=== PATIENT | male | born 1955 | race Caucasian/White ===

== ENCOUNTER 2019-08-12 10:28 | Outpatient (CLI) | payer BC, MEDICAID, SELFPAY ==
--- NOTE | 2019-08-12 11:00 | XR_ITS ---
WS: [id number] THORACIC SPINE TECHNIQUE: AP and lateral views are performed. HISTORY: Low back pain COMPARISON: 02/28/2016 Osteopenia. Mild RIGHT convex curvature of the thoracic spine. Endplate osteophytes and disc space na rrowing throughout. Pedicles are all identified. No fractures. XR/XR thoracic spine 3V* [id number] IMPRESSION: Moderate spondylitic changes throughout the thoracic spine. No destructive bone process. Mild progression of disease since 02/28/2016.
--- NOTE | 2019-08-12 11:30 | XR_ITS ---
WS: [id number] LATERAL LUMBAR SPINE: 3 view. Lateral radiographs are performed in upright neutral, flexion and extension to the patient's toleranc e. HISTORY: Low back pain. COMPARISON: 01/24/2019 Slight increase in lumbar lordosis with severe degenerative disc disease throughout the lumbar spine. Disc space narrowing with osteophytes and osteopenia. Mild anterior wedging of L2. Similar to the pr ior study. No progression or new fracture. L5 anterolisthesis by 7.5 mm on neutral. 6 mm on flexion a nd extension. Probably not significantly changed or unstable. Advanced facet joint arthritis at L5-S1 . XR/XR lumbar spine f/e only 28110 IMPRESSION: 1. Osteopenia with advanced spondylitic changes of the lumbar spine. 2. Grade 1 anterolisthesis of L5 is similar to prior studies. Probably no inst ability.
== END 2019-08-12 10:29 | disposition home or self-care (01) ==
LOC: RADWPI 10:40
PROVIDERS: Family Provider Internal Medicine; PCP Internal Medicine; Visit Provider Licensed Practical Nurse
DX: M54.5 Low back pain (principal); M85.88 Other specified disorders of bone density and structure, other site
CPT/HCPCS: 72072; 72120

== ENCOUNTER 2019-09-08 18:36 | Observation (INO) | payer MEDICARE, MEDICAID, SELFPAY ==
[2019-09-05 16:40] VITALS: BMI 59.8
[2019-09-08] VITALS (8 sets, daily range): BP systolic 128–157; BP diastolic 73–95; PULSE 85–90; RESP 15–20; TEMP 36.2–36.8; O2SAT 85–97
--- NOTE | 2019-09-08 12:21 | ANES.PREANE2 ---
Pre-Anesthetic Assessment Pre-Anesthetic Assessment: Height/Weight: Height 1.6 m Weight 153.314 kg Temp Pulse Resp BP Pulse Ox 97.3 F L 85 18 157/95 95 09/08/19 12:11 09/08/19 12:11 09/08/19 12:11 09/08/19 12:11 09/08/19 12:11 Preop Diagnosis: Intervertebral disc disorder with myelopathy, mid cervical region Proposed Procedure: Operation Date: 09/08/19 12:25 Proposed Procedures p Anterior Cervical Discecotmy&Fusion 2Lev 21756 cervical disc disorder with myelopathy of mid-cervical region M50.020(Not Applicable) - Alfonso Jensen MD Familial anesthetic complications: None Was Beta Jose taken within 24 hours: Yes Last intake: Intake Last Liquid Date 09/07/19 Last Liquid Time 22:00 Last Solid Date 09/07/19 Last Solid Time 22:00 Social: Social History: No alcohol and No tobacco Exam: Pre-Anes Outpt Exam: alert, oriented x 3, clear to auscultation bilaterally and regular rate & rhythm Airway: Cervical ROM: WNL MP: 4 Additional comments: edentulous Pulmonary: Pulmonary: COPD and Sleep apnea (CPAP) CV/HEM: CV/HEM: CAD, CHF (2x) and HTN : : Chronic renal Insufficiency Comments: CKD 3 Hepatic: Hepatic: None reported GI: GI: None reported Metabolic: Metabolic: DM and Morbid obesity Musc/skel: Musc/skel: Lower Back Pain and None reported Neuropsych: Neuropsych: None reported Anesthetic Plan: ASA status: 3 Anesthesia: General Risk of > 500 ml blood loss (7ml/kg in children): No PFSH Anesthesia PFSH: Social History Smoking and tobacco status: never smoked Alcohol intake: current Household members: none Marital status: Single Current occupational status: disabled History of recent travel: No Data Anesthesia Cardiac Studies: No Data to Display
[2019-09-08] MEDS: pregabalin 150 mg Capsule 300 MG PO (12:24)
[2019-09-08] MEDS: sodium chloride 0.9% 1,000 ML 30 ML IV (12:40)
[2019-09-08 12:42] LABS: Glucose Point of Care 82 mg/dL (70-110)
--- NOTE | 2019-09-08 14:29 | W.PM.OPSUD ---
Surgery/Procedure H&P Update DATE OF PROCEDURE: September 08, 2019 DATE H&P PERFORMED: 09/05/19 H&P UPDATE INFORMATION: I have reviewed H&P completed within last 30 days and H&P to be scanned into chart PREOP DIAGNOSIS: Intervertebral disc disorder with myelopathy, mid cervical region PRIMARY INDICATION FOR PROCEDURE: Pain PLANNED PROCEDURE: Operation Date: 09/08/19 12:25 Proposed Procedures: Anterior Cervical Discectomy/Fusion/Fixation, C5-C6 M50.020(Not Applicable) - Alfonso Jensen MD
--- NOTE | 2019-09-08 14:53 | PM.OP2 ---
 Brief Operative Note: Date of procedure: 09/08/19 Pre-op diagnosis: Intervertebral disc disorder with myelopathy, midcervical Post-op diagnosis: same (with instability of joint) Procedure Done: C5-C6 ACDFF Surgeon: Alfonso Jensen Estimated blood loss (mL): 50 Complications: None Post-op Plan: PACU, then can Condition: stable Disposition: PACU Coding Level of Care Code Acute Airplane And Engine Inspector for Sonny Treviño
--- NOTE | 2019-09-08 15:04 | XR_ITS ---
WS: [id number] XR cervical spine 1Vport [id number] REASON FOR EXAM: SURGERY FINDINGS: A pointer is seen at the level of the C4-C5 level. Endotracheal tube is noted in good posit ion. The pointer appears to be above the level of narrowing of the disc space C5-C6. XR/XR cervical spine 1Vport 24209 IMPRESSION: Pointer markers seen at the level of the C4-C5 level
[2019-09-08] MEDS: thrombin 5,000 unit SDV 5000 UNIT XX (15:33)
--- NOTE | 2019-09-08 15:58 | XR_ITS ---
WS: [id number] XR cervical spine 1Vport 20155 REASON FOR EXAM: SURGERY FINDINGS: Interoperative localization at C5-C6 is noted the probe is seen in the anterior aspects of the disc space. The endotracheal tube is seen in good position. XR/XR cervical spine 1Vport [id number] IMPRESSION: Interoperative localization anteriorly's C5-C6.
--- NOTE | 2019-09-08 18:21 | XR_ITS ---
WS: [id number] XR cervical spine 3V* [id number] REASON FOR EXAM: AP/LAT Post op Fusion FINDINGS: Postop AP lateral of the cervical spine. Anterior fusion is seen C5-C6 with intraspinal fus ion satisfactory position. No soft tissue abnormalities are noted. XR/XR cervical spine 3V* [id number] IMPRESSION: Satisfactory fused C5-C6 anteriorly. Intraspinal fusion also noted.
--- NOTE | 2019-09-08 18:30 | PM.OP ---
Operative Report Date of procedure: September 08, 2019 Pre-op Diagnosis: Intervertebral disc disorder with myelopathy, mid cervical region Post-op diagnosis: same (With instability of joint) Procedure Done: C5-C6 anterior cervical discectomy with osteophytectomy. C5-C6 anterior plate/screw fixation. C5-C6 placement of intervertebral prosthetic device. C5-C6 anterior fusion utilizing morselized autograft obtained from the osteophytectomy portion of the procedure. Implants: Depuy Synthes Vectra plate/screw system. ACIS ProTi Spacers. Specimens removed/disposition: C5-C6 disc Pathology: Disc fragments Surgeon: Alfonso Jensen Anesthesia: General Estimated blood loss (mL): 50 IV fluids (mL): 1,200 Urine output (mL): 400 Complications: None. Condition: stable Disposition: PACU Brief History: The patient is a 63-year-old morbidly obese male with symptomatic, radiographically confirmed cervical disc/joint disease and associated neural impingement. Imaging studies demonstrated dominant abnormalities at C5-C6. Conservative treatment measures had not provided adequate lasting symptom relief. After review of the diagnostic and treatment options with the risks/potential benefits/rationale for each, the patient requested to proceed with surgical decompression/fusion/fixation at the C5-C6 level. Procedure: After routine preoperative evaluation and informed consent were obtained, the patient was taken to the Operating Room and positioned supine on the operating table. He was placed under general endotracheal anesthesia by Anesthesia personnel. He was fit in the [place] tongs for the application of in-line cervical traction. The anterolateral neck on the left was prepared with hair clippers, and a proposed transverse skin incision was marked with a sterile skin marker. Regional anatomy and intraoperative radiography were utilized for localization purposes. The area was scrubbed with Betadine and prepped with DuraPrep. Sterile towels and drapes were applied, and an [place] surgical barrier was placed. The proposed incision site was infiltrated with 1% Xylocaine with Epinephrine. A skin incision was made and carried down into the subcutaneous tissues. The platysma was identified and divided in the direction of its fibers. A plane was dissected just medial to the carotid sheath and lateral to the midline esophagus and trachea. The prevertebral soft tissues were bluntly dissected free of the anterior margin of the cervical spine. Longus coli muscles were freed from their medial attachments, and deep self-retaining retractors were placed. Intraoperative radiography verified the desired surgical level. The C5-C6 interspace was then incised with a #11 blade. Discectomy was accomplished utilizing various curettes and pituitary rongeurs. Anterior marginal osteophytes were resected with Lempert and Kerrison rongeurs. Cartilaginous endplates were stripped free with curettes. Posterior marginal osteophytes were resected with the thin-foot plate [place] rongeurs. The medial aspects of the neural foramina were enlarged in a similar manner. Posterior longitudinal ligament was divided and resected as necessary to further the decompression. The Videostir high-speed drill with marva lele was utilized to complete the osteophytectomy and endplate preparation. At the completion of the decompression, no residual central canal or neural foraminal impingement was identified upon probing with the right angle nerve hook. Decompression was felt to be adequate, and the disc space was sized. An 8 mm ACIS ProTi lordotic/medium Spacer was chosen. The Spacer was packed with morselized autograft obtained from the osteophytectomy portions of the procedure. The Spacer was placed within the C5-C6 interspace while in-line cervical traction was applied via the [place] tongs. Spacer placement was facilitated by use of the mallet and impaction tools. Once the Spacer was in good position, a Synthes Vectra plate of the desired size was chosen. The plate was secured to the C5 and C6 vertebral bodies with bilateral 4 mm x 14 mm self-drilling screws. Final screw tightening was performed, and the screws were noted to engage the locking mechanisms within the plate at each site. The construct was inspected and found to be in good position and secure. The wound was copiously irrigated with sterile saline and antibiotic irrigation. Hemostasis was ensured with the bipolar electrocautery. Wound closure was performed in multiple layers with 2-0 Vicryl Plus simple interrupted closure of the platysma and deep dermis as separate layers. Final skin closure was performed with 4-0 Vicryl Plus in a running subcuticular pattern. Steri-Strips were applied, and a sterile dressing was placed. The patient was released from the [place] tongs and fit in a [employer] collar. He was extubated without incident. He was transferred onto the Recovery Room cart in the supine position. The patient tolerated the procedure well. All sponge, needle, and instrument counts were correct at the completion of the procedure.
[2019-09-08] MEDS: lactated ringers 1,000 ML 90 ML IV (19:43)
[2019-09-08] MEDS: levofloxacin-dextrose 5 % 750 MG/150 ML PREMIX 100 MG IV (19:44)
--- NOTE | 2019-09-08 20:20 | PM.PN ---
Subjective Subjective: Interval history: Reports tingling in fingers. Some incisional pain. Vitals/I&O/Wt Last Vital Signs Temp 97.7 F 09/08/19 18:45 Pulse 88 09/08/19 18:45 Resp 18 09/08/19 18:45 BP 128/75 09/08/19 18:45 Pulse Ox 92 09/08/19 18:45 09/08/19 09/08/19 09/08/19 06:59 14:59 22:59 Intake Total 453 / 453 Output Total 450 / 450 Balance 3 / 3 Physical Exam Const: COMMON NORMALS: no acute distress GENERAL APPEARANCE: cooperative and comfortable NUTRITIONAL APPEARANCE: obese Neck/C-Spine: COMMON NORMALS: supple GENERAL: Yes trachea midline and No anterior neck swelling CERVICAL SPINE: Yes collar present Resp: COMMON NORMALS: normal respiratory effort EFFORT & INSPECTION: Yes able to speak in complete sentences, No tachypneic and No respiratory distress Extremity: COMMON NORMALS: no clubbing, cyanosis or edema Neuro: COMMON NORMALS: moves all extremities MOTOR EXAM: 5/5 motor strength present throughout (bilateral upper extremities.) Psych: COMMON NORMALS: mental status grossly normal and speech normal ATTITUDE: Yes calm and Yes engaged ACTIVITY/MOTOR BEHAVIOR: Yes appropriate eye contact SPEECH: Yes normal speech MOOD & AFFECT: Yes euthymic mood INSIGHT: Good insight present (Psych) JUDGEMENT: Good judgement present (Psych) Skin: WOUNDS: Yes surgical site (left anterolateral surgical site dressing changed at bedside.) Details: other (no erythema or active drainage) Urinary Catheter Management^: F: Cath Placed During This Visit: yes Urinary Catheter Date of Insertion: 09/08/19 Urinary Catheter Time of Insertion: 15:00 Data Other Xray: My impression: Postop changes of recent C5-C6 ACDFF. No noted complication. A&P Assessment and plan (1) Cervical disc disorder with myelopathy of mid-cervical region: Doing well after C5-C6 ACDFF performed this afternoon. He has not yet been up OOB or eaten. Plan completion of IV antibiotic dose this PM, observation overnight, and probable discharge home in AM. Discussed with patient's daughter by phone. Status: Chronic (2) Morbid obesity with BMI of 40.0-44.9, adult: Status: Chronic Attestations Medical Necessity Statement*: Appropriate for in-hospital management after cervical spine fusion surgery earlier today. Coding Level of Care Code Acute Sammying Machine Operator for [facility] Fwd Exam Detailed Diagnoses Cervical disc disorder with myelopathy of mid-cervical region M50.020 Morbid obesity with BMI of 40.0-44.9, adult E66.01; Z68.41
[2019-09-08] MEDS: carvedilol 25 mg Tablet PO (20:58)
[2019-09-08] MEDS: HYDROcodone-acetaminophen 5-325 mg Tablet PO (20:58)
[2019-09-08 22:21] LABS: Glucose Point of Care 235 mg/dL (70-110)
[2019-09-09] VITALS (8 sets, daily range): BP systolic 120–153; BP diastolic 73–99; PULSE 86–106; RESP 18–24; TEMP 36.6–37.1; O2SAT 91–95
[2019-09-09] MEDS: ketorolac 30 mg/mL INJ 15 MG IVP (01:21)
[2019-09-09 07:18] LABS: Glucose Point of Care 239 mg/dL (70-110)
[2019-09-09] MEDS: albuterol 8 gm MDI 2 PUFF INHALATION (08:13)
[2019-09-09] MEDS: carvedilol 25 mg Tablet PO (08:18)
[2019-09-09] MEDS: atorvastatin 40 mg Tablet PO (08:18)
[2019-09-09] MEDS: cetirizine 10 mg Tablet PO (08:19)
[2019-09-09] MEDS: ascorbic acid 500 mg Tablet PO (08:19)
[2019-09-09] MEDS: spironolactone 25 mg Tablet PO (08:19)
[2019-09-09] MEDS: TORSEmide 20 mg Tablet PO (08:19)
[2019-09-09] MEDS: docusate sodium 100 mg Capsule PO (08:20)
[2019-09-09] MEDS: tamsulosin 0.4 mg Capsule PO (08:20)
[2019-09-09] MEDS: gemfibrozil 600 mg Tablet PO (08:20)
[2019-09-09] MEDS: HYDROcodone-acetaminophen 5-325 mg Tablet PO (09:30)
[2019-09-09 11:20] LABS: Glucose Point of Care 326 mg/dL (70-110)
--- NOTE | 2019-09-09 11:25 | PC.CHAP ---
Pastoral Care Encounter/Spiritual Assessment Type of Contact [] Declined needle loom setter visit [] Patient/Family/Request visit [] Outpatient visit [] Follow-up visit [] Physician referral [] Code/Alert [x] Routine visit [] Staff referral [] Actively dying [] Patient sleeping [] Family support [] [] Out of room [] Palliative care [] [x] Receiving care in room [] Pre-surgical visit [] Trauma [] Long length of stay [] ICU visit [] Other: Relational/Emotional Strength [x] Patient feels connected with others/family/visitors/staff [] Distress [] Loneliness/isolation [] Abandonment Spirituality of Patient [x] Person of Abbey [] Attends Sabianism of their Abbey [x] Believes in Prayer [] Reads Bible or Church materials [] There are Spiritual issues to be addressed Tire Manager Interventions [x] Prayer [x] Active listening [x] Non-anxious presence [x] Spiritual/emotional support [] Crisis/trauma care [x] Spiritual counseling [] Bereavement support [] Provided bereavement packet [] Provided Bible/devotional materials [] Provided toy/stuffed animal, coloring book to patient or family member [] Provided Communion [] Anointing/[place] [] Salvation [x] Completed spiritual assessment [] Other: Impact on Illness or Injury [] Angry [] Fearful [] Anxious [] Often cries [] Exhaustion [x] Unable to work [] Unable to attend druze [] Unable to walk/stand [] Unable to read [x] Unable to drive [] Unable to eat/drink [] Unable to sleep [] Unable to be with family [] Patient intubated [] Other: Summary Has Cancer is dealing with swelling in leggs, is able to take of his self, has a good attitude, terminologist recovery time and care Time spent with patient 10 mins
--- NOTE | 2019-09-09 11:30 | PM.DCS ---
Discharge Providers Date of Admission: 09/08/19 18:36 Date of Discharge: September 09, 2019 Attending Provider at Admission: Alfonso Jensen MD Attending Provider at Discharge: Alfonso Jensen MD Primary Care Provider: Bren Allen Diagnoses at Discharge Discharge Diagnosis (1) Cervical disc disorder with myelopathy of mid-cervical region: Status: Chronic (2) Morbid obesity with BMI of 40.0-44.9, adult: Status: Chronic Reason for Visit Reason for Visit: Reason For Visit: cervical disc disorder with myelopathy of mid-cerv Brief History: The patient is a 63-year-old morbidly obese male with symptomatic, radiographically confirmed cervical disc/joint disease and associated neural impingement. Imaging studies demonstrated dominant abnormalities at C5-C6. Conservative treatment measures had not provided adequate lasting symptom relief. After review of the diagnostic and treatment options with the risks/potential benefits/rationale for each, the patient requested to proceed with surgical decompression/fusion/fixation at the C5-C6 level. Hospital Course Discharge Summary: The patient underwent C5-C6 ACDFF on 09/08/2019. He tolerated the procedure well. He completed perioperative IV antibiotics, and the Physical Therapy postop spine protocol. He was ambulatory, voiding and tolerating a diabetic diet prior to discharge home on POD#1. Physical Exam Narrative: EXAM NARRATIVE: COMMON NORMALS: no acute distress GENERAL APPEARANCE: cooperative and comfortable NUTRITIONAL APPEARANCE: obese Neck/C-Spine COMMON NORMALS: supple GENERAL: Yes trachea midline and No anterior neck swelling CERVICAL SPINE: Yes collar present Resp COMMON NORMALS: normal respiratory effort EFFORT & INSPECTION: Yes able to speak in complete sentences, No tachypneic and No respiratory distress Extremity COMMON NORMALS: no clubbing, cyanosis or edema Neuro COMMON NORMALS: moves all extremities MOTOR EXAM: 5/5 motor strength present throughout (bilateral upper extremities.) Psych COMMON NORMALS: mental status grossly normal and speech normal ATTITUDE: Yes calm and Yes engaged ACTIVITY/MOTOR BEHAVIOR: Yes appropriate eye contact SPEECH: Yes normal speech MOOD & AFFECT: Yes euthymic mood INSIGHT: Good insight present (Psych) JUDGEMENT: Good judgement present (Psych) Skin WOUNDS:Left anterolateral surgical site is without erythema or active drainage. Dressing is clean/dry/intact. Urinary Catheter Management^: F: Cath Placed During This Visit: yes Urinary Catheter Date of Insertion: 09/08/19 Urinary Catheter Time of Insertion: 15:00 Discharge Data Data Completed and Pending: Completed Studies During Hospitalization Category Date Time Status XR cervical spine 1 view portable [ XR cervical spine Exams 09/08/19 15:04 Completed 1Vport [id number]] Rou mel[place] XR cervical spine 1 view portable [ XR cervical spine Exams 09/08/19 15:58 Completed 1Vport [id number]] Rou mel[place] XR cervical spine 3V* [id number] Routine Exams 09/08/19 18:21 Completed Pathology: Surgic al [PTH] Routine Pth 09/09/19 10:34 Completed Imaging^: Other Xray: Radiologist's impression: Satisfactory fused C5-C6 anteriorly. Intraspinal fusion also noted. Vitals: Last Vital Signs Temp 98.6 F 09/09/19 13:02 Pulse 86 09/09/19 13:02 Resp 18 09/09/19 13:02 BP 120/73 09/09/19 13:02 Pulse Ox 93 09/09/19 13:02 Discharge Plan Discharge Patient Disposition: Home, Self-Care Condition: Stable Prescriptions: Continued loteprednol etabonate [Lotemax] 0.5 % drops,suspension 2 drop ophthalmic (eye) BID RF: 0 tramadol 50 mg tablet 100 mg PO Q4H PRN (Reason: Pain) RF: 0 hydrocodone-acetaminophen [Abrams] 5-325 mg tablet 1 tab PO TID PRN (Reason: Pain) RF: 0 acetaminophen 500 mg capsule 500 mg PO Q4H PRN (Reason: Pain) RF: 0 nitroglycerin [Nitrostat] 0.4 mg tablet, sublingual 0.4 mg SUBLINGUAL Q5M PRN (Reason: Chest Pain) RF: 0 cetirizine 10 mg capsule 10 mg PO DAILY RF: 0 gemfibrozil 600 mg tablet 600 mg PO BID RF: 0 tamsulosin [Flomax] 0.4 mg capsule 0.4 mg PO DAILY RF: 0 atorvastatin 40 mg tablet 40 mg PO DAILY RF: 0 spironolactone 25 mg tablet 25 mg PO DAILY RF: 0 Lotemax 0.5 % drops,gel 1 drop ophthalmic (eye) QID RF: 0 fluticasone furoate 100 mcg/actuation blister with device 1 inh INHALATION DAILY RF: 0 potassium chloride 20 mEq tablet extended release 20 meq PO DAILY RF: 0 albuterol sulfate 90 mcg/actuation aerosol powdr breath activated 2 inh INHALATION Q4H MDD . PRN (Reason: COPD) RF: 0 ascorbate calcium (vitamin C) 500 mg tablet 500 mg PO DAILY RF: 0 carvedilol 25 mg tablet 25 mg PO TID RF: 0 torsemide 20 mg tablet 20 mg PO BID RF: 0 insulin regular human 100 unit/mL (3 mL) Insulin Pen See Rx Instructions .ROUTE .COMPLEX RF: 0 Victoza 3-Sandeep 0.6 mg/0.1 mL (18 mg/3 mL) Pen Injector 1.8 mg SUBCUT Q24H RF: 0 (DME) insulin U-500 syringe-needle 1/2 mL 31 gauge x 15/64 Syringe MISCELLANEOUS RF: 0 Held aspirin 81 mg tablet,delayed release (DR/EC) 81 mg PO DAILY RF: 0 Hold Instructions: Resume on 09/10/19. Discharge Orders: Discharge Order (Routine); Ordered 09/09/19 Ordered By: Alfonso Jensen Referrals: Alfonso Jensen MD [Physician] - 2 weeks (Dr. Jensen's office will call you with your appointment) Discharge Diet: Advance as tolerated and Diabetic Discharge Activity: Limit activity as instructed and As per PT/OT instructions Patient Instructions: Anterior Cervical Discectomy (DC), Weight Management (DC), Obesity (DC), Degenerative Disc Disease (DC) Activity Restrictions/Additional Instructions: Activity -Cervical fusion: Wear cervical collar 24 hours a day. Change as necessary for showering, shaving, or if it becomes soiled. -No lifting or reaching overhead. - No driving until office followup visit - No lifting/pushing/pulling over 10 pounds - Avoid twisting or bending - Walking is encouraged - Home exercise per physical therapist - You may engage in sexual intercourse at any time as long as it is comfortable for you - Check with your doctor before returning to work. Notify your doctor if you develop: - temperature of 101.5 degrees F. or higher - redness or swelling of the incision - Foul drainage - increasing pain - increasing numbness or tingling in the arms or legs - New or increasing problems with vision, balance, memory, speaking, nausea or vomiting Hygiene: - Showering is okay - No tub baths or soaking Other: Remove outer bandage 3 days after surgery. If you have paper strips, leave in place until they fall off on their own. If you have stitches, keep your incision dry until the stitches are removed. Your doctor's office is available to answer any questions from 7 AM to 5:00 PM, Sunday through at [phone]. After hours, go to the emergency room at [facility] or call 911 for assistance. Discharge Date/Time: 09/09/19 13:02 Discharge Attestations Time Spent in Discharge Care*: other (postop global) Quality Metrics Clinical Quality Measures During this hospital stay, did patient experience: None Coding Level of Care Code Acute Heat Seal Operator for Chg Fwd Diagnoses Cervical disc disorder with myelopathy of mid-cervical region M50.020 Morbid obesity with BMI of 40.0-44.9, adult E66.01; Z68.41 Comment postop global
== END 2019-09-09 13:02 | disposition home or self-care (01) ==
LOC: MEDSURG 18:36
PROVIDERS: Admitting Provider Specialist; Family Provider Internal Medicine; PCP Internal Medicine; Visit Provider Specialist
PROC: 0RB30ZZ Excision of Cervical Vertebral Disc, Open Approach (ICD-10-PCS; CPT 22551; principal; 2019-09-08 12:25)
DX: M50.022 Cervical disc disorder at C5-C6 level with myelopathy (principal); E66.01 Morbid (severe) obesity due to excess calories; Z68.43 Body mass index [BMI] 50.0-59.9, adult; J44.9 Chronic obstructive pulmonary disease, unspecified; G47.30 Sleep apnea, unspecified; I25.10 Atherosclerotic heart disease of native coronary artery without angina pectoris
CPT/HCPCS: 22551; 22853; 12345; 36416; 51702; 72020; 72040; 82962; 88304; 94640; 96365; 96372; 96375; 97110; 97161; 97760; C1713; G0378; J0330; J1100; J1815; J1885; J1956; J2001; J2405; J2704; J3010; J3370; J3490; J3535; J7030; J7050; L0172; L0174

== ENCOUNTER 2019-09-22 12:56 | Outpatient (CLI) | payer MEDICARE, MEDICAID, SELFPAY ==
--- NOTE | 2019-09-22 13:03 | XR_ITS ---
WS: [id number] Cervical spine, AP and lateral, 09/22/2019 Clinical Data: s/p cervical spinal fusion Comparison: Cervical spine, 09/08/2019 Findings: The anterior cervical disc fusion at C5 and C6 remains intact. There is an artificial disc spacer at C5-C6. There is calcification in the right side of the neck which may represent minimal car otid artery calcification. XR/XR cervical spine 3V* [id number] Impression: No change in C5-C6 anterior cervical disc fusion.
== END 2019-09-22 12:57 | disposition home or self-care (01) ==
LOC: RADWPI 13:01
PROVIDERS: Family Provider Internal Medicine; PCP Internal Medicine; Visit Provider Specialist
DX: Z98.1 Arthrodesis status (principal); M43.22 Fusion of spine, cervical region
CPT/HCPCS: 72040

== ENCOUNTER 2019-10-22 09:21 | Outpatient (CLI) | payer MEDICARE, MEDICAID, SELFPAY ==
--- NOTE | 2019-10-22 09:57 | XR_ITS ---
WS: [id number] XR cervical spine 3V* [id number] REASON FOR EXAM: S/P CERVICAL SPINE FUSION FINDINGS: Anterior fusion changes are noted C5-C6 with intraspinal fusion. The cervical thoracic junc tion appears to be normal. There is degenerate changes in the joints of [place]. XR/XR cervical spine 3V* [id number] IMPRESSION: Stable anterior fusion C5-C6 with intraspinal fusion.
== END 2019-10-22 09:22 | disposition home or self-care (01) ==
LOC: RADWPI 09:25
PROVIDERS: Family Provider Internal Medicine; PCP Internal Medicine; Visit Provider Licensed Practical Nurse
DX: Z98.1 Arthrodesis status (principal); M43.22 Fusion of spine, cervical region
CPT/HCPCS: 72040

== ENCOUNTER 2019-11-04 14:20 | Outpatient (CLI) | payer MEDICARE, MEDICAID, SELFPAY ==
--- NOTE | 2019-11-04 14:33 | CT_ITS ---
WS: [id number] CT CERVICAL SPINE HISTORY: S/P SPINAL FUSION TECHNIQUE: Contiguous 2.5 mm axial imaging performed through the entire cervical spine. Sagittal and coronal reformats also performed. All CT scans at [facility] use at least one of these do se optimization techniques: automated exposure control; mA and/or kV adjustment per patient size (inc ludes targeted exams where dose is matched to clinical indication); or iterative reconstruction. DLP: 2567.77 mGycm COMPARISON: MRI 06/19/2019. Prior radiographs 10/22/2019 Since the prior MRI examination anterior cervical fusion at C5-6 has been placed with interbody space r. Straightening of the normal cervical lordosis. There is mild disc space narrowing at C4-5 and C6-7 . No fractures. Craniocervical junction is normal. C2-C3: Diffuse osteophytic ridging with mild LEFT foraminal narrowing. C3-C4: Diffuse asymmetric osteophytic ridging greatest to the LEFT. Mild LEFT foraminal stenosis. C4-C5: Mild osteophytic ridging without significant stenosis. C5-C6: Diffuse osteophytic ridging with moderate to severe bilateral foraminal stenosis, RIGHT greate r than LEFT. C6-C7: Asymmetric osteophytic ridging, greatest to the LEFT with moderate to severe LEFT foraminal st enosis. C7-T1: Mild RIGHT foraminal stenosis. Scattered calcifications in the carotid artery. CT/CT cervical spin wo con* [id number] IMPRESSION: 1. Status post anterior cervical fusion with interbody spacer at C5-6. No comp lications. 2. Multilevel foraminal stenosis as above. Most significant at C5-6 and C6-7.
== END 2019-11-04 14:21 | disposition home or self-care (01) ==
LOC: RADWPI 14:24
PROVIDERS: Family Provider Internal Medicine; PCP Internal Medicine; Visit Provider Licensed Practical Nurse
DX: Z98.0 Intestinal bypass and anastomosis status (principal); M48.02 Spinal stenosis, cervical region
CPT/HCPCS: 72125

== ENCOUNTER → 2022-03-01 09:24 | Outpatient (BNVA) | payer MEDICARE, MEDICAID, SELFPAY | PROVIDERS: Family Provider Internal Medicine; PCP Internal Medicine; Visit Provider Thoracic Surgery (Cardiothoracic Vascular Surgery) | DX: I96 Gangrene, not elsewhere classified (principal); E11.621 Type 2 diabetes mellitus with foot ulcer; L97.512 Non-pressure chronic ulcer of other part of right foot with fat layer exposed | CPT/HCPCS: 97597; 99213 ==

== ENCOUNTER → 2022-03-08 09:19 | Outpatient (BNVA) | payer MEDICARE, MEDICAID, SELFPAY | PROVIDERS: Family Provider Internal Medicine; PCP Internal Medicine; Visit Provider Thoracic Surgery (Cardiothoracic Vascular Surgery) | DX: I96 Gangrene, not elsewhere classified (principal); E11.621 Type 2 diabetes mellitus with foot ulcer; L97.512 Non-pressure chronic ulcer of other part of right foot with fat layer exposed | CPT/HCPCS: 97597 ==

== ENCOUNTER → 2022-03-16 13:16 | Outpatient (BNVA) | payer MEDICARE, MEDICAID, SELFPAY | PROVIDERS: Family Provider Internal Medicine; PCP Internal Medicine; Visit Provider Nurse Practitioner Family | DX: I96 Gangrene, not elsewhere classified (principal); E11.621 Type 2 diabetes mellitus with foot ulcer; L97.512 Non-pressure chronic ulcer of other part of right foot with fat layer exposed | CPT/HCPCS: 11042 ==

== ENCOUNTER → 2022-03-22 13:24 | Outpatient (BNVA) | payer MEDICARE, MEDICAID, SELFPAY | PROVIDERS: Family Provider Internal Medicine; PCP Internal Medicine; Visit Provider Nurse Practitioner Family | DX: I96 Gangrene, not elsewhere classified (principal); E11.621 Type 2 diabetes mellitus with foot ulcer; L97.512 Non-pressure chronic ulcer of other part of right foot with fat layer exposed | CPT/HCPCS: 99213 ==

== ENCOUNTER → 2023-08-22 13:11 | Outpatient (BNVA) | payer MEDICARE, MEDICAID, SELFPAY | PROVIDERS: Family Provider Internal Medicine; PCP Internal Medicine; Visit Provider Thoracic Surgery (Cardiothoracic Vascular Surgery) | DX: S81.811A Laceration without foreign body, right lower leg, initial encounter (principal); S91.111A Laceration without foreign body of right great toe without damage to nail, initial encounter; S91.114A Laceration without foreign body of right lesser toe(s) without damage to nail, initial encounter; S81.812A Laceration without foreign body, left lower leg, initial encounter; L08.9 Local infection of the skin and subcutaneous tissue, unspecified; S91.312A Laceration without foreign body, left foot, initial encounter; V49.9XXA Car occupant (driver) (passenger) injured in unspecified traffic accident, initial encounter | CPT/HCPCS: 11042; 11045; 97597; 97598; 99213 ==

== ENCOUNTER → 2023-08-29 15:04 | Outpatient (BNVA) | payer MEDICARE, MEDICAID, SELFPAY | PROVIDERS: Family Provider Internal Medicine; PCP Internal Medicine; Visit Provider Thoracic Surgery (Cardiothoracic Vascular Surgery) | DX: L97.822 Non-pressure chronic ulcer of other part of left lower leg with fat layer exposed (principal); L97.422 Non-pressure chronic ulcer of left heel and midfoot with fat layer exposed; L97.811 Non-pressure chronic ulcer of other part of right lower leg limited to breakdown of skin; E11.52 Type 2 diabetes mellitus with diabetic peripheral angiopathy with gangrene; E11.622 Type 2 diabetes mellitus with other skin ulcer; L97.511 Non-pressure chronic ulcer of other part of right foot limited to breakdown of skin | CPT/HCPCS: 11042; 97597; 97598 ==

== ENCOUNTER → 2023-09-05 14:26 | Outpatient (BNVA) | payer MEDICARE, SELFPAY | PROVIDERS: Family Provider Internal Medicine; PCP Internal Medicine; Visit Provider Thoracic Surgery (Cardiothoracic Vascular Surgery) | DX: I96 Gangrene, not elsewhere classified (principal); L97.821 Non-pressure chronic ulcer of other part of left lower leg limited to breakdown of skin; L97.421 Non-pressure chronic ulcer of left heel and midfoot limited to breakdown of skin; L97.811 Non-pressure chronic ulcer of other part of right lower leg limited to breakdown of skin; E11.52 Type 2 diabetes mellitus with diabetic peripheral angiopathy with gangrene; E11.621 Type 2 diabetes mellitus with foot ulcer; L97.511 Non-pressure chronic ulcer of other part of right foot limited to breakdown of skin | CPT/HCPCS: 97597; 97598; A6197; A6253 ==

== ENCOUNTER → 2023-09-12 14:48 | Outpatient (BNVA) | payer MEDICARE, MEDICAID, SELFPAY | PROVIDERS: Family Provider Internal Medicine; PCP Internal Medicine; Visit Provider Thoracic Surgery (Cardiothoracic Vascular Surgery) | DX: I96 Gangrene, not elsewhere classified (principal); L97.812 Non-pressure chronic ulcer of other part of right lower leg with fat layer exposed; L97.821 Non-pressure chronic ulcer of other part of left lower leg limited to breakdown of skin; E11.52 Type 2 diabetes mellitus with diabetic peripheral angiopathy with gangrene; E11.621 Type 2 diabetes mellitus with foot ulcer; L97.511 Non-pressure chronic ulcer of other part of right foot limited to breakdown of skin | CPT/HCPCS: 11042; 11045; 97597; 97598; A6197; A6253 ==

== ENCOUNTER → 2023-09-19 14:23 | Outpatient (BNVA) | payer MEDICARE, MEDICAID, SELFPAY | PROVIDERS: Family Provider Internal Medicine; PCP Internal Medicine; Visit Provider Thoracic Surgery (Cardiothoracic Vascular Surgery) | DX: I96 Gangrene, not elsewhere classified (principal); L97.821 Non-pressure chronic ulcer of other part of left lower leg limited to breakdown of skin; L97.811 Non-pressure chronic ulcer of other part of right lower leg limited to breakdown of skin; L97.511 Non-pressure chronic ulcer of other part of right foot limited to breakdown of skin | CPT/HCPCS: 97597; 97598; A6197; A6252 ==

== ENCOUNTER → 2023-09-26 14:52 | Outpatient (BNVA) | payer MEDICARE, MEDICAID, SELFPAY | PROVIDERS: Family Provider Internal Medicine; PCP Internal Medicine; Visit Provider Thoracic Surgery (Cardiothoracic Vascular Surgery) | DX: I96 Gangrene, not elsewhere classified (principal); L97.821 Non-pressure chronic ulcer of other part of left lower leg limited to breakdown of skin; L97.811 Non-pressure chronic ulcer of other part of right lower leg limited to breakdown of skin; E11.52 Type 2 diabetes mellitus with diabetic peripheral angiopathy with gangrene; E11.621 Type 2 diabetes mellitus with foot ulcer; L97.511 Non-pressure chronic ulcer of other part of right foot limited to breakdown of skin | CPT/HCPCS: 97597; 97598 ==

== ENCOUNTER → 2023-10-09 15:17 | Outpatient (BNVA) | payer MEDICARE, MEDICAID, SELFPAY | PROVIDERS: Family Provider Internal Medicine; PCP Internal Medicine; Visit Provider Thoracic Surgery (Cardiothoracic Vascular Surgery) | DX: L97.811 Non-pressure chronic ulcer of other part of right lower leg limited to breakdown of skin (principal); L97.821 Non-pressure chronic ulcer of other part of left lower leg limited to breakdown of skin; E11.52 Type 2 diabetes mellitus with diabetic peripheral angiopathy with gangrene; E11.621 Type 2 diabetes mellitus with foot ulcer; L97.511 Non-pressure chronic ulcer of other part of right foot limited to breakdown of skin | CPT/HCPCS: 97597; 97598; A6253 ==

== ENCOUNTER → 2023-10-16 14:15 | Outpatient (BNVA) | payer MEDICARE, MEDICAID, SELFPAY | PROVIDERS: Family Provider Internal Medicine; PCP Internal Medicine; Visit Provider Thoracic Surgery (Cardiothoracic Vascular Surgery) | DX: L97.812 Non-pressure chronic ulcer of other part of right lower leg with fat layer exposed (principal); L97.821 Non-pressure chronic ulcer of other part of left lower leg limited to breakdown of skin; E11.52 Type 2 diabetes mellitus with diabetic peripheral angiopathy with gangrene; E11.621 Type 2 diabetes mellitus with foot ulcer; L97.521 Non-pressure chronic ulcer of other part of left foot limited to breakdown of skin | CPT/HCPCS: 11042; 97597; 97598; A6253 ==

== ENCOUNTER → 2023-10-23 14:55 | Outpatient (BNVA) | payer MEDICARE, MEDICAID, SELFPAY | PROVIDERS: Family Provider Internal Medicine; PCP Internal Medicine; Visit Provider Thoracic Surgery (Cardiothoracic Vascular Surgery) | DX: L97.821 Non-pressure chronic ulcer of other part of left lower leg limited to breakdown of skin (principal); L97.911 Non-pressure chronic ulcer of unspecified part of right lower leg limited to breakdown of skin; E11.52 Type 2 diabetes mellitus with diabetic peripheral angiopathy with gangrene; E11.621 Type 2 diabetes mellitus with foot ulcer; L97.511 Non-pressure chronic ulcer of other part of right foot limited to breakdown of skin | CPT/HCPCS: 97597; 97598 ==

== ENCOUNTER → 2023-11-01 13:43 | Outpatient (BNVA) | payer MEDICARE, MEDICAID, SELFPAY | PROVIDERS: Family Provider Internal Medicine; PCP Internal Medicine; Visit Provider Thoracic Surgery (Cardiothoracic Vascular Surgery) | DX: I96 Gangrene, not elsewhere classified (principal); L97.821 Non-pressure chronic ulcer of other part of left lower leg limited to breakdown of skin; L97.811 Non-pressure chronic ulcer of other part of right lower leg limited to breakdown of skin; L97.511 Non-pressure chronic ulcer of other part of right foot limited to breakdown of skin; Z09 Encounter for follow-up examination after completed treatment for conditions other than malignant neoplasm | CPT/HCPCS: 97597; 97598; A6253 ==

== ENCOUNTER → 2023-11-15 13:16 | Outpatient (BNVA) | payer MEDICARE, MEDICAID, SELFPAY | PROVIDERS: Family Provider Internal Medicine; PCP Internal Medicine; Visit Provider Thoracic Surgery (Cardiothoracic Vascular Surgery) | DX: L97.821 Non-pressure chronic ulcer of other part of left lower leg limited to breakdown of skin (principal); L97.811 Non-pressure chronic ulcer of other part of right lower leg limited to breakdown of skin; E11.52 Type 2 diabetes mellitus with diabetic peripheral angiopathy with gangrene; E11.621 Type 2 diabetes mellitus with foot ulcer; L97.521 Non-pressure chronic ulcer of other part of left foot limited to breakdown of skin | CPT/HCPCS: 97597; 97598; A6197; A6253 ==

== ENCOUNTER → 2023-11-22 13:25 | Outpatient (BNVA) | payer MEDICARE, MEDICAID, SELFPAY | PROVIDERS: Family Provider Internal Medicine; PCP Internal Medicine; Visit Provider Thoracic Surgery (Cardiothoracic Vascular Surgery) | DX: I96 Gangrene, not elsewhere classified (principal); L97.821 Non-pressure chronic ulcer of other part of left lower leg limited to breakdown of skin; L97.811 Non-pressure chronic ulcer of other part of right lower leg limited to breakdown of skin | CPT/HCPCS: 97597; 97598; A6197; A6252; A6253 ==

== ENCOUNTER → 2023-11-29 14:50 | Outpatient (BNVA) | payer MEDICARE, MEDICAID, SELFPAY | PROVIDERS: Family Provider Internal Medicine; PCP Internal Medicine; Visit Provider Thoracic Surgery (Cardiothoracic Vascular Surgery) | DX: I96 Gangrene, not elsewhere classified (principal); L97.821 Non-pressure chronic ulcer of other part of left lower leg limited to breakdown of skin; L97.811 Non-pressure chronic ulcer of other part of right lower leg limited to breakdown of skin; E11.52 Type 2 diabetes mellitus with diabetic peripheral angiopathy with gangrene; E11.621 Type 2 diabetes mellitus with foot ulcer; L97.521 Non-pressure chronic ulcer of other part of left foot limited to breakdown of skin | CPT/HCPCS: 97597; 97598; A6197; A6252 ==

== ENCOUNTER → 2023-12-06 13:55 | Outpatient (BNVA) | payer MEDICARE, MEDICAID, SELFPAY | PROVIDERS: Family Provider Internal Medicine; PCP Internal Medicine; Visit Provider Thoracic Surgery (Cardiothoracic Vascular Surgery) | DX: I96 Gangrene, not elsewhere classified (principal); S81.812D Laceration without foreign body, left lower leg, subsequent encounter; S81.811D Laceration without foreign body, right lower leg, subsequent encounter; V49.50XD Passenger injured in collision with unspecified motor vehicles in traffic accident, subsequent encounter; E11.621 Type 2 diabetes mellitus with foot ulcer; L97.511 Non-pressure chronic ulcer of other part of right foot limited to breakdown of skin | CPT/HCPCS: 97597; 97598; A6197; A6251; A6253 ==

== ENCOUNTER → 2023-12-13 13:56 | Outpatient (BNVA) | payer MEDICARE, MEDICAID, SELFPAY | PROVIDERS: Family Provider Internal Medicine; PCP Internal Medicine; Visit Provider Thoracic Surgery (Cardiothoracic Vascular Surgery) | DX: E11.52 Type 2 diabetes mellitus with diabetic peripheral angiopathy with gangrene (principal); E11.622 Type 2 diabetes mellitus with other skin ulcer; L97.821 Non-pressure chronic ulcer of other part of left lower leg limited to breakdown of skin; L97.811 Non-pressure chronic ulcer of other part of right lower leg limited to breakdown of skin; E11.621 Type 2 diabetes mellitus with foot ulcer; L97.511 Non-pressure chronic ulcer of other part of right foot limited to breakdown of skin | CPT/HCPCS: 97597; 97598; A6197; A6252; A6253 ==

== ENCOUNTER → 2023-12-17 15:42 | Outpatient (BNVA) | payer MEDICARE, MEDICAID, SELFPAY | PROVIDERS: Family Provider Internal Medicine; PCP Internal Medicine; Visit Provider Thoracic Surgery (Cardiothoracic Vascular Surgery) | DX: I96 Gangrene, not elsewhere classified (principal); S81.812D Laceration without foreign body, left lower leg, subsequent encounter; S81.811D Laceration without foreign body, right lower leg, subsequent encounter; V59.5 Passenger in pick-up truck or van injured in collision with other and unspecified motor vehicles in traffic accident; E11.52 Type 2 diabetes mellitus with diabetic peripheral angiopathy with gangrene; E11.621 Type 2 diabetes mellitus with foot ulcer; L97.521 Non-pressure chronic ulcer of other part of left foot limited to breakdown of skin | CPT/HCPCS: 97597; 97598; A6197; A6252; A6253 ==

== ENCOUNTER → 2023-12-31 14:34 | Outpatient (BNVA) | payer MEDICARE, MEDICAID, SELFPAY | PROVIDERS: Family Provider Internal Medicine; PCP Internal Medicine; Visit Provider Thoracic Surgery (Cardiothoracic Vascular Surgery) | DX: E11.52 Type 2 diabetes mellitus with diabetic peripheral angiopathy with gangrene (principal); E11.621 Type 2 diabetes mellitus with foot ulcer; L97.521 Non-pressure chronic ulcer of other part of left foot limited to breakdown of skin; S81.811D Laceration without foreign body, right lower leg, subsequent encounter; S81.812D Laceration without foreign body, left lower leg, subsequent encounter; V59.5 Passenger in pick-up truck or van injured in collision with other and unspecified motor vehicles in traffic accident; S90.821D Blister (nonthermal), right foot, subsequent encounter; X58.XXXD Exposure to other specified factors, subsequent encounter | CPT/HCPCS: 97597; 97598; A6197; A6251; A6252; A6253 ==

== ENCOUNTER → 2024-01-15 13:00 | Outpatient (BNVA) | payer MEDICARE, MEDICAID, SELFPAY | PROVIDERS: Family Provider Internal Medicine; PCP Internal Medicine; Visit Provider Thoracic Surgery (Cardiothoracic Vascular Surgery) | DX: E11.52 Type 2 diabetes mellitus with diabetic peripheral angiopathy with gangrene (principal); E11.621 Type 2 diabetes mellitus with foot ulcer; L89.612 Pressure ulcer of right heel, stage 2; L97.511 Non-pressure chronic ulcer of other part of right foot limited to breakdown of skin; I87.2 Venous insufficiency (chronic) (peripheral); L97.821 Non-pressure chronic ulcer of other part of left lower leg limited to breakdown of skin; L97.811 Non-pressure chronic ulcer of other part of right lower leg limited to breakdown of skin | CPT/HCPCS: 97597; 97598; A6197; A6252 ==

== ENCOUNTER → 2024-01-22 10:58 | Outpatient (BNVA) | payer MEDICARE, MEDICAID, SELFPAY | PROVIDERS: Family Provider Internal Medicine; PCP Internal Medicine; Visit Provider Thoracic Surgery (Cardiothoracic Vascular Surgery) | DX: E11.52 Type 2 diabetes mellitus with diabetic peripheral angiopathy with gangrene (principal); E11.621 Type 2 diabetes mellitus with foot ulcer; L89.612 Pressure ulcer of right heel, stage 2; L97.511 Non-pressure chronic ulcer of other part of right foot limited to breakdown of skin; I87.2 Venous insufficiency (chronic) (peripheral); L97.821 Non-pressure chronic ulcer of other part of left lower leg limited to breakdown of skin; L97.811 Non-pressure chronic ulcer of other part of right lower leg limited to breakdown of skin | CPT/HCPCS: 97597; 97598 ==

== ENCOUNTER → 2024-01-29 10:33 | Outpatient (BNVA) | payer MEDICARE, MEDICAID, SELFPAY | PROVIDERS: Family Provider Internal Medicine; PCP Internal Medicine; Visit Provider Thoracic Surgery (Cardiothoracic Vascular Surgery) | DX: E11.52 Type 2 diabetes mellitus with diabetic peripheral angiopathy with gangrene (principal); E11.621 Type 2 diabetes mellitus with foot ulcer; L97.412 Non-pressure chronic ulcer of right heel and midfoot with fat layer exposed; L97.511 Non-pressure chronic ulcer of other part of right foot limited to breakdown of skin; I87.2 Venous insufficiency (chronic) (peripheral); E11.622 Type 2 diabetes mellitus with other skin ulcer; L97.822 Non-pressure chronic ulcer of other part of left lower leg with fat layer exposed; L97.811 Non-pressure chronic ulcer of other part of right lower leg limited to breakdown of skin | CPT/HCPCS: 97597; 97598; A6252 ==

== ENCOUNTER 2024-02-05 06:00 | Outpatient (RCR) | payer MEDICARE, MEDICAID, SELFPAY | END 2024-03-06 23:59 | disposition home or self-care (01) | LOC: SPT 06:00 | PROVIDERS: Visit Provider Thoracic Surgery (Cardiothoracic Vascular Surgery) | DX: I89.0 Lymphedema, not elsewhere classified (principal) | CPT/HCPCS: 29581; 97162 ==

== ENCOUNTER → 2024-02-05 13:03 | Outpatient (BNVA) | payer MEDICARE, MEDICAID, SELFPAY | PROVIDERS: Family Provider Internal Medicine; PCP Internal Medicine; Visit Provider Thoracic Surgery (Cardiothoracic Vascular Surgery) | DX: E11.52 Type 2 diabetes mellitus with diabetic peripheral angiopathy with gangrene (principal); E11.621 Type 2 diabetes mellitus with foot ulcer; L89.612 Pressure ulcer of right heel, stage 2; L97.511 Non-pressure chronic ulcer of other part of right foot limited to breakdown of skin; I87.2 Venous insufficiency (chronic) (peripheral); E11.622 Type 2 diabetes mellitus with other skin ulcer; L97.821 Non-pressure chronic ulcer of other part of left lower leg limited to breakdown of skin; L97.811 Non-pressure chronic ulcer of other part of right lower leg limited to breakdown of skin | CPT/HCPCS: 11042; 11045; 87070; 87176; 87205; 97597; 97598; A6197 ==

== ENCOUNTER → 2024-02-12 13:23 | Outpatient (BNVA) | payer MEDICARE, MEDICAID, SELFPAY | PROVIDERS: Family Provider Internal Medicine; PCP Internal Medicine; Visit Provider Thoracic Surgery (Cardiothoracic Vascular Surgery) | DX: E11.52 Type 2 diabetes mellitus with diabetic peripheral angiopathy with gangrene (principal); E11.621 Type 2 diabetes mellitus with foot ulcer; L89.612 Pressure ulcer of right heel, stage 2; L97.511 Non-pressure chronic ulcer of other part of right foot limited to breakdown of skin; I87.2 Venous insufficiency (chronic) (peripheral); E11.622 Type 2 diabetes mellitus with other skin ulcer; L97.821 Non-pressure chronic ulcer of other part of left lower leg limited to breakdown of skin; L97.811 Non-pressure chronic ulcer of other part of right lower leg limited to breakdown of skin | CPT/HCPCS: 97597; 97598; A6197 ==

== ENCOUNTER → 2024-02-19 10:46 | Outpatient (BNVA) | payer MEDICARE, MEDICAID, SELFPAY | PROVIDERS: Family Provider Internal Medicine; PCP Internal Medicine; Visit Provider Thoracic Surgery (Cardiothoracic Vascular Surgery) | DX: E11.52 Type 2 diabetes mellitus with diabetic peripheral angiopathy with gangrene (principal); E11.621 Type 2 diabetes mellitus with foot ulcer; L89.612 Pressure ulcer of right heel, stage 2; L97.511 Non-pressure chronic ulcer of other part of right foot limited to breakdown of skin; I87.2 Venous insufficiency (chronic) (peripheral); E11.622 Type 2 diabetes mellitus with other skin ulcer; L97.821 Non-pressure chronic ulcer of other part of left lower leg limited to breakdown of skin; L97.811 Non-pressure chronic ulcer of other part of right lower leg limited to breakdown of skin | CPT/HCPCS: 97597; 97598; A6197; A6252 ==

== ENCOUNTER → 2024-02-26 10:18 | Outpatient (BNVA) | payer MEDICARE, MEDICAID, SELFPAY | PROVIDERS: Family Provider Internal Medicine; PCP Internal Medicine; Visit Provider Thoracic Surgery (Cardiothoracic Vascular Surgery) | DX: E11.52 Type 2 diabetes mellitus with diabetic peripheral angiopathy with gangrene (principal); E11.621 Type 2 diabetes mellitus with foot ulcer; L97.411 Non-pressure chronic ulcer of right heel and midfoot limited to breakdown of skin; L97.511 Non-pressure chronic ulcer of other part of right foot limited to breakdown of skin; E11.622 Type 2 diabetes mellitus with other skin ulcer; L97.812 Non-pressure chronic ulcer of other part of right lower leg with fat layer exposed; L97.821 Non-pressure chronic ulcer of other part of left lower leg limited to breakdown of skin | CPT/HCPCS: 97597; 97598; A6197; A6252 ==

== ENCOUNTER → 2024-03-04 10:28 | Outpatient (BNVA) | payer MEDICARE, MEDICAID, SELFPAY | PROVIDERS: Visit Provider Thoracic Surgery (Cardiothoracic Vascular Surgery) | DX: E11.52 Type 2 diabetes mellitus with diabetic peripheral angiopathy with gangrene (principal); E11.621 Type 2 diabetes mellitus with foot ulcer; L89.612 Pressure ulcer of right heel, stage 2; L97.511 Non-pressure chronic ulcer of other part of right foot limited to breakdown of skin; E11.622 Type 2 diabetes mellitus with other skin ulcer; L97.821 Non-pressure chronic ulcer of other part of left lower leg limited to breakdown of skin; L97.811 Non-pressure chronic ulcer of other part of right lower leg limited to breakdown of skin | CPT/HCPCS: 97597; 97598; A6197 ==

== ENCOUNTER → 2024-03-11 10:41 | Outpatient (BNVA) | payer MEDICARE, MEDICAID, SELFPAY | PROVIDERS: Visit Provider Thoracic Surgery (Cardiothoracic Vascular Surgery) | DX: E11.52 Type 2 diabetes mellitus with diabetic peripheral angiopathy with gangrene (principal); E11.621 Type 2 diabetes mellitus with foot ulcer; L89.612 Pressure ulcer of right heel, stage 2; L97.511 Non-pressure chronic ulcer of other part of right foot limited to breakdown of skin; E11.622 Type 2 diabetes mellitus with other skin ulcer; L97.821 Non-pressure chronic ulcer of other part of left lower leg limited to breakdown of skin; L97.822 Non-pressure chronic ulcer of other part of left lower leg with fat layer exposed | CPT/HCPCS: 11042; 97597; 97598; A6197; A6251 ==

== ENCOUNTER → 2024-03-18 10:58 | Outpatient (BNVA) | payer MEDICARE, MEDICAID, SELFPAY | PROVIDERS: Visit Provider Thoracic Surgery (Cardiothoracic Vascular Surgery) | DX: E11.52 Type 2 diabetes mellitus with diabetic peripheral angiopathy with gangrene (principal); E11.621 Type 2 diabetes mellitus with foot ulcer; L89.612 Pressure ulcer of right heel, stage 2; L97.511 Non-pressure chronic ulcer of other part of right foot limited to breakdown of skin; E11.622 Type 2 diabetes mellitus with other skin ulcer; L97.821 Non-pressure chronic ulcer of other part of left lower leg limited to breakdown of skin | CPT/HCPCS: 97597; 97598; A6252; A6253 ==

== ENCOUNTER → 2024-03-25 10:38 | Outpatient (BNVA) | payer MEDICARE, MEDICAID, SELFPAY | PROVIDERS: Visit Provider Thoracic Surgery (Cardiothoracic Vascular Surgery) | DX: E11.52 Type 2 diabetes mellitus with diabetic peripheral angiopathy with gangrene (principal); E11.621 Type 2 diabetes mellitus with foot ulcer; L89.612 Pressure ulcer of right heel, stage 2; L97.511 Non-pressure chronic ulcer of other part of right foot limited to breakdown of skin; E11.622 Type 2 diabetes mellitus with other skin ulcer; L97.821 Non-pressure chronic ulcer of other part of left lower leg limited to breakdown of skin; L97.811 Non-pressure chronic ulcer of other part of right lower leg limited to breakdown of skin | CPT/HCPCS: 97597; 97598; A6197; A6252 ==

== ENCOUNTER → 2024-04-08 10:07 | Outpatient (BNVA) | payer MEDICARE, MEDICAID, SELFPAY | PROVIDERS: Visit Provider Thoracic Surgery (Cardiothoracic Vascular Surgery) | DX: E11.621 Type 2 diabetes mellitus with foot ulcer (principal); L89.613 Pressure ulcer of right heel, stage 3; E11.622 Type 2 diabetes mellitus with other skin ulcer; L97.812 Non-pressure chronic ulcer of other part of right lower leg with fat layer exposed; L97.822 Non-pressure chronic ulcer of other part of left lower leg with fat layer exposed | CPT/HCPCS: 11042; 11045; 97597; A6197; A6251; A6252 ==

== ENCOUNTER → 2024-04-10 14:19 | Outpatient (BNVA) | payer MEDICARE, MEDICAID, SELFPAY | PROVIDERS: Visit Provider Thoracic Surgery (Cardiothoracic Vascular Surgery) | DX: E11.621 Type 2 diabetes mellitus with foot ulcer (principal); L89.613 Pressure ulcer of right heel, stage 3; E11.622 Type 2 diabetes mellitus with other skin ulcer; L97.812 Non-pressure chronic ulcer of other part of right lower leg with fat layer exposed; L97.822 Non-pressure chronic ulcer of other part of left lower leg with fat layer exposed | CPT/HCPCS: 29581; A6197; A6253 ==

== ENCOUNTER → 2024-04-15 10:01 | Outpatient (BNVA) | payer MEDICARE, MEDICAID, SELFPAY | PROVIDERS: Visit Provider Thoracic Surgery (Cardiothoracic Vascular Surgery) | DX: E11.52 Type 2 diabetes mellitus with diabetic peripheral angiopathy with gangrene (principal); E11.622 Type 2 diabetes mellitus with other skin ulcer; L97.811 Non-pressure chronic ulcer of other part of right lower leg limited to breakdown of skin; E11.621 Type 2 diabetes mellitus with foot ulcer; L89.612 Pressure ulcer of right heel, stage 2; L97.512 Non-pressure chronic ulcer of other part of right foot with fat layer exposed | CPT/HCPCS: 11042; 11045; 97597; A6197; A6251 ==

== ENCOUNTER → 2024-04-18 10:45 | Outpatient (BNVA) | payer MEDICARE, MEDICAID, SELFPAY | PROVIDERS: Visit Provider Thoracic Surgery (Cardiothoracic Vascular Surgery) | DX: E11.52 Type 2 diabetes mellitus with diabetic peripheral angiopathy with gangrene (principal); E11.621 Type 2 diabetes mellitus with foot ulcer; L89.612 Pressure ulcer of right heel, stage 2; L97.511 Non-pressure chronic ulcer of other part of right foot limited to breakdown of skin; E11.622 Type 2 diabetes mellitus with other skin ulcer; L97.811 Non-pressure chronic ulcer of other part of right lower leg limited to breakdown of skin | CPT/HCPCS: 99213; A6197; A6252 ==

== ENCOUNTER → 2024-04-22 09:57 | Outpatient (BNVA) | payer MEDICARE, MEDICAID, SELFPAY | PROVIDERS: Visit Provider Thoracic Surgery (Cardiothoracic Vascular Surgery) | DX: E11.52 Type 2 diabetes mellitus with diabetic peripheral angiopathy with gangrene (principal); E11.621 Type 2 diabetes mellitus with foot ulcer; L97.411 Non-pressure chronic ulcer of right heel and midfoot limited to breakdown of skin; L97.511 Non-pressure chronic ulcer of other part of right foot limited to breakdown of skin; E11.622 Type 2 diabetes mellitus with other skin ulcer; L97.812 Non-pressure chronic ulcer of other part of right lower leg with fat layer exposed | CPT/HCPCS: 11042; 97597; 97598; A6197 ==

== ENCOUNTER → 2024-04-25 10:35 | Outpatient (BNVA) | payer MEDICARE, MEDICAID, SELFPAY | PROVIDERS: Visit Provider Thoracic Surgery (Cardiothoracic Vascular Surgery) | DX: E11.621 Type 2 diabetes mellitus with foot ulcer (principal); L89.613 Pressure ulcer of right heel, stage 3; E11.622 Type 2 diabetes mellitus with other skin ulcer; L97.812 Non-pressure chronic ulcer of other part of right lower leg with fat layer exposed; R60.9 Edema, unspecified; L03.115 Cellulitis of right lower limb | CPT/HCPCS: 99213; A6197; A6252 ==

== ENCOUNTER → 2024-04-28 13:33 | Outpatient (BNVA) | payer MEDICARE, MEDICAID, SELFPAY | PROVIDERS: Visit Provider Thoracic Surgery (Cardiothoracic Vascular Surgery) | DX: E11.52 Type 2 diabetes mellitus with diabetic peripheral angiopathy with gangrene (principal); E11.621 Type 2 diabetes mellitus with foot ulcer; L89.612 Pressure ulcer of right heel, stage 2; L97.511 Non-pressure chronic ulcer of other part of right foot limited to breakdown of skin; E11.622 Type 2 diabetes mellitus with other skin ulcer; L97.811 Non-pressure chronic ulcer of other part of right lower leg limited to breakdown of skin | CPT/HCPCS: 11042; 11045; 97597 ==

== ENCOUNTER → 2024-05-02 08:39 | Outpatient (BNVA) | payer MEDICARE, MEDICAID, SELFPAY | PROVIDERS: Visit Provider Thoracic Surgery (Cardiothoracic Vascular Surgery) | DX: E11.621 Type 2 diabetes mellitus with foot ulcer (principal); L89.613 Pressure ulcer of right heel, stage 3; E11.622 Type 2 diabetes mellitus with other skin ulcer; L97.812 Non-pressure chronic ulcer of other part of right lower leg with fat layer exposed; R60.9 Edema, unspecified; L03.115 Cellulitis of right lower limb | CPT/HCPCS: 29581; A6197; A6252 ==

== ENCOUNTER → 2024-05-06 14:20 | Outpatient (BNVA) | payer MEDICARE, MEDICAID, SELFPAY | PROVIDERS: Visit Provider Thoracic Surgery (Cardiothoracic Vascular Surgery) | DX: E11.52 Type 2 diabetes mellitus with diabetic peripheral angiopathy with gangrene (principal); E11.621 Type 2 diabetes mellitus with foot ulcer; L97.412 Non-pressure chronic ulcer of right heel and midfoot with fat layer exposed; L97.511 Non-pressure chronic ulcer of other part of right foot limited to breakdown of skin; E11.622 Type 2 diabetes mellitus with other skin ulcer; L97.811 Non-pressure chronic ulcer of other part of right lower leg limited to breakdown of skin | CPT/HCPCS: 11042; 97597; 97598; A6197; A6252; A6253 ==

== ENCOUNTER → 2024-05-09 09:27 | Outpatient (BNVA) | payer MEDICARE, MEDICAID, SELFPAY | PROVIDERS: Visit Provider Thoracic Surgery (Cardiothoracic Vascular Surgery) | DX: E11.621 Type 2 diabetes mellitus with foot ulcer (principal); L89.613 Pressure ulcer of right heel, stage 3; E11.622 Type 2 diabetes mellitus with other skin ulcer; L97.812 Non-pressure chronic ulcer of other part of right lower leg with fat layer exposed; R60.9 Edema, unspecified; L03.115 Cellulitis of right lower limb | CPT/HCPCS: 99213; A6251; A6253 ==

== ENCOUNTER → 2024-05-14 13:24 | Outpatient (BNVA) | payer MEDICARE, MEDICAID, SELFPAY | PROVIDERS: Visit Provider Thoracic Surgery (Cardiothoracic Vascular Surgery) | DX: E11.52 Type 2 diabetes mellitus with diabetic peripheral angiopathy with gangrene (principal); E11.621 Type 2 diabetes mellitus with foot ulcer; L89.612 Pressure ulcer of right heel, stage 2; L97.511 Non-pressure chronic ulcer of other part of right foot limited to breakdown of skin; E11.622 Type 2 diabetes mellitus with other skin ulcer; L97.811 Non-pressure chronic ulcer of other part of right lower leg limited to breakdown of skin | CPT/HCPCS: 97597; 97598; A6197; A6251; A6252; A6253 ==

== ENCOUNTER → 2024-05-21 10:21 | Outpatient (BNVA) | payer MEDICARE, MEDICAID, SELFPAY | PROVIDERS: Visit Provider Thoracic Surgery (Cardiothoracic Vascular Surgery) | DX: E11.52 Type 2 diabetes mellitus with diabetic peripheral angiopathy with gangrene (principal); E11.621 Type 2 diabetes mellitus with foot ulcer; L89.612 Pressure ulcer of right heel, stage 2; L97.511 Non-pressure chronic ulcer of other part of right foot limited to breakdown of skin; E11.622 Type 2 diabetes mellitus with other skin ulcer; L97.811 Non-pressure chronic ulcer of other part of right lower leg limited to breakdown of skin | CPT/HCPCS: 29581; 97597; 97598; A6197; A6251; A6252; A6253 ==

== ENCOUNTER → 2024-05-23 09:05 | Outpatient (BNVA) | payer MEDICARE, MEDICAID, SELFPAY | PROVIDERS: Visit Provider Thoracic Surgery (Cardiothoracic Vascular Surgery) | DX: E11.52 Type 2 diabetes mellitus with diabetic peripheral angiopathy with gangrene (principal); E11.621 Type 2 diabetes mellitus with foot ulcer; L89.622 Pressure ulcer of left heel, stage 2; L97.511 Non-pressure chronic ulcer of other part of right foot limited to breakdown of skin; E11.622 Type 2 diabetes mellitus with other skin ulcer; L97.811 Non-pressure chronic ulcer of other part of right lower leg limited to breakdown of skin | CPT/HCPCS: 29581; A6197; A6251 ==

== ENCOUNTER → 2024-05-26 11:22 | Outpatient (BNVA) | payer MEDICARE, MEDICAID, SELFPAY | PROVIDERS: Visit Provider Thoracic Surgery (Cardiothoracic Vascular Surgery) | DX: E11.621 Type 2 diabetes mellitus with foot ulcer (principal); L89.613 Pressure ulcer of right heel, stage 3; E11.622 Type 2 diabetes mellitus with other skin ulcer; L97.812 Non-pressure chronic ulcer of other part of right lower leg with fat layer exposed; R60.9 Edema, unspecified; L03.115 Cellulitis of right lower limb | CPT/HCPCS: A6197; A6251 ==

== ENCOUNTER → 2024-05-28 10:02 | Outpatient (BNVA) | payer MEDICARE, MEDICAID, SELFPAY | PROVIDERS: Visit Provider Thoracic Surgery (Cardiothoracic Vascular Surgery) | DX: E11.52 Type 2 diabetes mellitus with diabetic peripheral angiopathy with gangrene (principal); E11.621 Type 2 diabetes mellitus with foot ulcer; L89.612 Pressure ulcer of right heel, stage 2; L97.511 Non-pressure chronic ulcer of other part of right foot limited to breakdown of skin; E11.622 Type 2 diabetes mellitus with other skin ulcer; L97.811 Non-pressure chronic ulcer of other part of right lower leg limited to breakdown of skin | CPT/HCPCS: 29581; 97597; 97598; A6197; A6251; A6253 ==

== ENCOUNTER → 2024-05-30 10:00 | Outpatient (BNVA) | payer MEDICARE, MEDICAID, SELFPAY | PROVIDERS: Visit Provider Thoracic Surgery (Cardiothoracic Vascular Surgery) | DX: E11.621 Type 2 diabetes mellitus with foot ulcer (principal); L89.613 Pressure ulcer of right heel, stage 3; E11.622 Type 2 diabetes mellitus with other skin ulcer; L97.812 Non-pressure chronic ulcer of other part of right lower leg with fat layer exposed; R60.9 Edema, unspecified; L03.115 Cellulitis of right lower limb | CPT/HCPCS: A6197; A6253 ==

== ENCOUNTER → 2024-06-02 13:06 | Outpatient (BNVA) | payer MEDICARE, MEDICAID, SELFPAY | PROVIDERS: Visit Provider Thoracic Surgery (Cardiothoracic Vascular Surgery) | DX: E11.621 Type 2 diabetes mellitus with foot ulcer (principal); L89.613 Pressure ulcer of right heel, stage 3; E11.622 Type 2 diabetes mellitus with other skin ulcer; L97.812 Non-pressure chronic ulcer of other part of right lower leg with fat layer exposed; R60.9 Edema, unspecified; L03.115 Cellulitis of right lower limb | CPT/HCPCS: 29581; A6197; A6251 ==

== ENCOUNTER → 2024-06-04 10:15 | Outpatient (BNVA) | payer MEDICARE, MEDICAID, SELFPAY | PROVIDERS: Visit Provider Thoracic Surgery (Cardiothoracic Vascular Surgery) | DX: E11.52 Type 2 diabetes mellitus with diabetic peripheral angiopathy with gangrene (principal); E11.621 Type 2 diabetes mellitus with foot ulcer; L97.411 Non-pressure chronic ulcer of right heel and midfoot limited to breakdown of skin; L97.511 Non-pressure chronic ulcer of other part of right foot limited to breakdown of skin; E11.622 Type 2 diabetes mellitus with other skin ulcer; L97.811 Non-pressure chronic ulcer of other part of right lower leg limited to breakdown of skin | CPT/HCPCS: 29581; 97597; 97598; A6197; A6251; A6253 ==

== ENCOUNTER → 2024-06-06 10:04 | Outpatient (BNVA) | payer MEDICARE, MEDICAID, SELFPAY | PROVIDERS: Visit Provider Thoracic Surgery (Cardiothoracic Vascular Surgery) | DX: E11.621 Type 2 diabetes mellitus with foot ulcer (principal); L89.613 Pressure ulcer of right heel, stage 3; E11.622 Type 2 diabetes mellitus with other skin ulcer; L97.812 Non-pressure chronic ulcer of other part of right lower leg with fat layer exposed; L03.115 Cellulitis of right lower limb | CPT/HCPCS: A6197; A6251; A6253 ==

== ENCOUNTER → 2024-06-09 14:59 | Outpatient (BNVA) | payer MEDICARE, MEDICAID, SELFPAY | PROVIDERS: Visit Provider Thoracic Surgery (Cardiothoracic Vascular Surgery) | DX: E11.621 Type 2 diabetes mellitus with foot ulcer (principal); L89.613 Pressure ulcer of right heel, stage 3; E11.622 Type 2 diabetes mellitus with other skin ulcer; L97.812 Non-pressure chronic ulcer of other part of right lower leg with fat layer exposed; L03.115 Cellulitis of right lower limb | CPT/HCPCS: 29581; A6197; A6251; A6252 ==

== ENCOUNTER → 2024-06-11 10:00 | Outpatient (BNVA) | payer MEDICARE, MEDICAID, SELFPAY | PROVIDERS: Visit Provider Thoracic Surgery (Cardiothoracic Vascular Surgery) | DX: E11.52 Type 2 diabetes mellitus with diabetic peripheral angiopathy with gangrene (principal); E11.621 Type 2 diabetes mellitus with foot ulcer; L97.512 Non-pressure chronic ulcer of other part of right foot with fat layer exposed; L97.411 Non-pressure chronic ulcer of right heel and midfoot limited to breakdown of skin; E11.622 Type 2 diabetes mellitus with other skin ulcer; L97.811 Non-pressure chronic ulcer of other part of right lower leg limited to breakdown of skin | CPT/HCPCS: 11042; 11045; 97597; A6251; A6253; A6260 ==

== ENCOUNTER → 2024-06-13 10:21 | Outpatient (BNVA) | payer MEDICARE, MEDICAID, SELFPAY | PROVIDERS: Visit Provider Thoracic Surgery (Cardiothoracic Vascular Surgery) | DX: E11.621 Type 2 diabetes mellitus with foot ulcer (principal); L89.613 Pressure ulcer of right heel, stage 3; E11.622 Type 2 diabetes mellitus with other skin ulcer; L97.812 Non-pressure chronic ulcer of other part of right lower leg with fat layer exposed; L03.115 Cellulitis of right lower limb | CPT/HCPCS: 29581; A6197; A6251; A6253 ==

== ENCOUNTER → 2024-06-16 15:15 | Outpatient (BNVA) | payer MEDICARE, MEDICAID, SELFPAY | PROVIDERS: Visit Provider Thoracic Surgery (Cardiothoracic Vascular Surgery) | DX: E11.621 Type 2 diabetes mellitus with foot ulcer (principal); L89.613 Pressure ulcer of right heel, stage 3; E11.622 Type 2 diabetes mellitus with other skin ulcer; L97.812 Non-pressure chronic ulcer of other part of right lower leg with fat layer exposed; R60.9 Edema, unspecified; L03.115 Cellulitis of right lower limb | CPT/HCPCS: 29581; A6197; A6251; A6253 ==

== ENCOUNTER → 2024-06-20 10:12 | Outpatient (BNVA) | payer MEDICARE, MEDICAID, SELFPAY | PROVIDERS: Visit Provider Thoracic Surgery (Cardiothoracic Vascular Surgery) | DX: E11.52 Type 2 diabetes mellitus with diabetic peripheral angiopathy with gangrene (principal); E11.621 Type 2 diabetes mellitus with foot ulcer; L89.212 Pressure ulcer of right hip, stage 2; L97.512 Non-pressure chronic ulcer of other part of right foot with fat layer exposed; E11.622 Type 2 diabetes mellitus with other skin ulcer; L97.811 Non-pressure chronic ulcer of other part of right lower leg limited to breakdown of skin | CPT/HCPCS: 11042; 11045; 97597; A6251; A6252 ==

== ENCOUNTER → 2024-06-27 10:33 | Outpatient (BNVA) | payer MEDICARE, MEDICAID, SELFPAY | PROVIDERS: Visit Provider Thoracic Surgery (Cardiothoracic Vascular Surgery) | DX: E11.52 Type 2 diabetes mellitus with diabetic peripheral angiopathy with gangrene (principal); E11.621 Type 2 diabetes mellitus with foot ulcer; L89.612 Pressure ulcer of right heel, stage 2; L97.521 Non-pressure chronic ulcer of other part of left foot limited to breakdown of skin; E11.622 Type 2 diabetes mellitus with other skin ulcer; L97.812 Non-pressure chronic ulcer of other part of right lower leg with fat layer exposed | CPT/HCPCS: 11042; 11045; 97597; A6197; A6251; A6252 ==

== ENCOUNTER → 2024-06-30 10:23 | Outpatient (BNVA) | payer MEDICARE, MEDICAID, SELFPAY | PROVIDERS: Visit Provider Thoracic Surgery (Cardiothoracic Vascular Surgery) | DX: E11.621 Type 2 diabetes mellitus with foot ulcer (principal); L89.613 Pressure ulcer of right heel, stage 3; E11.622 Type 2 diabetes mellitus with other skin ulcer; L97.812 Non-pressure chronic ulcer of other part of right lower leg with fat layer exposed; R60.9 Edema, unspecified; L03.115 Cellulitis of right lower limb | CPT/HCPCS: 29581; A6197; A6251; A6252 ==

== ENCOUNTER → 2024-07-02 10:26 | Outpatient (BNVA) | payer MEDICARE, MEDICAID, SELFPAY | PROVIDERS: Visit Provider Thoracic Surgery (Cardiothoracic Vascular Surgery) | DX: E11.52 Type 2 diabetes mellitus with diabetic peripheral angiopathy with gangrene (principal); E11.621 Type 2 diabetes mellitus with foot ulcer; L97.511 Non-pressure chronic ulcer of other part of right foot limited to breakdown of skin; E11.622 Type 2 diabetes mellitus with other skin ulcer; L89.512 Pressure ulcer of right ankle, stage 2; L97.811 Non-pressure chronic ulcer of other part of right lower leg limited to breakdown of skin; I89.0 Lymphedema, not elsewhere classified; L97.821 Non-pressure chronic ulcer of other part of left lower leg limited to breakdown of skin | CPT/HCPCS: 97597; 97598; A6197; A6212; A6251; A6252 ==

== ENCOUNTER → 2024-07-04 09:54 | Outpatient (BNVA) | payer MEDICARE, MEDICAID, SELFPAY | PROVIDERS: Visit Provider Thoracic Surgery (Cardiothoracic Vascular Surgery) | DX: E11.621 Type 2 diabetes mellitus with foot ulcer (principal); L89.613 Pressure ulcer of right heel, stage 3; E11.622 Type 2 diabetes mellitus with other skin ulcer; L97.812 Non-pressure chronic ulcer of other part of right lower leg with fat layer exposed; R60.9 Edema, unspecified; L03.115 Cellulitis of right lower limb | CPT/HCPCS: 29581; A6197; A6251; A6252 ==

== ENCOUNTER → 2024-07-07 10:44 | Outpatient (BNVA) | payer MEDICARE, MEDICAID, SELFPAY | PROVIDERS: Visit Provider Thoracic Surgery (Cardiothoracic Vascular Surgery) | DX: E11.621 Type 2 diabetes mellitus with foot ulcer (principal); L89.613 Pressure ulcer of right heel, stage 3; E11.622 Type 2 diabetes mellitus with other skin ulcer; L97.812 Non-pressure chronic ulcer of other part of right lower leg with fat layer exposed; R60.9 Edema, unspecified; L03.115 Cellulitis of right lower limb | CPT/HCPCS: 29581; A6197; A6251; A6253 ==

== ENCOUNTER → 2024-07-09 09:52 | Outpatient (BNVA) | payer MEDICARE, MEDICAID, SELFPAY | PROVIDERS: Visit Provider Thoracic Surgery (Cardiothoracic Vascular Surgery) | DX: E11.52 Type 2 diabetes mellitus with diabetic peripheral angiopathy with gangrene (principal); E11.621 Type 2 diabetes mellitus with foot ulcer; L89.612 Pressure ulcer of right heel, stage 2; L97.511 Non-pressure chronic ulcer of other part of right foot limited to breakdown of skin; I89.0 Lymphedema, not elsewhere classified; L97.821 Non-pressure chronic ulcer of other part of left lower leg limited to breakdown of skin; L97.811 Non-pressure chronic ulcer of other part of right lower leg limited to breakdown of skin | CPT/HCPCS: 97597; 97598; A6197; A6212; A6251; A6253 ==

== ENCOUNTER → 2024-07-11 10:02 | Outpatient (BNVA) | payer MEDICARE, MEDICAID, SELFPAY | PROVIDERS: Visit Provider Thoracic Surgery (Cardiothoracic Vascular Surgery) | DX: E11.621 Type 2 diabetes mellitus with foot ulcer (principal); L89.613 Pressure ulcer of right heel, stage 3; E11.622 Type 2 diabetes mellitus with other skin ulcer; L97.812 Non-pressure chronic ulcer of other part of right lower leg with fat layer exposed; R60.9 Edema, unspecified; L03.115 Cellulitis of right lower limb | CPT/HCPCS: 29581; A6021; A6251; A6252 ==

== ENCOUNTER → 2024-07-14 10:54 | Outpatient (BNVA) | payer MEDICARE, MEDICAID, SELFPAY | PROVIDERS: Visit Provider Thoracic Surgery (Cardiothoracic Vascular Surgery) | DX: E11.52 Type 2 diabetes mellitus with diabetic peripheral angiopathy with gangrene (principal); E11.621 Type 2 diabetes mellitus with foot ulcer; L89.612 Pressure ulcer of right heel, stage 2; L97.512 Non-pressure chronic ulcer of other part of right foot with fat layer exposed; I89.0 Lymphedema, not elsewhere classified; E11.622 Type 2 diabetes mellitus with other skin ulcer; L97.821 Non-pressure chronic ulcer of other part of left lower leg limited to breakdown of skin; L97.811 Non-pressure chronic ulcer of other part of right lower leg limited to breakdown of skin | CPT/HCPCS: 29581; A6197; A6251; A6253 ==

== ENCOUNTER → 2024-07-16 11:23 | Outpatient (BNVA) | payer MEDICARE, MEDICAID, SELFPAY | PROVIDERS: Visit Provider Thoracic Surgery (Cardiothoracic Vascular Surgery) | DX: E11.52 Type 2 diabetes mellitus with diabetic peripheral angiopathy with gangrene (principal); E11.621 Type 2 diabetes mellitus with foot ulcer; L89.612 Pressure ulcer of right heel, stage 2; E11.622 Type 2 diabetes mellitus with other skin ulcer; L97.821 Non-pressure chronic ulcer of other part of left lower leg limited to breakdown of skin; L97.811 Non-pressure chronic ulcer of other part of right lower leg limited to breakdown of skin | CPT/HCPCS: 11042; 11045; 97597; A6197; A6212; A6251 ==

== ENCOUNTER → 2024-07-23 10:38 | Outpatient (BNVA) | payer MEDICARE, MEDICAID, SELFPAY | PROVIDERS: Visit Provider Thoracic Surgery (Cardiothoracic Vascular Surgery) | DX: E11.52 Type 2 diabetes mellitus with diabetic peripheral angiopathy with gangrene (principal); E11.621 Type 2 diabetes mellitus with foot ulcer; L89.612 Pressure ulcer of right heel, stage 2; L97.511 Non-pressure chronic ulcer of other part of right foot limited to breakdown of skin; E11.622 Type 2 diabetes mellitus with other skin ulcer; L97.811 Non-pressure chronic ulcer of other part of right lower leg limited to breakdown of skin; I89.0 Lymphedema, not elsewhere classified | CPT/HCPCS: 97597; 97598; A6197; A6251; A6252; A6253 ==

== ENCOUNTER → 2024-07-25 10:26 | Outpatient (BNVA) | payer MEDICARE, MEDICAID, SELFPAY | PROVIDERS: Visit Provider Thoracic Surgery (Cardiothoracic Vascular Surgery) | DX: E11.621 Type 2 diabetes mellitus with foot ulcer (principal); L89.613 Pressure ulcer of right heel, stage 3; E11.622 Type 2 diabetes mellitus with other skin ulcer; L97.812 Non-pressure chronic ulcer of other part of right lower leg with fat layer exposed; R60.9 Edema, unspecified; L03.115 Cellulitis of right lower limb | CPT/HCPCS: 29581; A6197; A6251; A6252; A6253 ==

== ENCOUNTER → 2024-07-28 14:42 | Outpatient (BNVA) | payer MEDICARE, MEDICAID, SELFPAY | PROVIDERS: Visit Provider Thoracic Surgery (Cardiothoracic Vascular Surgery) | DX: E11.621 Type 2 diabetes mellitus with foot ulcer (principal); L89.613 Pressure ulcer of right heel, stage 3; E11.622 Type 2 diabetes mellitus with other skin ulcer; L97.812 Non-pressure chronic ulcer of other part of right lower leg with fat layer exposed; R60.9 Edema, unspecified; L03.115 Cellulitis of right lower limb | CPT/HCPCS: 29581; A6197; A6212; A6251; A6252; A6253 ==

== ENCOUNTER → 2024-07-30 10:46 | Outpatient (BNVA) | payer MEDICARE, MEDICAID, SELFPAY | PROVIDERS: Visit Provider Thoracic Surgery (Cardiothoracic Vascular Surgery) | DX: E11.52 Type 2 diabetes mellitus with diabetic peripheral angiopathy with gangrene (principal); E11.621 Type 2 diabetes mellitus with foot ulcer; L89.612 Pressure ulcer of right heel, stage 2; L97.511 Non-pressure chronic ulcer of other part of right foot limited to breakdown of skin; E11.622 Type 2 diabetes mellitus with other skin ulcer; L97.811 Non-pressure chronic ulcer of other part of right lower leg limited to breakdown of skin | CPT/HCPCS: 97597; 97598; A6197; A6251; A6252 ==

== ENCOUNTER → 2024-08-01 09:48 | Outpatient (BNVA) | payer MEDICARE, MEDICAID, SELFPAY | PROVIDERS: Visit Provider Thoracic Surgery (Cardiothoracic Vascular Surgery) | DX: E11.621 Type 2 diabetes mellitus with foot ulcer (principal); L89.613 Pressure ulcer of right heel, stage 3; E11.622 Type 2 diabetes mellitus with other skin ulcer; L97.812 Non-pressure chronic ulcer of other part of right lower leg with fat layer exposed; R60.9 Edema, unspecified; L03.115 Cellulitis of right lower limb | CPT/HCPCS: 29581; A6197; A6252 ==

== ENCOUNTER → 2024-08-06 10:56 | Outpatient (BNVA) | payer MEDICARE, MEDICAID, SELFPAY | PROVIDERS: Visit Provider Thoracic Surgery (Cardiothoracic Vascular Surgery) | DX: E11.52 Type 2 diabetes mellitus with diabetic peripheral angiopathy with gangrene (principal); E11.621 Type 2 diabetes mellitus with foot ulcer; L89.612 Pressure ulcer of right heel, stage 2; L97.512 Non-pressure chronic ulcer of other part of right foot with fat layer exposed; E11.622 Type 2 diabetes mellitus with other skin ulcer; L97.811 Non-pressure chronic ulcer of other part of right lower leg limited to breakdown of skin | CPT/HCPCS: 11042; 97597; A6251; A6252; A6253 ==

== ENCOUNTER → 2024-08-11 09:46 | Outpatient (BNVA) | payer MEDICARE, MEDICAID, SELFPAY | PROVIDERS: Visit Provider Thoracic Surgery (Cardiothoracic Vascular Surgery) | DX: E11.621 Type 2 diabetes mellitus with foot ulcer (principal); L89.613 Pressure ulcer of right heel, stage 3; E11.622 Type 2 diabetes mellitus with other skin ulcer; L97.812 Non-pressure chronic ulcer of other part of right lower leg with fat layer exposed; R60.9 Edema, unspecified; L03.115 Cellulitis of right lower limb | CPT/HCPCS: 29581; A6251; A6252; A6253 ==

== ENCOUNTER → 2024-08-13 09:22 | Outpatient (BNVA) | payer MEDICARE, MEDICAID, SELFPAY | PROVIDERS: Visit Provider Thoracic Surgery (Cardiothoracic Vascular Surgery) | DX: E11.621 Type 2 diabetes mellitus with foot ulcer (principal); L89.613 Pressure ulcer of right heel, stage 3; E11.622 Type 2 diabetes mellitus with other skin ulcer; L97.812 Non-pressure chronic ulcer of other part of right lower leg with fat layer exposed; R60.9 Edema, unspecified; L03.115 Cellulitis of right lower limb | CPT/HCPCS: 97597; 97598; A6251; A6252; A6253 ==

== ENCOUNTER → 2024-08-15 09:47 | Outpatient (BNVA) | payer MEDICARE, MEDICAID, SELFPAY | PROVIDERS: Visit Provider Thoracic Surgery (Cardiothoracic Vascular Surgery) | DX: E11.621 Type 2 diabetes mellitus with foot ulcer (principal); L89.613 Pressure ulcer of right heel, stage 3; E11.622 Type 2 diabetes mellitus with other skin ulcer; L89.622 Pressure ulcer of left heel, stage 2; R60.9 Edema, unspecified; L03.115 Cellulitis of right lower limb | CPT/HCPCS: 29581; A6251; A6253 ==

== ENCOUNTER → 2024-08-18 10:56 | Outpatient (BNVA) | payer MEDICARE, MEDICAID, SELFPAY | DX: E11.621 Type 2 diabetes mellitus with foot ulcer (principal); L89.613 Pressure ulcer of right heel, stage 3; E11.622 Type 2 diabetes mellitus with other skin ulcer; L97.812 Non-pressure chronic ulcer of other part of right lower leg with fat layer exposed; R60.9 Edema, unspecified; L03.115 Cellulitis of right lower limb | CPT/HCPCS: 29581; A6252; A6253 ==

== ENCOUNTER → 2024-08-20 11:03 | Outpatient (BNVA) | payer MEDICARE, MEDICAID, SELFPAY | DX: E11.52 Type 2 diabetes mellitus with diabetic peripheral angiopathy with gangrene (principal); E11.621 Type 2 diabetes mellitus with foot ulcer; L89.612 Pressure ulcer of right heel, stage 2; L97.512 Non-pressure chronic ulcer of other part of right foot with fat layer exposed; E11.622 Type 2 diabetes mellitus with other skin ulcer; L97.811 Non-pressure chronic ulcer of other part of right lower leg limited to breakdown of skin; L97.821 Non-pressure chronic ulcer of other part of left lower leg limited to breakdown of skin | CPT/HCPCS: 11042; 11045; 87070; 87176; 87205; 97597; A6197; A6251; A6253 ==

== ENCOUNTER → 2024-08-22 10:14 | Outpatient (BNVA) | payer MEDICARE, MEDICAID, SELFPAY | DX: E11.621 Type 2 diabetes mellitus with foot ulcer (principal); L89.613 Pressure ulcer of right heel, stage 3; E11.622 Type 2 diabetes mellitus with other skin ulcer; L97.812 Non-pressure chronic ulcer of other part of right lower leg with fat layer exposed; R60.9 Edema, unspecified; L03.115 Cellulitis of right lower limb | CPT/HCPCS: 29581; A6197; A6251; A6253 ==

== ENCOUNTER → 2024-08-25 13:34 | Outpatient (BNVA) | payer MEDICARE, MEDICAID, SELFPAY | PROVIDERS: Visit Provider Thoracic Surgery (Cardiothoracic Vascular Surgery) | DX: E11.621 Type 2 diabetes mellitus with foot ulcer (principal); L89.613 Pressure ulcer of right heel, stage 3; E11.622 Type 2 diabetes mellitus with other skin ulcer; L97.812 Non-pressure chronic ulcer of other part of right lower leg with fat layer exposed; R60.9 Edema, unspecified; L03.115 Cellulitis of right lower limb | CPT/HCPCS: A6197; A6252; A6253 ==

== ENCOUNTER → 2024-08-27 10:30 | Outpatient (BNVA) | payer MEDICARE, MEDICAID, SELFPAY | PROVIDERS: Visit Provider Thoracic Surgery (Cardiothoracic Vascular Surgery) | DX: E11.52 Type 2 diabetes mellitus with diabetic peripheral angiopathy with gangrene (principal); E11.621 Type 2 diabetes mellitus with foot ulcer; L89.612 Pressure ulcer of right heel, stage 2; L97.511 Non-pressure chronic ulcer of other part of right foot limited to breakdown of skin; I89.0 Lymphedema, not elsewhere classified; L97.821 Non-pressure chronic ulcer of other part of left lower leg limited to breakdown of skin | CPT/HCPCS: 97597; 97598; A6197; A6253 ==

== ENCOUNTER → 2024-08-29 10:03 | Outpatient (BNVA) | payer MEDICARE, MEDICAID, SELFPAY | PROVIDERS: Visit Provider Thoracic Surgery (Cardiothoracic Vascular Surgery) | DX: E11.52 Type 2 diabetes mellitus with diabetic peripheral angiopathy with gangrene (principal); E11.621 Type 2 diabetes mellitus with foot ulcer; L89.612 Pressure ulcer of right heel, stage 2; L97.511 Non-pressure chronic ulcer of other part of right foot limited to breakdown of skin; I89.0 Lymphedema, not elsewhere classified; E11.622 Type 2 diabetes mellitus with other skin ulcer; L97.811 Non-pressure chronic ulcer of other part of right lower leg limited to breakdown of skin; Z09 Encounter for follow-up examination after completed treatment for conditions other than malignant neoplasm | CPT/HCPCS: 29581; A6197; A6251 ==

== ENCOUNTER → 2024-09-03 13:18 | Outpatient (BNVA) | payer MEDICARE, MEDICAID, SELFPAY | PROVIDERS: Visit Provider Thoracic Surgery (Cardiothoracic Vascular Surgery) | DX: E11.52 Type 2 diabetes mellitus with diabetic peripheral angiopathy with gangrene (principal); E11.621 Type 2 diabetes mellitus with foot ulcer; L89.612 Pressure ulcer of right heel, stage 2; L97.512 Non-pressure chronic ulcer of other part of right foot with fat layer exposed; E11.622 Type 2 diabetes mellitus with other skin ulcer; L97.811 Non-pressure chronic ulcer of other part of right lower leg limited to breakdown of skin | CPT/HCPCS: 97597; 97598 ==

== ENCOUNTER → 2024-09-05 11:16 | Outpatient (BNVA) | payer MEDICARE, MEDICAID, SELFPAY | PROVIDERS: Visit Provider Thoracic Surgery (Cardiothoracic Vascular Surgery) | DX: E11.621 Type 2 diabetes mellitus with foot ulcer (principal); L89.613 Pressure ulcer of right heel, stage 3; E11.622 Type 2 diabetes mellitus with other skin ulcer; L97.812 Non-pressure chronic ulcer of other part of right lower leg with fat layer exposed; R60.9 Edema, unspecified; L03.115 Cellulitis of right lower limb | CPT/HCPCS: 29581; A6253 ==

== ENCOUNTER → 2024-09-08 10:07 | Outpatient (BNVA) | payer MEDICARE, MEDICAID, SELFPAY | PROVIDERS: Visit Provider Thoracic Surgery (Cardiothoracic Vascular Surgery) | DX: E11.622 Type 2 diabetes mellitus with other skin ulcer (principal); L97.812 Non-pressure chronic ulcer of other part of right lower leg with fat layer exposed; E11.621 Type 2 diabetes mellitus with foot ulcer; L89.613 Pressure ulcer of right heel, stage 3; R60.9 Edema, unspecified; L03.115 Cellulitis of right lower limb | CPT/HCPCS: 29581; A6212; A6252 ==

== ENCOUNTER → 2024-09-10 15:16 | Outpatient (BNVA) | payer MEDICARE, MEDICAID, SELFPAY | PROVIDERS: Visit Provider Thoracic Surgery (Cardiothoracic Vascular Surgery) | DX: E11.52 Type 2 diabetes mellitus with diabetic peripheral angiopathy with gangrene (principal); E11.621 Type 2 diabetes mellitus with foot ulcer; L89.612 Pressure ulcer of right heel, stage 2; L97.511 Non-pressure chronic ulcer of other part of right foot limited to breakdown of skin; E11.622 Type 2 diabetes mellitus with other skin ulcer; L97.811 Non-pressure chronic ulcer of other part of right lower leg limited to breakdown of skin | CPT/HCPCS: 97597; 97598; A6212; A6252; A6253 ==

== ENCOUNTER → 2024-09-12 10:04 | Outpatient (BNVA) | payer MEDICARE, MEDICAID, SELFPAY | PROVIDERS: Visit Provider Thoracic Surgery (Cardiothoracic Vascular Surgery) | DX: E11.621 Type 2 diabetes mellitus with foot ulcer (principal); L89.613 Pressure ulcer of right heel, stage 3; E11.622 Type 2 diabetes mellitus with other skin ulcer; L97.812 Non-pressure chronic ulcer of other part of right lower leg with fat layer exposed; R60.9 Edema, unspecified; L03.115 Cellulitis of right lower limb | CPT/HCPCS: 29581; A6252; A6253 ==

== ENCOUNTER → 2024-09-15 15:13 | Outpatient (BNVA) | payer MEDICARE, MEDICAID, SELFPAY | PROVIDERS: Visit Provider Thoracic Surgery (Cardiothoracic Vascular Surgery) | DX: E11.621 Type 2 diabetes mellitus with foot ulcer (principal); L89.613 Pressure ulcer of right heel, stage 3; E11.622 Type 2 diabetes mellitus with other skin ulcer; L97.812 Non-pressure chronic ulcer of other part of right lower leg with fat layer exposed; R60.9 Edema, unspecified; L03.115 Cellulitis of right lower limb | CPT/HCPCS: 29581; A6252 ==

== ENCOUNTER → 2024-09-17 14:34 | Outpatient (BNVA) | payer MEDICARE, MEDICAID, SELFPAY | PROVIDERS: Visit Provider Thoracic Surgery (Cardiothoracic Vascular Surgery) | DX: E11.52 Type 2 diabetes mellitus with diabetic peripheral angiopathy with gangrene (principal); E11.621 Type 2 diabetes mellitus with foot ulcer; L89.612 Pressure ulcer of right heel, stage 2; L97.511 Non-pressure chronic ulcer of other part of right foot limited to breakdown of skin; I89.0 Lymphedema, not elsewhere classified; E11.622 Type 2 diabetes mellitus with other skin ulcer; L97.811 Non-pressure chronic ulcer of other part of right lower leg limited to breakdown of skin | CPT/HCPCS: 97597; 97598; A6252; J9999 ==

== ENCOUNTER → 2024-09-19 09:31 | Outpatient (BNVA) | payer MEDICARE, MEDICAID, SELFPAY | PROVIDERS: Visit Provider Thoracic Surgery (Cardiothoracic Vascular Surgery) | DX: E11.621 Type 2 diabetes mellitus with foot ulcer (principal); L89.613 Pressure ulcer of right heel, stage 3; E11.622 Type 2 diabetes mellitus with other skin ulcer; L97.812 Non-pressure chronic ulcer of other part of right lower leg with fat layer exposed; R60.9 Edema, unspecified; L03.115 Cellulitis of right lower limb | CPT/HCPCS: 29581; A6253 ==

== ENCOUNTER → 2024-09-22 14:50 | Outpatient (BNVA) | payer MEDICARE, MEDICAID, SELFPAY | PROVIDERS: Visit Provider Thoracic Surgery (Cardiothoracic Vascular Surgery) | DX: E11.52 Type 2 diabetes mellitus with diabetic peripheral angiopathy with gangrene (principal); E11.621 Type 2 diabetes mellitus with foot ulcer; L89.612 Pressure ulcer of right heel, stage 2; L97.511 Non-pressure chronic ulcer of other part of right foot limited to breakdown of skin; E11.622 Type 2 diabetes mellitus with other skin ulcer; L97.811 Non-pressure chronic ulcer of other part of right lower leg limited to breakdown of skin; I89.0 Lymphedema, not elsewhere classified | CPT/HCPCS: 29581 ==

== ENCOUNTER → 2024-09-24 14:44 | Outpatient (BNVA) | payer MEDICARE, MEDICAID, SELFPAY | PROVIDERS: Visit Provider Thoracic Surgery (Cardiothoracic Vascular Surgery) | DX: E11.52 Type 2 diabetes mellitus with diabetic peripheral angiopathy with gangrene (principal); E11.621 Type 2 diabetes mellitus with foot ulcer; L89.612 Pressure ulcer of right heel, stage 2; L97.511 Non-pressure chronic ulcer of other part of right foot limited to breakdown of skin; E11.622 Type 2 diabetes mellitus with other skin ulcer; L97.811 Non-pressure chronic ulcer of other part of right lower leg limited to breakdown of skin; I89.0 Lymphedema, not elsewhere classified | CPT/HCPCS: 97597; 97598 ==

== ENCOUNTER → 2024-09-26 09:51 | Outpatient (BNVA) | payer MEDICARE, MEDICAID, SELFPAY | PROVIDERS: Visit Provider Thoracic Surgery (Cardiothoracic Vascular Surgery) | DX: E11.621 Type 2 diabetes mellitus with foot ulcer (principal); L89.613 Pressure ulcer of right heel, stage 3; E11.622 Type 2 diabetes mellitus with other skin ulcer; L97.812 Non-pressure chronic ulcer of other part of right lower leg with fat layer exposed; R60.9 Edema, unspecified; L03.115 Cellulitis of right lower limb | CPT/HCPCS: 29581; A6253 ==

== ENCOUNTER → 2024-10-02 13:41 | Outpatient (BNVA) | payer MEDICARE, MEDICAID, SELFPAY | PROVIDERS: Visit Provider Thoracic Surgery (Cardiothoracic Vascular Surgery) | DX: E11.52 Type 2 diabetes mellitus with diabetic peripheral angiopathy with gangrene (principal); E11.621 Type 2 diabetes mellitus with foot ulcer; L97.511 Non-pressure chronic ulcer of other part of right foot limited to breakdown of skin; E11.622 Type 2 diabetes mellitus with other skin ulcer; L97.411 Non-pressure chronic ulcer of right heel and midfoot limited to breakdown of skin | CPT/HCPCS: 97597; 97598; A6253 ==

== ENCOUNTER → 2024-10-06 14:06 | Outpatient (BNVA) | payer MEDICARE, MEDICAID, SELFPAY | PROVIDERS: Visit Provider Thoracic Surgery (Cardiothoracic Vascular Surgery) | DX: E11.52 Type 2 diabetes mellitus with diabetic peripheral angiopathy with gangrene (principal); E11.621 Type 2 diabetes mellitus with foot ulcer; L89.612 Pressure ulcer of right heel, stage 2; L97.511 Non-pressure chronic ulcer of other part of right foot limited to breakdown of skin; E11.622 Type 2 diabetes mellitus with other skin ulcer; L97.811 Non-pressure chronic ulcer of other part of right lower leg limited to breakdown of skin | CPT/HCPCS: 29581 ==

== ENCOUNTER → 2024-10-08 13:40 | Outpatient (BNVA) | payer MEDICARE, MEDICAID, SELFPAY | PROVIDERS: Visit Provider Thoracic Surgery (Cardiothoracic Vascular Surgery) | DX: E11.52 Type 2 diabetes mellitus with diabetic peripheral angiopathy with gangrene (principal); E11.621 Type 2 diabetes mellitus with foot ulcer; L89.612 Pressure ulcer of right heel, stage 2; L97.511 Non-pressure chronic ulcer of other part of right foot limited to breakdown of skin; E11.622 Type 2 diabetes mellitus with other skin ulcer; L97.811 Non-pressure chronic ulcer of other part of right lower leg limited to breakdown of skin | CPT/HCPCS: 97597; 97598; A6197; A6252; A6253 ==

== ENCOUNTER → 2024-10-10 10:40 | Outpatient (BNVA) | payer MEDICARE, MEDICAID, SELFPAY | PROVIDERS: Visit Provider Thoracic Surgery (Cardiothoracic Vascular Surgery) | DX: E11.52 Type 2 diabetes mellitus with diabetic peripheral angiopathy with gangrene (principal); E11.621 Type 2 diabetes mellitus with foot ulcer; L89.612 Pressure ulcer of right heel, stage 2; L97.511 Non-pressure chronic ulcer of other part of right foot limited to breakdown of skin; E11.622 Type 2 diabetes mellitus with other skin ulcer; L97.811 Non-pressure chronic ulcer of other part of right lower leg limited to breakdown of skin | CPT/HCPCS: 29581 ==

== ENCOUNTER → 2024-10-13 09:58 | Outpatient (BNVA) | payer MEDICARE, MEDICAID, SELFPAY | PROVIDERS: Visit Provider Thoracic Surgery (Cardiothoracic Vascular Surgery) | DX: E11.621 Type 2 diabetes mellitus with foot ulcer (principal); L89.613 Pressure ulcer of right heel, stage 3; E11.622 Type 2 diabetes mellitus with other skin ulcer; L97.812 Non-pressure chronic ulcer of other part of right lower leg with fat layer exposed; R60.9 Edema, unspecified; L03.115 Cellulitis of right lower limb | CPT/HCPCS: 29581 ==

== ENCOUNTER → 2024-10-15 09:30 | Outpatient (BNVA) | payer MEDICARE, MEDICAID, SELFPAY | PROVIDERS: Visit Provider Thoracic Surgery (Cardiothoracic Vascular Surgery) | DX: E11.52 Type 2 diabetes mellitus with diabetic peripheral angiopathy with gangrene (principal); E11.621 Type 2 diabetes mellitus with foot ulcer; L89.612 Pressure ulcer of right heel, stage 2; L97.511 Non-pressure chronic ulcer of other part of right foot limited to breakdown of skin; E11.622 Type 2 diabetes mellitus with other skin ulcer; L97.811 Non-pressure chronic ulcer of other part of right lower leg limited to breakdown of skin | CPT/HCPCS: 97597; 97598; A6197; A6252 ==

== ENCOUNTER → 2024-10-17 08:51 | Outpatient (BNVA) | payer MEDICARE, MEDICAID, SELFPAY | PROVIDERS: Visit Provider Thoracic Surgery (Cardiothoracic Vascular Surgery) | DX: E11.621 Type 2 diabetes mellitus with foot ulcer (principal); L89.613 Pressure ulcer of right heel, stage 3; E11.622 Type 2 diabetes mellitus with other skin ulcer; L97.812 Non-pressure chronic ulcer of other part of right lower leg with fat layer exposed; R60.9 Edema, unspecified; L03.115 Cellulitis of right lower limb | CPT/HCPCS: 29581; A6197; A6252 ==

== ENCOUNTER → 2024-10-20 09:22 | Outpatient (BNVA) | payer MEDICARE, MEDICAID, SELFPAY | PROVIDERS: Visit Provider Thoracic Surgery (Cardiothoracic Vascular Surgery) | DX: E11.621 Type 2 diabetes mellitus with foot ulcer (principal); L89.613 Pressure ulcer of right heel, stage 3; E11.622 Type 2 diabetes mellitus with other skin ulcer; L97.812 Non-pressure chronic ulcer of other part of right lower leg with fat layer exposed; R60.9 Edema, unspecified; L03.115 Cellulitis of right lower limb | CPT/HCPCS: 29581; A6197; A6253 ==

== ENCOUNTER → 2024-10-22 09:54 | Outpatient (BNVA) | payer MEDICARE, MEDICAID, SELFPAY | PROVIDERS: Visit Provider Thoracic Surgery (Cardiothoracic Vascular Surgery) | DX: E11.52 Type 2 diabetes mellitus with diabetic peripheral angiopathy with gangrene (principal); E11.621 Type 2 diabetes mellitus with foot ulcer; L89.612 Pressure ulcer of right heel, stage 2; L97.511 Non-pressure chronic ulcer of other part of right foot limited to breakdown of skin; E11.622 Type 2 diabetes mellitus with other skin ulcer; L97.811 Non-pressure chronic ulcer of other part of right lower leg limited to breakdown of skin | CPT/HCPCS: 97597; 97598; A6197; A6251; A6252 ==

== ENCOUNTER → 2024-10-24 09:41 | Outpatient (BNVA) | payer MEDICARE, MEDICAID, SELFPAY | PROVIDERS: Visit Provider Thoracic Surgery (Cardiothoracic Vascular Surgery) | DX: E11.621 Type 2 diabetes mellitus with foot ulcer (principal); L89.613 Pressure ulcer of right heel, stage 3; E11.622 Type 2 diabetes mellitus with other skin ulcer; L97.812 Non-pressure chronic ulcer of other part of right lower leg with fat layer exposed; R60.9 Edema, unspecified; L03.115 Cellulitis of right lower limb | CPT/HCPCS: 29581; A6197; A6252; A6253 ==

== ENCOUNTER → 2024-10-27 14:06 | Outpatient (BNVA) | payer MEDICARE, MEDICAID, SELFPAY | PROVIDERS: Visit Provider Thoracic Surgery (Cardiothoracic Vascular Surgery) | DX: E11.621 Type 2 diabetes mellitus with foot ulcer (principal); L89.613 Pressure ulcer of right heel, stage 3; E11.622 Type 2 diabetes mellitus with other skin ulcer; L97.812 Non-pressure chronic ulcer of other part of right lower leg with fat layer exposed; R60.9 Edema, unspecified; L03.115 Cellulitis of right lower limb | CPT/HCPCS: 29581; A6197; A6253 ==

== ENCOUNTER → 2024-10-29 14:02 | Outpatient (BNVA) | payer MEDICARE, MEDICAID, SELFPAY | PROVIDERS: Visit Provider Thoracic Surgery (Cardiothoracic Vascular Surgery) | DX: E11.52 Type 2 diabetes mellitus with diabetic peripheral angiopathy with gangrene (principal); E11.621 Type 2 diabetes mellitus with foot ulcer; L89.612 Pressure ulcer of right heel, stage 2; L97.511 Non-pressure chronic ulcer of other part of right foot limited to breakdown of skin; E11.622 Type 2 diabetes mellitus with other skin ulcer; L97.811 Non-pressure chronic ulcer of other part of right lower leg limited to breakdown of skin | CPT/HCPCS: 97597; 97598; A6197; A6253 ==

== ENCOUNTER → 2024-10-31 09:30 | Outpatient (BNVA) | payer MEDICARE, MEDICAID, SELFPAY | PROVIDERS: Visit Provider Thoracic Surgery (Cardiothoracic Vascular Surgery) | DX: E11.621 Type 2 diabetes mellitus with foot ulcer (principal); L89.613 Pressure ulcer of right heel, stage 3; E11.622 Type 2 diabetes mellitus with other skin ulcer; L97.812 Non-pressure chronic ulcer of other part of right lower leg with fat layer exposed; R60.9 Edema, unspecified; L03.115 Cellulitis of right lower limb | CPT/HCPCS: 29581; A6197; A6253 ==

== ENCOUNTER → 2024-11-06 09:28 | Outpatient (BNVA) | payer MEDICARE, MEDICAID, SELFPAY | PROVIDERS: Visit Provider Thoracic Surgery (Cardiothoracic Vascular Surgery) | DX: E11.52 Type 2 diabetes mellitus with diabetic peripheral angiopathy with gangrene (principal); E11.621 Type 2 diabetes mellitus with foot ulcer; L89.612 Pressure ulcer of right heel, stage 2; L97.511 Non-pressure chronic ulcer of other part of right foot limited to breakdown of skin; E11.622 Type 2 diabetes mellitus with other skin ulcer; L97.811 Non-pressure chronic ulcer of other part of right lower leg limited to breakdown of skin | CPT/HCPCS: 97597; 97598 ==

== ENCOUNTER → 2024-11-10 14:28 | Outpatient (BNVA) | payer MEDICARE, MEDICAID, SELFPAY | PROVIDERS: Visit Provider Thoracic Surgery (Cardiothoracic Vascular Surgery) | DX: E11.52 Type 2 diabetes mellitus with diabetic peripheral angiopathy with gangrene (principal); E11.621 Type 2 diabetes mellitus with foot ulcer; L89.612 Pressure ulcer of right heel, stage 2; L97.511 Non-pressure chronic ulcer of other part of right foot limited to breakdown of skin; E11.622 Type 2 diabetes mellitus with other skin ulcer; L97.811 Non-pressure chronic ulcer of other part of right lower leg limited to breakdown of skin | CPT/HCPCS: 29581 ==

== ENCOUNTER → 2024-11-12 09:30 | Outpatient (BNVA) | payer MEDICARE, MEDICAID, SELFPAY | PROVIDERS: Visit Provider Thoracic Surgery (Cardiothoracic Vascular Surgery) | DX: E11.52 Type 2 diabetes mellitus with diabetic peripheral angiopathy with gangrene (principal); E11.621 Type 2 diabetes mellitus with foot ulcer; L97.511 Non-pressure chronic ulcer of other part of right foot limited to breakdown of skin; L89.612 Pressure ulcer of right heel, stage 2; E11.622 Type 2 diabetes mellitus with other skin ulcer; L97.811 Non-pressure chronic ulcer of other part of right lower leg limited to breakdown of skin | CPT/HCPCS: 97597; 97598; A6197; A6252; A6253 ==

== ENCOUNTER → 2024-11-14 08:54 | Outpatient (BNVA) | payer MEDICARE, MEDICAID, SELFPAY | PROVIDERS: Visit Provider Thoracic Surgery (Cardiothoracic Vascular Surgery) | DX: E11.52 Type 2 diabetes mellitus with diabetic peripheral angiopathy with gangrene (principal); E11.621 Type 2 diabetes mellitus with foot ulcer; L89.612 Pressure ulcer of right heel, stage 2; L97.511 Non-pressure chronic ulcer of other part of right foot limited to breakdown of skin; E11.622 Type 2 diabetes mellitus with other skin ulcer; L97.811 Non-pressure chronic ulcer of other part of right lower leg limited to breakdown of skin | CPT/HCPCS: 29581; A6197; A6252; A6253 ==

== ENCOUNTER → 2024-11-19 10:12 | Outpatient (BNVA) | payer MEDICARE, MEDICAID, SELFPAY | PROVIDERS: Visit Provider Thoracic Surgery (Cardiothoracic Vascular Surgery) | DX: E11.52 Type 2 diabetes mellitus with diabetic peripheral angiopathy with gangrene (principal); E11.621 Type 2 diabetes mellitus with foot ulcer; L89.612 Pressure ulcer of right heel, stage 2; L97.511 Non-pressure chronic ulcer of other part of right foot limited to breakdown of skin; E11.622 Type 2 diabetes mellitus with other skin ulcer; L97.811 Non-pressure chronic ulcer of other part of right lower leg limited to breakdown of skin | CPT/HCPCS: 97597; 97598; A6197; A6253 ==

== ENCOUNTER → 2024-11-21 10:22 | Outpatient (BNVA) | payer MEDICARE, MEDICAID, SELFPAY | PROVIDERS: Visit Provider Thoracic Surgery (Cardiothoracic Vascular Surgery) | DX: E11.52 Type 2 diabetes mellitus with diabetic peripheral angiopathy with gangrene (principal); E11.621 Type 2 diabetes mellitus with foot ulcer; L89.612 Pressure ulcer of right heel, stage 2; L97.511 Non-pressure chronic ulcer of other part of right foot limited to breakdown of skin; E11.622 Type 2 diabetes mellitus with other skin ulcer; L97.811 Non-pressure chronic ulcer of other part of right lower leg limited to breakdown of skin | CPT/HCPCS: 29581 ==

== ENCOUNTER → 2024-11-24 09:56 | Outpatient (BNVA) | payer MEDICARE, MEDICAID, SELFPAY | PROVIDERS: Visit Provider Thoracic Surgery (Cardiothoracic Vascular Surgery) | DX: E11.621 Type 2 diabetes mellitus with foot ulcer (principal); L89.613 Pressure ulcer of right heel, stage 3; E11.622 Type 2 diabetes mellitus with other skin ulcer; L97.812 Non-pressure chronic ulcer of other part of right lower leg with fat layer exposed; R60.9 Edema, unspecified; L03.115 Cellulitis of right lower limb | CPT/HCPCS: 29581; A6197; A6252 ==

== ENCOUNTER → 2024-11-26 09:25 | Outpatient (BNVA) | payer MEDICARE, MEDICAID, SELFPAY | PROVIDERS: Visit Provider Thoracic Surgery (Cardiothoracic Vascular Surgery) | DX: E11.52 Type 2 diabetes mellitus with diabetic peripheral angiopathy with gangrene (principal); E11.622 Type 2 diabetes mellitus with other skin ulcer; L97.821 Non-pressure chronic ulcer of other part of left lower leg limited to breakdown of skin; L97.811 Non-pressure chronic ulcer of other part of right lower leg limited to breakdown of skin; E11.621 Type 2 diabetes mellitus with foot ulcer; L89.612 Pressure ulcer of right heel, stage 2; L97.511 Non-pressure chronic ulcer of other part of right foot limited to breakdown of skin | CPT/HCPCS: 97597; 97598; A6197; A6252; A6253 ==

== ENCOUNTER → 2024-12-01 09:46 | Outpatient (BNVA) | payer MEDICARE, MEDICAID, SELFPAY | PROVIDERS: Visit Provider Thoracic Surgery (Cardiothoracic Vascular Surgery) | DX: E11.621 Type 2 diabetes mellitus with foot ulcer (principal); L89.212 Pressure ulcer of right hip, stage 2; L97.511 Non-pressure chronic ulcer of other part of right foot limited to breakdown of skin; E11.622 Type 2 diabetes mellitus with other skin ulcer; L97.821 Non-pressure chronic ulcer of other part of left lower leg limited to breakdown of skin; L97.811 Non-pressure chronic ulcer of other part of right lower leg limited to breakdown of skin | CPT/HCPCS: 87070; 87176; 87205; 97597; 97598; A6197; A6210; A6253 ==

== ENCOUNTER → 2024-12-03 10:29 | Outpatient (BNVA) | payer MEDICARE, MEDICAID, SELFPAY | PROVIDERS: Visit Provider Thoracic Surgery (Cardiothoracic Vascular Surgery) | DX: E11.621 Type 2 diabetes mellitus with foot ulcer (principal); L89.613 Pressure ulcer of right heel, stage 3; E11.622 Type 2 diabetes mellitus with other skin ulcer; L97.812 Non-pressure chronic ulcer of other part of right lower leg with fat layer exposed; R60.9 Edema, unspecified; L03.115 Cellulitis of right lower limb | CPT/HCPCS: 29581; A6197; A6252; A6253 ==

== ENCOUNTER 2024-12-05 06:00 | Outpatient (CLI) | payer MEDICARE, MEDICAID, SELFPAY | END 2024-12-05 06:01 | disposition home or self-care (01) | LOC: RAD 12-31 09:04 | PROVIDERS: PCP Internal Medicine; Visit Provider Thoracic Surgery (Cardiothoracic Vascular Surgery) | DX: E11.52 Type 2 diabetes mellitus with diabetic peripheral angiopathy with gangrene (principal); E11.621 Type 2 diabetes mellitus with foot ulcer; L89.613 Pressure ulcer of right heel, stage 3; E11.622 Type 2 diabetes mellitus with other skin ulcer; L97.812 Non-pressure chronic ulcer of other part of right lower leg with fat layer exposed; R60.9 Edema, unspecified; L03.115 Cellulitis of right lower limb | CPT/HCPCS: 29581; A6197; A6252 ==

== ENCOUNTER → 2024-12-08 09:51 | Outpatient (BNVA) | payer MEDICARE, MEDICAID, SELFPAY | PROVIDERS: Visit Provider Thoracic Surgery (Cardiothoracic Vascular Surgery) | DX: E11.621 Type 2 diabetes mellitus with foot ulcer (principal); L89.613 Pressure ulcer of right heel, stage 3; E11.622 Type 2 diabetes mellitus with other skin ulcer; L97.812 Non-pressure chronic ulcer of other part of right lower leg with fat layer exposed; R60.9 Edema, unspecified | CPT/HCPCS: 29581 ==

== ENCOUNTER → 2024-12-10 09:52 | Outpatient (BNVA) | payer MEDICARE, MEDICAID, SELFPAY | PROVIDERS: Visit Provider Thoracic Surgery (Cardiothoracic Vascular Surgery) | DX: E11.52 Type 2 diabetes mellitus with diabetic peripheral angiopathy with gangrene (principal); E11.621 Type 2 diabetes mellitus with foot ulcer; L89.612 Pressure ulcer of right heel, stage 2; L97.511 Non-pressure chronic ulcer of other part of right foot limited to breakdown of skin; E11.622 Type 2 diabetes mellitus with other skin ulcer; L97.811 Non-pressure chronic ulcer of other part of right lower leg limited to breakdown of skin | CPT/HCPCS: 97597; 97598 ==

== ENCOUNTER → 2024-12-12 09:53 | Outpatient (BNVA) | payer MEDICARE, MEDICAID, SELFPAY | PROVIDERS: Visit Provider Thoracic Surgery (Cardiothoracic Vascular Surgery) | DX: E11.52 Type 2 diabetes mellitus with diabetic peripheral angiopathy with gangrene (principal); E11.621 Type 2 diabetes mellitus with foot ulcer; L89.613 Pressure ulcer of right heel, stage 3; E11.622 Type 2 diabetes mellitus with other skin ulcer; L97.812 Non-pressure chronic ulcer of other part of right lower leg with fat layer exposed | CPT/HCPCS: 29581; A6197; A6253 ==

== ENCOUNTER → 2024-12-15 09:26 | Outpatient (BNVA) | payer MEDICARE, MEDICAID, SELFPAY | PROVIDERS: Visit Provider Thoracic Surgery (Cardiothoracic Vascular Surgery) | DX: E11.621 Type 2 diabetes mellitus with foot ulcer (principal); L89.613 Pressure ulcer of right heel, stage 3; E11.622 Type 2 diabetes mellitus with other skin ulcer; L97.812 Non-pressure chronic ulcer of other part of right lower leg with fat layer exposed; L03.115 Cellulitis of right lower limb | CPT/HCPCS: 29581; A6197; A6252; A6253 ==

== ENCOUNTER 2024-12-17 02:25 | Inpatient (IN) | payer MEDICARE, MEDICAID, SELFPAY ==
--- OUTSIDE RECORDS SUMMARY | 2003-05-06 19:00 | XMS_ITS | Continuity of Care Document ---
Author Name [facility] Address [address] [place] [address] Organization [facility] Care Team Providers Care Industrial Chemistry Teacher Name Role Phone [facility] Unavailable Unavailable Problems Problem Status Onset Date Problem Type Date of Resolution Comments Source Aphakia (disorder) Active Condition History of - cornea recipient (context-dependent category) Active Condition Hypertensive disorder, systemic arterial (disorder) Active Condition Mood disorder (disorder) Active Condition Rupture of globe (disorder) Active Condition Diabetes mellitus type 2 (disorder) Active Condition Vitreous hemorrhage (disorder) Active Condition Ocular laceration and rupture with prolapse or loss of intraocular tissue, right eye, initial encoun Active Diagnosis Ocular laceration with intraocular prolapse (disorder) Diagnosis 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 Diagnosis Vaccination given (situation) Diagnosis 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) Diagnosis Serious reportable event associated with product or device (event) Diagnosis Place of occurrence of accident or poisoning (environment) Diagnosis Fall on same level from tripping (finding) Diagnosis Active movement, function (observable entity) Diagnosis Place of occurrence of accident or poisoning, noninstitutional place of residence (environment) Diagnosis Injury due to exposure to external cause (disorder) Diagnosis Atherosclerosis of coronary artery (disorder) Diagnosis Heart failure (disorder) Diagnosis Chronic obstructive lung disease (disorder) Diagnosis History of fall (situation) Diagnosis Aortocoronary bypass graft present Diagnosis Hypo-osmolality and or hyponatremia (disorder) Diagnosis Hypertensive heart failure (disorder) Diagnosis Long-term current use of drug therapy (situation) Diagnosis Long-term current use of insulin (situation) Diagnosis Allergy to penicillin (disorder) Diagnosis Contrast media allergy (disorder) Diagnosis Obstructive sleep apnea syndrome (disorder) Diagnosis Hyperlipidemia (disorder) Diagnosis 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 aluminum sulfate topical Assertion Rash Drug allergy Active [facility] Contrast Dye Assertion Drug allergy [facility]
[2024-12-17] VITALS (13 sets, daily range): BP systolic 98–146; BP diastolic 49–74; PULSE 84–99; RESP 16–24; TEMP 36.7–37.6; O2SAT 90–95; BMI 31.8; BMI 46.0
--- NOTE | 2024-12-17 02:29 | CTR_ITS ---
PROCEDURE INFORMATION: Exam: CT Thoracic Spine Without Contrast Exam date and time: 12/17/2024 3:29 AM Age: 69 years old Clinical indication: Pain in thoracic spine; Additional info: Fall, pain TECHNIQUE: Imaging protocol: Computed tomography of the thoracic spine without contrast. Radiation optimization: All CT scans at this facility use at least one of these dose optimization techniques: automated exposure control; mA and/or kV adjustment per patient size (includes targeted exams where dose is matched to clinical indication); or iterative reconstruction. COMPARISON: MR thoracic spin wo con* [id number] 05/01/2019 1:10 PM RADIATION DOSE METRICS: Total DLP (mGy-cm): 1973.1 FINDINGS: Bones/joints: No acute fracture. Normal alignment. Degenerative spondylosis is present. There is minimal chronic ventral wedging of the T12 vertebral body which is also noted on an MRI examination from 05/01/2019. There is hardware representing anterior cervical interbody fusion with an intervening disc spacer at C6-C7 Soft tissues: Moderately extensive coronary arterial calcification is present. CT/CT thoracic spin wo con* [id number] IMPRESSION: 1. There is no evidence of acute fracture or traumatic misalignment. 2. Moderately extensive coronary arterial calcification is noted.
--- NOTE | 2024-12-17 02:29 | CTR_ITS ---
PROCEDURE INFORMATION: Exam: CT Cervical Spine Without Contrast Exam date and time: 12/17/2024 3:29 AM Age: 69 years old Clinical indication: Injury or trauma; Fall; Crushing; Prior surgery; Surgery date: 6+ months; Surgery type: Fusion; Additional info: Fall, neck pain TECHNIQUE: Imaging protocol: Computed tomography of the cervical spine without contrast. Radiation optimization: All CT scans at this facility use at least one of these dose optimization techniques: automated exposure control; mA and/or kV adjustment per patient size (includes targeted exams where dose is matched to clinical indication); or iterative reconstruction. COMPARISON: CT cervical spin wo con* [id number] 11/04/2019 2:44 PM RADIATION DOSE METRICS: Total DLP (mGy-cm): 509.5 FINDINGS: Bones/joints: No acute fracture. Normal alignment. There is straightening of cervical lordosis. The patient is status post anterior fusion at C5-C6. There is moderate to advanced multilevel degenerative disc disease. There is multilevel spinal canal stenosis with severe stenosis at C5-C6 secondary to disc osteophyte bulging. Lungs: Lung apices are normal. Soft tissues: Unremarkable. CT/CT cervical spin wo con* [id number] IMPRESSION: 1. No evidence of acute fracture. 2. Severe spinal canal stenosis at C5-C6.
--- NOTE | 2024-12-17 02:29 | XRR_ITS ---
PROCEDURE INFORMATION: Exam: XR Chest Exam date and time: 12/17/2024 3:44 AM Age: 69 years old Clinical indication: Dyspnea; Additional info: Weakness TECHNIQUE: Imaging protocol: Radiologic exam of the chest. Views: 1 view. COMPARISON: CT cervical spin wo con* [id number] 12/17/2024 3:29 AM FINDINGS: Lungs: The right side of the diaphragm is elevated. No consolidation. Pleural spaces: Unremarkable. No pleural effusion. No pneumothorax. Heart/Mediastinum: Unremarkable. Borderline cardiomegaly. Bones/joints: Hardware overlying the lower cervical spine representing anterior interbody fusion extending between C6 and C7 is noted. XR/XR chest 1V portable [id number] IMPRESSION: The right side of the diaphragm is elevated. No consolidation.
--- NOTE | 2024-12-17 02:29 | CTR_ITS ---
PROCEDURE INFORMATION: Exam: CT Head Without Contrast Exam date and time: 12/17/2024 3:29 AM Age: 69 years old Clinical indication: Injury or trauma; Fall; Concussion/head injury; Additional info: Fall, head injury TECHNIQUE: Imaging protocol: Computed tomography of the head without contrast. Radiation optimization: All CT scans at this facility use at least one of these dose optimization techniques: automated exposure control; mA and/or kV adjustment per patient size (includes targeted exams where dose is matched to clinical indication); or iterative reconstruction. COMPARISON: CT cervical spin wo con* [id number] 11/04/2019 2:44 PM RADIATION DOSE METRICS: Total DLP (mGy-cm): 1229.2 FINDINGS: Brain: There is mild small vessel disease. There is no evidence of acute parenchymal hemorrhage, extra-axial collection, or acute infarction. There is no mass effect, midline shift, or downward herniation. Cerebral ventricles: No ventriculomegaly. Paranasal sinuses: Visualized sinuses are unremarkable. No fluid levels. Mastoid air cells: Visualized mastoid air cells are well aerated. Bones: Unremarkable. No acute fracture. Soft tissues: Unremarkable. CT/CT head wo con* [id number] IMPRESSION: Mild small vessel disease. No evidence of acute intracranial process.
--- NOTE | 2024-12-17 02:30 | W.ED.WEAKNES ---
Documented by User: Morelia Mcnulty MD 12/17/24 02:47 HPI - Weakness General: Chief complaint: Weakness Stated complaint: weakness/ fall Time Seen by Provider: 12/17/24 02:26 History of Present Illness: 69-year-old man with a history of morbid obesity, diabetes, chronic right foot wounds, chronic pain syndrome on tramadol and hydrocodone and chronic hypoxemic respiratory failure on 3 L nasal cannula at all times who presents to the emergency room by ambulance with worsening weakness and a fall from his wheelchair. He is complaining of some upper mid back pain. He did not hit his head. Related Data Home Medications ?Medication ?Instructions ?Recorded ?Confirmed acetaminophen 500 mg capsule 500 mg PO Q4H PRN Pain 07/29/19 11/04/19 albuterol sulfate 90 mcg/actuation 2 inh inhalation Q4H PRN COPD 07/29/19 02/03/22 breath activated powder inhaler aspirin 81 mg tablet,delayed 81 mg PO DAILY 07/29/19 02/03/22 release Held on 09/09/19. Instructions: Resume on 09/10/19. atorvastatin 40 mg tablet 40 mg PO DAILY 07/29/19 02/03/22 cetirizine 10 mg capsule 10 mg PO DAILY 07/29/19 02/03/22 fluticasone furoate 100 1 inh inhalation DAILY COPD 07/29/19 02/03/22 mcg/actuation blister powder for inhalation gemfibrozil 600 mg tablet 600 mg PO BID 07/29/19 02/03/22 hydrocodone 5 mg-acetaminophen 325 1 tab PO TID PRN Pain 07/29/19 02/03/22 mg tablet ([place]) nitroglycerin 0.4 mg sublingual 0.4 mg sublingual Q5M PRN Chest 07/29/19 02/03/22 tablet (Nitrostat) Pain potassium chloride 20 mEq 20 meq PO DAILY 07/29/19 02/03/22 tablet,extended release spironolactone 25 mg tablet 25 mg PO DAILY 07/29/19 02/03/22 tamsulosin 0.4 mg capsule (Flomax) 0.4 mg PO DAILY 07/29/19 02/03/22 tramadol 50 mg tablet 100 mg PO Q4H PRN Pain 07/29/19 02/03/22 carvedilol 25 mg tablet 25 mg PO TID 07/30/19 02/03/22 torsemide 20 mg tablet 20 mg PO BID 07/30/19 02/03/22 insulin U-500 syringe-needle /09/08/19 02/03/22 mL 31 gauge x 15/64 insulin regular human 100 unit/mL See Rx Instructions .Route .COMPLEX 09/08/19 11/04/19 (3 mL) subcutaneous pen oxybutynin chloride 10 mg 30 mg PO DAILY 02/03/22 02/03/22 tablet,extended release 24 hr semaglutide 0.25 mg or 0.5 mg (2 mg SUBCUT .Week 02/03/22 02/03/22 mg/1.5 mL) subcutaneous pen injector (Ozempic) Previous Rx's ?Medication ?Instructions ?Recorded fluconazole 100 mg tablet 100 mg PO DAILY #5 tabs 12/06/23 (Diflucan) clindamycin HCl 300 mg capsule 300 mg PO TID #30 caps 02/05/24 sodium hypochlorite 0.125 % 1 applic topical DAILY #473 mL 02/05/24 solution (Dakin's Solution) fluconazole 150 mg tablet 150 mg PO Q3D 3 doses #3 tabs 03/25/24 levofloxacin 750 mg tablet 750 mg PO DAILY #10 tabs 04/28/24 sulfamethoxazole 800 1 tab PO BID #20 tabs 09/12/24 mg-trimethoprim 160 mg tablet (Bactrim DS) clindamycin HCl 300 mg capsule 300 mg PO TID #21 caps 10/08/24 (Cleocin HCl) levofloxacin 500 mg tablet 500 mg PO DAILY #14 tabs 11/24/24 Allergies Allergy/AdvReac Type Severity Reaction Status Date / Time penicillin G Allergy Severe anaphylactic Verified 02/03/22 14:27 shock iodine Allergy Mild itching Verified 02/03/22 14:27 Sulfa (Sulfonamide Allergy ALGY-Rash Verified 12/17/24 02:31 Antibiotics) Review of Systems Narrative: Constitutional symptoms: Negative except as documented in HPI. Skin symptoms: Negative except as documented in HPI. Eye symptoms: Negative except as documented in HPI. ENMT symptoms: Negative except as documented in HPI. Respiratory symptoms: Negative except as documented in HPI. Cardiovascular symptoms: Negative except as documented in HPI. Gastrointestinal symptoms: Negative except as documented in HPI. Genitourinary symptoms: Negative except as documented in HPI. Musculoskeletal symptoms: Negative except as documented in HPI. Neurologic symptoms: Negative except as documented in HPI. Psychiatric symptoms: Negative except as documented in HPI. Endocrine symptoms: Negative except as documented in HPI. PFSH ED PFSH: Medical History (Updated 12/17/24 @ 06:09 by Lizzy Colorado MD) Post-operative state Cervical disc disorder with myelopathy of mid-cervical region Morbid obesity with BMI of 40.0-44.9, adult Polyneuropathy, peripheral sensorimotor axonal Spondylolisthesis, lumbar region Spinal stenosis of lumbar region with radiculopathy Surgical History History of cervical spinal surgery 09/08/2019 Dr. Billie Jensen C5-C6 ACDFF History of tonsillectomy and adenoidectomy History of vasectomy History of cornea transplant History of coronary artery stent placement History of amputation of toe Family History Father Cancer Mother Heart disease Social History Smoking and tobacco/nicotine status: never used tobacco/nicotine Alcohol intake: current Substance/Drug Use: never Household members: none Marital status: Single Current occupational status: disabled Physical Exam Narrative: EXAM NARRATIVE: General: Alert, no acute distress. Skin: Warm, dry. Head: Normocephalic, atraumatic. Neck: Supple, trachea midline. Eye: Extraocular movements are intact. Ears, nose, mouth and throat: mucosa moist. Cardiovascular: Regular, Normal peripheral perfusion. Respiratory: Lungs are clear to auscultation, respirations are non-labored, breath sounds are equal, Symmetrical chest wall expansion. Gastrointestinal: Soft, Nontender, Non distended Musculoskeletal: Normal ROM, no deformity. Neurological: Alert and oriented, No focal neurological deficit observed. Psychiatric: Cooperative, appropriate mood & affect. Course Vital Signs: Vital signs: Vital Signs Temperature 98.9 F 12/17/24 02:26 Pulse Rate 97 12/17/24 05:08 Respiratory Rate 24 H 12/17/24 02:26 Blood Pressure 129/63 12/17/24 05:08 Pulse Oximetry 95 12/17/24 05:08 Oxygen Delivery Me thod Nasal Cannula 12/17/24 03:03 Oxygen Flow Rate 3 12/17/24 05:08 MDM - Weakness Medical Decision Making Medical decision making: Differential diagnosis for patient presenting with generalized weakness including but not limited to and based on the above HPI, review of systems and physical exam: Sepsis. Dehydration. Renal failure. Electrolyte abnormalities. Anemia. Congestive heart failure. Hypotension. Coronary syndrome. Hepatitis. Cirrhosis. Infections such as pneumonia, urinary tract infection, Tick bourne illness, Cellulitis, Viral infections including influenza and Covid-19. Workup: labwork and lab/exam driven imaging ordered to evaluate, rule in and rule out above pathologies. Lab Review: Laboratory results were reviewed and interpreted by myself the emergency room physician. I reviewed the patient's medical record. Reexamination: Lab Data 12/17/24 02:48 12/17/24 02:48 Radiology Impressions Cervical Spine CT 12/17/24 02:29 IMPRESSION: 1. No evidence of acute fracture. 2. Severe spinal canal stenosis at C5-C6. Chest X-Ray 12/17/24 02:29 IMPRESSION: The right side of the diaphragm is elevated. No consolidation. Head CT 12/17/24 02:29 IMPRESSION: Mild small vessel disease. No evidence of acute intracranial process. Thoracic Spine CT 12/17/24 02:29 IMPRESSION: 1. There is no evidence of acute fracture or traumatic misalignment. 2. Moderately extensive coronary arterial calcification is noted. Laboratory Results WBC 25.42 10^3/uL (3.29-11.43) H 12/17/24 02:48 RBC 4.54 10^6/uL (3.85-5.65) 12/17/24 02:48 Hgb 12.30 g/dL (11.27-16.99) 12/17/24 02:48 Hct 39.3 % (37-53) 12/17/24 02:48 MCV 86.6 fl (82-101) 12/17/24 02:48 MCH 27.1 pg (27-33) 12/17/24 02:48 MCHC 31.3 g/dL (30-55) 12/17/24 02:48 RDW 15.9 % (12.1-15.1) H 12/17/24 02:48 Plt Count 287 10^3/cmm (157-399) 12/17/24 02:48 MPV 9.3 fL (7.4-10.4) 12/17/24 02:48 Neut % (Auto) 91.2 % 12/17/24 02:48 Lymph % (Auto) 2.1 % 12/17/24 02:48 [place] % (Auto) 5.0 % 12/17/24 02:48 Eos % (Auto) 0.0 % 12/17/24 02:48 Baso % (Auto) 0.2 % 12/17/24 02:48 Neut # (Auto) 23.18 10^3/uL (1.8-7.7) H 12/17/24 02:48 Lymph # (Auto) 0.5 10^3/uL (0.8-4.8) L 12/17/24 02:48 [place] # (Auto) 1.3 10^3/uL (0.2-0.9) H 12/17/24 02:48 Eos # (Auto) 0.0 10^3/uL (0.0-0.8) 12/17/24 02:48 Baso # (Auto) 0.1 10^3/uL (0.0-0.1) 12/17/24 02:48 Nucleated RBC % (auto) 0 % 12/17/24 02:48 Nucleated RBCs # 0.0 /100WBC 12/17/24 02:48 Sodium 135 mmol/L (136-145) L 12/17/24 02:48 Potassium 4.7 mmol/L (3.5-5.1) 12/17/24 02:48 Chloride 97 mmol/L (98-107) L 12/17/24 02:48 Carbon Dioxide 23 mmol/L (22-29) 12/17/24 02:48 Anion Gap 19.7 (5-19) H 12/17/24 02:48 BUN 27 mg/dL (8-23) H 12/17/24 02:48 Creatinine 1.8 mg/dL (0.7-1.2) H 12/17/24 02:48 GFR Calculation 37.7 mL/min (90-130) L 12/17/24 02:48 Glucose 470 mg/dL (65-115) H 12/17/24 02:48 POC Glucose 395 mg/dL (70-110) H 12/17/24 05:49 Calculated Osmolality 306 mOsm/kg (285-295) H 12/17/24 02:48 Lactic Acid 3.3 mmol/L (0.5-2.2) H 12/17/24 02:48 Calcium 9.1 mg/dL (8.5-10.5) 12/17/24 02:48 Total Bilirubin 0.4 mg/dL (0.15-1.2) 12/17/24 02:48 AST 89 U/L (0-40) H 12/17/24 02:48 ALT 21 U/L (0-41) 12/17/24 02:48 Alkaline Phosphatase 97 U/L (40-130) 12/17/24 02:48 Total Protein 7.1 g/dL (6.6-8.7) 12/17/24 02:48 Albumin 3.7 g/dL (3.5-5.2) 12/17/24 02:48 Globulin 3.4 g/dL (1.3-4.6) 12/17/24 02:48 Urine Color Yellow (Yellow) 12/17/24 05:00 Urine Appearance Clear (CLEAR) 12/17/24 05:00 Urine pH 5.0 (5-7) 12/17/24 05:00 Ur Specific [place] 1.028 (1.005-1.030) 12/17/24 05:00 Urine Protein Trace (Negative) A 12/17/24 05:00 Urine Glucose (UA) 3+ (Normal) H 12/17/24 05:00 Urine Ketones Negative (Negative) 12/17/24 05:00 Urine Blood 3+ (Negative) A 12/17/24 05:00 Urine Nitrate Negative (Negative) 12/17/24 05:00 Urine Bilirubin Negative (Negative) 12/17/24 05:00 Urine Urobilinogen 0.2 mg/dL (Negative) 12/17/24 05:00 Ur Leukocyte Esterase Negative (Negative) 12/17/24 05:00 Urine RBC 0-2 /hpf (0-2) 12/17/24 05:00 Urine WBC 6-10 /hpf (0-5) 12/17/24 05:00 Ur Squamous Epith Cells 0-5 /hpf (0-5) 12/17/24 05:00 Amorphous Sediment Not Reportable 12/17/24 05:00 Urine Bacteria None seen /hpf (NONE) 12/17/24 05:00 Hyaline Casts 0.81 /lpf 12/17/24 05:00 Urine Yeast 3+ /hpf H 12/17/24 05:00 Serum Ketones Negative (Negative) 12/17/24 02:48 Influenza A (PCR) Negative (Negative) 12/17/24 03:11 Influenza Type B (PCR) Negative (Negative) 12/17/24 03:11 RSV (PCR) Negative (Negative) 12/17/24 03:11 SARS-CoV-2 (PCR) Negative (Negative) 12/17/24 03:11 Discharge Plan Discharge Patient Disposition: Admitted As Inpatient Clinical Impression: Cellulitis of foot, right Condition: Stable Coding Level of Care Code ED Label Printing Machinist for Chg Fwd Documented by User: Lizzy Colorado MD 12/17/24 06:11 HPI - Weakness General: Chief complaint: Weakness Stated complaint: weakness/ fall Time Seen by Provider: 12/17/24 02:26 Related Data Home Medications ?Medication ?Instructions ?Recorded ?Confirmed acetaminophen 500 mg capsule 500 mg PO Q4H PRN Pain 07/29/19 11/04/19 albuterol sulfate 90 mcg/actuation 2 inh inhalation Q4H PRN COPD 07/29/19 02/03/22 breath activated powder inhaler aspirin 81 mg tablet,delayed 81 mg PO DAILY 07/29/19 02/03/22 release Held on 09/09/19. Instructions: Resume on 09/10/19. atorvastatin 40 mg tablet 40 mg PO DAILY 07/29/19 02/03/22 cetirizine 10 mg capsule 10 mg PO DAILY 07/29/19 02/03/22 fluticasone furoate 100 1 inh inhalation DAILY COPD 07/29/19 02/03/22 mcg/actuation blister powder for inhalation gemfibrozil 600 mg tablet 600 mg PO BID 07/29/19 02/03/22 hydrocodone 5 mg-acetaminophen 325 1 tab PO TID PRN Pain 07/29/19 02/03/22 mg tablet ([place]) nitroglycerin 0.4 mg sublingual 0.4 mg sublingual Q5M PRN Chest 07/29/19 02/03/22 tablet (Nitrostat) Pain potassium chloride 20 mEq 20 meq PO DAILY 07/29/19 02/03/22 tablet,extended release spironolactone 25 mg tablet 25 mg PO DAILY 07/29/19 02/03/22 tamsulosin 0.4 mg capsule (Flomax) 0.4 mg PO DAILY 07/29/19 02/03/22 tramadol 50 mg tablet 100 mg PO Q4H PRN Pain 07/29/19 02/03/22 carvedilol 25 mg tablet 25 mg PO TID 07/30/19 02/03/22 torsemide 20 mg tablet 20 mg PO BID 07/30/19 02/03/22 insulin U-500 syringe-needle /09/08/19 02/03/22 mL 31 gauge x 15/64 insulin regular human 100 unit/mL See Rx Instructions .Route .COMPLEX 09/08/19 11/04/19 (3 mL) subcutaneous pen oxybutynin chloride 10 mg 30 mg PO DAILY 02/03/22 02/03/22 tablet,extended release 24 hr semaglutide 0.25 mg or 0.5 mg (2 mg SUBCUT .Week 02/03/22 02/03/22 mg/1.5 mL) subcutaneous pen injector (Ozempic) Previous Rx's ?Medication ?Instructions ?Recorded fluconazole 100 mg tablet 100 mg PO DAILY #5 tabs 12/06/23 (Diflucan) clindamycin HCl 300 mg capsule 300 mg PO TID #30 caps 02/05/24 sodium hypochlorite 0.125 % 1 applic topical DAILY #473 mL 02/05/24 solution (Dakin's Solution) fluconazole 150 mg tablet 150 mg PO Q3D 3 doses #3 tabs 03/25/24 levofloxacin 750 mg tablet 750 mg PO DAILY #10 tabs 04/28/24 sulfamethoxazole 800 1 tab PO BID #20 tabs 09/12/24 mg-trimethoprim 160 mg tablet (Bactrim DS) clindamycin HCl 300 mg capsule 300 mg PO TID #21 caps 10/08/24 (Cleocin HCl) levofloxacin 500 mg tablet 500 mg PO DAILY #14 tabs 11/24/24 Allergies Allergy/AdvReac Type Severity Reaction Status Date / Time penicillin G Allergy Severe anaphylactic Verified 02/03/22 14:27 shock iodine Allergy Mild itching Verified 02/03/22 14:27 Sulfa (Sulfonamide Allergy ALGY-Rash Verified 12/17/24 02:31 Antibiotics) [facility] / [facility] ED PFS: Medical History (Updated 12/17/24 @ 06:09 by Lizzy Colorado MD) Post-operative state Cervical disc disorder with myelopathy of mid-cervical region Morbid obesity with BMI of 40.0-44.9, adult Polyneuropathy, peripheral sensorimotor axonal Spondylolisthesis, lumbar region Spinal stenosis of lumbar region with radiculopathy Surgical History History of cervical spinal surgery 09/08/2019 Dr. Billie Jensen C5-C6 ACDFF History of tonsillectomy and adenoidectomy History of vasectomy History of cornea transplant History of coronary artery stent placement History of amputation of toe Family History Father Cancer Mother Heart disease Social History Smoking and tobacco/nicotine status: never used tobacco/nicotine Alcohol intake: current Substance/Drug Use: never Household members: none Marital status: Single Current occupational status: disabled Course Vital Signs: Vital signs: Vital Signs Temperature 98.9 F 12/17/24 02:26 Pulse Rate 97 12/17/24 05:08 Respiratory Rate 24 H 12/17/24 02:26 Blood Pressure 129/63 12/17/24 05:08 Pulse Oximetry 95 12/17/24 05:08 Oxygen Delivery Me thod Nasal Cannula 12/17/24 03:03 Oxygen Flow Rate 3 12/17/24 05:08 MDM - Weakness Medical Decision Making Medical decision making: Differential diagnosis for patient presenting with generalized weakness including but not limited to and based on the above HPI, review of systems and physical exam: Sepsis. Dehydration. Renal failure. Electrolyte abnormalities. Anemia. Congestive heart failure. Hypotension. Coronary syndrome. Hepatitis. Cirrhosis. Infections such as pneumonia, urinary tract infection, Tick bourne illness, Cellulitis, Viral infections including influenza and Covid-19. Workup: labwork and lab/exam driven imaging ordered to evaluate, rule in and rule out above pathologies. Lab Review: Laboratory results were reviewed and interpreted by myself the emergency room physician. I reviewed the patient's medical record. Reexamination: Patient presents here with cellulitis to his right foot does have an elevated white count did give antibiotics to care over from Dr. Mcnulty will admit did consult podiatry as well Lab Data 12/17/24 02:48 12/17/24 02:48 Radiology Impressions Cervical Spine CT 12/17/24 02:29 IMPRESSION: 1. No evidence of acute fracture. 2. Severe spinal canal stenosis at C5-C6. Chest X-Ray 12/17/24 02:29 IMPRESSION: The right side of the diaphragm is elevated. No consolidation. Head CT 12/17/24 02:29 IMPRESSION: Mild small vessel disease. No evidence of acute intracranial process. Thoracic Spine CT 12/17/24 02:29 IMPRESSION: 1. There is no evidence of acute fracture or traumatic misalignment. 2. Moderately extensive coronary arterial calcification is noted. Laboratory Results WBC 25.42 10^3/uL (3.29-11.43) H 12/17/24 02:48 RBC 4.54 10^6/uL (3.85-5.65) 12/17/24 02:48 Hgb 12.30 g/dL (11.27-16.99) 12/17/24 02:48 Hct 39.3 % (37-53) 12/17/24 02:48 MCV 86.6 fl (82-101) 12/17/24 02:48 MCH 27.1 pg (27-33) 12/17/24 02:48 MCHC 31.3 g/dL (30-55) 12/17/24 02:48 RDW 15.9 % (12.1-15.1) H 12/17/24 02:48 Plt Count 287 10^3/cmm (157-399) 12/17/24 02:48 MPV 9.3 fL (7.4-10.4) 12/17/24 02:48 Neut % (Auto) 91.2 % 12/17/24 02:48 Lymph % (Auto) 2.1 % 12/17/24 02:48 [place] % (Auto) 5.0 % 12/17/24 02:48 Eos % (Auto) 0.0 % 12/17/24 02:48 Baso % (Auto) 0.2 % 12/17/24 02:48 Neut # (Auto) 23.18 10^3/uL (1.8-7.7) H 12/17/24 02:48 Lymph # (Auto) 0.5 10^3/uL (0.8-4.8) L 12/17/24 02:48 [place] # (Auto) 1.3 10^3/uL (0.2-0.9) H 12/17/24 02:48 Eos # (Auto) 0.0 10^3/uL (0.0-0.8) 12/17/24 02:48 Baso # (Auto) 0.1 10^3/uL (0.0-0.1) 12/17/24 02:48 Nucleated RBC % (auto) 0 % 12/17/24 02:48 Nucleated RBCs # 0.0 /100WBC 12/17/24 02:48 Sodium 135 mmol/L (136-145) L 12/17/24 02:48 Potassium 4.7 mmol/L (3.5-5.1) 12/17/24 02:48 Chloride 97 mmol/L (98-107) L 12/17/24 02:48 Carbon Dioxide 23 mmol/L (22-29) 12/17/24 02:48 Anion Gap 19.7 (5-19) H 12/17/24 02:48 BUN 27 mg/dL (8-23) H 12/17/24 02:48 Creatinine 1.8 mg/dL (0.7-1.2) H 12/17/24 02:48 GFR Calculation 37.7 mL/min (90-130) L 12/17/24 02:48 Glucose 470 mg/dL (65-115) H 12/17/24 02:48 POC Glucose 395 mg/dL (70-110) H 12/17/24 05:49 Calculated Osmolality 306 mOsm/kg (285-295) H 12/17/24 02:48 Lactic Acid 3.3 mmol/L (0.5-2.2) H 12/17/24 02:48 Calcium 9.1 mg/dL (8.5-10.5) 12/17/24 02:48 Total Bilirubin 0.4 mg/dL (0.15-1.2) 12/17/24 02:48 AST 89 U/L (0-40) H 12/17/24 02:48 ALT 21 U/L (0-41) 12/17/24 02:48 Alkaline Phosphatase 97 U/L (40-130) 12/17/24 02:48 Total Protein 7.1 g/dL (6.6-8.7) 12/17/24 02:48 Albumin 3.7 g/dL (3.5-5.2) 12/17/24 02:48 Globulin 3.4 g/dL (1.3-4.6) 12/17/24 02:48 Urine Color Yellow (Yellow) 12/17/24 05:00 Urine Appearance Clear (CLEAR) 12/17/24 05:00 Urine pH 5.0 (5-7) 12/17/24 05:00 Ur Specific [place] 1.028 (1.005-1.030) 12/17/24 05:00 Urine Protein Trace (Negative) A 12/17/24 05:00 Urine Glucose (UA) 3+ (Normal) H 12/17/24 05:00 Urine Ketones Negative (Negative) 12/17/24 05:00 Urine Blood 3+ (Negative) A 12/17/24 05:00 Urine Nitrate Negative (Negative) 12/17/24 05:00 Urine Bilirubin Negative (Negative) 12/17/24 05:00 Urine Urobilinogen 0.2 mg/dL (Negative) 12/17/24 05:00 Ur Leukocyte Esterase Negative (Negative) 12/17/24 05:00 Urine RBC 0-2 /hpf (0-2) 12/17/24 05:00 Urine WBC 6-10 /hpf (0-5) 12/17/24 05:00 Ur Squamous Epith Cells 0-5 /hpf (0-5) 12/17/24 05:00 Amorphous Sediment Not Reportable 12/17/24 05:00 Urine Bacteria None seen /hpf (NONE) 12/17/24 05:00 Hyaline Casts 0.81 /lpf 12/17/24 05:00 Urine Yeast 3+ /hpf H 12/17/24 05:00 Serum Ketones Negative (Negative) 12/17/24 02:48 Influenza A (PCR) Negative (Negative) 12/17/24 03:11 Influenza Type B (PCR) Negative (Negative) 12/17/24 03:11 RSV (PCR) Negative (Negative) 12/17/24 03:11 SARS-CoV-2 (PCR) Negative (Negative) 12/17/24 03:11 All radiology interpretation(s) finalized by discharge Discharge Plan Discharge Patient Disposition: Admitted As Inpatient Clinical Impression: Cellulitis of foot, right Condition: Stable Coding Level of Care Code ED Label Printing Machinist for Sonny Treviño
[2024-12-17 03:03] LABS: Hematocrit 39.3 % (37-53); Hemoglobin 12.30 g/dL (11.27-16.99); Mean Corpuscular HGB Conc 31.3 g/dL (30-55); Mean Corpuscular Hemoglobin 27.1 pg (27-33); Mean Corpuscular Volume 86.6 fl (82-101); Nucleated Red Blood Cells % 0 %; Platelet Count 287 10^3/cmm (157-399); Red Blood Count 4.54 10^6/uL (3.85-5.65); White Blood Count 25.42 10^3/uL (3.29-11.43)
[2024-12-17 03:13] LABS: Ketone (Acetest) Serum Negative (Negative)
[2024-12-17 03:25] LABS: Alanine Aminotransferase 21 U/L (0-41); Albumin Level 3.7 g/dL (3.5-5.2); Alkaline Phosphatase 97 U/L (40-130); Anion Gap 19.7 (5-19); Aspartate Amino Transferase 89 U/L (0-40); Blood Urea Nitrogen 27 mg/dL (8-23); Calcium 9.1 mg/dL (8.5-10.5); Carbon Dioxide 23 mmol/L (22-29); Chloride 97 mmol/L (98-107); Creatinine Clr Calc Pharmacy 53.8702; Globulin 3.4 g/dL (1.3-4.6); Glucose 470 mg/dL (65-115); Osmolality Calculated 306 mOsm/kg (285-295); Potassium 4.7 mmol/L (3.5-5.1); Sodium 135 mmol/L (136-145); Total Protein 7.1 g/dL (6.6-8.7)
[2024-12-17 03:26] LABS: Lactic Sepsis W/Reflex 3.3 mmol/L (0.5-2.2)
[2024-12-17 03:52] LABS: Respiratory Syncytial Virus Ce NEGATIVE (Negative); SARS-CoV-2 PCR NEGATIVE (Negative)
[2024-12-17 04:47] LABS: Reflex Lactate Order REFLEX LACTIC ORDERD
[2024-12-17] MEDS: linezolid premix 600 MG/300 ML PREMIX 300 MG IV ×2 (04:52→16:00)
[2024-12-17 05:34] LABS: Glucose Urine UA 3+ (Normal); Nitrate Urine Negative (Negative); Specific Gravity, Urine 1.028 (1.005-1.030)
[2024-12-17 05:52] LABS: UA Slide Review UA Slide Review Perf
--- NOTE | 2024-12-17 05:57 | XRR_ITS ---
PROCEDURE INFORMATION: Exam: XR Right Foot Exam date and time: 12/17/2024 6:45 AM Age: 69 years old Clinical indication: Swelling, leg or foot; Additional info: Cellulitis TECHNIQUE: Imaging protocol: Radiologic exam of the right foot. Views: 3 or more views. COMPARISON: No relevant prior studies available. FINDINGS: Bones/joints: There is no evidence of fracture. No osseous erosions are identified. There is osteopenia present. There is mild osteoarthritis affecting multiple joints. Soft tissues: There is extensive subcutaneous edema. XR/XR foot RT min 3V* [id number] IMPRESSION: Extensive subcutaneous edema. No evidence of acute bony pathology.
[2024-12-17 06:07] LABS: Lactic Acid level (Lactate) 2.7 mmol/L (0.5-2.2)
[2024-12-17] MEDS: insulin regular-human 100 units/1 mL 10 UNIT IVP (06:14)
--- NOTE | 2024-12-17 07:27 | PM.CONSULT ---
Providers/Reason For Consult Consulting Physician/Specialty*: Leigh Hooker.P.M./podiatry Reason for Consult*: Right foot wounds, cellulitis Attending Physician: Nacho Rodirguez MD Primary Care Provider: Bren Allen History of Present Illness History of Present Illness Blaze Abdul is a 69 year old male with history of diabetes, morbid obesity, chronic wounds being managed by wound care. Patient sustained a fall from weakness out of his wheelchair. He was brought to the emergency department via EMS. Condition of right foot wounds were noted. Patient had leukocytosis. Concern was from right foot. Podiatry was consulted to evaluate and treat Review of Systems General: Reports: 10 or more systems reviewed and unremarkable except in HPI and below Const: Denies: fever(s), chills, body aches or change in appetite Eyes: Denies: change in vision or blurry vision Card: Denies: chest pain, palpitations or irregular heart rhythm Resp: Denies: dyspnea GI: Denies: abdominal pain, nausea, vomiting or diarrhea Musc: Reports: joint stiffness Skin/Breast: Reports: non-healing lesions and lesions Neuro: Reports: numbness in extremities Medications/Allergies Home Medications ?Medication ?Instructions ?Recorded ?Confirmed ?Last Taken ?Type acetaminophen 500 mg capsule 500 mg PO Q4H PRN Pain 07/29/19 12/17/24 09/08/19 History albuterol sulfate 90 mcg/actuation 2 inh inhalation Q4H PRN COPD 07/29/19 12/17/24 12/16/24 History breath activated powder inhaler aspirin 81 mg tablet,delayed 81 mg PO DAILY 07/29/19 12/17/24 12/16/24 History release Held on 09/09/19. Instructions: Resume on 09/10/19. atorvastatin 40 mg tablet 40 mg PO QPM 07/29/19 12/17/24 12/15/24 History cetirizine 10 mg capsule 10 mg PO DAILY 07/29/19 12/17/24 12/16/24 History gemfibrozil 600 mg tablet 600 mg PO BID 07/29/19 12/17/24 12/16/24 History nitroglycerin 0.4 mg sublingual 0.4 mg sublingual Q5M PRN Chest 07/29/19 12/17/24 Unknown History tablet (Nitrostat) Pain potassium chloride 20 mEq 20 meq PO DAILY 07/29/19 12/17/24 12/16/24 History tablet,extended release spironolactone 25 mg tablet 25 mg PO DAILY 07/29/19 12/17/24 12/16/24 History tramadol 50 mg tablet 100 mg PO Q4H PRN Pain 07/29/19 12/17/24 09/08/19 History carvedilol 25 mg tablet 25 mg PO TID 07/30/19 12/17/24 12/16/24 History insulin U-500 syringe-needle /2 09/08/19 12/17/24 Unknown History mL 31 gauge x aripiprazole 5 mg tablet 5 mg PO DAILY 12/17/24 12/17/24 12/16/24 History clotrimazole 10 mg deon 10 mg PO .5XDAILY 12/17/24 12/17/24 12/16/24 History dapagliflozin propanediol 10 mg 10 mg PO QAM 12/17/24 12/17/24 12/16/24 History tablet (Farxiga) famotidine 40 mg tablet 40 mg PO BID 12/17/24 12/17/24 12/16/24 History gabapentin 300 mg capsule 300 mg PO TID 12/17/24 12/17/24 12/16/24 History hydrocodone 7.5 mg-acetaminophen 1 tab PO .Q4-6H PRN Severe Pain 12/17/24 12/17/24 12/16/24 History 325 mg tablet (Scale Score 7-10) insulin regular hum U-500 conc 500 See Rx Instructions .Route .COMPLEX 12/17/24 12/17/24 12/16/24 History unit/mL(3 mL) subcut pen (Humulin R U-500 (Conc) Insulin Kwikpen) lisinopril 10 mg tablet 10 mg PO DAILY 12/17/24 12/17/24 12/16/24 History mometasone 100 mcg/actuation HFA 2 puff inhalation BID 12/17/24 12/17/24 12/16/24 History aerosol inhaler (Asmanex HFA) nystatin-triamcinolone 100,000 1 applic topical BID 12/17/24 12/17/24 12/16/24 History unit/gram-0.1 % topical ointment sertraline 100 mg tablet 100 mg PO DAILY 12/17/24 12/17/24 12/16/24 History sildenafil 50 mg tablet 50 mg PO DAILY PRN Erectile 12/17/24 12/17/24 Unknown History Dysfunction solifenacin 10 mg tablet 10 mg PO DAILY 12/17/24 12/17/24 12/16/24 History tirzepatide 10 mg/0.5 mL 10 mg SUBCUT Q7D 12/17/24 12/17/24 12/12/24 History subcutaneous pen injector (Mounjaro) torsemide 100 mg tablet 100 mg PO DAILY 12/17/24 12/17/24 Unknown History Allergies Allergy/AdvReac Type Severity Reaction Status Date / Time penicillin G Allergy Severe anaphylactic Verified 02/03/22 14:27 shock iodine Allergy Mild itching Verified 02/03/22 14:27 Sulfa (Sulfonamide Allergy ALGY-Rash Verified 12/17/24 02:31 Antibiotics) PFSH Acute PFSH: Medical History (Updated 12/17/24 @ 07:59 by Nacho Rodriguez MD) Type 2 diabetes mellitus with foot ulcer Type 2 diabetes mellitus with other skin ulcer Post-operative state Cervical disc disorder with myelopathy of mid-cervical region Morbid obesity with BMI of 40.0-44.9, adult Polyneuropathy, peripheral sensorimotor axonal Spondylolisthesis, lumbar region Spinal stenosis of lumbar region with radiculopathy Surgical History History of cervical spinal surgery 09/08/2019 Dr. Billie Jensen C5-C6 ACDFF History of tonsillectomy and adenoidectomy History of vasectomy History of cornea transplant History of coronary artery stent placement History of amputation of toe Family History Father Cancer Mother Heart disease Social History (Updated 12/17/24 @ 07:56 by Nacho Rodriguez MD) Smoking and tobacco/nicotine status: never used tobacco/nicotine Alcohol intake: current Substance/Drug Use: never Additional social history: Patient wants full CODE STATUS if there is a chance of survival but not CPR if it is futile as discussed on 12/17/2024 with Nacho Rodriguez MD. 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 He states he is twice and both ex-wives are . He is estranged from his sons but his next of kin is one of his daughters Daiana Abdul in [place] Household members: none Marital status: Single Current occupational status: disabled Vitals/I&O/Wt Last Vital Signs Temp 98.9 F 12/17/24 02:26 Pulse 94 12/17/24 07:04 Resp 24 H 12/17/24 02:26 BP 129/63 12/17/24 07:04 Pulse Ox 92 12/17/24 07:04 O2 Del Method Nasal Cannula 12/17/24 03:03 O2 Flow Rate 3 12/17/24 05:08 12/16/24 12/17/24 12/17/24 22:59 06:59 14:59 Intake Total 1300 / 1300 Balance 1300 / 1300 Weight last 48 hrs Weight 255 lb Physical Exam Narrative: BELOW IS A FOCUSED LOWER EXTREMITY EXAM GENERAL: A&O x 3 VASCULAR: DP/PT pulses palpable 2/4 with CFT intact, <3seconds to distal digits. +2 edema bilateral lower extremities DERMATOLOGICAL: Large full-thickness ulceration to dorsal aspect of right foot with fat layer exposed extending onto the 1st through 3rd toes dorsally measures 8.1 x 7.2 x 0.1 cm. Does not extend below the level of subcu. No bone exposed negative probe to bone. Mild active serous drainage. Surrounding erythema extending up to the level of the knee. Venous stasis changes to right leg. Posterior right heel decubitus measuring 4.0 x 4.5 x 0.1 cm MUSCULOSKELETAL: No pain with palpation of right lower extremity NEUROLOGICAL: Neurological sensation to the affected foot and ankle is diminished through L4-S1 dermatomes via 10g SWMF, diminished sensation extends proximally to the level of the knee IMAGING: Three-view x-rays of right foot taken in the emergency department were independently interpreted by me. These show no fracture or dislocation. No cortical erosions or signs of osteomyelitis. No subcutaneous emphysema. MRI of right foot reviewed by me which shows no evidence of osteomyelitis or drainable abscess Data 12/18/24 04:42 12/18/24 04:42 Micro: Microbiology 12/17/24 02:53 Blood Culture - Preliminary Blood SPECIMEN COLLECTED 12/17/24 02:48 Blood Culture - Preliminary Blood SPECIMEN COLLECTED A&P Assessment and plan 1. Cellulitis of foot, right: Plan: Right foot wounds No acute surgical intervention MRI right foot to assess for underlying osteomyelitis--reviewed by me. No signs of osteomyelitis Right foot wounds underwent excisional debridement at bedside dental level of subcutaneous tissue with dermal curette. Postdebridement measurements 8.2 x 7.2 x 0.2 cm Right foot wounds dressed with Maxorb AG with Hydrofera Blue to posterior heel. 4 x 4 gauze, Osbaldo wrap and Osbaldo compression dressing applied to right lower extremity Right heel decubitus Float right heel while at rest Dressed with Hydrofera Blue Cellulitis Continue IV antibiotics Monitor Lower extremity compression wrap will help with lower extremity edema and cellulitis Lower extremity edema Compression wrap applied to right lower extremity Leukocytosis Trend labs Discharge plan No plan for surgical intervention from podiatry standpoint Once medically stable patient will be okay to discharge from podiatry standpoint Follow-up with wound care within 1 week of discharge PDMP PDMP Reviewed: Not Reviewed Coding Level of Care Code Acute Code for g Fwd Diagnoses Cellulitis of foot, right L03.115
--- NOTE | 2024-12-17 07:41 | MR_ITS ---
WS: [id number] MRI RIGHT FOOT WITHOUT CONTRAST. COMPARISON: Radiograph 12/17/2024 Multiplanar, multisequence imaging is performed without contrast. Extensive soft tissue edema surrounding the foot. Greater edema towards the toes. Bones appear osteopenic. Decreased signal along the plantar surface of the foot at the level of the toes. There is increased soft tissue between the first and second phalanges. No definite ulceration is identified. No obvious marrow edema is identified taking into consideration the limitations of the exam. No focal fluid collection or abscess. MR/MR foot RT wo con* [id number] IMPRESSION: 1. Extensive subcutaneous edema surrounding the midfoot and toes. There is no focal collection or mass identified. 2. No marrow edema identified taking to consideration the limitations of the s tudy. 3. Subcutaneous soft tissue thickening is most significant between the first a nd second metatarsals. No ulcerations extending to the bone.
--- NOTE | 2024-12-17 07:49 | PM.HP ---
Providers/Chief Complaint Admitting Physician: Nacho Rodriguez MD Primary Care Provider: Bren Allen Chief Complaint: weakness/ fall History of Present Illness Blaze Abdul is a 69 year old male fell at home between the toilet and the trash can. He lives alone and uses call box to contact emergency services. He was brought into the emergency department where x-rays were done showing no injury in the thoracic spine or head. C-spine also negative. Chest x-ray cardiomegaly and poor inspiratory volume with elevated right hemidiaphragm. Foot x-ray no definite osteomyelitis but he does have significant soft tissue edema. Patient sees Dr. Clay in wound care chronically over the course of couple years with with history of left big toe amputation and current ongoing right foot wound care. He has gained 80 pounds in last 1 year and attributes it to overeating. He reports a desire to lose weight but is not counting calories or purchasing healthy foods. The patient was noted to have white count of 24,000 and referred for admission after meropenem and linezolid given the ER Patient admits to loss of feeling below mid landaverde. Review of Systems Narrative: General Positive for weight gain 80 pounds from 300 to 380 pounds in the last year denies fevers or chills Cardiovascular positive for congestive heart failure exacerbation in the past she is also has a cardiac stent denies palpitations but does have chronic leg swelling for which she takes diuretics Respiratory positive for coughing GI positive for occasional diarrhea but no constipation nausea or vomiting positive for dribbling as well as nocturia 4 times a night Neuro no seizures or strokes Malignancy history negative except for prostate cancer treated with radiation due to being a poor surgical candidate Hematologic negative for blood clots in the legs or lungs Skin he has had recurring yeast infections. He also has discoloration in the lower abdomen with skin thickening states he does not know what this is Medications/Allergies Home Medications ?Medication ?Instructions ?Recorded ?Confirmed ?Last Taken ?Type acetaminophen 500 mg capsule 500 mg PO Q4H PRN Pain 07/29/19 11/04/19 09/08/19 History albuterol sulfate 90 mcg/actuation 2 inh inhalation Q4H PRN COPD 07/29/19 02/03/22 09/08/19 History breath activated powder inhaler aspirin 81 mg tablet,delayed 81 mg PO DAILY 07/29/19 02/03/2220 History release Held on 09/09/19. Instructions: Resume on 09/10/19. atorvastatin 40 mg tablet 40 mg PO DAILY 07/29/19 02/03/22 Unknown History cetirizine 10 mg capsule 10 mg PO DAILY 07/29/19 02/03/22 09/08/19 History fluticasone furoate 100 1 inh inhalation DAILY COPD 07/29/19 02/03/22 09/08/19 History mcg/actuation blister powder for inhalation gemfibrozil 600 mg tablet 600 mg PO BID 07/29/19 02/03/22 09/08/19 History hydrocodone 5 mg-acetaminophen 325 1 tab PO TID PRN Pain 07/29/19 02/03/22 09/08/19 History mg tablet ([place]) nitroglycerin 0.4 mg sublingual 0.4 mg sublingual Q5M PRN Chest 07/29/19 02/03/22 Unknown History tablet (Nitrostat) Pain potassium chloride 20 mEq 20 meq PO DAILY 07/29/19 02/03/22 09/08/19 History tablet,extended release spironolactone 25 mg tablet 25 mg PO DAILY 07/29/19 02/03/22 09/08/19 History tamsulosin 0.4 mg capsule (Flomax) 0.4 mg PO DAILY 07/29/19 02/03/22 09/08/19 History tramadol 50 mg tablet 100 mg PO Q4H PRN Pain 07/29/19 02/03/22 09/08/19 History carvedilol 25 mg tablet 25 mg PO TID 07/30/19 02/03/22 09/08/19 06:00 History torsemide 20 mg tablet 20 mg PO BID 07/30/19 02/03/22 09/08/19 History insulin U-500 syringe-needle /2 09/08/19 02/03/22 Unknown History mL 31 gauge x 15/64 insulin regular human 100 unit/mL See Rx Instructions .Route .COMPLEX 09/08/19 11/04/19 09/07/19 History (3 mL) subcutaneous pen oxybutynin chloride 10 mg 30 mg PO DAILY 02/03/22 02/03/22 Unknown History tablet,extended release 24 hr semaglutide 0.25 mg or 0.5 mg (2 mg SUBCUT .Week 02/03/22 02/03/22 Unknown History mg/1.5 mL) subcutaneous pen injector (Ozempic) fluconazole 100 mg tablet 100 mg PO DAILY #5 tabs 12/06/23 12/06/23 Unknown Rx (Diflucan) clindamycin HCl 300 mg capsule 300 mg PO TID #30 caps 02/05/24 02/05/24 Unknown Rx sodium hypochlorite 0.125 % 1 applic topical DAILY #473 mL 02/05/24 02/05/24 Unknown Rx solution (Dakin's Solution) fluconazole 150 mg tablet 150 mg PO Q3D 3 doses #3 tabs 03/25/24 03/25/24 Unknown Rx levofloxacin 750 mg tablet 750 mg PO DAILY #10 tabs 04/28/24 04/28/24 Unknown Rx sulfamethoxazole 800 1 tab PO BID #20 tabs 09/12/24 Unknown Rx mg-trimethoprim 160 mg tablet (Bactrim DS) clindamycin HCl 300 mg capsule 300 mg PO TID #21 caps 10/08/24 10/08/24 Unknown Rx (Cleocin HCl) levofloxacin 500 mg tablet 500 mg PO DAILY #14 tabs 11/24/24 11/24/24 Unknown Rx Allergies Allergy/AdvReac Type Severity Reaction Status Date / Time penicillin G Allergy Severe anaphylactic Verified 02/03/22 14:27 shock iodine Allergy Mild itching Verified 02/03/22 14:27 Sulfa (Sulfonamide Allergy ALGY-Rash Verified 12/17/24 02:31 Antibiotics) PFSH Acute PFSH: Medical History (Updated 12/17/24 @ 07:59 by Nacho Rodriguez MD) Type 2 diabetes mellitus with foot ulcer Type 2 diabetes mellitus with other skin ulcer Post-operative state Cervical disc disorder with myelopathy of mid-cervical region Morbid obesity with BMI of 40.0-44.9, adult Polyneuropathy, peripheral sensorimotor axonal Spondylolisthesis, lumbar region Spinal stenosis of lumbar region with radiculopathy Surgical History History of cervical spinal surgery 09/08/2019 Dr. Billie Jensen C5-C6 ACDFF History of tonsillectomy and adenoidectomy History of vasectomy History of cornea transplant History of coronary artery stent placement History of amputation of toe Family History Father Cancer Mother Heart disease Social History (Updated 12/17/24 @ 07:56 by Nacho Rodriguez MD) Smoking and tobacco/nicotine status: never used tobacco/nicotine Alcohol intake: current Substance/Drug Use: never Additional social history: Patient wants full CODE STATUS if there is a chance of survival but not CPR if it is futile as discussed on 12/17/2024 with Nacho Rodriguez MD. 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 He states he is twice and both ex-wives are . He is estranged from his sons but his next of kin is one of his daughters Daiana Abdul in [place] Household members: none Marital status: Single Current occupational status: disabled Vitals/I&O/Wt Last Vital Signs Temp 98.9 F 12/17/24 02:26 Pulse 94 12/17/24 07:04 Resp 24 H 12/17/24 02:26 BP 129/63 12/17/24 07:04 Pulse Ox 92 12/17/24 07:04 O2 Del Method Nasal Cannula 12/17/24 03:03 O2 Flow Rate 3 12/17/24 05:08 12/16/24 12/17/24 12/17/24 22:59 06:59 14:59 Intake Total 1300 / 1300 Balance 1300 / 1300 Weight last 48 hrs Weight 115.666 kg Weight 167.149 kg Weight 115.666 kg Physical Exam Narrative: General Well-developed well-nourished morbidly obese male in no acute cardiopulmonary distress CV regular rate and rhythm Lungs clear to auscultation bilaterally Abdomen positive bowel tones soft obese nontender there is thickening and brown discoloration of the skin in the lower abdomen as the pannus abuts the pubis Calves 1+ left radial edema 2+ right pretibial edema right foot 2+ to 3 edema with purple discoloration from gentian gallo and with an adherent dressing old and soiled Data 12/17/24 02:48 12/17/24 02:48 Micro: Microbiology 12/17/24 02:53 Blood Culture - Preliminary Blood SPECIMEN COLLECTED 12/17/24 02:48 Blood Culture - Preliminary Blood SPECIMEN COLLECTED A&P Assessment and plan 1. Type 2 diabetes mellitus with foot ulcer: Patient is admitted to hospital with elevated white count attributable to chronic right foot infection there are not obvious open wounds but this is under a wound care administered adherent dressing. Dr. Crenshaw has seen the patient and plans to debride this at bedside. I have also ordered an MRI to evaluate for possible osteomyelitis. Patient will have C-reactive protein and sed rate done as well. Have counseled patient regarding progression to limb loss with his poor hygiene and continued weight gain. He states he cannot reach his feet. Patient is not on insulin but his blood sugar at time of exam was 399 based on his Dexcom and he states his blood sugars run about 400 high all the time. He states he does not eat a healthy diet but eats what he can afford. Will start Lantus 20 units a.m. first dose now and a sliding scale insulin low scale. 2. Morbid obesity with BMI of 40.0-44.9, adult: Will start 2000-calorie ADA weight loss diet as discussed with the patient. PDMP PDMP Reviewed: Not Reviewed Attestations Medical Necessity Statement*: Patient admitted to hospital with cellulitis of the foot elevated white count and probable osteomyelitis. Will require greater than 2 midnights in hospital Coding Level of Care Code 19263 Diagnoses Type 2 diabetes mellitus with foot ulcer E11.621; L97.509 Morbid obesity with BMI of 40.0-44.9, adult E66.01; Z68.41 Time Spent (min) 70
--- NOTE | 2024-12-17 08:39 | PC.NURSE ---
Pt reports that he thinks he has a camo tawanda pack with his wallet in it. NO such camo bag brought up from ER. ER called by this nurse. They state there is no camo tawanda pack in the ER. Pt states that he might have left it in the ambulance. Ambulance bay called and they state there is no camo bag in the ambulance. Pt states that he might've left it in his house. States he fell in the [place], and thinks no one grabbed the bag when he left
[2024-12-17] MEDS: insulin glargine 100 units/1 mL 20 UNIT SUBCUT (09:01)
[2024-12-17] MEDS: oxybutynin chloride XL 5 MG TABLET 30 MG PO (09:02)
[2024-12-17] MEDS: heparin 5,000 unit/mL INJ 1 mL 5000 UNIT SUBCUT ×2 (09:02→16:00)
[2024-12-17] MEDS: MEROPENEM 2,000 MG in sodium chloride 0.9% (plus) 50 ML 100 MG IV ×2 (12:52→21:27)
--- OUTSIDE RECORDS SUMMARY | 2024-12-17 18:32 | XMS_ITS | Encounter Summary ---
Author Organization [facility] Address [address] 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
--- OUTSIDE RECORDS SUMMARY | 2024-12-17 18:32 | XMS_ITS | Encounter Summary ---
Author Organization [facility] Address [address] [place] [address] Care Team Providers Care Lock And Dam Equipment Repairer Name Role Phone Bren Allen MD Primary Care Provider [phone] Encounter Details Date Type Department Care Team (Latest Contact Info) Description 10/10/1999 Outpatient Historical [facility] Willy Warren, OD [address] [place] [address] Keratoconus, unspecified (Primary Dx) Social History Tobacco Use Types Packs/Day Years Used Date Smoking Tobacco: Never Assessed Sex and Gender Information Value Date Recorded Sex Assigned at Not on file 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
--- OUTSIDE RECORDS SUMMARY | 2024-12-17 18:32 | XMS_ITS | Encounter Summary ---
Author Organization [facility] Address [address] 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
--- OUTSIDE RECORDS SUMMARY | 2024-12-17 18:32 | XMS_ITS | Encounter Summary ---
Author Organization [facility] Address [address] [place] [address] Care Team Providers Care Survey Engineer Name Role Phone Bren Allen MD Primary Care Provider [phone] Encounter Details Date Type Department Care Team (Latest Contact Info) Description 08/21/2001 Outpatient [facility] Oral [facility] Maxillo Surgery[address] [place] [address] Rafael Sanders, DDS NO ADDRESS ON FILE UNSPEC DENTAL CARIES (Primary Dx) Social History Tobacco Use Types Packs/Day Years Used Date Smoking Tobacco: Never Assessed Sex and Gender Information Value Date Recorded Sex Assigned at Not on file 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
--- OUTSIDE RECORDS SUMMARY | 2024-12-17 18:32 | XMS_ITS | Encounter Summary ---
Author Organization [facility] Address [address] [place] [place] [address] Care Team Providers Care Receiving Checker Name Role Phone Bren Allen MD Primary Care Provider [phone] [phone] Reason for Referral * MRI (Routine) - Closed Specialty Diagnoses / Procedures Referred By Mirella mcdonough Referred To Contact Radiology Diagnoses Pain in right elbow Procedures MRI ELBOW WO CONTRAST RIGHT MRI ELBOW W WO CONTRAST RIGHT Bren Allen MD [address] [place] [address] Phone: tel: fax: [facility] [address] [facility] [address] [place] [address] Phone: tel: fax: Referral ID Status Reason Start Date Expiration Date V isits Requested Visits Authorized [id number] Closed [facility] TO SCHEDULE (SGF) 03/21/2019 04/20/2019 1 1 Encounter Details Date Type Department Care Team (Latest Contact Info) Description 03/06/2019 Ancillary Orders [facility] Pre-Registration [facility] CALL TO MAKE APPOINTMENT ONLY [address] [place] [address] Bren Allen MD [address] [place] [address] Pain in right elbow Social History Tobacco Use Types Packs/Day Years Used Date Smoking Tobacco: Never Smokeless Tobacco: Never Alcohol Use Standard Drinks/Week Comments Yes 1 (1 standard drink = 0.6 oz pur e alcohol) daily Sex and Gender Information Value Date Recorded Sex Assigned at Not on file 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 Exam: MRI ELBOW WO CONTRAST RIGHT Date/Time of Exam: 03/21/2019 12:30 PM Reason For Exam: See Diagnosis. Diagnosis: Pain in right elbow. Technique: T1 axial and coronal, T2 fat sat axial and coronal, STIR sagittal, gradient echo volume coronal. Comparison: None Findings: Moderate fatty replacement/volume loss of the biceps brachii musculotendinous junction is present. The biceps brachii, brachialis, and triceps tendons are intact. The lateral ulnar collateral ligament is intact. There is abnormal thickening and partial-thickness tearing with increase in signal on fluid sensitive sequences of the radial collateral ligament noted. The annular ligaments appears grossly intact. The anterior and posterior bundles of the ulnar collateral ligaments are intact. There is asymmetric joint space loss with marginal osteophyte formation of the ulnohumeral and radiocapitellar joints noted. There is subchondral cystic change with reactive marrow edema of the articular surface of the capitellum with significant thinning of the overlying articular cartilage present. The common flexor tendon insertion on the medial epicondyle is unremarkable. There is severe abnormal thickening with high-grade partial-thickness tearing of the common extensor tendon insertion on the lateral epicondyle noted. There is subcortical and subchondral marrow edema on fluid sensitive sequences involving the medial aspect of the radial head and involving the coronoid process noted. No definite MRI evidence of a discrete fracture line is identified. Severe fatty replacement/volume loss of the flexor carpi ulnaris, flexor digitorum superficialis, and flexor carpi radialis muscles noted. The musculature of the right elbow is otherwise grossly normal in size and signal. Small amount of fluid within the bicipital radial bursa is incidentally noted. IMPRESSION: 1. 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 2. Marrow edema on fluid sensitive sequences involving the medial aspect of the radial head, capitellum, and of the coronoid process. Findings may be related to underlying degenerative change. Resolving contusion/microtrabecular fractures not excluded. No MRI evidence of a discrete fracture line is present. 3. Incidental note of severe fatty replacement/volume loss of the flexor carpi ulnaris, flexor digitorum superficialis, and of the flexor carpi radialis muscles. 4. Moderate fatty replacement/volume loss of the biceps brachii musculotendinous junction with the biceps brachii tendon insertion on the radial tuberosity intact. [id number] Narrative Procedure Note Jackson eMredith MD - 03/22/2019 IMPRESSION: Please see below. Exam: MRI ELBOW WO CONTRAST RIGHT Date/Time of Exam: 03/21/2019 12:30 PM Reason For Exam: See Diagnosis. Diagnosis: Pain in right elbow. Technique: T1 axial and coronal, T2 fat sat axial and coronal, STIR sagittal, gradient echo volume coronal. Comparison: None Findings: Moderate fatty replacement/volume loss of the biceps brachii musculotendinous junction is present. The biceps brachii, brachialis, and triceps tendons are intact. The lateral ulnar collateral ligament is intact. There is abnormal thickening and partial-thickness tearing with increase in signal on fluid sensitive sequences of the radial collateral ligament noted. The annular ligaments appears grossly intact. The anterior and posterior bundles of the ulnar collateral ligaments are intact. There is asymmetric joint space loss with marginal osteophyte formation of the ulnohumeral and radiocapitellar joints noted. There is subchondral cystic change with reactive marrow edema of the articular surface of the capitellum with significant thinning of the overlying articular cartilage present. The common flexor tendon insertion on the medial epicondyle is unremarkable. There is severe abnormal thickening with high-grade partial-thickness tearing of the common extensor tendon insertion on the lateral epicondyle noted. There is subcortical and subchondral marrow edema on fluid sensitive sequences involving the medial aspect of the radial head and involving the coronoid process noted. No definite MRI evidence of a discrete fracture line is identified. Severe fatty replacement/volume loss of the flexor carpi ulnaris, flexor digitorum superficialis, and flexor carpi radialis muscles noted. The musculature of the right elbow is otherwise grossly normal in size and signal. Small amount of fluid within the bicipital radial bursa is incidentally noted. IMPRESSION: 1. 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 2. Marrow edema on fluid sensitive sequences involving the medial aspect of the radial head, capitellum, and of the coronoid process. Findings may be related to underlying degenerative change. Resolving contusion/microtrabecular fractures not excluded. No MRI evidence of a discrete fracture line is present. 3. Incidental note of severe fatty replacement/volume loss of the flexor carpi ulnaris, flexor digitorum superficialis, and of the flexor carpi radialis muscles. 4. Moderate fatty replacement/volume loss of the biceps brachii musculotendinous junction with the biceps brachii tendon insertion on the radial tuberosity intact. [id number] us Bren Allen MD MR ORDERABLES Final Res ult documented in this encounter Visit Diagnoses Diagnosis Pain in right elbow Pain in joint, upper arm Pain in right elbow Pain in joint, upper arm documented in this encounter Additional Health Concerns Assessment Noted Time PHQ-9 Depression Total Score: 6 10/08/19 19 1:51 PM CDT documented as of this encounter Care Teams Receiving Checker Relationship Specialty Start Date End Date Bren Allen MD [address] [place] [address] PCP - General Internal Medicine 10/03/17 documented as of this encounter
--- OUTSIDE RECORDS SUMMARY | 2024-12-17 18:32 | XMS_ITS | Encounter Summary ---
Author Organization [facility] Address [address] [place] [address] Care Team Providers Care Analytical Tech Name Role Phone Bren Allen MD Primary Care Provider [phone] Encounter Details Date Type Department Care Team (Latest Contact Info) Description 10/05/1999 Outpatient Historical [address] [id number] Tanner Francis MD [address] [place] [address] Cellulitis and abscess of toe, unspecified (Primary Dx); Unspecified essential hypertension; Congestive heart failure, unspecified (CMS/HCC); Allergy, unspecified not elsewhere classified Social History Tobacco Use Types Packs/Day Years Used Date Smoking Tobacco: Never Assessed Sex and Gender Information Value Date Recorded Sex Assigned at Not on file 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 Gender Identity Not on file Sexual Orientation Not on file documented as of this encounter Plan of Treatment Not on file documented as of this encounter Visit Diagnoses Diagnosis Cellulitis and abscess of toe, unspecified- Primary Unspecified essential hypertension Congestive heart failure, unspecified (CMS/HCC) Congestive heart failure, unspecified Allergy, unspecified not elsewhere classified documented in this encounter Care Teams Analytical Tech Relationship Specialty Start Date End Date Bren Allen MD [address] [place] [id number] PCP - General Internal Medicine 10/03/17 documented as of this encounter
--- OUTSIDE RECORDS SUMMARY | 2024-12-17 18:32 | XMS_ITS | Encounter Summary ---
Author Organization [facility] Address [address] [place] [address] Care Team Providers Care Global Marketing Coordinator Name Role Phone Bren Allen MD Primary Care Provider [phone] [phone] Encounter Details Date Type Department Care Team (Latest Contact Info) Description 08/14/2001 Outpatient Historical [address] [address] Tanner Francis MD [address] [place] [address] UNSPEC DENTAL CARIES (Primary Dx); CHRONIC AIRWAY OBSTRUCTION NEC (CMS/HCC); HYPOGLYCEMIA NOS; HYPERTENSION NOS Social History Tobacco Use Types Packs/Day Years Used Date Smoking Tobacco: Never Assessed Sex and Gender Information Value Date Recorded Sex Assigned at Not on file 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 Gender Identity Not on file Sexual Orientation Not on file documented as of this encounter Plan of Treatment Not on file documented as of this encounter Visit Diagnoses Diagnosis Unspecified dental caries- Primary Chronic airway obstruction, not elsewhere classified (CMS/HCC) Chronic airway obstruction, not elsewhere classified Hypoglycemia, unspecified Unspecified essential hypertension documented in this encounter Care Teams Global Marketing Coordinator Relationship Specialty Start Date End Date Bren Allen MD [address] [place] [address] PCP - General Internal Medicine 10/03/17 documented as of this encounter
--- OUTSIDE RECORDS SUMMARY | 2024-12-17 18:32 | XMS_ITS | Encounter Summary ---
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
--- OUTSIDE RECORDS SUMMARY | 2024-12-17 18:32 | XMS_ITS | Encounter Summary ---
Author Organization [facility] Address [address] [place] [address] Care Team Providers Care Manager Of Program Name Role Phone Bren Allen MD Primary Care Provider [phone] [phone] Encounter Details Date Type Department Care Team (Late st Contact Info) Description 03/06/2019 Ancillary Orders [facility] Pre-Registration [place] CALL TO MAKE APPOINTMENT ONLY [address] [place] [address] Bren Allen MD [address] [place] [address] Social History Tobacco Use Types Packs/Day Years Used Date Smoking Tobacco: Never Smokeless Tobacco: Never Alcohol Use Standard Drinks/Week Comments Yes 1 (1 standard drink = 0.6 oz pur e alcohol) daily Sex and Gender Information Value Date Recorded Sex Assigned at Not on file 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 Gender Identity Not on file Sexual Orientation Not on file Occupation Industry Job Start Date Job End Date Not on file Not on file Not on file Not on file documented as of this encounter Plan of Treatment Not on file documented as of this encounter Visit Diagnoses Not on filedocumented in this encounter Additional Health Concerns Assessment Noted Time PHQ-9 Depression Total Score: 6 10/08/19 19 1:51 PM CDT documented as of this encounter Care Teams Manager Of Program Relationship Specialty Start Date End Date Bren Allen MD [address] [place] [address] PCP - General Internal Medicine 10/03/17 documented as of this encounter
--- OUTSIDE RECORDS SUMMARY | 2024-12-17 18:32 | XMS_ITS | Encounter Summary ---
Author Organization [facility] Address [address] 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
--- OUTSIDE RECORDS SUMMARY | 2024-12-17 18:32 | XMS_ITS | Encounter Summary ---
Author Organization [facility] Address [address] [place] [address] Care Team Providers Care Compounder Flavorings Name Role Phone Bren Allen MD Primary Care Provider +1 [phone] Reason for Referral * Outpatient Services (Routine) - Closed Specialty Diagnoses / Procedures Referred By Contac t Referred To Contact Radiology Diagnoses Dilated cardiomyopathy (CMS/HCC) Essential hypertension Procedures ECHOCARDIOGRAM W/ CONTRAST AGENT ECHO COMPLETE Ronnie Triplett DO Phone: tel: fax: [facility] [place] [address] [facility] [place] [address] [place] [address] Phone: tel: fax: Referral ID Status Reason Start Date Expiration Date Visits Requested Visits Authorized [id number] Closed Interventional Scheduling (SGF) 05/29/2018 06/29/2019 1 1 B/PRE VOCATIONAL COUNSELOR Encounter Details Date Type Department Care Team (Latest Contact Info) Description 06/03/2018 Ancillary Orders [facility]- [place] [address] [place] [address] Ronnie Triplett DO [address] [facility] [address] [place] [phone] Dilated cardiomyopathy (CMS/HCC); Essential hypertension Social History Tobacco Use Types Packs/Day Years Used Date Smoking Tobacco: Never Smokeless Tobacco: Never Alcohol Use Standard Drinks/Week Comments Yes 3 (1 standard drink = 0.6 oz pur e alcohol) Sex and Gender Information Value Date Recorded Sex Assigned at Not on file Legal Sex Male 4:49 AM REHAB/PRE VOCATIONAL COUNSELOR Gender Identity Not on file Sexual Orientation Not on file Occupation Industry Job Start Date Job End Date Not on file Not on file Not on file Not on file documented as of this encounter Plan of Treatment Not on file documented as of this encounter Results * ECHOCARDIOGRAM W/ CONTRAST AGENT (06/03/2018 1:41 PM REHAB/PRE VOCATIONAL COUNSELOR) EJECTION FRACTION 52 INTERFACE SYSTEM 06/03/2018 12:4 2 PM REHAB/PRE VOCATIONAL COUNSELOR Narrative INTERFACE SYSTEM - 06/07/2018 3:[address] [facility] Echocardiography-[address] [address] Transthoracic Echocardiography Patient: Blaze Abdul Study ECHO COMPLETE J ID: Gender: Oly : 1955 Age: 62 Room: Study 06/03/2018 Pt Outpatient Date: Status: Study 12:42:01 PM CSN #: [id number] Time: Ordering:Ronnie Triplett Interpreting:Lashanda Gruber Administrative Resources Associate: Estefania Quiroz [facility] Indications and History: Pre Cancer Treatment. Hypertension. Cardiomyopathy, unspecified. Summary and Conclusion: - Left ventricle: The cavity size was normal. Wall thickness was increased in a pattern of moderate LVH. Systolic function was mildly reduced. The left ventricular ejection fraction was 52%, by biplane method of disks. The visually estimated ejection fraction was = 50%. Diffuse hypokinesis. Diastolic function is indeterminate. - Right ventricle: The cavity size was normal. Systolic function was normal. Systolic pressure was within the normal range. - Aortic valve: Mild regurgitation. - Mitral valve: Mild regurgitation. - Aorta: Dilated aortic root measuring 4.2cm at level of ascending aorta and 3.7cm mid aortic arch. Comparison: Compared to the previous study, .LVEF now improved. Otherwise, no significant interval change is noted. Procedure information: Comparison was made to the study of 05/06/2010. Study status: Routine. Procedure: Transthoracic echocardiography. Image quality was adequate. Scanning was performed from the parasternal, apical, subcostal, and suprasternal notch acoustic windows. Intravenous contrast (Definity) was administered. There were no complications. There were no contrast reactions. Study components: M-mode, 2D, complete spectral Doppler, and color Doppler. Height: 185.4cm. Height: 73in. Weight: 152.4kg. Weight: 335.3lb. BMI: 44.3kg/m\S\2. BSA: 2.87m\S\2. Blood pressure: 140/60 Study date: 06/03/2018. Study time: 12:42 PM. Location: Echo laboratory. Cardiac Anatomy: LEFT VENTRICLE: The cavity size was normal. Wall thickness was increased in a pattern of moderate LVH. Systolic function was mildly reduced. The left ventricular ejection fraction was 52%, by biplane method of disks. The visually estimated ejection fraction was = 50%. Diffuse hypokinesis. Diastolic function is indeterminate. RIGHT VENTRICLE: The cavity size was normal. Systolic function was normal. Systolic pressure was within the normal range. LEFT ATRIUM: The atrium was normal in size. RIGHT ATRIUM: The atrium was normal in size. ATRIAL SEPTUM: Not well visualized. AORTIC VALVE: Trileaflet. Mobility was not restricted. Doppler: There was no stenosis. Mild regurgitation. Peak velocity ratio of LVOT to aortic valve: 0.51. Peak gradient (S): 8mm Hg. MITRAL VALVE: Mobility was not restricted. Doppler: There was no evidence for stenosis. Mild regurgitation. Valve area by pressure half-time: 3.27cm\S\2. Indexed valve area by pressure half-time: 1.14cm\S\2/m\S\2. Mean gradient (D): 2mm Hg. Peak gradient (D): 5mm Hg. TRICUSPID VALVE: The valve appears to be grossly normal. Doppler: Trivial regurgitation. Peak gradient (D): 22mm Hg. PULMONIC VALVE: Not well visualized. PERICARDIUM: There was no pericardial effusion. AORTA: Dilated aortic root measuring 4.2cm at level of ascending aorta and 3.7cm mid aortic arch. SYSTEMIC VEINS: Inferior vena cava: Not well visualized. 2D measurements Doppler measurements Left ventricle LVOT LVID ED, PLAX 5.7 cm Peak barby, S 72.02 cm/sec LVID ES, PLAX 4.1 cm Peak gradient, S 2 mm Hg FS, endocardial, 29 % Aortic valve PLAX Peak barby, S 140.24 cm/sec Major axis ES, A4C 7.9 cm Peak gradient, S 8 mm Hg Minor axis ED, A4C 7.9 cm Peak barby ratio, 0.51 Major axis ED, A2C 9.2 cm LVOT/AV Major axis ES, A2C 7.6 cm Regurg peak barby 3.97 m/sec LVID, ES 4.1 cm Regurg PHT 545 ms LVPW, ED 1.4 cm Regurg peak 63 mm Hg IVS/LVPW ratio, ED 1 gradient Vol, ED, 1-p A2C 159 ml Mitral valve Vol, ES, 1-p A2C 85 ml Peak E barby 79.29 cm/sec EF, 1-p A2C 54 % Peak A barby 97.81 cm/sec Vol ED, 1-p A4C 188 ml Mean barby, D 68.03 cm/sec Vol ES, 1-p A4C 91 ml VTI leaflet 30.8 cm EF, 1-p A4C 52 % coapt SV, 1-p A4C 98 ml Deceleration 232 ms EDV/bsa, 1-p A4C 66 ml/m\S\2 time ESV/bsa, 1-p A4C 32 ml/m\S\2 Pressure 67 ms SV/bsa, 1-p A4C 34 ml/m\S\2 half-time Vol ED, 2-p 172 ml Mean gradient, D 2 mm Hg Vol ES, 2-p 83 ml Peak gradient, D 5 mm Hg EF, 2-p 52 % Peak E/A ratio 0.81 SV, 2-p 74 ml Area (PHT) 3.27 cm\S\2 Vol/bsa, ED, 2-p 60 ml/m\S\2 Area/bsa (PHT) 1.14 cm\S\2/m\S\2 Vol/bsa, ES, 2-p 29 ml/m\S\2 Regurg vena 4.1 cm SV/bsa, 2-p 25.7 ml/m\S\2 contracta Ventricular septum Tricuspid valve IVS, ED 1.4 cm Peak gradient, D 22 mm Hg Aorta Regurg peak barby 237.04 cm/sec Root diam 4.2 cm Peak RV-RA 22 mm Hg Left atrium gradient, S AP dim 4.3 cm AP dim index 1.5 cm/m\S\2 Other echo measurements SI dim, A4C 5.3 cm Other Area ES, A4C 15 cm\S\2 Vol, S 43 ml Vol/bsa, S 15 ml/m\S\2 Vol, ES, 1-p A4C 33 ml Vol/bsa, ES, 1-p A4C 12 ml/m\S\2 Vol, ES, 1-p A2C 50 ml Vol/bsa, ES, 1-p A2C 17 ml/m\S\2 Vol, ES, A/L 35 ml Vol/bsa, ES, A/L 12 ml/m\S\2 Right atrium Area, ES 15 cm\S\2 Area, ES, A4C 15 cm\S\2 Right ventricle RVID ED, PLAX 4.1 cm RVID ED 4.1 cm [facility] are accredited with the [facility] Accreditation Commission - Echocardiography. Prepared and Electronically Authenticated Lashanda Gruber Confirmed 06/07/2018 15:52 Procedure Note Lashanda Gruber MD - 06/07/2018 [facility] Echocardiography-[address] [place] [address] Transthoracic Echocardiography Patient: Blaze Abdul Study ECHO COMPLETE J ID: Gender: Oly : 1955 Age: 62 Room: Study 06/03/2018 Pt Outpatient Date: Status: Study 12:42:01 PM CSN #: [id number] Time: Ordering:Ronnie Triplett Interpreting:Lasahnda Gruber Administrative Resources Associate: Estefania Quiroz [facility] Indications and History: Pre Cancer Treatment. Hypertension. Cardiomyopathy, unspecified. Summary and Conclusion: - Left ventricle: The cavity size was normal. Wall thickness was increased in a pattern of moderate LVH. Systolic function was mildly reduced. The left ventricular ejection fraction was 52%, by biplane method of disks. The visually estimated ejection fraction was = 50%. Diffuse hypokinesis. Diastolic function is indeterminate. - Right ventricle: The cavity size was normal. Systolic function was normal. Systolic pressure was within the normal range. - Aortic valve: Mild regurgitation. - Mitral valve: Mild regurgitation. - Aorta: Dilated aortic root measuring 4.2cm at level of ascending aorta and 3.7cm mid aortic arch. Comparison: Compared to the previous study, .LVEF now improved. Otherwise, no significant interval change is noted. Procedure information: Comparison was made to the study of 05/06/2010. Study status: Routine. Procedure: Transthoracic echocardiography. Image quality was adequate. Scanning was performed from the parasternal, apical, subcostal, and suprasternal notch acoustic windows. Intravenous contrast (Definity) was administered. There were no complications. There were no contrast reactions. Study components: M-mode, 2D, complete spectral Doppler, and color Doppler. Height: 185.4cm. Height: 73in. Weight: 152.4kg. Weight: 335.3lb. BMI: 44.3kg/m\S\2. BSA: 2.87m\S\2. Blood pressure: 140/60 Study date: 06/03/2018. Study time: 12:42 PM. Location: Echo laboratory. Cardiac Anatomy: LEFT VENTRICLE: The cavity size was normal. Wall thickness was increased in a pattern of moderate LVH. Systolic function was mildly reduced. The left ventricular ejection fraction was 52%, by biplane method of disks. The visually estimated ejection fraction was = 50%. Diffuse hypokinesis. Diastolic function is indeterminate. RIGHT VENTRICLE: The cavity size was normal. Systolic function was normal. Systolic pressure was within the normal range. LEFT ATRIUM: The atrium was normal in size. RIGHT ATRIUM: The atrium was normal in size. ATRIAL SEPTUM: Not well visualized. AORTIC VALVE: Trileaflet. Mobility was not restricted. Doppler: There was no stenosis. Mild regurgitation. Peak velocity ratio of LVOT to aortic valve: 0.51. Peak gradient (S): 8mm Hg. MITRAL VALVE: Mobility was not restricted. Doppler: There was no evidence for stenosis. Mild regurgitation. Valve area by pressure half-time: 3.27cm\S\2. Indexed valve area by pressure half-time: 1.14cm\S\2/m\S\2. Mean gradient (D): 2mm Hg. Peak gradient (D): 5mm Hg. TRICUSPID VALVE: The valve appears to be grossly normal. Doppler: Trivial regurgitation. Peak gradient (D): 22mm Hg. PULMONIC VALVE: Not well visualized. PERICARDIUM: There was no pericardial effusion. AORTA: Dilated aortic root measuring 4.2cm at level of ascending aorta and 3.7cm mid aortic arch. SYSTEMIC VEINS: Inferior vena cava: Not well visualized. 2D measurements Doppler measurements Left ventricle LVOT LVID ED, PLAX 5.7 cm Peak barby, S 72.02 cm/sec LVID ES, PLAX 4.1 cm Peak gradient, S 2 mm Hg FS, endocardial, 29 % Aortic valve PLAX Peak barby, S 140.24 cm/sec Major axis ES, A4C 7.9 cm Peak gradient, S 8 mm Hg Minor axis ED, A4C 7.9 cm Peak barby ratio, 0.51 Major axis ED, A2C 9.2 cm LVOT/AV Major axis ES, A2C 7.6 cm Regurg peak barby 3.97 m/sec LVID, ES 4.1 cm Regurg PHT 545 ms LVPW, ED 1.4 cm Regurg peak 63 mm Hg IVS/LVPW ratio, ED 1 gradient Vol, ED, 1-p A2C 159 ml Mitral valve Vol, ES, 1-p A2C 85 ml Peak E barby 79.29 cm/sec EF, 1-p A2C 54 % Peak A barby 97.81 cm/sec Vol ED, 1-p A4C 188 ml Mean barby, D 68.03 cm/sec Vol ES, 1-p A4C 91 ml VTI leaflet 30.8 cm EF, 1-p A4C 52 % coapt SV, 1-p A4C 98 ml Deceleration 232 ms EDV/bsa, 1-p A4C 66 ml/m\S\2 time ESV/bsa, 1-p A4C 32 ml/m\S\2 Pressure 67 ms SV/bsa, 1-p A4C 34 ml/m\S\2 half-time Vol ED, 2-p 172 ml Mean gradient, D 2 mm Hg Vol ES, 2-p 83 ml Peak gradient, D 5 mm Hg EF, 2-p 52 % Peak E/A ratio 0.81 SV, 2-p 74 ml Area (PHT) 3.27 cm\S\2 Vol/bsa, ED, 2-p 60 ml/m\S\2 Area/bsa (PHT) 1.14 cm\S\2/m\S\2 Vol/bsa, ES, 2-p 29 ml/m\S\2 Regurg vena 4.1 cm SV/bsa, 2-p 25.7 ml/m\S\2 contracta Ventricular septum Tricuspid valve IVS, ED 1.4 cm Peak gradient, D 22 mm Hg Aorta Regurg peak barby 237.04 cm/sec Root diam 4.2 cm Peak RV-RA 22 mm Hg Left atrium gradient, S AP dim 4.3 cm AP dim index 1.5 cm/m\S\2 Other echo measurements SI dim, A4C 5.3 cm Other Area ES, A4C 15 cm\S\2 Vol, S 43 ml Vol/bsa, S 15 ml/m\S\2 Vol, ES, 1-p A4C 33 ml Vol/bsa, ES, 1-p A4C 12 ml/m\S\2 Vol, ES, 1-p A2C 50 ml Vol/bsa, ES, 1-p A2C 17 ml/m\S\2 Vol, ES, A/L 35 ml Vol/bsa, ES, A/L 12 ml/m\S\2 Right atrium Area, ES 15 cm\S\2 Area, ES, A4C 15 cm\S\2 Right ventricle RVID ED, PLAX 4.1 cm RVID ED 4.1 cm [facility] are accredited with the [employer] - Echocardiography. Prepared and Electronically Authenticated Lashanda Gruber Confirmed 06/07/2018 15:52 us Ronnie Triplett DO US ORDERABLES Final Resu lt INTERFACE SYSTEM Refer to clinic/hospital department documented in this encounter Visit Diagnoses Diagnosis Dilated cardiomyopathy (CMS/HCC) Other primary cardiomyopathies Essential hypertension Unspecified essential hypertension Dilated cardiomyopathy (CMS/HCC) Other primary cardiomyopathies Essential hypertension Unspecified essential hypertension documented in this encounter Additional Health Concerns Assessment Noted Time PHQ-9 Depression Total Score: 5 04/19/20 18 3:18 PM REHAB/PRE VOCATIONAL COUNSELOR documented as of this encounter Care Teams Compounder Flavorings Relationship Specialty Start Date End Date Bren Allen MD [address] [place] [address] PCP - General Internal Medicine 10/03/17 documented as of this encounter
--- OUTSIDE RECORDS SUMMARY | 2024-12-17 18:32 | XMS_ITS | Encounter Summary ---
Author Organization [facility] Address [address] [place] [address] Care Team Providers Care Duplicator Punch Set Up Operator Name Role Phone Bren Allen MD Primary Care Provider [phone] [phone] Encounter Details Date Type Department Care Team (Latest Contact Info) Description 09/20/[address] 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 Gender Identity Not on file Sexual Orientation Not on file documented as of this encounter Plan of Treatment Not on file documented as of this encounter Visit Diagnoses Diagnosis Chest pain, unspecified- Primary Congestive heart failure, unspecified (CMS/HCC) Congestive heart failure, unspecified Type II or unspecified type diabetes mellitus without mention of complication, not stated as uncontrolled Other dyspnea and respiratory abnormality documented in this encounter Care Teams Duplicator Punch Set Up Operator Relationship Specialty Start Date End Date Bren Allen MD [address] [place] [phone] PCP - General Internal Medicine 10/03/17 documented as of this encounter
--- OUTSIDE RECORDS SUMMARY | 2024-12-17 18:32 | XMS_ITS | Encounter Summary ---
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
--- OUTSIDE RECORDS SUMMARY | 2024-12-17 18:32 | XMS_ITS | Encounter Summary ---
Author Organization [facility] Address [address] [place] [address] Care Team Providers Care Soap Worker Name Role Phone Bren Allen MD Primary Care Provider +1 -[phone] Encounter Details Date Type Department Care Team (Latest Contact Info) Description 05/13/2001 Outpatient Historical [address] [phone] Tanner Francis MD [address] [place] [address] DIABETES UNCOMPL ADULT-TYPE II (CMS/HCC) (Primary Dx); HYPERTENSION NOS; CONGESTIVE HEART FAILURE (CMS/HCC); ALLERGIC RHINITIS NOS Social History Tobacco Use Types Packs/Day Years Used Date Smoking Tobacco: Never Assessed Sex and Gender Information Value Date Recorded Sex Assigned at Not on file 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 Gender Identity Not on file Sexual Orientation Not on file documented as of this encounter Plan of Treatment Not on file documented as of this encounter Visit Diagnoses Diagnosis Type II or unspecified type diabetes mellitus without mention of complication, not stated as uncontrolled- Primary Unspecified essential hypertension Congestive heart failure, unspecified (CMS/HCC) Congestive heart failure, unspecified Allergic rhinitis, cause unspecified documented in this encounter Care Teams Soap Worker Relationship Specialty Start Date End Date Bren Allen MD [address] [place] [phone] PCP - General Internal Medicine 10/03/17 documented as of this encounter
--- OUTSIDE RECORDS SUMMARY | 2024-12-17 18:32 | XMS_ITS | Encounter Summary ---
Author Organization [facility] Address [address] [place] [address] Care Team Providers Care Car Groomer Name Role Phone Bren Allen MD Primary Care Provider [phone] [phone] Encounter Details Date Type Department Care Team (Latest Contact Info) Description 12/12/1999 Outpatient Historical [address] [phone] Tanner Francis MD [address] [place] [phone] Unspecified essential hypertension (Primary Dx); Type II or unspecified type diabetes mellitus without mention of complication, not stated as uncontrolled Social History Tobacco Use Types Packs/Day Years Used Date Smoking Tobacco: Never Assessed Sex and Gender Information Value Date Recorded Sex Assigned at Not on file Legal Sex Male 4:49 AM 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
--- OUTSIDE RECORDS SUMMARY | 2024-12-17 18:32 | XMS_ITS | Encounter Summary ---
Author Organization [facility] Address [address] [place] [address] Care Team Providers Care Jewelry Sales Associate Name Role Phone Bren Allen MD Primary Care Provider [phone] [phone] Encounter Details Date Type Department Care Team (Latest Contact Info) Description 09/27/1999 Outpatient Historical [address] [phone] Tanner Francis MD [address] [place] [address] Congestive heart failure, unspecified (CMS/HCC) (Primary Dx); Unspecified essential hypertension Social History Tobacco Use Types Packs/Day Years Used Date Smoking Tobacco: Never Assessed Sex and Gender Information Value Date Recorded Sex Assigned at Not on file 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
--- OUTSIDE RECORDS SUMMARY | 2024-12-17 18:32 | XMS_ITS | Encounter Summary ---
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
--- OUTSIDE RECORDS SUMMARY | 2024-12-17 18:32 | XMS_ITS | Encounter Summary ---
Author Organization [facility] Address [address] 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
--- OUTSIDE RECORDS SUMMARY | 2024-12-17 18:32 | XMS_ITS | Encounter Summary ---
Author Organization [facility] Address [address] 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
--- OUTSIDE RECORDS SUMMARY | 2024-12-17 18:32 | XMS_ITS | Encounter Summary ---
Author Organization [facility] Address [address] [place] [address] Care Team Providers Care Cooler Room Worker Name Role Phone Bren Allen MD Primary Care Provider +1 -[phone] Encounter Details Date Type Department Care Team (Latest Contact Info) Description 10/31/2001 Outpatient Historical [facility] [address] [place] [address] Pili Ayala, RN LACTATION [address] [place] [address] HYPERSOMNI W SLEEP APNEA (Primary Dx) Social History Tobacco Use Types Packs/Day Years Used Date Smoking Tobacco: Never Assessed Sex and Gender Information Value Date Recorded Sex Assigned at Not on file Legal Sex Male 4:49 AM VP BIOLOGY Gender Identity Not on file Sexual Orientation Not on file documented as of this encounter Plan of Treatment Not on file documented as of this encounter Visit Diagnoses Diagnosis Hypersomnia with sleep apnea, unspecified- Primary documented in this encounter Care Teams Cooler Room Worker Relationship Specialty Start Date End Date Bren Allen MD [address] [place] [address] PCP - General Internal Medicine 10/03/17 documented as of this encounter
--- OUTSIDE RECORDS SUMMARY | 2024-12-17 18:32 | XMS_ITS | Encounter Summary ---
Author Organization [facility] Address [address] [place] [address] Care Team Providers Care Readers' Advisory Service Librarian Name Role Phone Bren Allen MD Primary Care Provider +1 -[phone] Encounter Details Date Type Department Care Team (Late st Contact Info) Description 03/03/2019 Ancillary Orders [facility] Pre-Registration [place] CALL TO MAKE APPOINTMENT ONLY [address] [place] [address] Bren Allen MD [address] [place] [address] Social History Tobacco Use Types Packs/Day Years Used Date Smoking Tobacco: Never Smokeless Tobacco: Never Alcohol Use Standard Drinks/Week Comments Yes 1 (1 standard drink = 0.6 oz pur e alcohol) daily Sex and Gender Information Value Date Recorded Sex Assigned at Not on file Legal Sex Male 4:49 AM CLOTH COLORER Gender Identity Not on file Sexual Orientation [...] documented as of this encounter Care Teams Readers' Advisory Service Librarian Relationship Specialty Start Date End Date Bren Allen MD [address] [place] [address] PCP - General Internal Medicine 10/03/17 documented as of this encounter
--- OUTSIDE RECORDS SUMMARY | 2024-12-17 18:32 | XMS_ITS | Encounter Summary ---
Author Organization [facility] Address [address] [place] [address] Care Team Providers Care Music Rehabilitation Therapist Name Role Phone Bren Allen MD Primary Care Provider +1 -[phone] Encounter Details Date Type Department Care Team (Late st Contact Info) Description 11/27/2017 Ancillary Orders [facility] Orth[facility]ics - Orthopedic [facility] [address] [place] [address] [facility], External Provider [address] [place], [place] [address] Pain Social History Tobacco Use Types Packs/Day Years Used Date Smoking Tobacco: Never Smokeless Tobacco: Never Alcohol Use Standard Drinks/Week Comments No 0 (1 standard drink = 0.6 oz pur e alcohol) Sex and Gender Information Value Date Recorded Sex Assigned at Not on file Legal Sex Male 4:49 AM BANQUET HOUSEPERSON Gender Identity Not on file Sexual Orientation Not on file Occupation Industry Job Start Date Job End Date Not on file Not on file Not on file Not on file documented as of this encounter Plan of Treatment Not on file documented as of this encounter Results * MRI PRIOR STUDY (09/24/2017 9:10 AM CDT) Narrative 11/27/2017 2:04 PM CDT This exam was auto finalized to allow images to be scanned to PACS. External Provider [facility] MR ORDERABLES Final Resu lt documented in this encounter Visit Diagnoses Diagnosis Pain Generalized pain Pain Generalized pain documented in this encounter Care Teams Music Rehabilitation Therapist Relationship Specialty Start Date End Date Bren Allen MD [address] [place] [address] PCP - General Internal Medicine 10/03/17 documented as of this encounter
--- OUTSIDE RECORDS SUMMARY | 2024-12-17 18:33 | XMS_ITS | Encounter Summary ---
Author Organization [facility] Address [address] [place] [address] Care Team Providers Care Primary Operator Name Role Phone Bren Allen MD Primary Care Provider +1 [phone] Encounter Details Date Type Department Care Team (Late st Contact Info) Description 11/09/2004 Emergency [facility] Emergency Department [address] [place] [address] Evette Leon FNP NO ADDRESS ON FILE SPRAIN ROTATOR CUFF (Primary Dx) Social History Tobacco Use Types Packs/Day Years Used Date Smoking Tobacco: Never Assessed Sex and Gender Information Value Date Recorded Sex Assigned at Not on file Legal Sex Male 4:49 AM MARBLE FINISHER Gender Identity Not on file Sexual Orientation Not on file documented as of this encounter Plan of Treatment Not on file documented as of this encounter Visit Diagnoses Diagnosis Rotator cuff (capsule) sprain- Primary documented in this encounter Care Teams Primary Operator Relationship Specialty Start Date End Date Bren Allen MD [address] [place] [phone] PCP - General Internal Medicine 10/03/17 documented as of this encounter
--- OUTSIDE RECORDS SUMMARY | 2024-12-17 18:33 | XMS_ITS | Encounter Summary ---
Author Organization [facility] Address [address] [place] [address] Care Team Providers Care Boiler Technician Name Role Phone Bren Allen MD Primary Care Provider +1 [phone] Encounter Details Date Type Department Care Team (Latest Contact Info) Description 01/01/2004 Outpatient Historical [address] [address] Tanner Francis MD [address] [place] [address] IRON DEFIC ANEMIA NOS (Primary Dx); STOMACH FUNCTION DIS NEC; DIABETES MELLITUS TYPE II-UNCOMPL (CMS/HCC); MIXED HYPERLIPIDEMIA Social History Tobacco Use Types Packs/Day Years Used Date Smoking Tobacco: Never Assessed Sex and Gender Information Value Date Recorded Sex Assigned at Not on file Legal Sex Male 4:49 AM DOCUMENT MANAGEMENT SPECIALIST Gender Identity Not on file Sexual Orientation Not on file documented as of this encounter Plan of Treatment Not on file documented as of this encounter Visit Diagnoses Diagnosis Iron deficiency anemia, unspecified- Primary Dyspepsia and other specified disorders of function of stomach Type II or unspecified type diabetes mellitus without mention of complication, not stated as uncontrolled Mixed hyperlipidemia documented in this encounter Care Teams Boiler Technician Relationship Specialty Start Date End Date Bren Allen MD [address] [place] [address] PCP - General Internal Medicine 10/03/17 documented as of this encounter
--- OUTSIDE RECORDS SUMMARY | 2024-12-17 18:33 | XMS_ITS | Encounter Summary ---
Author Organization [facility] Address [address] [place] [address] Care Team Providers Care M1 Armor Crewman Name Role Phone Bren Allen MD Primary Care Provider +1 [phone] Encounter Details Date Type Department Care Team (Latest Contact Info) Description 06/28/1999 Outpatient Historical [facility]- [place] [address] [place] [address] Oc Pool MD [address] [place] [address] [address] [place] [address] Congestive heart failure, unspecified (CMS/HCC) (Primary Dx); Other primary cardiomyopathies (CMS/HCC) Social History Tobacco Use Types Packs/Day Years Used Date Smoking Tobacco: Never Assessed Sex and Gender Information Value Date Recorded Sex Assigned at Not on file Legal Sex Male 4:49 AM CLAY PUDDLER Gender Identity Not on file Sexual Orientation Not on file documented as of this encounter Plan of Treatment Not on file documented as of this encounter Visit Diagnoses Diagnosis Congestive heart failure, unspecified (CMS/HCC)- Primary Congestive heart failure, unspecified Other primary cardiomyopathies (CMS/HCC) Other primary cardiomyopathies documented in this encounter Care Teams M1 Armor Crewman Relationship Specialty Start Date End Date Bren Allen MD [address] [place] [address] PCP - General Internal Medicine 10/03/17 documented as of this encounter
--- OUTSIDE RECORDS SUMMARY | 2024-12-17 18:33 | XMS_ITS | Encounter Summary ---
Author Organization [facility] Address [address] [place] [address] Care Team Providers Care Agriculture Engineer Name Role Phone Bren Allen MD Primary Care Provider +1 [phone] Encounter Details Date Type Department Care Team (Latest Contact Info) Description 04/13/2003 Outpatient Historical [facility] [place] [address] [place] [address] Chad Ceron, DO [address] [place] [address] FX PHALANX, HAND NOS-CLOSE (Primary Dx); CELLULITIS, FINGER NOS Social History Tobacco Use Types Packs/Day Years Used Date Smoking Tobacco: Never Assessed Sex and Gender Information Value Date Recorded Sex Assigned at Not on file Legal Sex Male 4:49 AM HEADER OPERATOR Gender Identity Not on file Sexual Orientation Not on file documented as of this encounter Plan of Treatment Not on file documented as of this encounter Visit Diagnoses Diagnosis Closed fracture of unspecified phalanx or phalanges of hand- Primary Cellulitis and abscess of finger, unspecified documented in this encounter Care Teams Agriculture Engineer Relationship Specialty Start Date End Date Bren Allen MD [address] [place] [phone] PCP - General Internal Medicine 10/03/17 documented as of this encounter
--- OUTSIDE RECORDS SUMMARY | 2024-12-17 18:33 | XMS_ITS | Encounter Summary ---
Author Organization [facility] Address [address] [place] [address] Care Team Providers Care Switchboard Wire Worker Helper Name Role Phone Bren Allen MD Primary Care Provider +1 -[phone] Encounter Details Date Type Department Care Team (Latest Contact Info) Description 08/25/2003 Outpatient Historical [address] [phone] Mark Hernandez, HELICOPTER CREW CHIEF [address] [place] [address] DIARRHEA NOS (Primary Dx) Social History Tobacco Use Types Packs/Day Years Used Date Smoking Tobacco: Never Assessed Sex and Gender Information Value Date Recorded Sex Assigned at Not on file Legal Sex Male 4:49 AM PRODUCT CONTROLLER Gender Identity Not on file Sexual Orientation Not on file documented as of this encounter Plan of Treatment Not on file documented as of this encounter Visit Diagnoses Diagnosis Diarrhea- Primary documented in this encounter Care Teams Switchboard Wire Worker Helper Relationship Specialty Start Date End Date Bren Allen MD [address] [place] [phone] PCP - General Internal Medicine 10/03/17 documented as of this encounter
--- OUTSIDE RECORDS SUMMARY | 2024-12-17 18:33 | XMS_ITS | Encounter Summary ---
Author Organization [facility] Address [address] [facility] [place] [address] Care Team Providers Care Human Insights Lead Ads Marketing Name Role Phone Bren Allen MD Primary Care Provider +1 [phone] Encounter Details Date Type Department Care Team (Late st Contact Info) Description 09/21/2003 Outpatient Historical [facility] Imaging Services [place] [id number] [place] [address] Tanner Francis MD [address] [place] [facility] [place] [address] Social History Tobacco Use Types Packs/Day Years Used Date Smoking Tobacco: Never Assessed Sex and Gender Information Value Date Recorded Sex Assigned at Not on file Legal Sex Male 4:49 AM LAUNDRY OPERATOR Gender Identity Not on file Sexual Orientation Not on file documented as of this encounter Plan of Treatment Not on file documented as of this encounter Visit Diagnoses Not on filedocumented in this encounter Care Teams Human Insights Lead Ads Marketing Relationship Specialty Start Date End Date Bren Allen MD [address] [place] [address] PCP - General Internal Medicine 10/03/17 documented as of this encounter
--- OUTSIDE RECORDS SUMMARY | 2024-12-17 18:33 | XMS_ITS | Encounter Summary ---
Author Organization [facility] Address [address] [place] [address] Care Team Providers Care Railroad Supervisor Of Engines Name Role Phone Bren Allen MD Primary Care Provider +1 [phone] Encounter Details Date Type Department Care Team (Latest Contact Info) Description 09/12/2003 Inpatient Historical [facility] Emergency Department [address] [place] [address] Oc Pool MD [address] [place] [address] [address] [facility] [address] [place] [address] ESOPHAGEAL REFLUX (Primary Dx) Social History Tobacco Use Types Packs/Day Years Used Date Smoking Tobacco: Never Assessed Sex and Gender Information Value Date Recorded Sex Assigned at Not on file Legal Sex Male 4:49 AM VENTILATION MECHANIC Gender Identity Not on file Sexual Orientation Not on file documented as of this encounter Plan of Treatment Not on file documented as of this encounter Visit Diagnoses Diagnosis Esophageal reflux- Primary documented in this encounter Care Teams Railroad Supervisor Of Engines Relationship Specialty Start Date End Date Bren Allen MD [address] [place] [address] PCP - General Internal Medicine 10/03/17 documented as of this encounter
--- OUTSIDE RECORDS SUMMARY | 2024-12-17 18:33 | XMS_ITS | Encounter Summary ---
Author Organization [facility] Address [address] [place] [address] Care Team Providers Care Account Liaison Name Role Phone Bren Allen MD Primary Care Provider +1 -[phone] Encounter Details Date Type Department Care Team (Latest Contact Info) Description 10/07/2004 Outpatient Historical [facility] Services [place] [id number] [place] [address] Tanner Francis MD [address] [place] [place] [address] LUMB/LUMBOSAC DISC DEGEN (Primary Dx) Social History Tobacco Use Types Packs/Day Years Used Date Smoking Tobacco: Never Assessed Sex and Gender Information Value Date Recorded Sex Assigned at Not on file Legal Sex Male 4:49 AM RN MENTAL HEALTH Gender Identity Not on file Sexual Orientation Not on file documented as of this encounter Plan of Treatment Not on file documented as of this encounter Visit Diagnoses Diagnosis Degeneration of lumbar or lumbosacral intervertebral disc- Primary documented in this encounter Care Teams Account Liaison Relationship Specialty Start Date End Date Bren Allen MD [address] [place] [address] PCP - General Internal Medicine 10/03/17 documented as of this encounter
--- OUTSIDE RECORDS SUMMARY | 2024-12-17 18:33 | XMS_ITS | Encounter Summary ---
Author Organization [facility] Address [address] [place]: Epic Prelude [place] [address] Care Team Providers Care Java Development Manager Name Role Phone Bren Allen MD Primary Care Provider +1 -[phone] Encounter Details Date Type Department Care Team (Late st Contact Info) Description 06/06/1999 Inpatient Historical Oc Pool MD [address] [place] [address] Social History Tobacco Use Types Packs/Day Years Used Date Smoking Tobacco: Never Assessed Sex and Gender Information Value Date Recorded Sex Assigned at Not on file Legal Sex Male 4:49 AM CLARITY DEVELOPER Gender Identity Not on file Sexual Orientation Not on file documented as of this encounter Plan of Treatment Not on file documented as of this encounter Visit Diagnoses Not on filedocumented in this encounter Care Teams Java Development Manager Relationship Specialty Start Date End Date Bren Allen MD [address] [place] [phone] PCP - General Internal Medicine 10/03/17 documented as of this encounter
--- OUTSIDE RECORDS SUMMARY | 2024-12-17 18:33 | XMS_ITS | Encounter Summary ---
Author Organization [facility] Address [address] [place] [address] Care Team Providers Care Food Safety Coordinator Name Role Phone Bren Allen MD Primary Care Provider +1 -[phone] Encounter Details Date Type Department Care Team (Latest Contact Info) Description 11/11/1999 Outpatient Historical [address] [phone] Tanner Francis MD [address] [place] [address] Type II or unspecified type diabetes mellitus without mention of complication, not stated as uncontrolled (Primary Dx); Cardiomyopathy in other diseases classified elsewhere (CMS/HCC) Social History Tobacco Use Types Packs/Day Years Used Date Smoking Tobacco: Never Assessed Sex and Gender Information Value Date Recorded Sex Assigned at Not on file Legal Sex Male 4:49 AM CARPET CLEANER Gender Identity Not on file Sexual Orientation Not on file documented as of this encounter Plan of Treatment Not on file documented as of this encounter Visit Diagnoses Diagnosis Type II or unspecified type diabetes mellitus without mention of complication, not stated as uncontrolled- Primary Cardiomyopathy in other diseases classified elsewhere (CMS/HCC) Cardiomyopathy in other diseases classified elsewhere documented in this encounter Care Teams Food Safety Coordinator Relationship Specialty Start Date End Date Bren Allen MD [address] [place] [phone] PCP - General Internal Medicine 10/03/17 documented as of this encounter
--- OUTSIDE RECORDS SUMMARY | 2024-12-17 18:33 | XMS_ITS | Encounter Summary ---
Author Organization [facility] Address [address] [place] [place] [address] Care Team Providers Care Pheresis Specialist Name Role Phone Bren Allen MD Primary Care Provider +1 [phone] Encounter Details Date Type Department Care Team (Late st Contact Info) Description 10/07/2004 Outpatient Historical [facility] [place] [address] Social History Tobacco Use Types Packs/Day Years Used Date Smoking Tobacco: Never Assessed Sex and Gender Information Value Date Recorded Sex Assigned at Not on file Legal Sex Male 4:49 AM X RAY EQUIPMENT TESTER Gender Identity Not on file Sexual Orientation Not on file documented as of this encounter Plan of Treatment Not on file documented as of this encounter Visit Diagnoses Not on filedocumented in this encounter Care Teams Pheresis Specialist Relationship Specialty Start Date End Date Bren Allen MD [address] [place] [address] PCP - General Internal Medicine 10/03/17 documented as of this encounter
--- OUTSIDE RECORDS SUMMARY | 2024-12-17 18:33 | XMS_ITS | Encounter Summary ---
Author Organization [facility] Address [address] [place] [address] Care Team Providers Care Associate Partner Name Role Phone Bren Allen MD Primary Care Provider +1 -[phone] Encounter Details Date Type Department Care Team (Latest Contact Info) Description 09/20/2003 Outpatient Historical [facility] Imaging Services [address] [place] [address] Tanner Francis MD [address] [place] [address] SCREENING FOR OTHER SPEC CONDN (Primary Dx) Social History Tobacco Use Types Packs/Day Years Used Date Smoking Tobacco: Never Assessed Sex and Gender Information Value Date Recorded Sex Assigned at Not on file Legal Sex Male 4:49 AM AXLE TURNER Gender Identity Not on file Sexual Orientation Not on file documented as of this encounter Plan of Treatment Not on file documented as of this encounter Visit Diagnoses Diagnosis Special screening for other specified conditions(V82.89)- Primary Special screening for other specified conditions documented in this encounter Care Teams Associate Partner Relationship Specialty Start Date End Date Bren Allen MD [address] [place] [address] PCP - General Internal Medicine 10/03/17 documented as of this encounter
--- OUTSIDE RECORDS SUMMARY | 2024-12-17 18:33 | XMS_ITS | Encounter Summary ---
Author Organization [facility] Address [address] [place] [address] Care Team Providers Care Operator Helper Name Role Phone Bren Allen MD Primary Care Provider +1 -[phone] Encounter Details Date Type Department Care Team (Latest Contact Info) Description 12/30/2002 Outpatient Historical [address] [address] Tanner Francis MD [address] [place] [address] HYPERLIPIDEMIA NEC/NOS (Primary Dx) Social History Tobacco Use Types Packs/Day Years Used Date Smoking Tobacco: Never Assessed Sex and Gender Information Value Date Recorded Sex Assigned at Not on file Legal Sex Male 4:49 AM DOUGH PANNER Gender Identity Not on file Sexual Orientation Not on file documented as of this encounter Plan of Treatment Not on file documented as of this encounter Visit Diagnoses Diagnosis Other and unspecified hyperlipidemia- Primary documented in this encounter Care Teams Operator Helper Relationship Specialty Start Date End Date Bren Allen MD [address] [place] [address] PCP - General Internal Medicine 10/03/17 documented as of this encounter
--- OUTSIDE RECORDS SUMMARY | 2024-12-17 18:33 | XMS_ITS | Encounter Summary ---
Author Organization [facility] Address [address] [place] [address] Care Team Providers Care Bank Representative Name Role Phone Bren Allen MD Primary Care Provider +1 -[phone] Encounter Details Date Type Department Care Team (Latest Contact Info) Description 08/13/2002 Outpatient Historical [facility] [address] [place] [address] Pili Ayala, VOCAL MUSIC INSTRUCTOR [address] [place] [address] HYPERSOMNI W SLEEP APNEA (Primary Dx) Social History Tobacco Use Types Packs/Day Years Used Date Smoking Tobacco: Never Assessed Sex and Gender Information Value Date Recorded Sex Assigned at Not on file Legal Sex Male 4:49 AM BOTTOM SPRAYER Gender Identity Not on file Sexual Orientation Not on file documented as of this encounter Plan of Treatment Not on file documented as of this encounter Visit Diagnoses Diagnosis Hypersomnia with sleep apnea, unspecified- Primary documented in this encounter Care Teams Bank Representative Relationship Specialty Start Date End Date Bren Allen MD [address] [place] [address] PCP - General Internal Medicine 10/03/17 documented as of this encounter
--- OUTSIDE RECORDS SUMMARY | 2024-12-17 18:33 | XMS_ITS | Encounter Summary ---
Author Organization [facility] Address [address] [place] [address] Care Team Providers Care Advertising Designer Name Role Phone Bren Allen MD Primary Care Provider +1 -[phone] Encounter Details Date Type Department Care Team (Latest Contact Info) Description 08/24/2003 Outpatient Historical [address] [phone] Qiana Pope MD [address] [place] [address], [id number] GASTRITIS/DUODEN NOS W/O HEMORRH (Primary Dx); HYPOVOLEMIA Social History Tobacco Use Types Packs/Day Years Used Date Smoking Tobacco: Never Assessed Sex and Gender Information Value Date Recorded Sex Assigned at Not on file Legal Sex Male 4:49 AM BODY HANGER Gender Identity Not on file Sexual Orientation Not on file documented as of this encounter Plan of Treatment Not on file documented as of this encounter Visit Diagnoses Diagnosis Unspecified gastritis and gastroduodenitis without mention of hemorrhage- Primary Volume depletion documented in this encounter Care Teams Advertising Designer Relationship Specialty Start Date End Date Bren Allen MD [address] [place] [address] PCP - General Internal Medicine 10/03/17 documented as of this encounter
--- OUTSIDE RECORDS SUMMARY | 2024-12-17 18:33 | XMS_ITS ---
Author Organization [facility] Address [address] [place] [address] Care Team Providers Care Project Leader Name Role Phone Bren Allen MD Primary Care Provider +1 [phone] Active Problems Problem Noted Date Diagnosed Date Pseudophakia of left eye 05/13/2024 Aphakia of right eye 09/07/2023 Venous stasis ulcer 08/09/2023 Lymphedema 04/24/2023 Chronic venous insufficiency 04/24/2023 Rupture of globe of eye foll owing blunt trauma, right, subsequent encounter 04/04/2023 Hospice care patient 02/15/2023 Diabetic ulcer of toe of rig ht foot associated with type 2 diabetes mellitus, with fat layer exposed 12/05/2021 PAD (peripheral artery disease) 08/10/2021 Pneumonia due to COVID-19 virus 04/21/2021 Acute hypoxemic respiratory failure due to COVID -19 04/21/2021 Diabetes mellitus with hyperglycemia 04/20/2021 Sleep apnea 04/20/2021 Chronic kidney disease, stage 3 (moderate) 05/20 Other specified disorders of arteries and arteri oles 05/20/2019 History of prostate cancer 01/20/2019 Hyperprolactinemia 11/21/2018 ASHD (arteriosclerotic heart disease) 11/21/2018 Dental caries 08/15/2018 Prostate cancer 06/03/2018 Cancer Staging:Clinical stage from 06/28/2018:Stage IIB(cT2a, cN0, cM0, PSA: 10.8, Grade Group: 2) - Signed by Ivan Sofia MD on 06/28/2018 Prostate nodule 04/23/2018 Hesitancy of micturition 04/23/2018 Lower urinary tract symptoms (LUTS) 04/23/2018 Nocturia 04/23/2018 JOSE on CPAP 01/24/2018 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 12/24/2017 Polyneuropathy due to type 2 diabetes mellitus 0 12/24/2017 Complete tear of right rotator cuff 11/01/2017 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 11/01/2017 Mixed hyperlipidemia 03/25/2015 Keratoconus of both eyes 01/12/2015 Urgency of urination 10/12/2014 Hematuria 10/12/2014 Vitreous hemorrhage of right eye 04/27/2014 Dislocation, lens, posterior 04/20/2014 Chronic diastolic CHF (congestive heart failure) 02/14/2013 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 Past Treatment and Therapy Plans No past plan information found. Lifetime Dose Tracking * Chemical Lifetime Dose Automatic Entry Manual Entr y Effective Dose 13.2 mSv 0 mSv 13.2 mSv Total DLP 1,877 DLP 0 DLP 1,877 DLP CTDIvol Max 53.2 mGy 0 mGy 53.2 mGy CTDIvol Min 53.2 mGy 0 mGy 53.2 mGy Resolved Problems Problem Noted Date Diagnosed Date Resolved Date BPH with obstruction/lower u rinary tract symptoms 10/12/2014 06/03/2018 Elevated PSA 01/26/2014 10/21/2019 Elevated troponin 02/14/2013 12/24/2017 Cellulitis 02/14/2013 12/24/2017 Overview (09/01/2020): Of the right inner thigh Hypokalemia 02/14/2013 12/24/2017 Asthma with acute exacerbation 02/14/2013 12/24/2017 Cellulitis and abscess of Ri ght leg, except foot 02/10/2012 12/24/2017 Iron deficiency anemia 09/05/201012/24 Hypertensive encephalopathy 05/04/2010 12/24/2017 Non-insulin dependent type 2 diabetes mellitus 06/02/2008 12/24/2017 Hyperlipidemia 06/02/2008 03/25/2015
--- OUTSIDE RECORDS SUMMARY | 2024-12-17 18:33 | XMS_ITS | Encounter Summary ---
Author Organization [facility] Address [address] [place] [address] Care Team Providers Care Giant Tire Repairer Name Role Phone Bren Allen MD Primary Care Provider +1 [phone] Encounter Details Date Type Department Care Team (Latest Contact Info) Description 09/06/1999 Outpatient Historical [address] [phone] Tanner Francis MD [address] [place] [address] Cardiomyopathy in other diseases classified elsewhere (CMS/HCC) (Primary Dx); Congestive heart failure, unspecified (CMS/HCC); Allergy, unspecified not elsewhere classified; Unspecified essential hypertension Social History Tobacco Use Types Packs/Day Years Used Date Smoking Tobacco: Never Assessed Sex and Gender Information Value Date Recorded Sex Assigned at Not on file Legal Sex Male 4:49 AM PRINCIPAL JAVA DEVELOPER Gender Identity Not on file Sexual Orientation Not on file documented as of this encounter Plan of Treatment Not on file documented as of this encounter Visit Diagnoses Diagnosis Cardiomyopathy in other diseases classified elsewhere (CMS/HCC)- Primary Cardiomyopathy in other diseases classified elsewhere Congestive heart failure, unspecified (CMS/HCC) Congestive heart failure, unspecified Allergy, unspecified not elsewhere classified Unspecified essential hypertension documented in this encounter Care Teams Giant Tire Repairer Relationship Specialty Start Date End Date Bren Allen MD [address] [place] [address] PCP - General Internal Medicine 10/03/17 documented as of this encounter
--- OUTSIDE RECORDS SUMMARY | 2024-12-17 18:33 | XMS_ITS | Encounter Summary ---
Author Organization [facility] Address [address] 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
--- OUTSIDE RECORDS SUMMARY | 2024-12-17 18:33 | XMS_ITS | Encounter Summary ---
Author Organization [facility] Address [address] [place] [address] Care Team Providers Care Acute Care Assistant Name Role Phone Bren Allen MD Primary Care Provider +1 -[phone] Encounter Details Date Type Department Care Team (Latest Contact Info) Description 12/30/2002 Outpatient Historical [address] [phone] Tanner Francis MD [address] [place] [address] HYPERLIPIDEMIA NEC/NOS (Primary Dx); DIABETES UNCOMPL ADULT-TYPE II (CMS/HCC); HYPERTENSION NOS Social History Tobacco Use Types Packs/Day Years Used Date Smoking Tobacco: Never Assessed Sex and Gender Information Value Date Recorded Sex Assigned at Not on file Legal Sex Male 4:49 AM 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
--- OUTSIDE RECORDS SUMMARY | 2024-12-17 18:33 | XMS_ITS | Encounter Summary ---
Author Organization [facility] Address [address] [place] [address] Care Team Providers Care Hand Sewer Shoes Name Role Phone Bren Allen MD Primary Care Provider +1 -[phone] Encounter Details Date Type Department Care Team (Latest Contact Info) Description 06/22/1999 Outpatient Historical [address] [phone] Tanner Francis MD [address] [place] [address] Congestive heart failure, unspecified (CMS/HCC) (Primary Dx) Social History Tobacco Use Types Packs/Day Years Used Date Smoking Tobacco: Never Assessed Sex and Gender Information Value Date Recorded Sex Assigned at Not on file Legal Sex Male 4:49 AM CAUSTIC PLANT WORKER Gender Identity Not on file Sexual Orientation Not on file documented as of this encounter Plan of Treatment Not on file documented as of this encounter Visit Diagnoses Diagnosis Congestive heart failure, unspecified (CMS/HCC)- Primary Congestive heart failure, unspecified documented in this encounter Care Teams Hand Sewer Shoes Relationship Specialty Start Date End Date Bren Allen MD [address] [place] [address] PCP - General Internal Medicine 10/03/17 documented as of this encounter
--- OUTSIDE RECORDS SUMMARY | 2024-12-17 18:33 | XMS_ITS | Encounter Summary ---
Author Organization [facility] Address [address] Whitt: Epic Prelude ADT [place] [address] Care Team Providers Care Lead Burner Name Role Phone Bren Allen MD Primary Care Provider +1 [phone] Encounter Details Date Type Department Care Team (Latest Contact Info) Description 04/09/2001 Emergency Kevin Fortune MD NO ADDRESS ON FILE Social History Tobacco Use Types Packs/Day Years Used Date Smoking Tobacco: Never Assessed Sex and Gender Information Value Date Recorded Sex Assigned at Not on file Legal Sex Male 4:49 AM RECRUIT INSTRUCTOR Gender Identity Not on file Sexual Orientation Not on file documented as of this encounter Plan of Treatment Not on file documented as of this encounter Visit Diagnoses Not on filedocumented in this encounter Care Teams Lead Burner Relationship Specialty Start Date End Date Bren Allen MD [address] [place] [phone] PCP - General Internal Medicine 10/03/17 documented as of this encounter
--- OUTSIDE RECORDS SUMMARY | 2024-12-17 18:33 | XMS_ITS | Encounter Summary ---
Author Organization [facility] Address [address] [place] [address] Care Team Providers Care Medical Billing Clerk Name Role Phone Bren Allen MD Primary Care Provider +1 -[phone] Encounter Details Date Type Department Care Team (Late st Contact Info) Description 12/20/2003 Inpatient Historical [facility] Theo Montejo Jr., MD [address] [place] [address] CELLULITIS OF LEG (Primary Dx) Social History Tobacco Use Types Packs/Day Years Used Date Smoking Tobacco: Never Assessed Sex and Gender Information Value Date Recorded Sex Assigned at Not on file Legal Sex Male 4:49 AM MOBILE PET GROOMER Gender Identity Not on file Sexual Orientation Not on file documented as of this encounter Plan of Treatment Not on file documented as of this encounter Visit Diagnoses Diagnosis Cellulitis and abscess of leg, except foot- Primary documented in this encounter Care Teams Medical Billing Clerk Relationship Specialty Start Date End Date Bren Allen MD [address] [place] [phone] PCP - General Internal Medicine 10/03/17 documented as of this encounter
--- OUTSIDE RECORDS SUMMARY | 2024-12-17 18:33 | XMS_ITS | Encounter Summary ---
Author Organization [facility] Address [address] [place] [address] Care Team Providers Care Wash House Supervisor Name Role Phone Bren Allen MD Primary Care Provider +1 -[phone] Encounter Details Date Type Department Care Team (Latest Contact Info) Description 09/01/1999 Outpatient Historical [facility] Cardiology- [place] [address] [place] [address] Oc Pool MD [address] [place] [address] [address] [place] [address] Congestive heart failure, unspecified (CMS/HCC) (Primary Dx); Other primary cardiomyopathies (CMS/HCC); Urticaria, unspecified Social History Tobacco Use Types Packs/Day Years Used Date Smoking Tobacco: Never Assessed Sex and Gender Information Value Date Recorded Sex Assigned at Not on file Legal Sex Male 4:49 AM STONE GRADER Gender Identity Not on file Sexual Orientation Not on file documented as of this encounter Plan of Treatment Not on file documented as of this encounter Visit Diagnoses Diagnosis Congestive heart failure, unspecified (CMS/HCC)- Primary Congestive heart failure, unspecified Other primary cardiomyopathies (CMS/HCC) Other primary cardiomyopathies Urticaria, unspecified documented in this encounter Care Teams Wash House Supervisor Relationship Specialty Start Date End Date Bren Allen MD [address] [place] [phone] PCP - General Internal Medicine 10/03/17 documented as of this encounter
--- OUTSIDE RECORDS SUMMARY | 2024-12-17 18:33 | XMS_ITS | Encounter Summary ---
Author Organization [facility] Address [address] [place] [address] Care Team Providers Care Forging Press Setter Up Name Role Phone Bren Allen MD Primary Care Provider +1 -[phone] Encounter Details Date Type Department Care Team (Latest Contact Info) Description 09/11/2003 Outpatient Historical [facility] [address] [place] [address] AMBULANCE, [facility] CHEST PAIN NEC (Primary Dx) Social History Tobacco Use Types Packs/Day Years Used Date Smoking Tobacco: Never Assessed Sex and Gender Information Value Date Recorded Sex Assigned at Not on file Legal Sex Male 4:49 AM CASH OFFICE WORKER Gender Identity Not on file Sexual Orientation Not on file documented as of this encounter Plan of Treatment Not on file documented as of this encounter Visit Diagnoses Diagnosis Other chest pain- Primary documented in this encounter Care Teams Forging Press Setter Up Relationship Specialty Start Date End Date Bren Allen MD [address] [place] [phone] PCP - General Internal Medicine 10/03/17 documented as of this encounter
--- OUTSIDE RECORDS SUMMARY | 2024-12-17 18:33 | XMS_ITS | Encounter Summary ---
Author Organization [facility] Address [address] [place] [address] Care Team Providers Care Pharmacist In Charge Owner Name Role Phone Bren Allen MD Primary Care Provider +1 -[phone] Encounter Details Date Type Department Care Team (Latest Contact Info) Description 06/18/2002 Outpatient Historical [facility] Medicine [address] [phone] Sumi Vieyra MD [address] [place] [address] ACUTE BRONCHITIS (Primary Dx); PNEUMONIA, ORGANISM NOS Social History Tobacco Use Types Packs/Day Years Used Date Smoking Tobacco: Never Assessed Sex and Gender Information Value Date Recorded Sex Assigned at Not on file Legal Sex Male 4: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
--- OUTSIDE RECORDS SUMMARY | 2024-12-17 18:33 | XMS_ITS | Encounter Summary ---
Author Organization [facility] Address [address] [place] [address] Care Team Providers Care Uke Operator Name Role Phone Bren Allen MD Primary Care Provider +1 -[phone] Encounter Details Date Type Department Care Team (Latest Contact Info) Description 04/13/2003 Outpatient Historical [facility] Imaging Services-[place] [address] [place] [address] Chad Ceron, DO [address] [place] [address] FX MID/PRX PHAL, HAND-CLOSE (Primary Dx); HAND INJURY NOS Social History Tobacco Use Types Packs/Day Years Used Date Smoking Tobacco: Never Assessed Sex and Gender Information Value Date Recorded Sex Assigned at Not on file Legal Sex Male 4:49 AM NUT PACKER Gender Identity Not on file Sexual Orientation Not on file documented as of this encounter Plan of Treatment Not on file documented as of this encounter Visit Diagnoses Diagnosis Closed fracture of middle or proximal phalanx or phalanges of hand- Primary Injury, other and unspecified, hand, except finger documented in this encounter Care Teams Uke Operator Relationship Specialty Start Date End Date Bren Allen MD [address] [place] [phone] PCP - General Internal Medicine 10/03/17 documented as of this encounter
--- OUTSIDE RECORDS SUMMARY | 2024-12-17 18:33 | XMS_ITS | Encounter Summary ---
Author Organization [facility] Address [address] Whitt: Epic Prelude ADT [place] [address] Care Team Providers Care Religious Activities Director Name Role Phone Bren Allen MD Primary Care Provider +1 -[phone] Encounter Details Date Type Department Care Team (Late st Contact Info) Description 09/27/1999 Outpatient Historical Tanner rFancis MD [address] [place] [phone] Social History Tobacco Use Types Packs/Day Years Used Date Smoking Tobacco: Never Assessed Sex and Gender Information Value Date Recorded Sex Assigned at Not on file Legal Sex Male 4:49 AM KICK BOXER Gender Identity Not on file Sexual Orientation Not on file documented as of this encounter Plan of Treatment Not on file documented as of this encounter Visit Diagnoses Not on filedocumented in this encounter Care Teams Religious Activities Director Relationship Specialty Start Date End Date Bren Allen MD [address] [place] [phone] PCP - General Internal Medicine 10/03/17 documented as of this encounter
--- OUTSIDE RECORDS SUMMARY | 2024-12-17 18:33 | XMS_ITS | Encounter Summary ---
Author Organization [facility] Address [address] [place] [address] Care Team Providers Care Residential Mortgage Manager Name Role Phone Bren Allen MD Primary Care Provider +1 -[phone] Reason for Referral * CT Scan (Routine) - Closed Specialty Diagnoses / Procedures Referred By Mirella t Referred To Contact Radiology Diagnoses Chronic sinusitis Procedures CT SINUSES LIMITED Monserrat Ervin FNP Phone: tel: fax: [facility] [address] [facility] [address] [place] [address] Phone: tel: fax: Referral ID Status Reason Start Date Expiration Date V isits Requested Visits Authorized [id number] Closed [facility] TO SCHEDULE (SGF) 06/03/2019 08/01/2019 1 1 HESPIN DRIER OPERATOR Encounter Details Date Type Department Care Team (Late st Contact Info) Description 06/04/2019 Ancillary Orders [facility] Pre-Registration [place] CALL TO MAKE APPOINTMENT ONLY [address] [place] [address] Monserrat Ervin FNP [address] [place] [address] Chronic sinusitis Social History Tobacco Use Types Packs/Day Years Used Date Smoking Tobacco: Never Smokeless Tobacco: Never Alcohol Use Standard Drinks/Week Comments Yes 7 (1 standard drink = 0.6 oz pure alcohol) I have 1 can of beer a day. Never more than one Sex and Gender Information Value Date Recorded Sex Assigned at Not on file Legal Sex Male 4:49 AM CLOTHESPIN DRIER OPERATOR Gender Identity Not on file Sexual Orientation Not on file Occupation Industry Job Start Date Job End Date Not on file Not on file Not on file Not on file documented as of this encounter Plan of Treatment Not on file documented as of this encounter Results * CT SINUSES LIMITED (06/19/2019 10:25 AM CLOTHESPIN DRIER OPERATOR) Anatomical Region Laterality Modality Head Computed Tomogra phy 06/19/2019 10:2 5 AM CLOTHESPIN DRIER OPERATOR Impressions 06/19/2019 4:01 PM CLOTHESPIN DRIER OPERATOR IMPRESSION: Please see below. Exam: CT SINUSES LIMITED Date/Time of Exam: 06/19/2019 10:25 AM Reason For Exam: See Diagnosis. Diagnosis: Chronic sinusitis. Technique: A limited screening CT of the paranasal sinuses was performed. Comparison: None Findings: The frontal, ethmoid and sphenoid air cells are clear. Small bilateral maxillary sinus mucous retention cysts. The septum deviates significantly to the left. Borderline hypertrophy of the inferior nasal turbinates.. No fluid in the middle ear cavities or mastoid air cells. IMPRESSION: 1. Small maxillary sinus mucous retention cysts. 2. Septal deviation to the left. [id number] Narrative Procedure Note Lacho Richey MD - 06/19/2019 IMPRESSION: Please see below. Exam: CT SINUSES LIMITED Date/Time of Exam: 06/19/2019 10:25 AM Reason For Exam: See Diagnosis. Diagnosis: Chronic sinusitis. Technique: A limited screening CT of the paranasal sinuses was performed. Comparison: None Findings: The frontal, ethmoid and sphenoid air cells are clear. Small bilateral maxillary sinus mucous retention cysts. The septum deviates significantly to the left. Borderline hypertrophy of the inferior nasal turbinates.. No fluid in the middle ear cavities or mastoid air cells. IMPRESSION: 1. Small maxillary sinus mucous retention cysts. 2. Septal deviation to the left. [id number] Monserrat Ervin [address] ORDERABLES Final Result documented in this encounter Visit Diagnoses Diagnosis Chronic sinusitis Unspecified sinusitis (chronic) Chronic sinusitis Unspecified sinusitis (chronic) documented in this encounter Additional Health Concerns Assessment Noted Time PHQ-9 Depression Total Score: 6 10/08/19 19 1:51 PM CDT documented as of this encounter Care Teams Residential Mortgage Manager Relationship Specialty Start Date End Date Bren Allen MD [address] [place] [phone] PCP - General Internal Medicine 10/03/17 documented as of this encounter
--- OUTSIDE RECORDS SUMMARY | 2024-12-17 18:33 | XMS_ITS | Encounter Summary ---
Author Organization [facility] Address [address] Whitt: Epic Prelude ADT [place] [address] Care Team Providers Care Electronic Train Control Technician Name Role Phone Bren Allen MD Primary Care Provider +1 -[phone] Encounter Details Date Type Department Care Team (Late st Contact Info) Description 11/03/1999 Outpatient Historical Tanner Francis MD [address] [facility] [place] [phone] Social History Tobacco Use Types Packs/Day Years Used Date Smoking Tobacco: Never Assessed Sex and Gender Information Value Date Recorded Sex Assigned at Not on file Legal Sex Male 4:49 AM TOBACCO CUTTER Gender Identity Not on file Sexual Orientation Not on file documented as of this encounter Plan of Treatment Not on file documented as of this encounter Visit Diagnoses Not on filedocumented in this encounter Care Teams Electronic Train Control Technician Relationship Specialty Start Date End Date Bren Allen MD [address] [place] [phone] PCP - General Internal Medicine 10/03/17 documented as of this encounter
--- OUTSIDE RECORDS SUMMARY | 2024-12-17 18:33 | XMS_ITS | Encounter Summary ---
Author Organization [facility] Address [address] [place] [address] Care Team Providers Care Chlorine Cells Operator Name Role Phone Bren Allen MD Primary Care Provider +1 -[phone] Encounter Details Date Type Department Care Team (Latest Contact Info) Description 09/26/2004 Outpatient Historical [address] [phone] Tanner Francis MD [address] [place] [phone] LUMBAGO (Primary Dx); DIABETES MELLITUS TYPE II-UNCOMPL (CMS/HCC); MIXED HYPERLIPIDEMIA; HYPERTENSION NOS Social History Tobacco Use Types Packs/Day Years Used Date Smoking Tobacco: Never Assessed Sex and Gender Information Value Date Recorded Sex Assigned at Not on file Legal Sex Male 4:49 AM BRINE WELL OPERATOR Gender Identity Not on file Sexual Orientation Not on file documented as of this encounter Plan of Treatment Not on file documented as of this encounter Visit Diagnoses Diagnosis Lumbago- Primary Type II or unspecified type diabetes mellitus without mention of complication, not stated as uncontrolled Mixed hyperlipidemia Unspecified essential hypertension documented in this encounter Care Teams Chlorine Cells Operator Relationship Specialty Start Date End Date Bren Allen MD [address] [place] [phone] PCP - General Internal Medicine 10/03/17 documented as of this encounter
--- OUTSIDE RECORDS SUMMARY | 2024-12-17 18:33 | XMS_ITS | Encounter Summary ---
Author Organization [facility] Address [address] [place] [address] Care Team Providers Care Tab Builder Name Role Phone Bren Allen MD Primary Care Provider [phone] [phone] Reason for Referral * MRI (Routine) - Closed Specialty Diagnoses / Procedures Referred By Contac t Referred To Contact Radiology Diagnoses Spinal stenosis of lumbar region with radiculopathy Procedures MRI LUMBAR WO CONTRAST Liza Caal FNP [address] [place] [address] Phone: tel: fax: [facility] MRI [address] [address] Phone: tel: fax: Referral ID Status Reason Start Date Expiration Date V isits Requested Visits Authorized [id number] Closed [facility] TO SCHEDULE ([facility]) 05/01/2019 05/31/2019 1 1 R BUFFING WHEEL * MRI (Routine) - Closed Specialty Diagnoses / Procedures Referred By Contac t Referred To Contact Radiology Diagnoses Spinal stenosis of lumbar region with radiculopathy Procedures MRI THORACIC WO CONTRAST Liza Caal FNP [address] [place] [address] Phone: tel: fax: [email or web address] MRI [address] [address] Phone: tel: fax: Referral ID Status Reason Start Date Expiration Date V isits Requested Visits Authorized [id number] [place] [facility] [place] [place]/01/2019 05/31/2019 1 1 R BUFFING WHEEL Encounter Details Date Type Department Care Team (Late st Contact Info) Description 04/21/2019 Ancillary Orders [facility] Pre-Registration [place] CALL TO MAKE APPOINTMENT ONLY [address] [place] [address] Liza Caal FNP [address] [place], [place] [id number] Spinal stenosis of lumbar region with radiculopathy Social History Tobacco Use Types Packs/Day Years Used Date Smoking Tobacco: Never Smokeless Tobacco: Never Alcohol Use Standard Drinks/Week Comments Yes 1 (1 standard drink = 0.6 oz pur e alcohol) daily Sex and Gender Information Value Date Recorded Sex Assigned at Not on file Legal 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 Severe right and moderate left neural foraminal stenosis at L4-5. Moderate left L2-3 and L3-4 neural foraminal stenosis. Additional degenerative findings detailed above. Narrative 05/01/2019 3:07 PM RAKER BUFFING WHEEL Exam: MRI LUMBAR WO CONTRAST Date/Time of Exam: 05/01/2019 2:22 PM Reason For Exam: See Diagnosis. Diagnosis: Spinal stenosis of lumbar region with radiculopathy; Spinal stenosis of lumbar region with radiculopathy. Technique: MRI of the lumbar spine was performed without the administration of intravenous contrast. Findings: Normal lumbar lordosis. No acute fracture or aggressive osseous lesion. There is mixed active and chronic degenerative endplate change seen at L4-5. Hemangioma seen within the L1 vertebral body. Conus medullaris terminates at L1. Mild atrophy of the paraspinal musculature. The retroperitoneal structures demonstrate no acute abnormality. L1-2: Symmetric disc bulge with bilateral degenerative facet disease with patent spinal canal and neural foramen. L2-3: Desiccated disc with symmetric disc bulge and bilateral degenerative facet disease and ligament of flavum infolding with mild narrowing the spinal canal and moderate narrowing of the left lateral recess. Moderate left and mild right neural foraminal stenosis. L3-4: Symmetric disc bulge and bilateral degenerative facet disease with ligamentum flavum infolding with mild narrowing the spinal canal and moderate left neural foraminal stenosis. Mild right neural foraminal stenosis. L4-5: Symmetric disc bulge with bilateral degenerative facet disease and ligamentum flavum infolding with severe right and moderate left neural foraminal stenosis. Moderate narrowing of the spinal canal. L5-S1: Symmetric disc bulge with bilateral degenerative facet disease with resultant moderate bilateral neural foraminal stenosis. Procedure Note Mendoza Rojas, DO - 05/01/2019 Exam: MRI LUMBAR WO CONTRAST Date/Time of Exam: 05/01/2019 2:22 PM Reason For Exam: See Diagnosis. Diagnosis: Spinal stenosis of lumbar region with radiculopathy; Spinal stenosis of lumbar region with radiculopathy. Technique: MRI of the lumbar spine was performed without the administration of intravenous contrast. Findings: Normal lumbar lordosis. No acute fracture or aggressive osseous lesion. There is mixed active and chronic degenerative endplate change seen at L4-5. Hemangioma seen within the L1 vertebral body. Conus medullaris terminates at L1. Mild atrophy of the paraspinal musculature. The retroperitoneal structures demonstrate no acute abnormality. L1-2: Symmetric disc bulge with bilateral degenerative facet disease with patent spinal canal and neural foramen. L2-3: Desiccated disc with symmetric disc bulge and bilateral degenerative facet disease and ligament of flavum infolding with mild narrowing the spinal canal and moderate narrowing of the left lateral recess. Moderate left and mild right neural foraminal stenosis. L3-4: Symmetric disc bulge and bilateral degenerative facet disease with ligamentum flavum infolding with mild narrowing the spinal canal and moderate left neural foraminal stenosis. Mild right neural foraminal stenosis. L4-5: Symmetric disc bulge with bilateral degenerative facet disease and ligamentum flavum infolding with severe right and moderate left neural foraminal stenosis. Moderate narrowing of the spinal canal. L5-S1: Symmetric disc bulge with bilateral degenerative facet disease with resultant moderate bilateral neural foraminal stenosis. IMPRESSION: Multilevel degenerative change of the lumbar spine with moderate narrowing the spinal canal at L4-5. Severe right and moderate left neural foraminal stenosis at L4-5. Moderate left L2-3 and L3-4 neural foraminal stenosis. Additional degenerative findings detailed above. Liza Kaia Caal [facility] MR ORDERABLES Final Result * MRI THORACIC WO CONTRAST (05/01/2019 2:22 PM RAKER BUFFING WHEEL) Anatomical Region Laterality Modality Spine Magnetic Resonan ce 05/01/2019 2:22 PM RAKER BUFFING WHEEL Impressions 05/01/2019 3:04 PM RAKER BUFFING WHEEL IMPRESSION: Please see below. Exam: MRI THORACIC WO CONTRAST Date/Time of Exam: 05/01/2019 2:22 PM Reason For Exam: See Diagnosis. Diagnosis: Spinal stenosis of lumbar region with radiculopathy; Spinal stenosis of lumbar region with radiculopathy. Technique: MRI of the thoracic spine was performed without the administration of intravenous contrast. Findings: Normal thoracic kyphosis. No acute fracture or aggressive osseous lesion. There is chronic degenerative endplate change seen at T12. Intraosseous hemangioma seen within the L1. Small disc protrusion seen at T7-8, T8-9, T9-10, T10-11 and T11-12. Lower thoracic degenerative facet disease and mild narrowing of the spinal canal at T9-10, T10-11 and T11-12. There is also mild neuroforaminal stenosis from T9 to T12. No abnormal signal within the thoracic cord. There is multilevel anterior osteophyte formation. Visualized chest and retroperitoneal structures demonstrate no acute abnormality. Incidental note of disc osteophyte complex at C5-6 with resultant moderate narrowing the spinal canal, cord compression and possible cord signal abnormality. IMPRESSION: Multilevel degenerative change of the thoracic spine, worse from T9 to T12 where there is mild narrowing the spinal canal and neural foramen. No abnormal signal within the cord. No acute abnormality. Incidental note of disc osteophyte complex at C5-6 with resultant moderate narrowing the spinal canal, cord compression and possible cord signal abnormality. Recommend dedicated cervical spine MRI for further evaluation. Narrative Procedure Note Mendoza Rojas, DO - 05/01/2019 IMPRESSION: Please see below. Exam: MRI THORACIC WO CONTRAST Date/Time of Exam: 05/01/2019 2:22 PM Reason For Exam: See Diagnosis. Diagnosis: Spinal stenosis of lumbar region with radiculopathy; Spinal stenosis of lumbar region with radiculopathy. Technique: MRI of the thoracic spine was performed without the administration of intravenous contrast. Findings: Normal thoracic kyphosis. No acute fracture or aggressive osseous lesion. There is chronic degenerative endplate change seen at T12. Intraosseous hemangioma seen within the L1. Small disc protrusion seen at T7-8, T8-9, T9-10, T10-11 and T11-12. Lower thoracic degenerative facet disease and mild narrowing of the spinal canal at T9-10, T10-11 and T11-12. There is also mild neuroforaminal stenosis from T9 to T12. No abnormal signal within the thoracic cord. There is multilevel anterior osteophyte formation. Visualized chest and retroperitoneal structures demonstrate no acute abnormality. Incidental note of disc osteophyte complex at C5-6 with resultant moderate narrowing the spinal canal, cord compression and possible cord signal abnormality. IMPRESSION: Multilevel degenerative change of the thoracic spine, worse from T9 to T12 where there is mild narrowing the spinal canal and neural foramen. No abnormal signal within the cord. No acute abnormality. Incidental note of disc osteophyte complex at C5-6 with resultant moderate narrowing the spinal canal, cord compression and possible cord signal abnormality. Recommend dedicated cervical spine MRI for further evaluation. Liza Caal [facility] MR ORDERABLES Final Result documented in this encounter Visit Diagnoses Diagnosis Spinal stenosis of lumbar region with radiculopathy Spinal stenosis, lumbar region, without neurogenic claudication Spinal stenosis of lumbar region with radiculopathy Spinal stenosis, lumbar region, without neurogenic claudication Spinal stenosis of lumbar region with radiculopathy Spinal stenosis, lumbar region, without neurogenic claudication documented in this encounter Additional Health Concerns Assessment Noted Time PHQ-9 Depression Total Score: 6 06/03/20 19 1:51 PM CDT documented as of this encounter Care Teams Tab Builder Relationship Specialty Start Date End Date Bren Allen MD [address] [place] [address] PCP - General Internal Medicine 10/03/17 documented as of this encounter
--- OUTSIDE RECORDS SUMMARY | 2024-12-17 18:33 | XMS_ITS | Encounter Summary ---
Author Organization [facility] Address [address] [place] [address] Care Team Providers Care Callisthenics Instructor Name Role Phone Bren Allen MD Primary Care Provider [phone] Encounter Details Date Type Department Care Team (Latest Contact Info) Description 11/03/1999 Outpatient Historical [address] [phone] Tanner Francis MD [address] [place] [phone] Family history of diabetes mellitus (Primary Dx); Other abnormal blood chemistry Social History Tobacco Use Types Packs/Day Years Used Date Smoking Tobacco: Never Assessed Sex and Gender Information Value Date Recorded Sex Assigned at Not on file 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
--- OUTSIDE RECORDS SUMMARY | 2024-12-17 18:33 | XMS_ITS | Encounter Summary ---
Author Organization [facility] Address [address] 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
--- OUTSIDE RECORDS SUMMARY | 2024-12-17 18:33 | XMS_ITS | Encounter Summary ---
Author Organization [facility] Address [address] [place] [address] Care Team Providers Care Prototype Carpenter Name Role Phone Bren Allen MD Primary Care Provider [phone] Reason for Referral * MRI (Routine) - Closed Specialty Diagnoses / Procedures Referred By Mirella t Referred To Contact Radiology Diagnoses Cervical disc disorder with myelopathy Procedures MRI CERVICAL WO CONTRAST Liza Caal FNP [address] [place] [address] Phone: tel: fax: [facility] [address] [address] Phone: tel: fax: Referral ID Status Reason Start Date Expiration Date V isits Requested Visits Authorized [id number] Closed F [facility] TO SCHEDULE ([facility]) 05/19/2019 07/17/2019 1 1 PROFESSIONAL Encounter Details Date Type Department Care Team (Late st Contact Info) Description 06/10/2019 Ancillary Orders [facility] Pre-Registration [place] CALL TO MAKE APPOINTMENT ONLY [address] [place] [address] Liza Caal FNP [address] [place] [address] Cervical disc disorder with myelopathy Social History Tobacco Use Types Packs/Day Years Used Date Smoking Tobacco: Never Smokeless Tobacco: Never Alcohol Use Standard Drinks/Week Comments Yes 7 (1 standard drink = 0.6 oz pure alcohol) I have 1 can of beer a day. 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 Exam: MRI CERVICAL WO CONTRAST Date/Time of Exam: 06/19/2019 10:09 AM Reason For Exam: See Diagnosis. Diagnosis: Cervical disc disorder with myelopathy. Technique: Multiplanar imaging of the cervical spine was performed without IV gadolinium. Comparison: None Findings: Straightening of the cervical lordosis. Moderate C5-6 disc space height loss, anterior marginal osteophyte formation and a moderate disc bulge which minimally compresses the cord. The vague increased cord T2 signal may indicate chronic myelomalacia. Moderate to severe bilateral foraminal narrowing. C2-3: Mild bony encroachment on the left foramen. C3-4: Mild to moderate bony encroachment on the left and minimal right foraminal narrowing. C4-5: Mild disc bulge and facet degenerative changes and very mild right foraminal narrowing. C6-7: Mild disc bulge and moderate left foraminal narrowing. C7-T1: Mild disc bulge. Moderate to severe bilateral foraminal narrowing. Mild T1-T2 and T2-3 disc bulges. IMPRESSION: 1. Multilevel degenerative changes, greatest at C5-6. Probable minimal increased cord T2 signal at C5-6 consistent with chronic myelomalacia. Acute edema cannot be excluded. [id number] Narrative Procedure Note Lacho Richey MD - 06/19/2019 IMPRESSION: Please see below. Exam: MRI CERVICAL WO CONTRAST Date/Time of Exam: 06/19/2019 10:09 AM Reason For Exam: See Diagnosis. Diagnosis: Cervical disc disorder with myelopathy. Technique: Multiplanar imaging of the cervical spine was performed without IV gadolinium. Comparison: None Findings: Straightening of the cervical lordosis. Moderate C5-6 disc space height loss, anterior marginal osteophyte formation and a moderate disc bulge which minimally compresses the cord. The vague increased cord T2 signal may indicate chronic myelomalacia. Moderate to severe bilateral foraminal narrowing. C2-3: Mild bony encroachment on the left foramen. C3-4: Mild to moderate bony encroachment on the left and minimal right foraminal narrowing. C4-5: Mild disc bulge and facet degenerative changes and very mild right foraminal narrowing. C6-7: Mild disc bulge and moderate left foraminal narrowing. C7-T1: Mild disc bulge. Moderate to severe bilateral foraminal narrowing. Mild T1-T2 and T2-3 disc bulges. IMPRESSION: 1. Multilevel degenerative changes, greatest at C5-6. Probable minimal increased cord T2 signal at C5-6 consistent with chronic myelomalacia. Acute edema cannot be excluded. [id number] Liza Caal [facility] MR ORDERABLES Final Result documented in this encounter Visit Diagnoses Diagnosis Cervical disc disorder with myelopathy Intervertebral cervical disc disorder with myelopathy, cervical region Cervical disc disorder with myelopathy Intervertebral cervical disc disorder with myelopathy, cervical region documented in this encounter Additional Health Concerns Assessment Noted Time PHQ-9 Depression Total Score: 6 10/08/19 19 1:51 PM CDT documented as of this encounter Care Teams Prototype Carpenter Relationship Specialty Start Date End Date Bren Allen MD [address] [place] [phone] PCP - General Internal Medicine 10/03/17 documented as of this encounter
--- OUTSIDE RECORDS SUMMARY | 2024-12-17 18:34 | XMS_ITS | Clinical Summary ---
Author Organization [facility] Address [address] [place] [address] Care Team Providers Care Social Director Name Role Phone Bren Allen MD Primary Care Provider [phone] Allergies Active Allergy Reactions Criticality Noted Date Comments Cantaloupe Diarrhea Low 01/09/2019 Gadolinium-Containing Contrast Media Hives,Itching High 05/01/2019 Iodinated Contrast Media Itching Medium 06/19/2019 Other reaction(s): UNKNOWN, Unknown, Unknown; Itching Iodine Itching Low 02/06/2019 Other [place]-3s Diarrhea Low 06/28/2018 Penicillin G Anaphylaxis,Swelling High 04/16/2009 Unclassified Drug Itching Low 04/15/2018 Medications fluticasone (FLOVENT HFA) 110 mcg/Actuation Inhalation Aero Take 2 Puffs by inhalation 2 times daily. 12 Gram 5 04/06/20 11 Active Blood-Glucose Meter [facility] KitIndications:Non -insulin dependent type 2 diabetes mellitus (CMS/HCC) 1 Kit 0 03/27/20 12 Active Lancing Device (BD LANCET DEVICE) Misc MiscIndications:No n-insulin dependent type 2 diabetes mellitus (CMS/HCC) 1 Device by [facility].(Non-Drug; Combo Route) route daily. 1 Device 0 03/27/20 12 Active blood sugar diagnostic [facility] StrpIndications:No n-insulin dependent type 2 diabetes mellitus (CMS/HCC) 1 Strip by See Admin Instructions route daily. 100 Strip 3 01/18/20 13 Active albuterol 90 mcg/Actuation Inhalation HFAA HFA inhaler Take 2 Puffs by inhalation 4 times daily as needed. 06/08/19 12 Active cetirizine (ZYRTEC) 10 mg tablet Take 1 Tab by mouth daily. 30 Tab 5 05/22/19 14 Active HYDROcodone-acetam inophen 7.5-300 mg TabletIndications: Complete tear of right rotator cuff,Localized primary osteoarthritis of right shoulder region Take by mouth. Activ e gemfibrozil (LOPID) 600 mg tablet 05/07/19 18 Active nitroglycerin (NITROSTAT) 0.4 mg Tablet, Sublingual Place 0.4 mg under tongue every 5 minutes as needed for Chest Pain. Active aspirin (KAVITHA CHEWABLE) 81 mg Tablet, Chewable Take 81 mg by mouth daily. Active calcium as carbonate (TUMS) 500 mg (200 mg elemental) Tablet, Chewable Take by mouth. Activ e potassium CHLORIDE (KLOR-CON) 20 mEq Packet Take 20 mEq by mouth 2 times daily. Active spironolactone (ALDACTONE) 25 mg tablet Take 25 mg by mouth daily. Active torsemide (DEMADEX) 20 mg tablet Take 20 mg by mouth daily. Active ferrous sulfate 134 mg (27 mg iron) Tablet Take 134 mg by mouth 3 times daily with meals. Active cyclobenzaprine (FLEXERIL) 10 mg tablet Take 10 mg by mouth 3 times daily as needed for Spasm. Active acetaminophen (TYLENOL) 500 mg tablet Take 500 mg by mouth every 6 hours as needed. Active insulin regular human U-500 concentrated (HumuLIN R U-500, Conc, Kwikpen) 500 unit/mL (3 mL) penIndications:use s for Sliding Scale Inject 100 3 times daily plus sliding scale. 24 mL 6 12/28/19 19 Active Additional Information Patient taking differently: 120 Units subCUT, Inject 100 3 times daily plus sliding scale, Indications: uses for Sliding Scale, Reported on 09/06/2020 liraglutide (VICTOZA 2-JUAN) 0.6 mg/0.1 mL (18 mg/3 mL) Inject 1.8 mg by subcutaneous injection daily. 3 mL 6 12/28/19 19 Active traMADol (ULTRAM) 50 mg tabletIndications: Complete tear of right rotator cuff,Localized primary osteoarthritis of right shoulder region Take 1-2 Tablets (50-100 mg) by mouth 2 times daily as needed for Pain. May take an extra strength tylenol with your tramadol for maximum effects. Do not excede 3000 mg daily. 60 Tablet 3 01/08/20 19 Active sertraline (ZOLOFT) 50 mg tablet Take 100 mg by mouth daily. Active OTHER Prednisolone 1%/ Gatifloxacin 0.5%. 3 times/day in operative eye. Begin 3 days prior to surgery. Continue post op 3 wks. 3.5 mL 1 01/29/20 19 Active carvediloL (COREG) 25 mg tablet Take 50 mg in a.m and 25 mg p.m 270 Tablet 3 11/06/19 20 Active ARIPiprazole (ABILIFY) 5 mg tablet 05/13/19 21 Active ALPRAZolam (XANAX) 1 mg tablet Take 1 mg by mouth nightly as needed for Anxiety. Active oxybutynin chloride (DITROPAN XL) 10 mg Extended Release 24 hour tabletIndications: Urge incontinence Take 2 Tablets (20 mg) by mouth daily. 180 Tablet 3 06/30/19 21 Active prednisoLONE acetate (PRED FORTE) 1 % suspension INSTILL 1 DROP INTO THE OPERATIVE EYE FOUR TIMES A DAY DIRECTED 10 mL 6 07/10/19 21 Active cpap medical deviceIndications: JOSE on CPAP CPAP @ 13 cwp with heated humidifier. Cpap/Bipap supplies: nasal mask with headgear A7034,A7035 1/6mo, mask only A7034 1/3mo, cushion A7032 2/mo, non heated tubing A7037 1/3mo, water chamber A7046 1/6mo, filter disposable A7038 2/mo, Filter reusable A7039 1/6mo, chin strap A7036 1/6 mo. Length of need: 99 months DX G47.33 obstructive sleep apnea Yearly update for PAP supplies 1 Each 08/05/19 21 Active flash glucose sensor (FreeStyle Taisha 14 Day Sensor) Kit Use as directed to test blood sugar daily. Change the sensor every 14 days 2 Kit 3 08/18/19 21 Active metaxalone (SKELAXIN) 800 mg tablet Take 800 mg by mouth 3 times daily as needed for Spasm. Active naloxone (NARCAN) 4 mg/spray [place], Non-Aerosol EMERGENCY USE ONLY: Administer 1 spray (4 mg) in one nostril one time. May repeat in alternating nostrils every 2-3 min until responsive or EMS arrives. 2 Each 3 05/08/202 1 2:52 PM CDT 09/12/19 Active flash glucose scanning reader ([employer] Taisha 14 Day [place]) [facility] USE as directed TO test blood sugar EVERY DAY 1 Each 09/24/19 Active Blood-Glucose Meter,Continuous (Dexcom G6 [employer] Worker) Use to check BG. 1 Each 11/03/19 Active Blood-Glucose Sensor (Dexcom G6 Sensor) Device Replace every 10 days. 9 Each 11/03/19 Active Blood-Glucose Transmitter (Dexcom G6 Transmitter) Device Replace every 90 days. 1 Each 11/03/19 Active Active Problems Problem Noted Date Diagnosed Date Other specified disorders of arteries and arteri oles 05/20/2019 Stage 3 chronic kidney disease 05/20/2019 History of prostate cancer 01/20/2019 Hyperprolactinemia 11/21/2018 Atherosclerosis of [place] co ronary artery of [place] heart with stable angina pectoris 11/21/2018 Dental caries 08/15/2018 Prostate cancer 06/03/2018 Cancer Staging:Clinical stage from 06/28/2018:Stage IIB(cT2a, cN0, cM0, PSA: 10.8, Grade Group: 2) - Signed by Ivan Sofia MD on 06/28/2018 Prostate nodule 04/23/2018 Lower urinary tract symptoms (LUTS) 04/23/2018 Hesitancy of micturition 04/23/2018 Nocturia 04/23/2018 JOSE on CPAP 01/24/2018 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 12/24/2017 Polyneuropathy due to type 2 diabetes mellitus 0 12/24/2017 Complete tear of right rotator cuff 11/01/2017 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 11/01/2017 Mixed hyperlipidemia 03/25/2015 Keratoconus of both eyes 01/12/2015 Urgency of urination 10/12/2014 Hematuria 10/12/2014 Dislocation, lens, posterior 04/20/2014 Chronic diastolic CHF (congestive heart failure) 02/14/2013 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 02/2013 Borderline glaucoma with ocular hypertension 02/2013 Senile nuclear sclerosis 01/14/2013 Cornea replaced by transplant 08/16/2012 Erectile dysfunction associa andres with type 2 diabetes mellitus 03/27/2012 Cellulitis and abscess of Right leg, except foot 02/10/2012 CHF (congestive heart failure) 07/04/2010 Morbid obesity with body mass index of 40.0-49.9 07/08/2009 Essential hypertension 06/02/2008 Resolved Problems Problem Noted Date Diagnosed Date Resolved Date BPH with obstruction/lower u rinary tract symptoms 10/12/2014 06/03/2018 Vitreous hemorrhage 04/27/2014 02/26/20 19 Elevated PSA 01/26/2014 10/21/2019 Cellulitis 02/14/2013 12/24/2017 Overview (02/14/2013): Of the right inner thigh Elevated troponin 02/14/2013 12/24/2017 Asthma with acute exacerbation 02/14/2013 12/24/2017 Hypokalemia 02/14/2013 12/24/2017 Cellulitis of right thigh 12/07/2012 Iron deficiency anemia 09/05/201012/24 Hypertensive encephalopathy 05/04/2010 12/24/2017 Non-insulin dependent type 2 diabetes mellitus 06/02/2008 12/24/2017 Hyperlipidemia 06/02/2008 03/25/2015 Immunizations Immunization Administration Dates Next Due (PNEUMOVAX 23)(50 YRS UP) PN EUMOCOCCAL POLYSACCHARIDE (PPV23) 0.5 ML, IM 02/16/2013 Influenza Seasonal Unspecifi ed Formulation IM 06/18/2018,02/26/2014,12/27/2012,04/10,03/06/2002 Influenza Vaccine Split 3+ Yrs PF IM 02/13/2012, 05/06/2010 Family History Medical History Relation Name Comments Arthritis-osteo Brother One brother Oliver Gonzales You ng Rheumatoid arthritis due to exposure to agent [place] Hypertension Brother One brother Oliver Gonzales Young Other Brother One brother Oliver Gonzales Young Bleeding Problem Father Able Young That was ju st seconds short of being hemophiliac Cancer Father Able Young Lungs ,spleen, spine, liver.WW[employer] [place] Hemophilia Father Able Young Was never class ified as a bleeder but was very very slow to clot Cancer Mother Erika Abdul Emphysema Diabetes Mother Erika Abdul Heart Disease Mother Erika Abdul Treated in [facility] Hypertension Mother Erika Abdul Respiratory Disease Mother Bonna J Albert Young EM PHYSEMA Cancer Sister 1 Michelle Irby Br east cancer Hypertension Sister 1 Michelle Irby Cancer Sister 2 MahoganyBryanna Allen Heartsarah Ovarian and cervical cancer Hypertension Sister 2 Mahogany Claudio Allen Heartz Hypertension Sister 3 Marian Dumont Colon Cancer Neg Hx Relation Name Status Comments Brother One brother Oliver Abdul Father Able Young Mother Erika Abdul Sister 1 Michelle Irby Sister 2 Mahogany Allen Heartz Sister 3 Marian Dumont Social History Tobacco Use Types Packs/Day Years Used Date Smoking Tobacco: Never Smokeless Tobacco: Never Tobacco Cessation:Counseling Given: No Comments:Only child of 5 that has never smoked Alcohol Use Standard Drinks/Week Comments Not Currently 0 (1 standard drink = 0.6 oz pure alcohol) I have 1 can of beer a day. 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 Gender Identity Not on file Sexual Orientation Not on file Occupation Industry Job Start Date Job End Date Not on file Not on file Not on file Not on file Last Filed Vital Signs Vital Sign Reading Time Taken Comments Blood Pressure 127/66 09/14/2020 10:34 AM CDT Pulse 73 09/14/2020 10:34 AM CDT Temperature 36.4 C (97.6 F) 09/11/2020 9:30 AM CDT Respiratory Rate 18 09/11/2020 9:30 AM CDT Oxygen Saturation 94% 09/11/2020 9:30 AM CDT Inhaled Oxygen Concentration - - Weight 157.4 kg (347 lb) 09/14/2020 10:34 AM CDT Height 190.5 cm (6' 3 ) 09/14/2020 10:34 AM CDT Body Mass Index 43.37 09/14/2020 10:34 AM CDT Plan of Treatment Health Maintenance Due Date Last Done Comments DIABETES ANNUAL FOOT EXAM 1974 DTAP/TDAP/TD VACCINES (1 - Tdap) 12/03/1975 FIT-DNA Q 3 years 2001 FIT/FOBT Q 1 year 2001 Flex Sig/CT Colonography Q 5 years 2001 ZOSTER VACCINE (1 of 2) 2006 DIABETES MICROALBUMIN ANNUAL SCREEN 03/14/2013 03/14/2012, 07/05/2010 PNEUMOCOCCAL VACCINE 50+ YEA RS (2 of 2 - PCV) 02/16/2014 02/16/2013 RSV VACCINE (60+ or ) (1 - Risk 60-74 years 1-dose series) 2016 DIABETES ANNUAL RETINAL EXAM 04/08/202007/2018, 04/08/2019, 04/08/2019, Additional history exists LDL CHOLESTEROL ANNUAL 01/13/2021 0, 12/16/2018, 10/30/2016, Additional history exists DIABETES HBA1C Q 6 MONTHS 04/12/20212020, 07/05/2020, 04/07/2020, Additional history exists COLORECTAL SCREENING 02/19/2023 02/19/2018, 02/20/20 18 Colorectal Cancer Screening 02/19/2023 INFLUENZA VACCINE (#1) 2024 9, 02/26/2014, 12/27/2012, Additional history exists Medical Devices Implanted Type Area Last Scourer Device Identifier Shelf Expiration Date Model / Serial / Lot Lens Io [id number] 23.0 - [id number] Implanted:Qty: 1 on 04/20/2014 by Alyson Barrios MD at [facility] Left: Eye [employer] 12/19/2018 [id number] / [id number] / Lens Io Tecnis 1pc 16.5 [id number] - [id number] Implanted:Qty: 1 on 07/24/2018 by Alyson Barrios MD at [facility] Eye Right: Eye [employer] 08/29/2021 [id number] / [id number] / Allograft Cornea [facility] Cornea-Precut - [id number] Implanted:Qty: 1 on 02/03/2019 by Alyson Barrios MD at 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 Keratoconus Senile nuclear sclerosis MICROALBUMIN/CREATIN INE RATIO, RANDOM UR Routine 03/14/2012 12:31 PM 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 Non-insulin dependent type 2 diabetes mellitus (CMS/HCC) Hyperlipidemia from Last 3 Months or Most Recently Relevant to Health Maintenance Results * LIPID PANEL (01/14/2020) ABSTRACTED CHOLESTEROL 197 ABSTRACTED TRIGLYCERIDE 337 ABSTRACTED HDL 27 ABSTRACTED LDL CALCULATED 103 CHOLESTEROL TRIGLYCERIDE HDL LDL CALCULATED Blood 01/14/2020 us Abstract Spg Provider CHEMISTRY ORDERABLES Final Result * COLONOSCOPY REPORT (02/19/2018 10:02 AM CDT) Narrative Procedure Note Isra Andrade MD - 02/19/2018 10:01 AM CDT [facility] GI Patient Name: Sydnie Abdul Procedure Date: 02/19/2018 Date of : 1955 Admit Type: Outpatient Age: 62 Attending MD: Isra Andrade , Procedure: Colonoscopy Indications: Screening for colorectal malignant neoplasm (last colonoscopy was more than 10 years ago) Providers: Isra Andrade Referring MD: Bren Allen Medicines: Monitored Anesthesia Care Complications: No immediate complications. Procedure: Pre-Anesthesia Assessment: - [place] Protocol: - Pre-procedure Verification: Prior to the procedure, the patient's identity was verified by full name and date of . The patient's identity was verified on all pertinent medical records, including History and Physical and pre-anesthesia assessment. Also prior to the procedure, a History and Physical was performed, and patient medications, allergies and sensitivities were reviewed. The patient's tolerance of previous anesthesia was reviewed. The risks and benefits of the procedure and the sedation options and risks were discussed with the patient. All questions were answered and informed consent was obtained. - Marking: The endoscopic procedure was visually marked on a patient wrist band delineating the patient name, proposed procedure and endoscopist's initials. - Time-Out: Prior to the start of the procedure, the patient's identification, proposed procedure, accurate signed consent, correctly labeled images and records, and need for prophylactic antibiotics were verified by the physician and the nurse in the endoscopy suite. After I obtained informed consent, the scope was passed under direct vision. Throughout the procedure, the patient's blood pressure, pulse, and oxygen saturations were monitored continuously. The Colonoscope was introduced through the anus and advanced to the cecum, identified by appendiceal orifice and ileocecal valve. The colonoscopy was performed without difficulty. The patient tolerated the procedure well. The quality of the bowel preparation was adequate. Estimated Blood Loss: Estimated blood loss was minimal. Findings: The digital rectal exam was normal. Pertinent negatives include normal sphincter tone. Non-bleeding internal hemorrhoids were found during retroflexion. The hemorrhoids were small. A few small-mouthed diverticula were found in the sigmoid colon and in the descending colon. Two sessile polyps were found in the transverse colon. The polyps were 4 to 5 mm in size. These polyps were removed with a cold snare. Resection and retrieval were complete. Recommendation: - Await pathology results. - Patient has a contact number available for emergencies. The signs and symptoms of potential delayed complications were discussed with the patient. Return to normal activities tomorrow. Written discharge instructions were provided to the patient. - Resume previous diet. - Continue present medications. - No aspirin, ibuprofen, naproxen, or other non-steroidal anti-inflammatory drugs for 2 weeks. - The findings and recommendations were discussed with the patient's family. - Return to primary care physician as previously scheduled. - Repeat colonoscopy in 5 years for surveillance. Isra Andrade, 02/19/2018 10:01:28 AM Number of Addenda: 0 Note Initiated On: 02/19/2018 9:30 AM Scope Withdrawal Time 0 hours 12 minutes 17 seconds Scope In: 9:40:46 AM Scope Out: 9:59:49 AM [address] [place], [place] us Isra Andrade MD GI PROCEDURE ORDERABLES Final Re sult * HEMOGLOBIN A1C (07/11/2017) ABSTRACTED HGB A1C 11.9 EXTERNAL LAB HEMOGLOBIN A1C 4.7 - 6.4 % EXTERNAL LAB HEMOGLOBIN A1C EXTERNAL LAB GLUCOSE, MEAN BLOOD EXTERNAL LAB Blood us Abstract Spg Provider CHEMISTRY ORDERABLES Edite d Result - Final EXTERNAL LAB * NM CPTRIZED OPH DX IMG PST SEGMENT UNI/BI RETINA (06/11/2013 1:29 PM 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 Procedure Note Makayla Castillo, OD - 06/11/2013 1:28 PM CST NO CHARGE, NORMAL. us Makayla [place] OD OPHTH OTHER Final Result [facility] * MICROALBUMIN/CREATININE RATIO, RANDOM UR (03/14/2012 12:31 PM 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) MICROALBUMIN URINE 1.9 MG/DL [facility] - [place]A AVILA Creatinine, Urine 116 MG/DL [facility] - [place]LEJ[place]DRA AVILA MICROALBUMIN/CREA T RATIO, UR 16.4 MCG/MG CREAT. [facility] [place]IL[facility] Comment: NORMAL: <30 MCG/MG CREAT MICROALBUMINURIA: 30-300 MCG/MG CREAT CLINICAL ALBUMINURIA: >300 MCG/MG CREAT Urine specimen (specimen) 03/14/2012 12:31 PM 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 03/14/2012 12:36 PM 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 Tanner Francis MD URINE ORDERABLES Final Result [facility] - ALEJANDRA INFANTE# [id number] [address] [place] [address] from Last 3 Months or Most Recently Relevant to Health Maintenance Insurance MEDICAID [place] Member Subscriber Plan / Payer (Ef fective 2017-Present) Name:Sydnie Abdul Relation to Subscriber:Self Name:Sydnie Abdul Payer ID:[id number] Group ID:Not on file Type:Medicaid Address: [address] [employer] [facility] Medicare Part D Advance Directives For more information, please contact: [phone] Documents on File Type Date Recorded Patient Social Worker Psychiatric Expl anation Advance Directive POA 01/08/2018 10:57 AM Advance Directive Living Will 08/14/2012 10:57 AM * Full Code (Latest Code Status on File) Date Activated Date Inactivated Comments 09/07/2020 12:49 AM 09/11/2020 6:35 PM * Full Code Date Activated Date Inactivated Comments 02/03/2019 12:54 PM 02/03/2019 5:05 PM * Full Code Date Activated Date Inactivated Comments 02/03/2019 10:17 AM 02/03/2019 12:54 PM * Full Code Date Activated Date Inactivated Comments 07/24/2018 9:14 AM 07/24/2018 1:45 PM * Full Code Date Activated Date Inactivated Comments 02/19/2018 8:00 AM 02/19/2018 12:32 PM Care Teams Social Director Relationship Specialty Start Date End Date Bren Allen MD [address] [place] [address] PCP - General Internal Medicine 10/03/17
--- OUTSIDE RECORDS SUMMARY | 2024-12-17 18:34 | XMS_ITS | Encounter Summary ---
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
--- OUTSIDE RECORDS SUMMARY | 2024-12-17 18:34 | XMS_ITS | Clinical Summary ---
Author Organization [facility] tone Address [address] [place] [address] Care Team Providers Care Hand Tier Name Role Phone Bren Allen MD Primary Care Provider [phone] Allergies Active Allergy Reactions Criticality Noted Date Comments Aluminum Sulfate Hives High 02/09/2021 Cantaloupe Diarrhea Low 01/09/2019 Gadolinium-Containin g Contrast Media Hives,Itching High 05/01/2019 Iodinated Contrast Media Itching Medium 06/19/2019 Other reaction(s): UNKNOWN, Unknown, Unknown; Itching Other Beaufort-3s Diarrhea Low 06/28/2018 cantelope Chronic pain syndrome Chronic pain syndrome [id number] Active 2020-07-16 00:00:00 Overview: Added automatically from request for surgery [id number] Penicillin G Anaphylaxis,Swellin g High 04/16/2009 Medications acetaminophen (TYLENOL) 500 mg tablet Take 500 mg by mouth every 6 hours as needed. 10/08/19 19 Active ARIPiprazole (ABILIFY) 5 mg tablet 5 mg daily at bedtime. 05/13/19 21 Active sertraline (ZOLOFT) 100 mg tablet Take 100 mg by mouth daily. 01/22/20 19 Active gemfibroziL (LOPID) 600 mg tablet Take 600 mg by mouth 2 times daily. 05/07/19 18 Active carvediloL (COREG) 25 mg tablet Take 50 mg in a.m and 25 mg p.m 270 Tablet 3 11/06/19 20 Active aspirin (KAVITHA CHEWABLE) 81 mg Tablet, Chewable Take 81 mg by mouth daily. 02/14/20 18 Active calcium as carbonate (TUMS) 500 mg (200 mg elemental) Tablet, Chewable Take by mouth. 02/14/20 Active Blood-Glucose Meter,Continuous (Dexcom G6 Ship Erector) Use to check BG. 1 Each 0 11/03/19 Active Blood-Glucose Sensor (Dexcom G6 Sensor) Device Replace every 10 days. 9 Each 3 11/03/19 Active cetirizine (ZyrTEC) 10 mg tablet Take 10 mg by mouth. 07/17/19 Active fluticasone propionate (Flovent HFA) 110 mcg/actuation HFA Aerosol Inhaler Take 2 Puffs by inhalation every 12 hours. 11/23/19 21 Active nystatin (NYSTOP) 100,000 unit/gram powder Apply to affected area. Groin area 09/28/19 21 Active sodium chloride (OCEAN) 0.65 % Aerosol, Gary Administer in each nostril 2 times daily as needed. 08/17/19 Active oxygen home delivery Home Oxygen Concentrator yes at 2 L/M Rest, 2 L/M Activity, 2 L/M Sleep, Delivery Device: Nasal Cannula Portability: yes, 2 L/M Rest, 2 L/M Activity, May provide device best for patient needs(E system,home fill, conserving device) Length of Need: 99 months 1 Each 05/01/20 Active atorvastatin (LIPITOR) 40 mg tablet Take 1 Tablet by mouth daily. 05/02/20 Active diphenhydrAMINE (BENADRYL) 25 mg capsule Active albuterol (PROVENTIL,VENTOLI N) 2.5 mg /3 mL (0.083 %) Solution for Nebulization Take 3 mL (2.5 mg) by inhalation every 6 hours as needed for Shortness of Breath. 360 mL 01/01/20 Active Blood-Glucose Meter,Continuous (Dexcom G6 Ship Erector) Use to monitor blood glucose continuously throughout the day. 1 Each 05/29/19 23 Active Blood-Glucose Transmitter (Dexcom G6 Transmitter) Device Fasten on top of the sensor to wirelessly send data to the grounds restoration specialist. Must be changed every 3 months. 1 Each 3 05/29/19 23 Active Blood-Glucose Sensor (Dexcom G6 Sensor) Device Discreetly worn under clothing to measure glucose levels just underneath the skin. Must change sensor every 10 days. 1 Each 05/29/19 23 Active Farxiga 10 mg Tablet take one tablet by mouth every day IN THE MORNING 08/19/19 23 Active mupirocin (BACTROBAN) 2 % Ointment Apply to affected area daily. 30 Gram 1 01/26/20 23 Active naloxone (NARCAN) 4 mg/spray Gary, Non-Aerosol EMERGENCY USE ONLY: Administer 1 spray (4 mg) in one nostril one time. May repeat in alternating nostrils every 2-3 min until responsive or EMS arrives. 2 Each 3 02/16/20 23 Active gabapentin (NEURONTIN) 300 mg capsule take 1 capsule by mouth three times a day 90 Capsule 6 05/18/19 24 Active cpap medical deviceIndications: Obstructive sleep apnea CPAP (E0601) at 15 cm/H2O with 3L bled in and heated humidifier (E0562), nasal and headgear A7034,A7035 1/6mo, mask only A7034 1/3mo, cushion A7032 2/mo. Also supply heated tubing A4604 1/3mo,water chamber A7046 1/6mo,filter disp A7038 2/mo,Reusable filter A7039 1/6mo, Chin strap A7036 a/6mo SHOBHA 99mo DX: JOSE (G47.33) 1 Each 06/29/19 24 Active traMADoL (ULTRAM) 50 mg tabletIndications: Hospice care Take 1 Tablet (50 mg) by mouth every 4 hours as needed for Pain. 60 Tablet 07/30/19 24 Active HYDROcodone-acetam inophen (NORCO) 7.5-325 mg TabletIndications: Hospice care Take 1 Tablet by mouth every 4 hours as needed for Pain, Moderate. Max Daily Amount: 6 Tablets 60 Tablet 07/30/19 24 Active Vortex Holding Chamber Spacer USE DIRECTED WITH INHALER 07/30/19 24 Active Asmanex HFA 100 mcg/actuation HFA Aerosol Inhaler 08/23/19 24 Active nystatin-triamcino lone (MYCOLOG) 100,000-0.1 unit/gram-% Ointment 1 Application, Topical, bid 03/10/20 23 Active Tosin Pen Needle 32 gauge x 5/32 Needle USE DIRECTED FOUR TIMES A DAY WITH INSULIN INJECTIONS 08/23/19 24 Active spironolactone (ALDACTONE) 25 mg tablet Take 25 mg by mouth daily. Active torsemide (DEMADEX) 100 mg tablet Take 100 mg by mouth daily. Active moxifloxacin (VIGAMOX) 0.5 % solution Administer ONE drop IN THE RIGHT EYE FOUR TIMES DAILY 3 mL 1 11/30/19 24 Active tirzepatide (Mounjaro) 10 mg/0.5 mL Pen Injector Inject 10 mg by subcutaneous injection every 7 days. 6 mL 3 12/20/19 24 Active prednisoLONE acetate (PRED FORTE) 1 % suspension instill one drop into both eyes on mondays, wednesdays, and fridays 5 mL 02/13/20 24 Active sildenafiL (VIAGRA) 50 mg tablet Take 1 Tablet (50 mg) by mouth 1 time daily as needed for Erectile Dysfunction. Take one hour prior to sexual activity. May titrate up to 4 tables or 100 mg if needed. DO NOT TAKE NITROGLYCERIN WITHIN 24 HOUR OF TAKING VIAGRA. 60 Tablet 1 03/19/20 24 Active FreeStyle Precision Leandro Strips Strip USE TO test blood sugar THREE TIMES DAILY 02/28/20 24 Active loteprednol (Lotemax) 0.5 % suspension in each affected eye as directed Active albuterol sulfate HFA 90 mcg/actuation aerosol inhaler Take 2 Puffs by inhalation every 6 hours as needed for Shortness of Breath. Active calc-D3-mag cit,ox-K2-herb 353 (Alive Calcium-Vitamin D3-K2) 300 mg-25 mcg- 66 mg-37.5 mcg Tablet Take by mouth. Acti ve nitroglycerin (NITROSTAT) 0.4 mg Tablet, Sublingual Place 1 Tablet (0.4 mg) under tongue every 5 minutes as needed for Chest Pain. 25 Tablet 6 06/05/19 25 Active potassium CHLORIDE (K-DUR,KLOR-CON M20) 20 mEq Extended Release tabletIndications: Dilated cardiomyopathy (CMS/HCC),Chronic combined systolic and diastolic heart failure (CMS/HCC) Take 1 Tablet (20 mEq) by mouth daily. 90 Tablet 3 07/17/19 25 Active HumuLIN-R U-500, Conc, Kwikpen 500 unit/mL (3 mL) penIndications:Typ e 2 diabetes mellitus with diabetic polyneuropathy, with long-term current use of insulin (CMS/HCC) inject 170 units EVERY DAY with breakfast, 170 units with lunch, 190 units with dinner, and 30 units with each snack *max of 700 units per day* 42 mL 3 07/31/19 25 Active famotidine (PEPCID) 40 mg tablet TAKE 1 TABLET BY MOUTH TWICE A DAY 60 Tablet 5 08/27/19 25 Active solifenacin (VESICARE) 10 mg Tablet take one tablet by mouth every day 30 Tablet 6 10/23/19 25 Active Active Problems Problem Noted Date Diagnosed [...] 07/08/2009 Essential hypertension 06/02/2008 COVID-19 virus detected Resolved Problems Problem Noted Date Diagnosed Date [...] diabetes mellitus 06/02/2008 12/24/2017 Hyperlipidemia 06/02/2008 03/25/2015 Encounters Date Type Department Care Team Description 11/19/2024 External Device Data STL ABSTRACTION Provider, Abstract 11/18/2024 External Device Data STL ABSTRACTION Provider, Abstract 10/22/2024 [facility] [place] [address] [facility] [address] Entrance [address], [address] [place] [id number] Tanner Leon, RAVI 09/30/2024 [facility] [place] [address] Entrance B, [address] [place] [address] Tanner Leon, RAVI 09/18/2024 10:15 AM CDT Office Visit [facility] Ophthalmology 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); Keratoconus of both eyes; Keratoconjunctiviti s sicca of both eyes not specified as Sjogren's; Pseudophakia of both eyes from Last 3 Months Immunizations Immunization Administration Dates Next Due (ADACEL/BOOSTRIX)(10 YR UP) TDAP VACCINE, 0.5ML, IM 11/30/2021 (PNEUMOVAX 23)(50 YRS UP) PN EUMOCOCCAL POLYSACCHARIDE (PPV23) 0.5 ML, IM 02/16/2013 Influenza Seasonal Unspecifi ed Formulation IM 06/18/2018,02/26/2014,12/27/2012,04/10,03/06/2002 Influenza Vaccine Split 3+ Yrs PF IM 02/13/2012, 05/06/2010 Family History Medical History Relation Name Comments Arthritis-osteo Brother One brother Oliver Gonzales You ng Rheumatoid arthritis due to exposure to agent [place] Heart Disease Brother One brother Oliver Linder. Young Cause of ruptured aortic artery Hypertension Brother One brother Oliver Linder. Young Other Brother One brother Oliver Linder. Young Sleep Apnea Brother One brother Oliver Linder. Young Thyroid Disease Brother One brother Oliver Gonzales You ng Asthma Daughter Laquita Abdul e ldest daughter Placed on theadur sprinkles at 13 months Arthritis-rheumatoid Father Able Young Bleeding Problem Father Able Young That was ju st seconds short of being hemophiliac Cancer Father Able Young Lungs ,spleen, spine, liver.WW[place] [place]. Hemophilia Father Able Young Was never class ified as a bleeder but was very very slow to clot Liver Disease Father Able Young Lung Cancer Father Able Young Cause of . Mesofeloma Anemia Mother Erika Abdul Asthma Mother Erika Abdul Cancer Mother Erika Abdul Emphysema Diabetes Mother Erika Abdul Heart Disease Mother Erika Abdul Treated in [facility] Hypertension Mother Erika Abdul Respiratory Disease Mother Erika Abdul EM PHYSEMA Asthma Sister 1 Marian Bharat Dumont Hypertension Sister 1 Marian Dumont Thyroid Disease Sister 1 Marian Dumont Cancer Sister 2 Mahoganyshruti Allen Heartdaniela Ovarian and cervical cancer Hypertension Sister 2 Mahogany Claudio David Allen Heartz Asthma Sister 3 Michelle Irby Breast Cancer Sister 3 Michelle Irby Cancer Sister 3 Michelle Irby Br east cancer Hypertension Sister 3 Michelle Irby Respiratory Disease Sister 3 Michelle Aldridge oore COPD ... Emphysema Colon Cancer Neg Hx Relation Name Status Comments Brother One brother Oliver Abdul Daughter Laquita [place] daughter Alive Father Able Young Mother Erika Abdul Sister 1 Marian Dumont Sister 2 Mahogany Abdul Allen Heartz Sister 3 Michelle Irby Social History Tobacco Use Types Packs/Day Years Used Date Smoking Tobacco: Never Passive Smoke Exposure: Never Smokeless Tobacco: Never Tobacco Cessation:Counseling Given: No Alcohol Use Standard Drinks/Week Comments Not Currently 0 (1 standard drink = 0.6 oz pur e alcohol) Sex and Gender Information Value Date Recorded Sex Assigned at Not on file Legal Sex 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 Gender Identity Not on file Sexual Orientation Not on file Last Filed Vital Signs Vital Sign Reading Time Taken Comments Blood Pressure 120/76 06/05/2024 9:11 AM ESOL TEACHER Pulse 72 06/05/2024 9:11 AM ESOL TEACHER Temperature 36.6 C (97.8 F) 05/21/2024 9:38 PM ESOL TEACHER Respiratory Rate 18 05/22/2024 2:45 AM ESOL TEACHER Oxygen Saturation 96% 05/22/2024 2:45 AM ESOL TEACHER Inhaled Oxygen Concentration - - Weight 162.4 kg (358 lb) 06/05/2024 9:11 AM ESOL TEACHER Height 190.5 cm (6' 3 ) 06/05/2024 9:11 AM ESOL TEACHER Body Mass Index 44.75 06/05/2024 9:11 AM ESOL TEACHER Plan of Treatment Upcoming Encounters Date Type Department Care Team (Late st Contact Info) Description 12/23/2024 10:00 AM CDT Office Visit [facility] Ophthalmology [address] [address] Alyson Barrios MD [address] [place] [address] 01/08/2025 8:00 AM CDT Office Visit [facility] [place] [address] [place] [address] Tanner Leon, [address] [place] [address] 06/18/2025 9:15 AM ESOL TEACHER Office Visit [facility] [address] [facility] [address] [place] [address] Tanner Hodge MD [address] [facility] [address] [place] [address] 08/11/2025 10:30 AM CDT Office Visit [facility] Ophthalmology [address] [place] [address] Caleb Lowry MD [address] [place] [address] Health Maintenance Due Date Last Done Comments FIT-DNA Q 3 years 2001 FIT/FOBT Q 1 year 2001 Flex Sig/CT Colonography Q 5 years 2001 ZOSTER VACCINE (1 of 2) 2006 PNEUMOCOCCAL VACCINE 50+ YEA RS (2 of 2 - PCV) 02/16/2014 02/16/2013 RSV VACCINE (60+ or ) (1 - Risk 60-74 years 1-dose series) 2016 LDL CHOLESTEROL ANNUAL 01/13/2021 , 12/16/2018, 10/30/2016 DIABETES ANNUAL FOOT EXAM 08/13/2022 08/13/2021 DIABETES HBA1C Q 6 MONTHS 02/08/20242023, 08/09/2023, 09/06/2022, Additional history exists INFLUENZA VACCINE (#1) 2024 , 06/18/2018, 02/26/2014, Additional history exists DIABETES MICROALBUMIN ANNUAL SCREEN 12/19/2024 12/20/2023, 09/07/2022 DIABETES ANNUAL RETINAL EXAM 09/18/2025, 09/18/2024, 09/18/2024, Additional history exists COLORECTAL SCREENING 02/16/2028 02/15/2023, 02/15/2023, 02/15/2023, Additional history exists Colorectal Cancer Screening 02/16/2028 DTAP/TDAP/TD VACCINES (2 - T d or Tdap) 12/01/2031 11/30/2021 Medical Devices Implanted Type Area [employer] Director Device Identifier Shelf Expiration Date Model / Serial / Lot Dev Closure Angioseal 6fr Vip [id number] - [id number] Implanted:Qty: 1 on 12/27/2021 by Abdoul Lorenz MD at [facility] Closure Device Right: Groin [facility] [employer] 08/04/2022 [id number] / / [id number] Lens Io [id number] - [id number] Implanted:Qty: 1 on 04/20/2014 by Alyson Barrios MD Eye Left: Eye [employer] 12/19/2018 [id number] / [id number] / Lens Io Tecnis 1pc 16.5 [id number] - [id number] Implanted:Qty: 1 on 07/24/2018 by Alyson Barrios MD Eye Right: Eye [employer] 08/29/2021 [id number] / [id number] / Allograft Cornea ng Sg Cornea-Precut - [id number] Implanted:Qty: 1 on 02/03/2019 by Alyson Barrios MD Eye Right: Eye [employer] 02/11/2019 CORNEA-DE ECUT / [id number] / [id number] Graft Dawn Cornea - [id number] Implanted:Qty: 1 on 08/14/2012 Graft Left: Eye [employer] 08/21/2012 CORNEA / [id number] / NA Lens Iol Sensar 18.5 Optiedge [id number] - [id number] Implanted:Qty: 1 on 05/15/2024 by Caleb Lowry MD at [facility] Right: Eye [employer]NA [employer] 10/22/2027 [id number] / [id number] / Procedures Procedure Name Priority Date/Time Associated Diagnosis Comments ENDOTHELIAL PHOTO AND CELL COUNT - OU - BOTH EYES Routine 09/18/2024 12:05 PM CDT CORNEAL TOPOGRAPHY - OU - BOTH EYES Routine 09/18/2024 12:04 PM CDT MICROALBUMIN/CREATIN INE RATIO, RANDOM UR Routine 12/20/2023 9:34 AM CDT Type 2 diabetes mellitus with diabetic polyneuropathy, with long-term current use of insulin ([facility]) HEMOGLOBIN A1C Stat 08/09/2023 3:32 AM CDT COLONOSCOPY REPORT 02/15/2023 11 :09 AM CDT LIPID PANEL Routine 01/14/2020 OPHTHALMIC DIAGNOSTIC IMAGE RETINA MERCEDES Routine 06/11/2013 1:29 PM ESOL TEACHER from Last 3 Months or Most Recently Relevant to Health Maintenance Results * ENDOTHELIAL PHOTO AND CELL COUNT - OU - BOTH EYES (09/18/2024 12:05 PM CDT) Cells Counted (OD) 940 cells/mm2 [facility]Y ORDERS Narrative [facility] ORDERS - 09/18/2024 12:05 PM CDT Right Eye Hexagonality was 42 %. Cell count was 940 cells/mm2. Pachymetry was 623 microns. us Alyson Barrios MD OPHTH PHOTOGRAPHY Final Result [facility] * CORNEAL TOPOGRAPHY - OU - BOTH EYES (09/18/2024 12:04 PM CDT) Narrative [facility] ORDERS - 09/18/2024 12:04 PM CDT Right Eye Progression has no prior data. Left Eye Progression has no prior data. Notes Unable to obtain topography in both eyes. Alyson Barrios MD OPHTH MAPPING Edited Result - Final Performing Organization Address City/[facility]/ZIP Co de Phone Number [facility] * MICROALBUMIN/CREATININE RATIO, RANDOM UR (12/20/2023 9:34 AM CDT) Creatinine, Urine 44 20 - 320 mg/dL [facility] MICROALBUMIN, URINE <0.2 See Note: mg/dL [facility] Comment: Reference Range: Reference Range Not established MICROALBUMIN/CREAT RATIO, UR NOTE <30 mg/g creat [facility] Comment: NOTE: The urine albumin value is less than 0.2 mg/dL therefore we are unable to calculate excretion and/or creatinine ratio. The ADA defines abnormalities in albumin excretion as follows: Albuminuria Category Result (mg/g creatinine) Normal to Mildly increased <30 Moderately increased 30-299 Severely increased > OR = 300 The ADA recommends that at least two of three specimens collected within a 3-6 month period be abnormal before considering a patient to be within a diagnostic category. Test Performed at: [id number] [place] [address] Janett Moser MD Urine URINE SPECIMEN OBTAINED BY CLEAN CATCH PROCEDURE / Unknown 12/20/2023 9:34 AM CDT 12/20/2023 9:35 AM CDT Peggy Nobles MANAGER OF SUPPLY CHAIN URINE ORDERABLES Final Resu lt [facility] [phone] [address] [address] [facility] [place] [address] * (ABNORMAL) HEMOGLOBIN A1C (08/09/2023 3:32 AM CDT) HEMOGLOBIN A1C 8.2(H) <=5.6 % 08/10/2023 11:47 AM CDT [facility] EST. AVG GLUCOSE, A1C 189 mg/dL 08/10/2023 11:47 AM CDT [facility] Blood Venipuncture / Unknown 08/09/2023 3:32 AM CDT 08/09/2023 3:45 AM CDT Narrative [facility] - 08/10/2023 11:47 AM CDT HGB A1C INTERPRETATION NORMAL: <5.7% PRE-DIABETES: 5.7 - 6.4% DIABETES: 6.5% OR GREATER us Williams Medina DO CHEMISTRY ORDERABLES Final R esult [facility] CLIA # [id number] [address] [place] [id number] * COLONOSCOPY REPORT (02/15/2023 11:09 AM CDT) Narrative Procedure Note Chad Leyva MD - 02/15/2023 11:[address] [facility] Patient Name: Sydnie Abdul Procedure Date: 02/15/2023 Date of : 1955 Admit Type: Outpatient Age: 67 Attending MD: Chda Leyva MD, Procedure: Colonoscopy Indications: Surveillance: Personal history of adenomatous polyps on last colonoscopy > 3 years ago Providers: Chad Leyva MD Referring MD: Bren Allen Medicines: Monitored Anesthesia Care Complications: No immediate complications. Procedure: Pre-Anesthesia Assessment: - Prior to the procedure, a History and Physical was performed, and patient medications, allergies and sensitivities were reviewed. The patient's tolerance of previous anesthesia was reviewed. - The risks and benefits of the procedure and the sedation options and risks were discussed with the patient. All questions were answered and informed consent was obtained. After I obtained informed consent, the scope was passed under direct vision. Throughout the procedure, the patient's blood pressure, pulse, and oxygen saturations were monitored continuously. The Colonoscope was introduced through the anus and advanced to the cecum, identified by appendiceal orifice and ileocecal valve. The entire colon was examined. Estimated Blood Loss: Estimated blood loss was minimal. Findings: Scattered large-mouthed and small-mouthed diverticula were found in the sigmoid colon and descending colon. There was no evidence of diverticular bleeding. Non-bleeding internal hemorrhoids were found. The hemorrhoids were Grade I (internal hemorrhoids that do not prolapse). Impression: - Diverticulosis in the sigmoid colon and in the descending colon. There was no evidence of diverticular bleeding. - Non-bleeding internal hemorrhoids. - No specimens collected. Recommendation: - Repeat colonoscopy in 5 years for surveillance. Chad Leyva MD 02/15/2023 11:09:27 AM Number of Addenda: 0 Note Initiated On: 02/15/2023 10:50 AM Scope Withdrawal Time 0 hours 7 minutes 42 seconds Scope In: 10:51:34 AM Scope Out: 11:03:17 AM [address] [place], [place] hCad Leyva MD GI PROCEDURE ORDERABLES F inal Result * LIPID PANEL (01/14/2020) ABSTRACTED CHOLESTEROL [facility] ABSTRACT[facility] TRIGLYCERIDE [facility] HDL [facility] LDL CALCULATED 103 [facility] CHOLESTEROL ^ [facility] TRIGLYCERIDE ^ [facility] HDL ^ [facility] LDL CALCULATED ^ [facility] Blood 01/14/2020 Narrative [facility] - 01/14/2020 12:00 AM CDT This order was created through External Result Entry us Abstract Spg Provider CHEMISTRY ORDERABLES Final Result [facility] * OPHTHALMIC DIAGNOSTIC IMAGE RETINA MERCEDES (06/11/2013 1:29 PM ESOL TEACHER) 06/11/2013 1:29 PM ESOL TEACHER Narrative [facility] - 06/11/2013 1:29 PM Makayla Plasencia OD 06/11/2013 1:29 PM NO CHARGE, NORMAL. us Makayla Antoinette Normna OD OPHTH OTHER Final Result Performing Organization Address City/State/[facility] Co de Phone Number [facility] from Last 3 Months or Most Recently Relevant to Health Maintenance Insurance [place]ID [place] Member Subscriber Plan / Payer (Ef fective 2020-Present) Name:Sydnie Abdul Relation to Subscriber:Self Name:Sydnie Abdul Payer ID:Not on file Group ID:Not on file Type:Medicaid Address: [place] [id number] DUAL ADVANTAGE O [facility] MEDIC[facility] PREFERRED O [employer] MEDICAID [place] * Guarantor: SYDNIE ABDUL Account Type Relation to Patient Date of Phone Billing Address Personal/Family [address] [place] [address] RX [facility] Medicare Part D * Guarantor: [facility] LELOU Daniela (C) Account Type Relation to Patient Date of Phone Billing Address Corporate Other [address] [place] [id number] GENERIC PAYOR Member Subscriber Plan / Payer (Ef fective 2023-Present) Name:Sydnie Abdul Relation to Subscriber:Self Name:Sydnie Abdul Payer ID:Not on file Group ID:Not on file Type:Hospice Address: [address] [place] [address] MEDICARE PART A AND B Advance Directives For more information, please contact: [phone] Documents on File Type Date Recorded 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 intubation): No Mechanical Ventilation (for respiratory distress) - Non-Invasive (i.e. BiPAP, CPAP): No * Full Code Date Activated Date Inactivated Comments 08/09/2023 2:51 AM 08/09/2023 4:53 AM * Full Code Date Activated Date Inactivated Comments 02/15/2023 10:03 AM 02/15/2023 2:10 PM * Full Code Date Activated Date Inactivated Comments 04/20/2021 2:27 PM 05/02/2021 2:49 AM Care Teams Hand Tier Relationship Specialty Start Date End Date Bren Allen MD [address] [place] [phone] PCP - General Internal Medicine 10/03/17
--- OUTSIDE RECORDS SUMMARY | 2024-12-17 18:34 | XMS_ITS | Encounter Summary ---
Author Organization [facility] Address [address] [place] [address] Care Team Providers Care Cane Burner Name Role Phone Bren Allen MD Primary Care Provider [phone] Encounter Details Date Type Department Care Team (Latest Contact Info) Description 07/25/2005 Outpatient Historical [address] [phone] Tnaner Francis MD [address] [place] [phone] DM w/o Complication Type II (CMS/HCC) (Primary Dx); Mixed Hyperlipidemia; Unspecified Essential Hypertension; Unspecified Iron Deficiency Anemia Social History Tobacco Use Types Packs/Day Years Used Date Smoking Tobacco: Never Assessed Sex and Gender Information Value Date Recorded Sex Assigned at Not on file 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 Gender Identity Not on file Sexual Orientation Not on file documented as of this encounter Plan of Treatment Not on file documented as of this encounter Visit Diagnoses Diagnosis Type II or unspecified type diabetes mellitus without mention of complication, not stated as uncontrolled- Primary Mixed hyperlipidemia Unspecified essential hypertension Iron deficiency anemia, unspecified documented in this encounter Care Teams Cane Burner Relationship Specialty Start Date End Date Bren Allen MD [address] [place] [phone] PCP - General Internal Medicine 10/03/17 documented as of this encounter
--- OUTSIDE RECORDS SUMMARY | 2024-12-17 18:34 | XMS_ITS | Encounter Summary ---
Author Organization [facility] Address [address] [place] [address] Care Team Providers Care Barrel Rifler Broach Name Role Phone Bren Allen MD Primary Care Provider [phone] Encounter Details Date Type Department Care Team (Latest Contact Info) Description 12/01/2004 Outpatient Historical [address] [phone] Tanner Francis MD [address] [place] [address] DIABETES MELLITUS TYPE II UNCONTR UNCOMPL (Primary Dx); HYPERLIPIDEMIA NEC/NOS; ANEMIA NOS; RENAL & URETERAL DIS NOS Social History Tobacco Use Types Packs/Day Years Used Date Smoking Tobacco: Never Assessed Sex and Gender Information Value Date Recorded Sex Assigned at Not on file 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 Gender Identity Not on file Sexual Orientation Not on file documented as of this encounter Plan of Treatment Not on file documented as of this encounter Visit Diagnoses Diagnosis Type II or unspecified type diabetes mellitus without mention of complication, uncontrolled- Primary Other and unspecified hyperlipidemia Anemia, unspecified Unspecified disorder of kidney and ureter documented in this encounter Care Teams Barrel Rifler Broach Relationship Specialty Start Date End Date Bren Allen MD [address] [place] [address] PCP - General Internal Medicine 10/03/17 documented as of this encounter
--- OUTSIDE RECORDS SUMMARY | 2024-12-17 18:34 | XMS_ITS | Encounter Summary ---
Author Organization [facility] Address [address] 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
--- OUTSIDE RECORDS SUMMARY | 2024-12-17 18:34 | XMS_ITS | Encounter Summary ---
Author Organization [facility] Address [address] [place] [address] Care Team Providers Care Buckle Sewer Machine Name Role Phone Bren Allen MD Primary Care Provider [phone] Encounter Details Date Type Department Care Team (Latest Contact Info) Description 01/24/2006 Outpatient Historical [address] [phone] Tanner Francis MD [address] [place] [address] DM w/o Complication Type II (CMS/HCC) (Primary Dx); Mixed Hyperlipidemia; Unspecified Essential Hypertension Social History Tobacco Use Types Packs/Day Years Used Date Smoking Tobacco: Never Assessed Sex and Gender Information Value Date Recorded Sex Assigned at Not on file 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
--- OUTSIDE RECORDS SUMMARY | 2024-12-17 18:34 | XMS_ITS ---
Author Organization [facility] [place] Address [address] 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 Past Treatment and Therapy Plans No past plan information found. Lifetime Dose Tracking * Chemical Lifetime Dose Automatic Entry Manual Entr y Effective Dose 13.2 mSv 13.2 mSv 0 mSv Total DLP 1,877 DLP 1,877 DLP 0 DLP CTDIvol Max 53.2 mGy 53.2 mGy 0 mGy CTDIvol Min 53.2 mGy 53.2 mGy 0 mGy Treatment Summaries Prostate cancer ([facility])* Images from the original note were not included. Prostate Cancer Survivorship Care Plan Provided by [facility] on 01/20/19 General Information Patient Name: Blaze Abdul Patient : 1955 Care Team Urologist: Aleksander Marie MD, [facility] Urology [address] [place] [phone], ; Sofía Matute NP [facility] Urology, [address] [place] [phone]. ; Radiation Oncologist: Ivan Sofia MD Gibb, Andria, [place] Radiation Oncology [address] [place] [address] Primary Care Physician: Bren Allen MD [phone] Nurse Navigator: Lola Garcia, ALYSON [facility] GI and Nurse Navigator [address] [address] Other Care Team Providers: Ginna Adan, HIEN, LD-Medical Nutrition Therapist, [facility], [facility], [address] [place] [address], Cancer Staging Prostate cancer Staging form: Prostate, AJCC 8th Edition - Clinical stage from 06/28/2018: Stage IIB (cT2a, cN0, cM0, PSA: 10.8, Grade Group: 2) - Signed by Ivan Sofia MD on 06/28/2018 Treatment Summary Biopsy FINAL DIAGNOSIS A. Prostate, right, core biopsy Histologic Type: Adenocarcinoma (acinar, not otherwise specified) Histologic Grade (Lo Pattern) Primary (Predominant) Pattern: Grade 3 Secondary (Worst Remaining) Pattern: Grade 4 Total Lo Score: 7 Grade Group: 2 Tumor Quantitation: Percentage of Pattern 4 in [place] Score 3+4=7 Cancer: 15% Number of positive cores/Total number of cores: 6 out of 6 Percent of biopsy tissue involved by tumor: 87% Total linear millimeters of carcinoma: 69 mm of 79 mm Periprostatic Fat Invasion: Not identified Seminal Vesicle Invasion: Not identified / B. Prostate, left, core biopsy - benign prostatic tissues with areas of atrophy Date: 05/24/18 Imaging/Staging NM Bone scan No convincing evidence of osseous metastatic disease. Date: 06/25/18 Fiducials one in the right base, right apex, and left lateral midgland. Date: 07/19/18 Surgery No prostatectomy Date: Androgen Deprivation Therapy NA Dates: Radiation Type: External Beam Radiation Area of treatment: Prostate and SV Dose per fraction: 250 cGy Fraction number: 28 Total Dose: 7000 cGy Beam Arrangement: Arc Beam Energy: 10X Cumulative dose: 7000 cGy in 28 fractions Dates: 08/12/2018 through 09/18/2018 Other/Comments Clinical Trial none Familial Cancer Risk Assessment Genetic Testing no Dates: Genetic/Hereditary Risk Factors or Predisposing Conditions: Dates: Genetic Testing Results: Date: Potential late effects of treatment(s): Possible late and intermediate effects that someone with this type of cancer and treatment may experience: Bowel dysfunction Erectile dysfunction Fatigue Hair loss Incontinence Painful urination Rectal pain Skin irritation or darkening Sterility Tiredness Trouble voiding or passing urine Urinary frequency Other: bladder or colon cancer Cancer survivors may experience issues with the areas listed below. If you have any concerns in these or other areas, please speak with your doctors or nurses to find out how you can get help with them. Anxiety or depression Emotional and mental health Fatigue Fertility Financial advise or assistance Insurance Memory or concentration loss Parenting Physical functioning School/work Sexual functioning Stopping smoking Weight changes Other: A number of lifestyle/behaviors can affect your ongoing health, including the risk for the cancer coming back or developing another cancer. Discuss these recommendations with your doctor or nurse: Alcohol use Colorectal cancer screening Diet Management of any medications Management of my other illnesses Physical activity Sun screen use Tobacco use/cessation Weight management (loss/gain) Other: ancer Survivors may experience issues with the area listed below. If you have any concerns in theseor other areas, please speak with your doctors or nurses to find out how you can get help with them. Potential Areas of Concern Potential Areas of Concern Emotional and Mental Health Physical Functioning Memory or Concentration Loss Fatigue Insurance Issues Spiritual Issues Weight Changes School/Work Fertility Stopping Smoking Financial Advice or Assistance Sexual Functioning Resources Provided to Patient Referrals Provided: There are no referrals needs at this time Follow-up and Survivorship Care Follow Up Care Years 1-5 Years 5 and beyond Urologist (Physical exam as outlined below) PSA every 6 months for 5 years consistent with NCCN guidelines. A more often PSA will be conducted at the discretion of the provider depending on PSA level/rise bounce. Digital rectal examination unless PSA is 0.0 PSA annually with digital rectal examination annual unless PSA is 0.0 consistent with NCCN guidelines. PSA may be conducted more frequently at the discretion of provider Radiation Oncologist Generally same as Urology Generally the same as Urology Physical exam and lab to include PSA, and DAVIS (digital rectal exam) every 6 months the first 5 years and then annually. Non Cancer related Preventtive Care Continue your routine visits to your primary care physician forpreventative care. Bone health DEXA every 2 years Calcium with vitamin D Weight bearing exercise Prostate Cancer Screening PSA Levels as discussed with your PCP Lung Cancer Screening 55-77 years of age 30 pack per year or more smoking history Current Smoker or smoked within the last 15 years No signs and symptoms of lung cancer Smoked one pack of cigarettes per day for 30 years or two packs a day for 15 years In generally good health Colon Cancer Screening Screening colonoscopy starting at age 45 or as discussed with PCP Stool guaiac tests Eat fruits and vegetables Advised to wait at least 1 year post prostate cancer treatment Heart Health Weight management Cholesterol management Blood sugar control Blood pressure control Call your doctor if you have any of these signs and symptoms: Unable to urinate Burning with urination Blood in the urine Uncontrolled urination Blood in the stools Bowel incontinence New bony pain New headaches, visual changes, neurologic changes Additional Resources: Patients may have many varied questions and concerns after their cancer treatment ends. A list of local resources is provided below to assist you. [facility] [address] [place] [address] www.2sms.Eachpal Manjit Fletcher [employer] [facility] [address] [place], [place] [id number] Greek Cancer Society [address] [place] [address] [address] [place] [address] CancerCare website: www.cancercare.org National Cancer [place] Breast Cancer Foundation [address] [address] www.bcfo.org GRAIN MIXER Cancer [place] (GYNCA) [address] [place] [address] www.gynca.org National Resources-Cancer Cancer Education Academy of Oncology Nurse & Patient Navigators: www.aonnonline.org Anias Abdirizak Stand Foundation for Childhood Cancer: www.alexslecandler hospitalade.org Greek Cancer Society: www.cancer.org Greek Society of Clinical Oncology: www.cancer.net Greek Urological Association (AUA): www.auanet.org Association of Community Cancer Centers: www.[facility]-cancer.org PRKKTL349: www.usqrlr116.org CancerCare: www.cancercare.org CancerGuide: www.cancerguide.org CancerQuest: www.cancerquest.org Centers for Disease Control and Prevention (CDC): www.cdc.gov [place]: www.touchedbycancer.org Get Palliative Care: www.getpalliativecare.org Global Resource for Advancing Cancer Education (KALLIE): www.cancergrace.org The Hope Light Foundation: www.Fiestah.LiveOffice LIVESTRONG Foundation: www.livestrong.org National Cancer [place]: www.cancer.gov National Comprehensive Cancer Network (NCCN): www.nccn.org National LGBT Cancer Network: http://cancer-network.org OncoLink: www.oncolink.org Oncology Nursing Society: www.ons.org Patient Power: www.patientpower.info Pearl[place] Cancer Support: www.pearlpoint.org [place] Una Foundation: www.[facility] centeroundation.org FloKailashMike [facility] Cancer Foundation: www.blocancer.org Radiation Therapy: www.rtanswers.org [facility] [place]: www.[facility].org Triage Cancer: www.triagecancer.org U.S. National Library of Medicine: www.nlm.nih.gov Financial Assistance Greek Cancer Society: www.cancer.org Greek Kidney Fund: www.kidneyfund.org BenefitsCheckUp: www.benefitscheckup.org Bringing Hope [place]: www.[facility].org CancerCare: www.cancercare.org/financial Cancer Financial Assistance Coalition: www.cancerc.org JRapid: www.Gem.allGreenup Foundation: www.iStoryTimeation.org Hope E[employer]: www.cancer.org/treatment/supportprogramsservices/hopelodge LIVESTRONG Foundation: www.livestrong.org Medicare.gov: www.medicare.gov NeedyMeds: www.needymeds.LiveOffice Partnership for Prescription Assistance: www.pparx.org Patient Access Network Foundation: www.panfoundation.org Patient Advocate Foundation: www.patientadvocate.org Patient Services, Inc.: www.patientservicesinc.org The Pins for Aneta Foundation: www.pinsforpauly.org RxAssist: www.rxassist.org RxHope: www.rxhope.com Social Security Administration: www.ssa.gov Social Security Disability Resource Center: www.Cvergenxrc.LiveOffice State Health Insurance Assistance Programs: www.shiptacenter.org Stupid Cancer: www.stupidcancer.org Prostate Cancer Follow Up Sheet Date of Surgery (DOS) Estimated Target Dates Dates Completed DOS plus Actual Dates Urologist Visit Radiation Oncologist Visit CBC, CMP, PSA DAVIS + 0 yrs / 3 mo + 0 yrs / 6 mo + 0 yrs / 9 mo + 1 yrs / 0 mo + 1 yrs / 3 mo + 1 yrs / 6 mo + 1 yrs / 9 mo + 2 yrs / 0 mo + 2 yrs / 3 mo + 2 yrs / 6 mo + 2 yrs / 9 mo + 3 yrs / 0 mo + 3 yrs / 6 mo + 4 yrs / 0 mo + 4 yrs / 6 mo + 5 yrs / 0 mo Comments / Evidence of Recurrence: Greek Cancer Society Guidelines on Nutrition and Physical Activity For Cancer Prevention 1. Achieve and maintain a healthy weight. Avoid weight gain during cancer treatment, whether you are at a healthy weight or overweight. Weight loss after recovery from treatment may benefit survivors who are overweight or obese. 2. Be physically active. Studies show that exercise is safe during cancer treatment, and can improve many aspects of health,including muscle strength, balance, fatigue, and depression. Physical activity after diagnosis is linked to living longer and a reduced risk of the cancer returning among people living with cancer, including breast, colorectal, prostate, and ovarian cancer. Aim for 30 min of exercise 5 days a week. 3. Eat a healthy diet, with an emphasis on fruits, vegetables, and whole grains. The most health benefits are associated with a diet high in fruits, vegetables, whole grains, poultry, and fish, and low in refined grains, red meat and processed meat (such as hot dogs), desserts, high-fat dairy products and Serbian fries. Most of the studies about cancer and diet have focused on breast cancer. Studies show that taking vitamins, herbs and other nutritional supplements often does not help cancer patients live longer, and may even shorten life. Before taking any supplement, discuss it with your health care provider. 4. Don't smoke 5. If you drink alcohol, limit your intake. Drink no more than 1 drink per day for women or 2 per day for men. 6. Sunscreen use Exposure to ultraviolet rays is the leading cause of skin cancer. It is important to protect your skin. Sun damage builds up over time. It is important to use sunscreen every day. You should use a sunscreen that is water resistant and has an SPF of 30 or above. Remember to also protect your lips and eyes. 7. Routine blood pressure, cholesterol, and glucose monitoring. While many cancer survivors worry about their cancer coming back most cancer survivors are more likely to develop other chronic medical conditions such as high blood pressure, heart disease, and diabetes. Be sure to start and/or continue to see your primary care physician regularly. 8. Vaccines The flu is a respiratory infection caused by viruses. While most people with the flu get better on their own it can be serious. It can cause many medical complications and sometimes even . Be sure to get an annual influenza vaccine (flu shot). Pneumococcal diseases can cause serious infections in the lungs and bloodstream. A pneumococcal vaccine is recommended for all adults 65 years of age and older. It is also recommended for some younger adults who have chronic health conditions. Be sure and check with your doctor if you need a pneumococcal vaccine. 9. Routine Dental Care Your oral health may be more important than you think. It can contribute to various medical diseases and conditions. Daily oral hygiene helps decrease our risk of tooth decay and gum disease. Be sureto brush twice a day, floss daily, and see your dentist regularly for checkups and cleanings. 10. Eye Health Our eyes are called the windows to the world. Make sure you take good care of your. Adults should have their eyes examined every 2 years until age 60. We should then undergo eye exams yearly. Individuals with contact lenses, glasses, or who are at high risk for eye problems (i.e. diabetes, family history of eye disease) should be seen more frequently. WEIGHT MANAGEMENT Obesity: Obesity has been found to be associated with worse health outcomes (prostate cancer-specific mortality and biochemical recurrence) for patient with prostate cancer. Routine assessments of BMI by PCP If you're overweight, your doctor may recommend that you make changes in your eating and exercise habits. Being overweight can lead to serious health problems, such as high blood pressure, heart disease, type 2 diabetes, and arthritis, or it can make these problems worse. Eating a healthy diet and being more active can help you reach and stay at a healthy weight as well as combat fatigue especially if on androgen deprivation therapy. You don???t have to make huge changes all at once. Start by making small changes in your eating andexercise habits. To lose weight, you need to burn more calories than you take in. You can do this by eating healthy foods in reasonable amounts and becoming more active every day. How can you care for yourself at home? Improve your eating habits. Although research is ongoing, findings suggest that dietary patterns high in vegetables, fruits, and whole grains improve survival and decrease risk of second cancers and chronic disease among survivors. You'll be more successful if you work on changing one eating habit at a time. All foods, if eaten in moderation, can be part of healthy eating. Remember to: Eat a variety of foods from each food group. Include grains, vegetables, fruits, dairy, and proteinfoods. Limit foods high in fat, sugar, and calories. Eat slowly. And don't do anything else, such as watch TV, while you are eating. Pay attention to portion sizes. Put your food on a smaller plate. Plan your meals ahead of time. You'll be less likely to grab something that's not as healthy. Limit alcohol consumption to no more than 2 drinks per day. Get active. Regular activity can help you feel better, have more energy, and burn more calories. Some cohort studies have suggested that physical activity may decrease the risk of prostate cancer recurrence, improve cancer-specific and overall survival, hasten recovery from the immediate side effects of treatment, and prevent long- term effects. Exercise can improve fatigue, anxiety, depressive symptom management, self- esteem, happiness, and quality of life, decreasing risk of cardiovascular disease and improved physical functioning. If you haven't been active, start slowly. Start with at least 30 minutes of moderate activity on most days of the week. Then gradually increase the amount of activity. Try for 60 or 90 minutes a day,at least 5 days a week. There are a lot of ways to fit activity into your life. You can: Walk or bike to the store. Or walk with a friend, or walk the dog. Mow the lawn, rake leaves, shovel snow, or do some gardening. Use the stairs instead of the elevator, at least for a few floors. Change your thinking. Your thoughts have a lot to do with how you feel and what you do. When you're trying to reach a healthy weight, changing how you think about certain things may help. Here are some ideas: Don't compare yourself to others. Healthy bodies come in all shapes and sizes. Pay attention to how hungry or full you feel. When you eat, be aware of why you're eating and how much you're eating. Focus on improving your health instead of dieting. Dieting almost never works over the ocean transportation intermediary. Ask your doctor about other health professionals who can help you reach a healthy weight. A dietitian can help you make healthy changes in your diet. An aquatics specialist or personal property appraiser can help you develop a safe and effective exercise program. A counselor or psychiatrist can help you cope with issues such as depression, anxiety, or family problems that can make it hard to focus on reaching a healthy weight. Keeping a food diary is a good way to keep track of how much you are eating. A good resource if www.mig33.LiveOffice which is free. Many commercial programs also include this technique. If you choose to enroll, look for a program that teaches lifetime healthy eating habits. Get support from your family, your doctor, your friends, a support group--and support yourself. Where can you learn more? Go to iRewind, choose I Want To... and then choose Search Medical Information. Enter L869 in the search box to learn more about When You Are Overweight: After Your Visit. Current as of: July 16, 2013 Content Version: 10. ?? 2830-2542 [employer]. Care instructions adapted under license by [employer]. [employer] disclaims any warranty or liability for your use of this information. This information is not intended to represent the ethical and synagogue beliefs of [facility]. This care instruction is for use with your licensed healthcare professional. If you have questions about a medical condition or this instruction, always ask your healthcare professional. [employer] disclaims any warranty or liability for your use of this information. COPING WITH FEAR OF RECURRENCE: It's normal to worry that your cancer will come back. Almost all cancer survivors have this fear, so you are not alone. It's common for people to feel a lack of control over their lives or have trouble trusting their bodies. Every ache or pain brings up the fear that the cancer is back. Some tips on how to cope with this are: Be informed. Understand what you can do for your health now, and find out about the services available to you. Doing this can give you a greater sense of control. Some studies even suggest that people who are well-informed about their cancer are more likely to recover more quickly than those who are not. Be open and talk to your health care team about your fears. They can assure you that they???re looking out for you and help you feel less worried. Express your feelings of fear, anger, or sadness. People have found that when they express strong feelings like anger or sadness, they're more able to let go of them. Writing your feelings in a journal is a good way to express emotions. Look for the positive. Sometimes this means looking for the good even in a bad time or trying to behopeful instead of thinking the worst. Try to use your energy to focus on wellness and what you estela now to stay as healthy as possible. Find ways to help yourself relax. Relaxation exercises have been proven to help others and may helpyou relax when you feel worried. Be as active as you can. Getting out of the house can help you focus on other things besides cancerand the worries it brings. Focus on what you can control. Being involved in your health care, keeping your appointments, and making changes in your lifestyle are some of the things you can control. Even setting a daily schedule can help. And while no one can control every thought, some say that they try not to dwell on the fearful ones. For some it can be hard to let go of the fear and lack of trust your body. If your fears of recurrence seem overwhelming, talk to a counselor. He or she may be able to help you reduce your anxiety and calm your fears. COPING WITH FATIGUE: Fatigue is the most common side effect of cancer treatment, occurring in over 90% of patients. It can be overwhelming; it is not always relieved with rest and does not always go away immediately whentreatment ends. Fatigue may result from cancer treatment or the disease itself. Poor sleep, pain, pain medications, stress, poor diet or anemia may also lead to fatigue. These symptoms are often present with fatigue: General weakness Diminished concentration or attention Increased memory problems Difficulty completing daily tasks Insomnia or unrefreshing sleep You need to remember these facts: Feeling tired is normal during this time. Fatigue does not mean the cancer is advancing. Fatigue does not mean the treatment is not working. Fatigue is not caused by lack of willpower. You need treatment and support for the fatigue. How to Manage Fatigue: Exercise - the only proven fatigue-relief strategy. Walking and other forms of exercise can help your fatigue. Start your exercise at a comfortable level. Ask your doctor about what level of exerciseis right for you. [facility] offers exercise programs; nutritional counseling and support groups that can help manage and alleviate cancer-related fatigue. For more information call [phone]. Energy Conservation and Stress Management Set priorities for what you must do each day. Plan activities during times of peak energy. Take short naps as needed, but do not sleep so much during the day that it interferes with sleepingat night. Go to bed and get up at a consistent time each day. [facility]ite Mcl[facility] can assist with support groups and financial counselors. For more information call [phone]. Find Internet blogs for cancer patients offered by the Greek Cancer Society, and other agencies. EJACULATION AND CANCER TREATMENT: Cancer treatment can interfere with ejaculation by damaging the nerves that control the prostate, seminal vesicles, and the opening of the bladder. It can also stop semen from being made in the prostate and seminal vesicles. Despite this damage, a man can still feel the sensation of pleasure that makes an orgasm. The difference is that, at the moment of orgasm, little or no semen comes out. Some men say an orgasm without semen feels totally normal. Many others say the orgasm does note feel as strong, long-lasting, or pleasurable. Men often worry that their partners will miss the semen. Most of the time, their partners cannot feel the actual fluid release, so this is generally not true. Some men's chief concern is that orgasm is less satisfying than before. Others are upset by dry orgasms because they want to father a child. If a man knows before treatment that he may want to havechildren after treatment, he may be able to bank (save and preserve) sperm for future use. See Fertility and cancer treatment. http://www.cancer.org/ssLINK/iujqxyyka-obs-jdf-lotx-btkvst-niharhnvy-and- treatment Some men also feel their orgasm is weaker than before. A mild decrease in the intensity of the orgasm is normal with aging, but it can be more severe in men whose cancer treatments interfere with ejaculation of semen. See Is there a way to make orgasms as intense as they used to be? in Dealing with sexual problems. http://www.cancer.org/ssLINK/uhsdhxrph-wwx-urx-wmml-mhqoin-vbv-problems Surgery and Ejaculation Surgery can affect ejaculation in 2 different ways. The first is when surgery removes the prostate and seminal vesicles, so that a man can no longer make semen. The other is surgery that damages the nerves that come from the spine and control emission (when sperm and fluid mix to make semen). Note that these are not the same nerve bundles that pass next to the prostate and control erections. The surgeries that cause ejaculation problems are discussed in more detail here. Removal of the prostate gland and seminal vesicles can cause dry orgasm The types of cancer surgery that remove the prostate gland and the seminal vesicles are called: Radical prostatectomy (removal of the prostate) Cystectomy (removal of the bladder) A man will no longer produce semen after these surgeries. The sperm cells made in his testicles ripen, but then the body simply reabsorbs them. This is not harmful. After these cancer surgeries, a man will have a dry orgasm or an orgasm without semen. Sometimes the semen is there, but doesn't come out There are other operations that cause ejaculation to go back inside the body rather than come out (this is called retrograde ejaculation). At the moment of orgasm, the semen shoots backward into the bladder rather than out through the penis. This is because the valve between the bladder and urethrastays open after some surgical procedures. This valve normally shuts tightly during emission. When it's open, the path of least resistance for the semen then becomes the backward path into the bladder. This does not cause pain or harm to the man. When a man urinates after this type of dry orgasm, his urine looks cloudy because the semen mixes in with it during the orgasm. A transurethral resection is an example of an operation that usually causes retrograde ejaculation.This surgery cores out the prostate by passing a special scope into it through the urethra; this often damages the bladder valve. Nerve damage We have already discussed the nerve bundles that sit on both sides of the prostate and control blood flow to cause erections. Now, we are talking about the nerves that come from the spine and controlemission. The cancer operations that can cause dry orgasm by damaging the nerves that control emission (the mixing of the sperm and fluid to make semen) are: Abdominoperineal (AP) resection, which removes the rectum and lower colon Retroperitoneal lymph node dissection, which removes lymph nodes in the belly (abdomen), usually inmen who have testicular cancer Some of the nerves that control emission run close to the lower colon and are damaged by AP resection. Lymph node removal (dissection) damages the nerves higher up, where they surround the aorta (thelarge main artery in the abdomen.) The effects of the 2 operations are probably very much alike, but more is known about sexual function after lymph node surgery. Sometimes the node dissection only causes retrograde ejaculation. But it usually paralyzes emission. When this happens, the prostate and seminal vesicles cannot contract to mix the semen with the sperm cells. In either case the result is dry orgasm. The difference betwe en no emission at all and retrograde ejaculation is important if a man wants to father a child. Retrograde ejaculation is better for would-be fathers because sperm cells may be taken from a man's urine and used to make a woman . Sometimes the nerves that control emission recover from the damage caused by retroperitoneal lymph node dissection. But if ejaculation of semen does resume, it can take up to 3 years for it to happen. Because men with testicular cancer are often young and have not finished having children, surgeonshave nerve- sparing methods that often allow normal ejaculation after retroperitoneal node dissection. (See Testicular Cancer at the link below for more information). http://www.cancer.org/ssLINK/yzermxxvjv-vugobp-awwvnaza-guide-mark Some medicines can also restore ejaculation of semen just long enough to collect sperm for conception. If sperm cells cannot be recovered from a man's semen or urine, infertility specialists may be able to retrieve them directly from the testicle by minor surgery, then use them to fertilize a woman's egg to produce a . Retroperitoneal node dissection does not stop a man's erections or ability to reach orgasm. But it may mean that his pleasure at orgasm will be less intense. Urine leakage during ejaculation Climacturia is the term used to describe the leakage of urine during orgasm. This is fairly common after prostate surgery, but may not even be noticed. The amount of urine varies widely--anywhere from a few drops to over an ounce. It is more common in men who also have stress incontinence. (Men with stress incontinence leak urine when they cough, laugh, sneeze, or exercise. It is caused by weakness in the muscles that control urine flow.) Urine is not dangerous to the sexual partner, though it may be a bother during sex. The leakage tends to get better over time, and condoms and constriction bands can help. (Constriction bands are tightened at the base of the erect penis and squeeze the urethra to keep urine from leaking out.) If you or your partner is bothered by climacturia, talk to your doctor to lear what you can do about it. How other cancer treatments affect ejaculation Some cancer treatments reduce the amount of semen that is produced. After radiation to the prostate, some men ejaculate only a few drops of semen. Toward the end of radiation treatments, men often feel a sharp pain as they ejaculate. The pain is caused by irritation of the urethra (the tube that carries urine and semen through the penis). It should go away over time after treatment ends. In most cases, men who have hormone therapy for prostate cancer also produce less semen than before. Chemotherapy very rarely affects ejaculation. But there are some drugs that may cause retrograde ejaculation by damaging the nerve that control emission. Reference: 2011 [employer] and www.journeyforward.org Second Cancers Caused by Cancer Treatment Men whose prostates have been removed or destroyed with radiation can no longer get a new case of prostate cancer, but they can get recurrence of the original prostate cancer (the cancer can come back after treatment). Men who are treated with radiation therapy may have a higher risk of bladder cancer later on than men who had surgery to remove their prostates. They may also have a higher risk for colon and rectal cancer. This increased risk is mainly seen in men who are treated with external beam radiation therapy (EBRT). Men who had seen implants (brachytherapy) without EBRT may have slightly increased risk of these cancers, but it is lower than what is seen with EBRT. Overall, the risk seen with radiation therapy is not high, but it can continue for more than 10 years after treatment. The is likely related to the dose of radiation, as it is with other cancers. Men who get see implants typically get less radiation to nearby organs than those with EBRT, either by itself or along with seeds. Newer methods of giving EBRT, such as intensity modulated and conformal beam radiation therapy, mayhave different effects on the risks of a second cancer. Some studies looking at the ocean transportation intermediary effects of prostate cancer treatment have found an increased risk of melanoma (a type of skin cancer) after radiation therapy, but this higher risk was seen after prostatectomy (surgery to remove the prostate) as well. At one point, high doses of the female hormone estrogen were used to treat advanced prostate cancer. This was linked to breast cancer in some men. Estrogen is no longer a standard treatment for prostate cancer. Follow-up care Survivors who are treated with radiation have an increased risk of certain second cancers, so they should get careful follow-up. There are no special recommendations for watching for second cancers after prostate treatment at this time, although men who have had radiation to treat prostate cancer should be careful to follow screening recommendations for colorectal cancer to improve the chance of early detection. Your doctor will also be watching closely for recurrence of the prostate cancer. You should also report problems passing urine, blood in your urine, rectal pian, or rectal bleeding toyour doctor right away. Reference: 2011 [employer] and www.journeyforward.org What Happens After Treatment for Prostate Cancer? Completing treatment can be both stressful and exciting. You may be relieved to finish treatment, but find it hard not to worry about cancer coming back. When cancer comes back it is called recurrence. This is a very common concern in people who have had cancer. It may take you awhile before your fears lesson. But it may help to know that many cancer survivorshave learned to live this uncertainty and are living full lives. The document, Living with Uncertainty: The Fear of Cancer Recurrence gives more detailed information on this. http://www.cancer.org/ssL INK/sgdjai-yofa-lgfmftwbvzi-mark Follow up-Care When treatment ends, your doctors will still want to watch you closely. It is very important to go to all of your follow-up appointments. During these visits, your doctors will ask questions about any problems you may have and may do exams or lab tests or xray's and scan to look for signs of canceror treatment side effects. Your doctors should give you a follow-up plan. This plan usually includes regular doctors visits, PSA blood tests, and digital rectal exams, which will likely begin within a few months of finishing treatment. Most doctors recommend PSA tests about every 3-6 months for the first 5 years after treatment, then at least yearly after that. Bone scans or other imaging tests may also be done, depending on your medical situation. Almost any cancer treatment can have side effects. Some may last for a few weeks to months, but others can last the rest of your life. This is the time for you to talk to your cancer care team about any changes or problems you notice or any questions or concerns you have. Prostate cancer may recur man years after initial treatment, which is why is important to keep regular doctor visits and report any new symptoms (such as bone pain or problems with urinating). Shouldyou prostate cancer come back, your treatment options will depend on where it is thought to be located and what types of treatment you've already had. For more information, see How is prostate cancertreated? http://www.cancer.org/ssLINK/ahuinhsj-fgpcov-skkmbvcg-general-info Should your cancer come back, the document When Your Cancer Comes Back: Cancer Recurrence can give you information on how to manage and cope with this phase of your treatment. http://www.cancer.org/ssLINK/kify-drxz-tpgivu-uiipe-knbp-pgt Reference: 2011 [employer] and www.journeyforward.org MALE PELVIC FLOOR MUSCLES: A man's pelvic floor muscles support the bladder and bowel and affect sexual function. Kegel exercises can help strengthen these muscles. Kegel exercises for men can strengthen the pelvic floor muscles, which support the bladder and bowel and affect sexual function. With practice, Kegel exercises for men can be done just about anytime. Before you start doing Kegel exercises, find out how to locate the correct muscles and understand the proper technique. Benefits of Kegel exercises for men Many factors can weaken your pelvic floor muscles, including the surgical removal of the prostate (radical prostatectomy) and conditions, such as diabetes and an overactive bladder. You might benefit from doing Kegel exercises if you: Have urinary or fecal incontinence Dribble after urination -- usually after you've left the toilet How to do Kegel exercises for men To get started: Find the right muscles. To identify your pelvic floor muscles, stop urination in midstream or tighten the muscles that keep you from passing gas. These maneuvers use your pelvic floor muscles. Once you've identified your pelvic floor muscles, you can do the exercises in any position, although you might find it easiest to do them lying down at first. Perfect your technique. Tighten your pelvic floor muscles, hold the contraction for three seconds, and then relax for three seconds. Try it a few times in a row. When your muscles get stronger, try doing Kegel exercises while sitting, standing or walking. Maintain your focus. For best results, focus on tightening only your pelvic floor muscles. Be careful not to flex the muscles in your abdomen, thighs or buttocks. Avoid holding your breath. Instead, breathe freely during the exercises. Repeat 3 times a day. Aim for at least three sets of 10 repetitions a day. Don't make a habit of using Kegel exercises to start and stop your urine stream. Some doctors thinkthis could cause a bladder infection. When to do your Kegels Make Kegel exercises part of your daily routine. For example: Fit in a set of Kegel exercises every time you do a routine task, such as brushing your teeth. Do another set after you urinate, to get rid of the last few drops of urine. Contract your pelvic floor muscles just before and during any activity that puts pressure on your abdomen, such as sneezing, coughing, laughing or heavy lifting. When you're having trouble If you're having trouble doing Kegel exercises, don't be embarrassed to ask for help. Your doctor or other health care provider can give you important feedback so that you learn to isolate and strengthen the correct muscles. In some cases, biofeedback training might help. In a biofeedback session, your doctor or other health care provider inserts a small probe into your rectum. As you relax and contract your pelvic floormuscles, a monitor will measure and display your pelvic floor activity. Research suggests that biofeedback training is more effective in treating fecal incontinence. When to expect results If you do your Kegel exercises regularly, you can expect results -- such as less frequent urine leakage -- within about a few weeks to a few months. For continued benefits, make Kegel exercises a permanent part of your daily routine. https://www.[facility].org/healthy-lifestyle/mens-health/in-depth/kegel-exercise s-for-men/art-13464697 Important caution: this is a summary document whose purpose is to review the highlights of the cancer treatment for this patient. This does not replace information available in the medical record, a complete medical history provided by the patient, examination and diagnostic information, or educational materials that describe strategies for coping with cancer and cancer therapies in detail. Both medical science and an individual???s health care needs change, and therefore this document is current only as of the date of preparation. This summary document does not prescribe or recommend any particular medical treatment or care for cancer or any other disease and does not substitute for the independent medical judgment of the treating professional. Resolved Problems Problem Noted Date Diagnosed Date [...]
--- OUTSIDE RECORDS SUMMARY | 2024-12-17 18:34 | XMS_ITS | Encounter Summary ---
Author Organization [facility] Address [address] [place] [address] Care Team Providers Care Automatic Lehr Operator Name Role Phone Bren Allen MD Primary Care Provider [phone] Encounter Details Date Type Department Care Team (Latest Contact Info) Description 11/01/2005 Outpatient Historical [address] [phone] Tanner Francis MD [address] [place] [address] Unspecified Essential Hypertension (Primary Dx); Mixed Hyperlipidemia Social History Tobacco Use Types Packs/Day Years Used Date Smoking Tobacco: Never Assessed Sex and Gender Information Value Date Recorded Sex Assigned at Not on file 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
--- OUTSIDE RECORDS SUMMARY | 2024-12-17 18:34 | XMS_ITS | Encounter Summary ---
Author Organization [facility] Address [address] [place] [address] Care Team Providers Care Arabic Professor Name Role Phone Bren Allen MD Primary Care Provider [phone] Encounter Details Date Type Department Care Team (Latest Contact Info) Description 12/26/2001 Outpatient Historical [address] [phone] Tanner Francis MD [address] [place] [address] HYPERLIPIDEMIA NEC/NOS (Primary Dx); DIABETES UNCOMPL ADULT-TYPE II (CMS/HCC); ESOPHAGEAL REFLUX; OTHER UNSPEC SLEEP APNEA Social History Tobacco Use Types Packs/Day Years Used Date Smoking Tobacco: Never Assessed Sex and Gender Information Value Date Recorded Sex Assigned at Not on file 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
--- OUTSIDE RECORDS SUMMARY | 2024-12-17 18:34 | XMS_ITS | Encounter Summary ---
Author Organization [facility] Address [address] [place] [address] Care Team Providers Care Urologist Md Name Role Phone Bren Allen MD Primary Care Provider [phone] Encounter Details Date Type Department Care Team (Latest Contact Info) Description 07/19/2005 Outpatient Historical [address] [phone] Tanner Francis MD [address] [place] [address] Unspecified Essential Hypertension (Primary Dx); Mixed Hyperlipidemia; Unspecified Anemia; DM w/o Complication Type II (CMS/HCC) Social History Tobacco Use Types Packs/Day Years Used Date Smoking Tobacco: Never Assessed Sex and Gender Information Value Date Recorded Sex Assigned at Not on file 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
--- OUTSIDE RECORDS SUMMARY | 2024-12-17 18:34 | XMS_ITS | Encounter Summary ---
Author Organization 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
--- OUTSIDE RECORDS SUMMARY | 2024-12-17 18:34 | XMS_ITS | Encounter Summary ---
Author Organization [facility] Address [address] [place] [address] Care Team Providers Care Pickle Processor Name Role Phone Bren Allen MD Primary Care Provider [phone] [phone] Encounter Details Date Type Department Care Team (Latest Contact Info) Description 11/25/2001 Outpatient Historical [facility] [address] [phone] Manuel Henley MD [address] [place] [phone] ACUTE BRONCHITIS (Primary Dx); ACUTE PHARYNGITIS; OTITIS MEDIA NOS Social History Tobacco Use Types Packs/Day Years Used Date Smoking Tobacco: Never Assessed Sex and Gender Information Value Date Recorded Sex Assigned at Not on file 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
--- OUTSIDE RECORDS SUMMARY | 2024-12-17 18:34 | XMS_ITS | Encounter Summary ---
Author Organization [facility] Address [address] [place] [address] Care Team Providers Care Certified Legal Secretary Specialist Name Role Phone Bren Allen MD Primary Care Provider [phone] Encounter Details Date Type Department Care Team (Latest Contact Info) Description 11/04/2001 Outpatient Historical [address] [phone] Tanner Francis MD [address] [place] [address] OTHER UNSPEC SLEEP APNEA (Primary Dx); ESOPHAGEAL REFLUX; HYPERLIPIDEMIA NEC/NOS; DIABETES UNCOMPL ADULT-TYPE II ([facility]/HCC) Social History Tobacco Use Types Packs/Day Years Used Date Smoking Tobacco: Never Assessed Sex and Gender Information Value Date Recorded Sex Assigned at Not on file 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 Gender Identity Not on file Sexual Orientation Not on file documented as of this encounter Plan of Treatment Not on file documented as of this encounter Visit Diagnoses Diagnosis Unspecified sleep apnea- Primary Esophageal reflux Other and unspecified hyperlipidemia Type II or unspecified type diabetes mellitus without mention of complication, not stated as uncontrolled documented in this encounter Care Teams Certified Legal Secretary Specialist Relationship Specialty Start Date End Date Bren Allen MD [address] [place] [address] PCP - General Internal Medicine 10/03/17 documented as of this encounter
--- OUTSIDE RECORDS SUMMARY | 2024-12-17 18:34 | XMS_ITS | Encounter Summary ---
Author Organization [facility] Address [address] 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
--- OUTSIDE RECORDS SUMMARY | 2024-12-17 18:34 | XMS_ITS | Encounter Summary ---
Author Organization [facility] Address [address] [place] [address] Care Team Providers Care Process Mechanic Name Role Phone Bren Allen MD Primary Care Provider +1 [phone] Encounter Details Date Type Department Care Team (Latest Contact Info) Description 12/05/2005 Outpatient Historical [address] [phone] Tanner Francis MD [address] [place] [phone] Acute Frontal Sinusitis (Primary Dx); DM w/o Complication Type II (CMS/HCC); Mixed Hyperlipidemia; Headache Social History Tobacco Use Types Packs/Day Years Used Date Smoking Tobacco: Never Assessed Sex and Gender Information Value Date Recorded Sex Assigned at Not on file Legal 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
--- OUTSIDE RECORDS SUMMARY | 2024-12-17 18:34 | XMS_ITS | Encounter Summary ---
Author Organization [facility] Address [address] [place] [address] Care Team Providers Care Event Promotions Coordinator Name Role Phone Bren Allen MD Primary Care Provider +1 [phone] Encounter Details Date Type Department Care Team (Latest Contact Info) Description 02/20/2002 Outpatient Historical [facility] [address] [place] [address] [place] [address] Pili Ayala, TELECOM NETWORK MANAGER [address] [place] [address] HYPERSOMNI W SLEEP APNEA (Primary Dx) Social History Tobacco Use Types Packs/Day Years Used Date Smoking Tobacco: Never Assessed Sex and Gender Information Value Date Recorded Sex Assigned at Not on file 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
--- OUTSIDE RECORDS SUMMARY | 2024-12-17 18:34 | XMS_ITS | Encounter Summary ---
Author Organization [facility] Address [address] [place] [address] Care Team Providers Care Appointment Setter Name Role Phone Bren Allen MD Primary Care Provider +1 [phone] Encounter Details Date Type Department Care Team (Latest Contact Info) Description 04/06/2005 Outpatient Historical [address] [phone] Tanner Francis MD [address] [place] [address] HYPERTENSION NOS (Primary Dx); DIABETES MELLITUS TYPE II UNCONTR UNCOMPL; HYPERLIPIDEMIA NEC/NOS Social History Tobacco Use Types Packs/Day Years Used Date Smoking Tobacco: Never Assessed Sex and Gender Information Value Date Recorded Sex Assigned at Not on file Legal 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
--- OUTSIDE RECORDS SUMMARY | 2024-12-17 18:34 | XMS_ITS | Encounter Summary ---
Author Organization [facility] Address [address] [place] [address] Care Team Providers Care Auditing Manager Name Role Phone Bren Allen MD Primary Care Provider [phone] [phone] Encounter Details Date Type Department Care Team (Late st Contact Info) Description 04/08/2018 Ancillary Orders [facility] Pre-Registration [employer] CALL TO MAKE APPOINTMENT ONLY [address] [place] [address] Monserrat Ervin, SUPERVISOR PASTRY [address] [place] [address] Social History Tobacco Use Types Packs/Day Years Used Date Smoking Tobacco: Never Smokeless Tobacco: Never Alcohol Use Standard Drinks/Week Comments Yes 3 (1 standard drink = 0.6 oz pur e alcohol) Sex and Gender Information Value Date Recorded Sex Assigned at Not on file 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
--- OUTSIDE RECORDS SUMMARY | 2024-12-17 18:34 | XMS_ITS | Encounter Summary ---
Author Organization [facility] Address [address] [place] [address] Care Team Providers Care Guard Chief Name Role Phone Bren Allen MD Primary Care Provider [phone] [phone] Reason for Referral * CT Scan (Routine) - Closed Specialty Diagnoses / Procedures Referred By Contac t Referred To Contact Diagnoses Malignant neoplasm of prostate (CMS/HCC) Procedures CT GUIDED RAD THERAPY FIELD Ivan Sofia MD [address] [place] [address] Phone: tel: fax: Referral ID Status Reason Start Date Expiration Date Visits Re quested Visits Authorized [id number] Closed 07/22/2018 08/22/2019 1 1 Encounter Details Date Type Department Care Team (Late st Contact Info) Description 07/22/2018 Ancillary Orders [facility] [address] [facility] [address] [place] [address] Ivan Sofia MD [address] [place] [address] Malignant neoplasm of prostate (CMS/HCC) Social History Tobacco Use Types Packs/Day Years Used Date Smoking Tobacco: Never Smokeless Tobacco: Never Alcohol Use Standard Drinks/Week Comments Yes 1 (1 standard drink = 0.6 oz pur e alcohol) daily Sex and Gender Information Value Date Recorded Sex Assigned at Not on file 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 Exam was auto-finalized. Ivan Sofai MD CT ORDERABLES Final Result documented in this encounter Visit Diagnoses Diagnosis Malignant neoplasm of prostate (CMS/HCC) Malignant neoplasm of prostate Malignant neoplasm of prostate (CMS/HCC) Malignant neoplasm of prostate documented in this encounter Additional Health Concerns Assessment Noted Time PHQ-9 Depression Total Score: 5 04/19/20 18 3:18 PM AERIAL SURVEY TECHNICIAN documented as of this encounter Care Teams Guard Chief Relationship Specialty Start Date End Date Bren Allen MD [address] [place] [phone] PCP - General Internal Medicine 10/03/17 documented as of this encounter
--- OUTSIDE RECORDS SUMMARY | 2024-12-17 18:34 | XMS_ITS | Encounter Summary ---
Author Organization [facility] Address [address] [place] [address] Care Team Providers Care Wrong Address Clerk Name Role Phone Bren Allen MD Primary Care Provider +1 [phone] Reason for Referral * MRI (Routine) - Closed Specialty Diagnoses / Procedures Referred By Contac t Referred To Contact Diagnoses Hyperprolactinemia Decreased libido BPH with obstruction/lower urinary tract symptoms Sleep apnea Procedures MRI PITUITARY WITH BRAIN MR W WO CONTRAST Bren Allen MD [address] [place] [address] Phone: tel: fax: [facility] Pre-Registration [place] CALL TO MAKE APPOINTMENT ONLY [address] [place] [place] [address] Phone: tel: fax: Referral ID Status Reason Start Date Expiration Date V isits Requested Visits Authorized [id number] Closed F [facility] TO SCHEDULE (SGF) 03/08/2018 04/08/2019 1 1 Encounter Details Date Type Department Care Team (Latest Contact Info) Description 03/08/2018 Ancillary Orders [facility] Pre-Registration [place] CALL TO MAKE APPOINTMENT ONLY [address] [place] [facility] [place] [address] Bren Allen MD [address] [place] [address] Hyperprolactinemia; Decreased libido; BPH with obstruction/lower urinary tract symptoms; Sleep apnea Social History Tobacco Use Types Packs/Day Years Used Date Smoking Tobacco: Never Smokeless Tobacco: Never Alcohol Use Standard Drinks/Week Comments Yes 3 (1 standard drink = 0.6 oz pur e alcohol) Sex and Gender Information Value Date Recorded Sex Assigned at Not on file Legal 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 Exam: MRI PITUITARY WITH BRAIN MR W WO CONTRAST Date/Time of Exam: 03/26/2018 3:34 PM Reason For Exam: . Diagnosis: Hyperprolactinemia; Decreased libido; BPH with obstruction/lower urinary tract symptoms; BPH with obstruction/lower urinary tract symptoms; Sleep apnea. Technique: Multiplanar, multisequence MR images were obtained through the brain prior to the administration of intravenous contrast, then multiplanar, multisequence MR images were obtained through the brain and pituitary gland following GADOBENATE DIMEGLUMINE 529 MG/ML(0.1 MMOL/0.2 ML) INTRAVENOUS SOLUTION Given:20 mL. Comparison: May 04, 2010 FINDINGS: Midline structures are within normal limits. Ventricles are nondilated. Mild cortical volume loss. Parenchymal signal is grossly normal with only a few scattered white matter T2 signal changes present. No mass lesion, hemorrhage or infarct. No pathologic enhancement. Major intracranial arterial flow voids are preserved. Dural venous sinuses appear patent. Orbits, paranasal sinuses and temporal bones are grossly unremarkable as imaged. Dedicated pre and postcontrast thin section images through the sella shows normal pituitary morphology and enhancement pattern. No MR imaging evidence of microadenoma. IMPRESSION: Essentially normal study. No apparent pituitary pathology. Narrative Procedure Note Edin Murphy DO - 03/27/2018 IMPRESSION: Please see below. Exam: MRI PITUITARY WITH BRAIN MR W WO CONTRAST Date/Time of Exam: 03/26/2018 3:34 PM Reason For Exam: . Diagnosis: Hyperprolactinemia; Decreased libido; BPH with obstruction/lower urinary tract symptoms; BPH with obstruction/lower urinary tract symptoms; Sleep apnea. Technique: Multiplanar, multisequence MR images were obtained through the brain prior to the administration of intravenous contrast, then multiplanar, multisequence MR images were obtained through the brain and pituitary gland following GADOBENATE DIMEGLUMINE 529 MG/ML(0.1 MMOL/0.2 ML) INTRAVENOUS SOLUTION Given:20 mL. Comparison: May 04, 2010 FINDINGS: Midline structures are within normal limits. Ventricles are nondilated. Mild cortical volume loss. Parenchymal signal is grossly normal with only a few scattered white matter T2 signal changes present. No mass lesion, hemorrhage or infarct. No pathologic enhancement. Major intracranial arterial flow voids are preserved. Dural venous sinuses appear patent. Orbits, paranasal sinuses and temporal bones are grossly unremarkable as imaged. Dedicated pre and postcontrast thin section images through the sella shows normal pituitary morphology and enhancement pattern. No MR imaging evidence of microadenoma. IMPRESSION: Essentially normal study. No apparent pituitary pathology. 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
--- OUTSIDE RECORDS SUMMARY | 2024-12-17 18:34 | XMS_ITS | Encounter Summary ---
Author Organization [facility] Address [address] [place] [address] Care Team Providers Care Quiller Machine Fixer Name Role Phone Bren Allen MD Primary Care Provider [phone] [phone] Reason for Referral * Outpatient Services (Routine) - Closed Specialty Diagnoses / Procedures Referred By Contac t Referred To Contact Diagnoses Pain Procedures XR FLUORO LESS THAN 1 HOUR Aleksander Marie MD Phone: tel: fax: Referral ID Status Reason Start Date Expiration Date Visits Requested Visits Authorized [id number] Closed Ordering Department To Schedule 11/02/2014 12/03/2015 1 1 Encounter Details Date Type Department Care Team (Late st Contact Info) Description 11/02/2014 Ancillary Orders [facility] [place] [address] [place] [address] Aleksander Marie MD [address] [address] Pain (Primary Dx) Social History Tobacco Use Types Packs/Day Years Used Date Smoking Tobacco: Never Smokeless Tobacco: Never Alcohol Use Standard Drinks/Week Comments No 0 (1 standard drink = 0.6 oz pur e alcohol) Sex and Gender Information Value Date Recorded Sex Assigned at Not on file 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 Exam was auto-finalized. Aleksander Marie MD DIAGNOSTIC IM[facility] [address] Final Result documented in this encounter Visit Diagnoses Diagnosis Pain Generalized pain Pain- Primary Generalized pain documented in this encounter Care Teams Quiller Machine Fixer Relationship Specialty Start Date End Date Bren Allen MD [address] [place] [phone] PCP - General Internal Medicine 10/03/17 documented as of this encounter
--- OUTSIDE RECORDS SUMMARY | 2024-12-17 18:34 | XMS_ITS | Encounter Summary ---
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
--- OUTSIDE RECORDS SUMMARY | 2024-12-17 18:34 | XMS_ITS | Encounter Summary ---
Author Organization [facility] Address [address] [place] [address] Care Team Providers Care Front Desk Administrator Name Role Phone Bren Allen MD Primary Care Provider [phone] [phone] Encounter Details Date Type Department Care Team (Latest Contact Info) Description 04/10/2005 Outpatient Historical [address] [phone] Tanner Francis MD [address] [place] [address] DIABETES MELLITUS TYPE II UNCONTR UNCOMPL (Primary Dx); HYPERTENSION NOS; GENERAL OSTEOARTHROSIS; ALLERGIC RHINITIS NOS; Vaccine for influenza Social History Tobacco Use Types Packs/Day Years Used Date Smoking Tobacco: Never Assessed Sex and Gender Information Value Date Recorded Sex Assigned at Not on file Legal 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 Male 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 Gender Identity Not on file Sexual Orientation Not on file documented as of this encounter Plan of Treatment Not on file documented as of this encounter Visit Diagnoses Diagnosis Type II or unspecified type diabetes mellitus without mention of complication, uncontrolled- Primary Unspecified essential hypertension Generalized osteoarthrosis, involving multiple sites Allergic rhinitis, cause unspecified Vaccine for influenza Need for prophylactic vaccination and inoculation against influenza documented in this encounter Care Teams Front Desk Administrator Relationship Specialty Start Date End Date Bren Allen MD [address] [place] [phone] PCP - General Internal Medicine 10/03/17 documented as of this encounter
--- OUTSIDE RECORDS SUMMARY | 2024-12-17 18:34 | XMS_ITS | Encounter Summary ---
Author Organization [facility] Address [address] [place] [address] Care Team Providers Care Arboriculture Teacher Name Role Phone Bren Allen MD Primary Care Provider +1 [phone] Encounter Details Date Type Department Care Team (Late st Contact Info) Description 05/08/[address] 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
--- OUTSIDE RECORDS SUMMARY | 2024-12-17 18:34 | XMS_ITS | Encounter Summary ---
Author Organization [facility] Address [address] [place] [address] Care Team Providers Care Transfer Professor Name Role Phone Bren Allen MD Primary Care Provider +1 [phone] Encounter Details Date Type Department Care Team (Late st Contact Info) Description 03/27/2007 Emergency [facility] Emergency Department [address] 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
--- OUTSIDE RECORDS SUMMARY | 2024-12-17 18:34 | XMS_ITS | Encounter Summary ---
Author Organization [facility] Address [address] [facility] [place] [address] Care Team Providers Care Tire Sorter Name Role Phone Bren Allen MD Primary Care Provider [phone] [phone] Reason for Referral * CT Scan (Routine) - Closed Specialty Diagnoses / Procedures Referred By Contac t Referred To Contact Radiology Diagnoses Localized swelling, mass and lump, upper limb, left Unspecified skin changes Procedures CT FOREARM WO CONTRAST LEFT Monserrat Ervin FNP Phone: tel: fax: [facility] [address] [facility] [address] [place] [address] Phone: tel: fax: Referral ID Status Reason Start Date Expiration Date V isits Requested Visits Authorized [id number] Closed F TO SCHEDULE ([facility]) 04/15/2018 05/15/2018 1 1 ER PULLER Encounter Details Date Type Department Care Team (Latest Contact Info) Description 04/09/2018 Ancillary Orders [facility] Pre-Registration [place] CALL TO MAKE APPOINTMENT ONLY [address] [place] [address] Monserrat Ervin FNP [address] [place] [address] Localized swelling, mass and lump, upper limb, left; Unspecified skin changes Social History Tobacco Use Types Packs/Day Years Used Date Smoking Tobacco: Never Smokeless Tobacco: Never Alcohol Use Standard Drinks/Week Comments Yes 3 (1 standard drink = 0.6 oz pur e alcohol) Sex and Gender Information Value Date Recorded Sex Assigned at Not on file Legal Sex Male 4:49 AM SINKER PULLER Gender Identity Not on file Sexual Orientation Not on file Occupation Industry Job Start Date Job End Date Not on file Not on file Not on file Not on file documented as of this encounter Plan of Treatment Not on file documented as of this encounter Results * CT FOREARM WO CONTRAST LEFT (04/15/2018 2:16 PM SINKER PULLER) Anatomical Region Laterality Modality Upper Extremity Computed Tomogra phy 04/15/2018 2:16 PM SINKER PULLER Impressions 04/15/2018 3:44 PM SINKER PULLER IMPRESSION: Please see below. Exam: CT FOREARM WO CONTRAST LEFT Date/Time of Exam: 04/15/2018 2:16 PM Reason For Exam: See Diagnosis. Diagnosis: Localized swelling, mass and lump, upper limb, left; Unspecified skin changes. Technique: CT of the left forearm was performed without the administration of intravenous contrast. Findings: The patient describes burning and pain in the forearm. No particular area of concern was marked on the skin surface. The exam is also limited without any IV contrast but no fluid collection concerning for an abscess or hematoma is identified. There are some prominent vessels or varicosities in the subcutaneous fat but no foreign body or mass is identified. There is a small amount of fluid in the olecranon bursa. The muscles of the forearm are appropriate in size and density. There are mild degenerative changes in the elbow joint. No fracture or bony destructive changes are identified. Tiny calcifications along the lateral epicondyle of the humerus are compatible with sequela of chronic lateral epicondylitis. The ulnar nerve is identified in the cubital tunnel and is surrounded by fat and appears appropriate in density without any adjacent fluid or edema. No focal soft tissue edema or subcutaneous edema other than mild dependent edema is identified. No discrete mass. IMPRESSION: 1. Unremarkable exam. [id number] Narrative Procedure Note Ada Salazar MD - 04/15/2018 IMPRESSION: Please see below. Exam: CT FOREARM WO CONTRAST LEFT Date/Time of Exam: 04/15/2018 2:16 PM Reason For Exam: See Diagnosis. Diagnosis: Localized swelling, mass and lump, upper limb, left; Unspecified skin changes. Technique: CT of the left forearm was performed without the administration of intravenous contrast. Findings: The patient describes burning and pain in the forearm. No particular area of concern was marked on the skin surface. The exam is also limited without any IV contrast but no fluid collection concerning for an abscess or hematoma is identified. There are some prominent vessels or varicosities in the subcutaneous fat but no foreign body or mass is identified. There is a small amount of fluid in the olecranon bursa. The muscles of the forearm are appropriate in size and density. There are mild degenerative changes in the elbow joint. No fracture or bony destructive changes are identified. Tiny calcifications along the lateral epicondyle of the humerus are compatible with sequela of chronic lateral epicondylitis. The ulnar nerve is identified in the cubital tunnel and is surrounded by fat and appears appropriate in density without any adjacent fluid or edema. No focal soft tissue edema or subcutaneous edema other than mild dependent edema is identified. No discrete mass. IMPRESSION: 1. Unremarkable exam. [id number] Monserrat [address] DET[address] ORDERABLES Final Result documented in this encounter Visit Diagnoses Diagnosis Localized swelling, mass and lump, upper limb, left Unspecified skin changes Localized swelling, mass and lump, upper limb, left Unspecified skin changes documented in this encounter Care Teams Tire Sorter Relationship Specialty Start Date End Date Brne Allen MD [address] [place] [phone] PCP - General Internal Medicine 10/03/17 documented as of this encounter
--- OUTSIDE RECORDS SUMMARY | 2024-12-17 18:34 | XMS_ITS | Encounter Summary ---
Author Organization [facility] Address [address] [place] [address] Care Team Providers Care Buckle Attaching Machine Operator Name Role Phone Bren Allen MD Primary Care Provider [phone] [phone] Encounter Details Date Type Department Care Team (Latest Contact Info) Description 05/19/2005 Outpatient Historical [address] [phone] Tanner Francis MD [address] [place] [phone] HYPERTENSION NOS (Primary Dx); DIABETES MELLITUS TYPE II-UNCOMPL (CMS/HCC); MIXED HYPERLIPIDEMIA; ANEMIA NOS Social History Tobacco Use Types Packs/Day Years Used Date Smoking Tobacco: Never Assessed Sex and Gender Information Value Date Recorded Sex Assigned at Not on file 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 Gender Identity Not on file Sexual Orientation Not on file documented as of this encounter Plan of Treatment Not on file documented as of this encounter Visit Diagnoses Diagnosis Unspecified essential hypertension- Primary Type II or unspecified type diabetes mellitus without mention of complication, not stated as uncontrolled Mixed hyperlipidemia Anemia, unspecified documented in this encounter Care Teams Buckle Attaching Machine Operator Relationship Specialty Start Date End Date Bren Allen MD [address] [place] [phone] PCP - General Internal Medicine 10/03/17 documented as of this encounter
--- OUTSIDE RECORDS SUMMARY | 2024-12-17 18:34 | XMS_ITS | Encounter Summary ---
Author Organization [facility] Address [address] 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
--- OUTSIDE RECORDS SUMMARY | 2024-12-17 18:34 | XMS_ITS | Encounter Summary ---
Author Organization [facility] Address [address] [place] [address] Care Team Providers Care Interior Assemblies Developer Prover Name Role Phone Bren Allen MD Primary Care Provider [phone] Encounter Details Date Type Department Care Team (Latest Contact Info) Description 11/28/2004 Outpatient Historical [address] [phone] Tanner Francis MD [address] [place] [address] [facility]IV[facility] USE MEDICATN (Primary Dx) Social History Tobacco Use Types Packs/Day Years Used Date Smoking Tobacco: Never Assessed Sex and Gender Information Value Date Recorded Sex Assigned at Not on file 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
--- OUTSIDE RECORDS SUMMARY | 2024-12-17 18:34 | XMS_ITS | Encounter Summary ---
Author Organization [facility] Address [address] [place] [address] Care Team Providers Care Severity Of Illness Coordinator Name Role Phone Bren Allen MD Primary Care Provider [phone] [phone] Encounter Details Date Type Department Care Team (Latest Contact Info) Description 11/23/2004 Outpatient Historical [facility] [address] [place] 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
--- OUTSIDE RECORDS SUMMARY | 2024-12-17 18:34 | XMS_ITS | Encounter Summary ---
Author Organization [facility] Address [address] [place] [address] Care Team Providers Care Senior Accounting Associate Name Role Phone Bren Allen MD Primary Care Provider [phone] [phone] Encounter Details Date Type Department Care Team (Latest Contact Info) Description 03/06/2002 Outpatient Historical [address] [phone] Tanner Francis MD [address] [place] [address] HYPERTENSION NOS (Primary Dx); CHRONIC AIRWAY OBSTRUCTION NEC (CMS/HCC); ASCVD; VACCINE FOR INFLUENZA Social History Tobacco Use Types Packs/Day Years Used Date Smoking Tobacco: Never Assessed Sex and Gender Information Value Date Recorded Sex Assigned at Not on file 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 Gender Identity Not on file Sexual Orientation Not on file documented as of this encounter Plan of Treatment Not on file documented as of this encounter Visit Diagnoses Diagnosis Unspecified essential hypertension- Primary Chronic airway obstruction, not elsewhere classified (CMS/HCC) Chronic airway obstruction, not elsewhere classified ASCVD Unspecified cardiovascular disease Need vaccination-viral disease Need for prophylactic vaccination and inoculation against other viral diseases documented in this encounter Care Teams Senior Accounting Associate Relationship Specialty Start Date End Date Bren Allen MD [address] [place] [address] PCP - General Internal Medicine 10/03/17 documented as of this encounter
--- OUTSIDE RECORDS SUMMARY | 2024-12-17 18:34 | XMS_ITS | Encounter Summary ---
Author Organization [facility] Address [address] [place] [address] Care Team Providers Care Commercial Loan Closer Name Role Phone Bren Allen MD Primary Care Provider [phone] [phone] Encounter Details Date Type Department Care Team (Late st Contact Info) Description 03/20/2007 Emergency [facility] Emergency Department [address] [place] [address] Evette Leon FNP NO ADDRESS ON FILE Open Wound of Finger(s) , without Mention of Complication (Primary Dx) Social History Tobacco Use Types Packs/Day Years Used Date Smoking Tobacco: Never Assessed Sex and Gender Information Value Date Recorded Sex Assigned at Not on file 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
[2024-12-17] MEDS: ondansetron 2 mg/ML SDV 2 mL 4 MG IVP (22:44)
[2024-12-18] VITALS (8 sets, daily range): BP systolic 110–186; BP diastolic 65–85; PULSE 71–87; RESP 14–20; TEMP 36.6–36.9; O2SAT 90–94
[2024-12-18] MEDS: heparin 5,000 unit/mL INJ 1 mL 5000 UNIT SUBCUT ×3 (00:46→15:35)
[2024-12-18] MEDS: ondansetron 2 mg/ML SDV 2 mL 4 MG IVP ×2 (03:36→08:11)
[2024-12-18 04:55] LABS: Hematocrit 37.5 % (37-53); Hemoglobin 11.50 g/dL (11.27-16.99); Mean Corpuscular HGB Conc 30.7 g/dL (30-55); Mean Corpuscular Hemoglobin 27.2 pg (27-33); Mean Corpuscular Volume 88.7 fl (82-101); Nucleated Red Blood Cells % 0 %; Platelet Count 241 10^3/cmm (157-399); Red Blood Count 4.23 10^6/uL (3.85-5.65); White Blood Count 18.03 10^3/uL (3.29-11.43)
[2024-12-18 05:23] LABS: Anion Gap 16.4 (5-19); Blood Urea Nitrogen 28 mg/dL (8-23); Calcium 9.1 mg/dL (8.5-10.5); Carbon Dioxide 27 mmol/L (22-29); Chloride 100 mmol/L (98-107); Creatinine Clr Calc Pharmacy 90.4305; Glucose 310 mg/dL (65-115); Osmolality Calculated 305 mOsm/kg (285-295); Potassium 4.4 mmol/L (3.5-5.1); Sodium 139 mmol/L (136-145)
[2024-12-18] MEDS: MEROPENEM 2,000 MG in sodium chloride 0.9% (plus) 50 ML 100 MG IV ×3 (05:29→20:30)
[2024-12-18 05:33] LABS: Estmated Average Glucose 237; Hemoglobin A1C 9.9 % (4.0-6.0)
[2024-12-18] MEDS: linezolid premix 600 MG/300 ML PREMIX 300 MG IV ×2 (06:27→15:41)
[2024-12-18] MEDS: insulin glargine 100 units/1 mL 20 UNIT SUBCUT (08:13)
[2024-12-18] MEDS: oxybutynin chloride XL 5 MG TABLET 30 MG PO (08:16)
[2024-12-18] MEDS: HYDROcodone-acetaminophen 5-325 mg Tablet 1 TAB PO ×2 (08:23→15:39)
[2024-12-18 09:18] LABS: Ketone (Acetest) Serum Negative (Negative)
--- NOTE | 2024-12-18 10:13 | PC.CHAP ---
Pastoral Care Encounter/Spiritual Assessment Type of Contact [] Declined trade union official visit [] Patient/Family/Request visit [] Outpatient visit [] Follow-up visit [] Physician referral [] Code/Alert [x] Routine visit [] Staff referral [] Actively dying [] Patient sleeping [] Family support [] [] Out of room [] Palliative care [] [] Receiving care in room [] Pre-surgical visit [] Trauma [] Long length of stay [] ICU visit [] Other: Relational/Emotional Strength [x] Patient feels connected with others/family/visitors/staff [] Distress [] Loneliness/isolation [] Abandonment Spirituality of Patient [x] Person of Abbey [x ] Attends Gnosticist of their Abbey [x] Believes in Prayer [] Reads Bible or Worship materials x [] There are Spiritual issues to be addressed Process Artist Interventions [x] Prayer [x] Active listening [x] Non-anxious presence [x] Spiritual/emotional support [] Crisis/trauma care [] Spiritual counseling [] Bereavement support [] Provided bereavement packet [] Provided Bible/devotional materials [] Provided toy/stuffed animal, coloring book to patient or family member [] Provided Communion [] Anointing/[place] [] Salvation [x] Completed spiritual assessment [] Other: Impact on Illness or Injury [] Angry [] Fearful [] Anxious [] Often cries [] Exhaustion [] Unable to work [] Unable to attend gnosticist [] Unable to walk/stand [] Unable to read [] Unable to drive [] Unable to eat/drink [] Unable to sleep [] Unable to be with family [] Patient intubated [] Other: Summary Time spent with patient 5 min
--- NOTE | 2024-12-18 13:56 | P.PN_ITS ---
Subjective 2 Subjective: Seen this morning. Sitting up in bed. States about a week ago he developed nausea vomiting. Has not had any diarrhea. He is tolerating diet at this time. Blood sugar 310 this morning. Ketones are negative. Vitals/I&O/Wt Last Vital Signs Temp 97.9 F 12/18/24 11:51 Pulse 75 12/18/24 11:51 Resp 14 12/18/24 11:51 BP 164/65 12/18/24 11:51 Pulse Ox 90 12/18/24 11:51 O2 Del Method Nasal Cannula 12/18/24 11:51 O2 Flow Rate 3 12/18/24 07:53 12/17/24 12/18/24 12/18/24 22:59 06:59 14:59 Intake Total 350 / 1580 880 / 880 Output Total 2 / 100 / 102 Balance 348 / 1578 -100 / 1478 880 / 880 Weight last 48 hrs Weight 168.283 kg Weight 167.149 kg Weight 115.666 kg Weight 167.149 kg Weight 115.666 kg Physical Exam 2 Narrative: General Well-developed well-nourished morbidly obese male in no acute cardiopulmonary distress CV regular rate and rhythm Lungs clear to auscultation bilaterally Abdomen positive bowel tones soft obese nontender there is thickening and brown discoloration of the skin in the lower abdomen as the pannus abuts the pubis Calves 1+ left radial edema 2+ right pretibial edema Right foot wrapped in bandage. Data 12/18/24 04:42 12/18/24 04:42 Micro: Microbiology 12/17/24 05:00 Urine Culture - Preliminary Urine,Clean Catch 12/17/24 02:53 Blood Culture - Preliminary Blood NEGATIVE TO DATE 12/17/24 02:48 Blood Culture - Preliminary Blood NEGATIVE TO DATE A&P Assessment and plan 1. Type 2 diabetes mellitus with foot ulcer: Patient is admitted to hospital with elevated white count attributable to chronic right foot infection there are not obvious open wounds but this is under a wound care administered adherent dressing. Dr. Crenshaw has seen the patient and plans to debride this at bedside. I have also ordered an MRI to evaluate for possible osteomyelitis. Patient will have C-reactive protein and sed rate done as well. Have counseled patient regarding progression to limb loss with his poor hygiene and continued weight gain. He states he cannot reach his feet. Patient is not on insulin but his blood sugar at time of exam was 399 based on his Dexcom and he states his blood sugars run about 400 high all the time. He states he does not eat a healthy diet but eats what he can afford. Will start Lantus 20 units a.m. first dose now and a sliding scale insulin low scale. 2. Morbid obesity with BMI of 40.0-44.9, adult: Will start 2000-calorie ADA weight loss diet as discussed with the patient. 3. Cellulitis of foot, right: 4. LISA (acute kidney injury): 5. Leukocytosis: 6. Lactic acidosis: Plan: #Nausea?improving #Type 2 diabetes mellitus, insulin-dependent # Right decubitus ulcer, right foot wounds, cellulitis #Lower extremity edema?right #LISA ? MRI right foot to assess for underlying osteomyelitis. Patient is status post debridement. ? Right foot wounds dressed with Hydrofera Blue. Osbaldo compression dressing applied to right lower extremity. ? Have antibiotics for cellulitis ? Continue aspirin carvedilol, heparin SQ twice daily, glargine 20 units daily ? Continue linezolid, meropenem ? Continue home medications. ? C. difficile diarrhea uncollected. Patient is not having diarrhea at this time. ? Continue spironolactone - Will discuss with podiatry ? Will discuss with ID as well. ? Cultures pending ? Leukocytosis WBC 18,000. ? LISA?creatinine trending down Full code DVT prophylaxis: Heparin SQ twice daily PDMP PDMP Reviewed: Not Reviewed Attestations 2 Medical Necessity Statement*: Patient admitted to hospital with cellulitis of the foot elevated white count and probable osteomyelitis. Will require greater than 2 midnights in hospital Diagnoses Type 2 diabetes mellitus with foot ulcer E11.621; L97.509 Morbid obesity with BMI of 40.0-44.9, adult E66.01; Z68.41 Cellulitis of foot, right L03.115 LISA (acute kidney injury) N17.9 Leukocytosis D72.829 Lactic acidosis E87.20
--- NOTE | 2024-12-18 17:37 | CTR_ITS ---
PROCEDURE INFORMATION: Exam: CT Abdomen And Pelvis Without Contrast Exam date and time: 12/18/2024 6:12 PM Age: 69 years old Clinical indication: Abdominal pain; Generalized; Additional info: Abdominal pain, nausea and vomiting TECHNIQUE: Imaging protocol: Computed tomography of the abdomen and pelvis without contrast. Radiation optimization: All CT scans at this facility use at least one of these dose optimization techniques: automated exposure control; mA and/or kV adjustment per patient size (includes targeted exams where dose is matched to clinical indication); or iterative reconstruction. COMPARISON: CT thoracic spin wo con* [id number] 12/17/2024 3:29 AM RADIATION DOSE METRICS: Total DLP (mGy-cm): 1591.5 FINDINGS: Coronary arteries: Coronary arterial atherosclerotic calcifications are present. Liver: Normal. No mass. Gallbladder and biliary ducts: Normal. No calcified stones. No ductal dilation. Pancreas: Normal. No ductal dilation. Spleen: Normal. No splenomegaly. Adrenal glands: Normal. No mass. Kidneys and ureters: There is a nonobstructing 5 mm stone in the left kidney and a nonobstructing 7 mm stone in the right kidney. No hydronephrosis. Lobulated appearance of both the right and left renal cortices. Stomach and bowel: Small bowel obstruction. The stomach is distended with air. The duodenum and proximal jejunum is fluid-filled and dilated with a transition point in the left lower quadrant (series 6, image 45). No mass at the transition point. Appendix: No evidence of appendicitis. Intraperitoneal space: Unremarkable. No free air. No significant fluid collection. Vasculature: Unremarkable. No abdominal aortic aneurysm. Lymph nodes: Multiple benign-appearing but enlarged lymph nodes in the right and to a lesser extent left groin measuring up to 24 mm in short axis. Urinary bladder: Unremarkable as visualized. Reproductive: Unremarkable as visualized. Bones/joints: Unremarkable. No acute fracture. Soft tissues: Unremarkable. Other findings: Skin thickening along the anterolateral pelvis partially visualized. CT/CT abdomen pelvis wo con [id number] IMPRESSION: 1. Small bowel obstruction. The stomach is distended with air. The duodenum and proximal jejunum is fluid-filled and dilated with a transition point in the left lower quadrant (series 6, image 45). No mass at the transition point. 2. Skin thickening along the anterolateral pelvis partially visualized.
[2024-12-18 18:32] LABS: Alanine Aminotransferase 22 U/L (0-41); Albumin Level 3.2 g/dL (3.5-5.2); Alkaline Phosphatase 82 U/L (40-130); Anion Gap 18.0 (5-19); Aspartate Amino Transferase 64 U/L (0-40); Blood Urea Nitrogen 31 mg/dL (8-23); Calcium 8.7 mg/dL (8.5-10.5); Carbon Dioxide 26 mmol/L (22-29); Chloride 96 mmol/L (98-107); Creatinine Clr Calc Pharmacy 98.3443; Globulin 3.7 g/dL (1.3-4.6); Glucose 392 mg/dL (65-115); Osmolality Calculated 305 mOsm/kg (285-295); Potassium 4.0 mmol/L (3.5-5.1); Sodium 136 mmol/L (136-145); Total Protein 6.9 g/dL (6.6-8.7)
[2024-12-18 18:33] LABS: Lactate (Lactic Acid level) 1.6 mmol/L (0.5-2.2)
--- NOTE | 2024-12-18 19:12 | XRR_ITS ---
PROCEDURE INFORMATION: Exam: XR Chest Exam date and time: 12/18/2024 7:37 PM Age: 69 years old Clinical indication: Device placement; Ng tube; Additional info: Ng placement TECHNIQUE: Imaging protocol: Radiologic exam of the chest. Views: 1 view. COMPARISON: CR (CHEST, ) 12/17/2024 3:44 AM FINDINGS: Tubes, catheters and devices: The NG tube tracks with its tip just within the stomach. The side-hole is in the distal esophagus. This may be advanced 11 cm for more optimal positioning. Lungs: Unremarkable. No consolidation. Pleural spaces: Unremarkable. No pleural effusion. No pneumothorax. Heart/Mediastinum: See Tubes, catheters and devices finding. Bones/joints: Unremarkable. XR/XR chest 1V portable [id number] IMPRESSION: The NG tube tracks with its tip just within the stomach. The side-hole is in the distal esophagus. This may be advanced 11 cm for more optimal positioning.
--- NOTE | 2024-12-18 20:07 | P.PN_ITS ---
Subjective 2 Subjective: 69-year-old male with abdomina l distention has not passed gas or stool today but he did pass lots of gas as well as a small stool yesterday patient was seen by Dr. Narvaez who ordered CT of the abdomen and this shows a small bowel obstruction with distended stomach and intestine and no mass but there is a transition point at left lower quadrant Vitals/I&O/Wt Last Vital Signs Temp 98.2 F 12/18/24 20:00 Pulse 71 12/18/24 20:00 Resp 20 H 12/18/24 20:00 BP 130/78 12/18/24 20:00 Pulse Ox 90 12/18/24 20:00 O2 Del Method Nasal Cannula 12/18/24 20:00 O2 Flow Rate 4 12/18/24 20:00 12/18/24 12/18/24 12/18/24 06:59 14:59 22:59 Intake Total 1360 / 1360 Output Total 100 / 102 Balance -100 / 1478 1360 / 1360 Weight last 48 hrs Weight 168.283 kg Weight 167.149 kg Weight 115.666 kg Weight 167.149 kg Weight 115.666 kg Physical Exam 2 Narrative: General well-developed well-nourished male in no acute cardiopulmonary stress he is morbidly obese CV regular rate and rhythm Lungs clear to auscultation bilaterally Abdomen diminished bowel tones distended not tender or with rebound Data 12/18/24 04:42 12/18/24 18:06 Micro: Microbiology 12/17/24 05:00 Urine Culture - Preliminary Urine,Clean Catch 12/17/24 02:53 Blood Culture - Preliminary Blood NEGATIVE TO DATE 12/17/24 02:48 Blood Culture - Preliminary Blood NEGATIVE TO DATE A&P Assessment and plan 1. Small bowel obstruction: NG tube placed and x-rays performed. Based on the abdominal plate I had nurse pushed the NG tube and threes more centimeters and placed to low intermittent wall suction 2. LISA (acute kidney injury): Resolving. Start NS with 20 mg potassium chloride per liter. 3. Type 2 diabetes mellitus with foot ulcer: Blood sugar still elevated increase Lantus to 30 units daily in the morning continue with sliding scale insulin patient is now n.p.o. will monitor sugars on current sliding scale MRI has been completed and surgical debridement options per Dr. Crenshaw PDMP PDMP Reviewed: Not Reviewed Attestations 2 Medical Necessity Statement*: Patient admitted to hospital with diabetic foot infection now with small bowel obstruction will require greater than 2 midnights in hospital Coding Level of Care Code Acute Code for Chg Fwd Diagnoses Small bowel obstruction K56.609 LISA (acute kidney injury) N17.9 Type 2 diabetes mellitus with foot ulcer E11.621; L97.509
[2024-12-18] MEDS: sodium chlor 0.9% + KCl 20 mEq 20 MEQ/1,000 ML BAG 75 MEQ IV (20:31)
[2024-12-18] MEDS: metoprolol tartrate 1 mg/1 mL SDV 5 mL 5 MG IVP (23:19)
[2024-12-19] VITALS (14 sets, daily range): BP systolic 117–170; BP diastolic 70–86; PULSE 59–93; RESP 15–22; TEMP 36.7–37.2; O2SAT 88–95
[2024-12-19] MEDS: MEROPENEM 2,000 MG in sodium chloride 0.9% (plus) 50 ML 100 MG IV ×3 (04:35→21:20)
[2024-12-19] MEDS: pantoprazole 40 mg SDV IVP (04:35)
[2024-12-19] MEDS: linezolid premix 600 MG/300 ML PREMIX 300 MG IV ×2 (04:36→17:56)
[2024-12-19 04:37] LABS: Hematocrit 38.3 % (37-53); Hemoglobin 11.70 g/dL (11.27-16.99); Mean Corpuscular HGB Conc 30.5 g/dL (30-55); Mean Corpuscular Hemoglobin 27.5 pg (27-33); Mean Corpuscular Volume 89.9 fl (82-101); Nucleated Red Blood Cells % 0 %; Platelet Count 259 10^3/cmm (157-399); Red Blood Count 4.26 10^6/uL (3.85-5.65); White Blood Count 15.75 10^3/uL (3.29-11.43)
[2024-12-19] MEDS: metoprolol tartrate 1 mg/1 mL SDV 5 mL 5 MG IVP ×5 (04:37→21:20)
[2024-12-19] MEDS: lidocaine 2% viscous 15 ML, aluminum-mag hydrox-simethicon 30 ML, sucralfate oral liq 1 GM PO (04:37)
[2024-12-19 04:59] LABS: Anion Gap 15.2 (5-19); Blood Urea Nitrogen 33 mg/dL (8-23); Calcium 9.0 mg/dL (8.5-10.5); Carbon Dioxide 30 mmol/L (22-29); Chloride 99 mmol/L (98-107); Creatinine Clr Calc Pharmacy 95.0937; Glucose 298 mg/dL (65-115); Osmolality Calculated 308 mOsm/kg (285-295); Potassium 4.2 mmol/L (3.5-5.1); Sodium 140 mmol/L (136-145)
[2024-12-19] MEDS: morphine 4 mg/mL SDV 1 mL 2 MG IVP ×2 (05:06→19:59)
[2024-12-19] MEDS: insulin glargine 100 units/1 mL 30 UNIT SUBCUT (08:28)
[2024-12-19] MEDS: fluconazole premix 100 MG in empty flexible container 1 EACH 50 MG IV (10:07)
--- NOTE | 2024-12-19 10:55 | P.PN_ITS ---
Subjective 2 Subjective: seen this am nausea vomitting has resolved 200 cc drainage in NG canister Vitals/I&O/Wt Last Vital Signs Temp 98.1 F 12/19/24 08:05 Pulse 61 12/19/24 08:05 Resp 19 H 12/19/24 08:05 BP 144/74 12/19/24 08:05 Pulse Ox 90 12/19/24 08:05 O2 Del Method Nasal Cannula 12/19/24 08:05 O2 Flow Rate 4 12/19/24 08:00 12/18/24 12/19/24 12/19/24 22:59 06:59 14:59 Intake Total 350 / 1710 350 / 2060 Output Total 900 / 900 900 / 1800 Balance -550 / 810 -550 / 260 Weight last 48 hrs Weight 158.531 kg Weight 168.283 kg Physical Exam 2 Narrative: General well-developed well-nourished male in no acute cardiopulmonary stress he is morbidly obese CV regular rate and rhythm Lungs clear to auscultation bilaterally Abdomen diminished bowel tones distended but improved than yesterday, not tender or with rebound, soft right foot wrapped with bandage Data 12/19/24 04:15 12/19/24 04:15 Micro: Microbiology 12/17/24 05:00 Urine Culture - Preliminary Urine,Clean Catch Yeast species A&P Assessment and plan 1. Small bowel obstruction: 2. Type 2 diabetes mellitus with foot ulcer: Patient is admitted to hospital with elevated white count attributable to chronic right foot infection there are not obvious open wounds but this is under a wound care administered adherent dressing. Dr. Crenshaw has seen the patient and plans to debride this at bedside. I have also ordered an MRI to evaluate for possible osteomyelitis. Patient will have C-reactive protein and sed rate done as well. Have counseled patient regarding progression to limb loss with his poor hygiene and continued weight gain. He states he cannot reach his feet. Patient is not on insulin but his blood sugar at time of exam was 399 based on his Dexcom and he states his blood sugars run about 400 high all the time. He states he does not eat a healthy diet but eats what he can afford. Will start Lantus 20 units a.m. first dose now and a sliding scale insulin low scale. 3. Morbid obesity with BMI of 40.0-44.9, adult: Will start 2000-calorie ADA weight loss diet as discussed with the patient. 4. Cellulitis of foot, right: 5. LISA (acute kidney injury): 6. Leukocytosis: 7. Lactic acidosis: Plan: #Nausea?improving #Type 2 diabetes mellitus, insulin-dependent # Right decubitus ulcer, right foot wounds, cellulitis #Lower extremity edema?right #LISA #Small bowel obstruction ? MRI right foot to assess for underlying osteomyelitis. Patient is status post debridement. ? Right foot wounds dressed with Hydrofera Blue. Osbaldo compression dressing applied to right lower extremity. ? Have antibiotics for cellulitis ? Continue aspirin carvedilol, heparin SQ twice daily, glargine 20 units daily ? Continue linezolid, meropenem ? Continue home medications. ? C. difficile diarrhea uncollected. Patient is not having diarrhea at this time. ? Continue spironolactone - Will discuss with podiatry ? Will discuss with ID as well. ? Cultures pending ? Leukocytosis WBC 18,000. ? LISA?creatinine trending down Full code DVT prophylaxis: Heparin SQ twice daily 12/19/2024 SBO: consult general surgery continue NG tube continue IV fluids lantus dosing increased by night hospitalist, continue continue sliding scale q6h as pt NPO status clinically feeling better, not passing gas yet, no BM yet Leukocytosis trending down continue IV Abx cultures pending Dr. Crenshaw consulted PDMP PDMP Reviewed: Not Reviewed Attestations 2 Medical Necessity Statement*: Patient admitted to hospital with diabetic foot infection now with small bowel obstruction will require greater than 2 midnights in hospital Diagnoses Small bowel obstruction K56.609 Type 2 diabetes mellitus with foot ulcer E11.621; L97.509 Morbid obesity with BMI of 40.0-44.9, adult E66.01; Z68.41 Cellulitis of foot, right L03.115 LISA (acute kidney injury) N17.9 Leukocytosis D72.829 Lactic acidosis E87.20
[2024-12-19] MEDS: sodium chlor 0.9% + KCl 20 mEq 20 MEQ/1,000 ML BAG 75 MEQ IV (11:07)
--- NOTE | 2024-12-19 12:51 | PM.CONSULT ---
Providers/Reason For Consult Consulting Physician/Specialty*: Dr Abdirahman Ronquillo, General surgery Reason for Consult*: questionable SBO Attending Physician: Claudette Narvaez MD Primary Care Provider: Bren Allen History of Present Illness History of Present Illness Blaze Abdul is a 69 year old male with cc of nausea with one episode of emesis yesterday and some abdominal discomfort. He states that he had an episode similar to this 3-4 months ago which went away on its own. Afebrile. He states that when he vomited it was just food that he threw up and denies any blood in his emesis. He has been having regular BM's but has not had a BM over the past 2 days which is abnormal for him. He has had flatus today and had an NG tube placed at bedside yesterday with about 2oo ml's of dark reddish output since it was placed yesterday. He had a CT scan which showed a distended stomach but no obvious bowel obstruction pattern. No other complaints at this time. Review of Systems Narrative: General Positive for weight gain 80 pounds from 300 to 380 pounds in the last year denies fevers or chills Cardiovascular positive for congestive heart failure exacerbation in the past she is also has a cardiac stent denies palpitations but does have chronic leg swelling for which she takes diuretics Respiratory positive for coughing GI positive for occasional diarrhea but no constipation nausea or vomiting positive for dribbling as well as nocturia 4 times a night Neuro no seizures or strokes Malignancy history negative except for prostate cancer treated with radiation due to being a poor surgical candidate Hematologic negative for blood clots in the legs or lungs Skin he has had recurring yeast infections. He also has discoloration in the lower abdomen with skin thickening states he does not know what this is GI: Reports: nausea, vomiting, heartburn and early satiety Medications/Allergies Home Medications ?Medication ?Instructions ?Recorded ?Confirmed ?Last Taken ?Type acetaminophen 500 mg capsule 500 mg PO Q4H PRN Pain 07/29/19 12/17/24 09/08/19 History albuterol sulfate 90 mcg/actuation 2 inh inhalation Q4H PRN COPD 07/29/19 12/17/24 12/16/24 History breath activated powder inhaler aspirin 81 mg tablet,delayed 81 mg PO DAILY 07/29/19 12/17/24 12/16/24 History release Held on 09/09/19. Instructions: Resume on 09/10/19. atorvastatin 40 mg tablet 40 mg PO QPM 07/29/19 12/17/24 12/15/24 History cetirizine 10 mg capsule 10 mg PO DAILY 07/29/19 12/17/24 12/16/24 History gemfibrozil 600 mg tablet 600 mg PO BID 07/29/19 12/17/24 12/16/24 History nitroglycerin 0.4 mg sublingual 0.4 mg sublingual Q5M PRN Chest 07/29/19 12/17/24 Unknown History tablet (Nitrostat) Pain potassium chloride 20 mEq 20 meq PO DAILY 07/29/19 12/17/24 12/16/24 History tablet,extended release spironolactone 25 mg tablet 25 mg PO DAILY 07/29/19 12/17/24 12/16/24 History tramadol 50 mg tablet 100 mg PO Q4H PRN Pain 07/29/19 12/17/24 09/08/19 History carvedilol 25 mg tablet 25 mg PO TID 07/30/19 12/17/24 12/16/24 History insulin U-500 syringe-needle 1/2 09/08/19 12/17/24 Unknown History mL 31 gauge x 15 aripiprazole 5 mg tablet 5 mg PO DAILY 12/17/24 12/17/24 12/16/24 History clotrimazole 10 mg deon 10 mg PO .5XDAILY 12/17/24 12/17/24 12/16/24 History dapagliflozin propanediol 10 mg 10 mg PO QAM 12/17/24 12/17/24 12/16/24 History tablet (Farxiga) famotidine 40 mg tablet 40 mg PO BID 12/17/24 12/17/24 12/16/24 History gabapentin 300 mg capsule 300 mg PO TID 12/17/24 12/17/24 12/16/24 History hydrocodone 7.5 mg-acetaminophen 1 tab PO .Q4-6H PRN Severe Pain 12/17/24 12/17/24 12/16/24 History 325 mg tablet (Scale Score 7-10) insulin regular hum U-500 conc 500 See Rx Instructions .Route .COMPLEX 12/17/24 12/17/24 12/16/24 History unit/mL(3 mL) subcut pen (Humulin R U-500 (Conc) Insulin Kwikpen) lisinopril 10 mg tablet 10 mg PO DAILY 12/17/24 12/17/24 12/16/24 History mometasone 100 mcg/actuation HFA 2 puff inhalation BID 12/17/24 12/17/24 12/16/24 History aerosol inhaler (Asmanex HFA) nystatin-triamcinolone 100,000 1 applic topical BID 12/17/24 12/17/24 12/16/24 History unit/gram-0.1 % topical ointment sertraline 100 mg tablet 100 mg PO DAILY 12/17/24 12/17/24 12/16/24 History sildenafil 50 mg tablet 50 mg PO DAILY PRN Erectile 12/17/24 12/17/24 Unknown History Dysfunction solifenacin 10 mg tablet 10 mg PO DAILY 12/17/24 12/17/24 12/16/24 History tirzepatide 10 mg/0.5 mL 10 mg SUBCUT Q7D 12/17/24 12/17/24 12/12/24 History subcutaneous pen injector (Mounjaro) torsemide 100 mg tablet 100 mg PO DAILY 12/17/24 12/17/24 Unknown History Allergies Allergy/AdvReac Type Severity Reaction Status Date / Time penicillin G Allergy Severe anaphylactic Verified 02/03/22 14:27 shock iodine Allergy Mild itching Verified 02/03/22 14:27 Sulfa (Sulfonamide Allergy ALGY-Rash Verified 12/17/24 02:31 Antibiotics) Current Medications Generic Name Dose Route Start Last Admin Trade Name Freq PRN Reason Stop Dose Admin Hydrocodone Bitart/Acetaminophen 1 tab 12/17/24 08:18 12/18/24 15:39 Hydrocodone-Acetaminophen 5-325 Mg Tablet PO 1 tab On Hold: 12/18/24 20:46 TID PRN Administration Comment: pt is NPO ng tube in PAIN place, hold PO meds per Dr. Rodriguez Albuterol Sulfate 2.5 mg 12/19/24 12:00 12/19/24 11:22 Albuterol 2.5 Mg/3 Ml Neb INHALATION 2.5 mg QID.RESPIRATORY KARYNA Administration Aspirin 81 mg 12/17/24 09:00 12/18/24 08:16 Aspirin 81 Mg Ec Tablet PO 81 mg On Hold: 12/18/24 20:46 DAILY KARYNA Administration Comment: pt is NPO ng tube in place, hold PO meds per Dr. Rodriguez Atorvastatin Calcium 40 mg 12/17/24 09:00 12/18/24 08:16 Atorvastatin 40 Mg Tablet PO 40 mg On Hold: 12/18/24 20:46 DAILY KARYNA Administration Comment: pt is NPO ng tube in place, hold PO meds per Dr. Rodriguez Budesonide 0.5 mg 12/17/24 08:12 12/19/24 07:40 Budesonide 0.5 Mg/2 Ml Neb INHALATION 0.5 mg BID.RESPIRATORY KARYNA Administration Carvedilol 25 mg 12/17/24 09:00 12/18/24 15:35 Carvedilol 25 Mg Tablet PO 25 mg On Hold: 12/18/24 20:46 TID KARYNA Administration Comment: pt is NPO ng tube in place, hold PO meds per Dr. Rodriguez Cetirizine HCl 10 mg 12/17/24 09:00 12/18/24 08:16 Cetirizine 10 Mg Tablet PO 10 mg On Hold: 12/18/24 20:46 DAILY KARYNA Administration Comment: pt is NPO ng tube in place, hold PO meds per Dr. Rodriguez Enoxaparin Sodium 40 mg 12/18/24 21:00 12/18/24 20:30 Enoxaparin 40 Mg/0.4 Ml Syringe SUBCUT 40 mg Q24H KARYNA Administration Gemfibrozil 600 mg 12/17/24 17:00 12/18/24 15:35 Gemfibrozil 600 Mg Tablet PO 600 mg On Hold: 12/18/24 20:46 BID@0500,1700 KARYNA Administration Comment: pt is NPO ng tube in place, hold PO meds per Dr. Rodriguez Linezolid 600 mg in 300 mls @ 300 mls/hr 12/17/24 17:00 12/19/24 05:41 Zyvox Premix IV Infused Q12H KARYNA Infusion Protocol Meropenem 2,000 mg/ Sodium 50 mls @ 100 mls/hr 12/17/24 13:00 12/19/24 05:39 Chloride IV Infused Q8H KARYNA Infusion Protocol Potassium Chloride/Sodium Chloride 20 meq in 1,000 mls @ 75 mls/hr 12/18/24 19:45 12/19/24 11:07 Sodium Chlor 0.9% + Kcl 20 Meq IV 75 mls/hr .[id number] KARYNA Administration Fluconazole 100 mg/ N/A 50 mls @ 50 mls/hr 12/19/24 09:30 12/19/24 10:07 IV 50 mls/hr Q24H KARYNA Administration Insulin Glargine 30 unit 12/19/24 09:00 12/19/24 08:28 Insulin Glargine 100 Units/1 Ml SUBCUT 30 unit DAILY KARYNA Administration Insulin Human Lispro 0 unit 12/17/24 08:00 12/19/24 08:27 Insulin Lispro 100 Unit/1 Ml SUBCUT 10 unit WM&BEDTIME KARYNA Administration Protocol Metoprolol Tartrate 5 mg 12/18/24 22:15 12/19/24 12:44 Metoprolol Tartrate 1 Mg/1 Ml Sdv 5 Ml IVP 5 mg Q4H KARYNA Administration Morphine Sulfate 2 mg 12/18/24 22:01 12/19/24 05:06 Morphine 4 Mg/Ml Sdv 1 Ml IVP 2 mg Q4H PRN Administration SEVERE PAIN Ondansetron HCl 4 mg 12/18/24 03:28 12/18/24 08:11 Ondansetron 2 Mg/Ml Sdv 2 Ml IVP 4 mg Q4H PRN Administration NAUSEA AND VOMITING Oxybutynin Chloride 30 mg 12/17/24 09:00 12/18/24 08:16 Oxybutynin Chloride Xl 5 Mg Tablet PO 30 mg On Hold: 12/18/24 20:46 DAILY KARYNA Administration Comment: pt is NPO ng tube in place, hold PO meds per Dr. Rodriguez Pantoprazole Sodium 40 mg 12/19/24 04:05 12/19/24 04:35 Pantoprazole 40 Mg Sdv IVP 40 mg DAILY KARYNA Administration Spironolactone 25 mg 12/17/24 09:00 12/18/24 08:16 Spironolactone 25 Mg Tablet PO 25 mg On Hold: 12/18/24 20:46 DAILY KARYNA Administration Comment: pt is NPO ng tube in place, hold PO meds per Dr. Rodriguez Tamsulosin HCl 0.4 mg 12/17/24 09:00 12/18/24 08:16 Tamsulosin 0.4 Mg Capsule PO 0.4 mg On Hold: 12/18/24 20:46 DAILY KARYNA Administration Comment: pt is NPO ng tube in place, hold PO meds per Dr. Rodriguez Torsemide 20 mg 12/17/24 09:00 12/18/24 15:35 Torsemide 20 Mg Tablet PO 20 mg On Hold: 12/18/24 20:46 BID@0500,1700 KARYNA Administration Comment: pt is NPO ng tube in place, hold PO meds per Dr. Rodriguez Tramadol HCl 100 mg 12/17/24 08:18 12/17/24 16:01 Tramadol 50 Mg Tablet PO 100 mg On Hold: 12/18/24 20:46 Q4H PRN Administration Comment: pt is NPO ng tube in PAIN place, hold PO meds per Dr. Rodriguez PFSH Acute PFSH: Medical History (Updated 12/18/24 @ 20:10 by Nacho Rodriguez MD) Type 2 diabetes mellitus with foot ulcer Type 2 diabetes mellitus with other skin ulcer Post-operative state Cervical disc disorder with myelopathy of mid-cervical region Morbid obesity with BMI of 40.0-44.9, adult Polyneuropathy, peripheral sensorimotor axonal Spondylolisthesis, lumbar region Spinal stenosis of lumbar region with radiculopathy Surgical History History of cervical spinal surgery 09/08/2019 Dr. Billie Jensen C5-C6 ACDFF History of tonsillectomy and adenoidectomy History of vasectomy History of cornea transplant History of coronary artery stent placement History of amputation of toe Family History Father Cancer Mother Heart disease Social History (Updated 12/17/24 @ 07:56 by Nacho Rodriguez MD) Smoking and tobacco/nicotine status: never used tobacco/nicotine Alcohol intake: current Substance/Drug Use: never Additional social history: Patient wants full CODE STATUS if there is a chance of survival but not CPR if it is futile as discussed on 12/17/2024 with Nacho Rodriguez MD. He is retired lives in 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 He states he is twice and both ex-wives are . He is estranged from his sons but his next of kin is one of his daughters Daiana Abdul in [place] Household members: none Marital status: Single Current occupational status: disabled Vitals/I&O/Wt Last Vital Signs Temp 98.1 F 12/19/24 12:08 Pulse 64 12/19/24 12:08 Resp 19 H 12/19/24 12:08 BP 160/80 12/19/24 12:08 Pulse Ox 91 12/19/24 12:08 O2 Del Method Nasal Cannula 12/19/24 12:08 O2 Flow Rate 4 12/19/24 11:27 12/18/24 12/19/24 12/19/24 22:59 06:59 14:59 Intake Total 350 / 1710 350 / 2060 1000 / 1000 Output Total 900 / 900 900 / 1800 Balance -550 / 810 -550 / 260 1000 / 1000 Weight last 48 hrs Weight 349 lb 8 oz Weight 371 lb Physical Exam Const: COMMON NORMALS: no acute distress and patient oriented x3 Resp: COMMON NORMALS: normal respiratory effort and No retractions Cardio: COMMON NORMALS: regular rate and regular rhythm RATE: regular rate RHYTHM: regular rhythm GI: INSPECTION: Yes normal to inspection OTHER: Soft, Obese, non tender to palpation, no rebound/rigidity or guarding Neuro: COMMON NORMALS: patient oriented x3 Data 12/19/24 04:15 12/19/24 04:15 Micro: Microbiology 12/17/24 05:00 Urine Culture - Preliminary Urine,Clean Catch Yeast species A&P Assessment and plan 1. Small bowel obstruction: No acute surgical intervention. I suspect patient has component of severe gastroparesis given elevated blood surgas versus peptic ulcer disease. We will check an Upper GI x ray with small bowel follow thru for completeness. Continue care per hospitalist and consultatnts . Continue IV PPI and continue NG to LIS for now until SB follow thru completed. Serial abdominal exams. WIll develp definitive plan once additional testing completed. 2. Leukocytosis: PDMP PDMP Reviewed: Not Reviewed Coding Level of Care Code Acute Code for Chg Fwd Diagnoses Small bowel obstruction K56.609 Leukocytosis D72.829
--- NOTE | 2024-12-19 14:42 | XRR_ITS ---
PROCEDURE INFORMATION: Exam: XR Abdomen Exam date and time: 12/19/2024 3:07 PM Age: 69 years old Clinical indication: Constipation; Additional info: Pre barium kub TECHNIQUE: Imaging protocol: Radiologic exam of the abdomen. Views: Frontal supine view of the abdomen. 1 View. COMPARISON: CT abdomen con [id number] 12/18/2024 6:12 PM FINDINGS: Gastrointestinal tract: The stomach is markedly distended with air. Visualized bowel loops appear nondilated. Bones/joints: Unremarkable. XR/XR KUB [id number] IMPRESSION: Marked gaseous distension of the stomach.
--- NOTE | 2024-12-19 14:43 | XRR_ITS ---
PROCEDURE INFORMATION: Exam: XR Abdomen Exam date and time: 12/19/2024 3:15 PM Age: 69 years old Clinical indication: Constipation; Additional info: Immediate post barium kub TECHNIQUE: Imaging protocol: Radiologic exam of the abdomen. Views: Frontal supine view of the abdomen. 1 View. COMPARISON: CR XR KUB [id number] 12/19/2024 3:07 PM FINDINGS: Tubes, catheters and devices: Possible NG tube with the tip near the gastroesophageal junction. Gastrointestinal tract: The stomach remains markedly distended with air. Enteric contrast is seen within the proximal stomach. Bones/joints: Unremarkable. XR/XR KUB [id number] IMPRESSION: 1. There appears to be an NG tube with the tip near the gastroesophageal junction. However, this could be external to the patient as well. Correlate with clinical findings. 2. Enteric contrast within the proximal stomach. The stomach remains markedly distended with gas.
--- NOTE | 2024-12-19 14:53 | PC.OT ---
Pt is unavailable for OT evaluation; will attempt again at later time.
--- NOTE | 2024-12-19 16:30 | XRR_ITS ---
PROCEDURE INFORMATION: Exam: XR Abdomen Exam date and time: 12/19/2024 4:49 PM Age: 69 years old Clinical indication: Constipation; Additional info: Suspected sbo, 1 hour post barium followup images TECHNIQUE: Imaging protocol: Radiologic exam of the abdomen. Views: Frontal supine view of the abdomen. 1 View. COMPARISON: CR XR KUB [id number] 12/19/2024 3:15 PM FINDINGS: Tubes, catheters and devices: No NG tube is in place. Gastrointestinal tract: Residual enteric contrast in the distal esophagus. No significant change in enteric contrast in the proximal stomach. The stomach remains moderately to markedly distended with gas. Bones/joints: Unremarkable. XR/XR KUB [id number] IMPRESSION: Little interval change.
--- NOTE | 2024-12-19 17:30 | XRR_ITS ---
PROCEDURE INFORMATION: Exam: XR Abdomen Exam date and time: 12/19/2024 5:44 PM Age: 69 years old Clinical indication: Screening exam; Other: Small bowel follow through; Additional info: Small bowel follow up images, 2hrs post barium, ng tube in place but off suction TECHNIQUE: Imaging protocol: Radiologic exam of the abdomen. Views: Frontal supine view of the abdomen. 1 View. COMPARISON: CR XR KUB [id number] 12/19/2024 4:49 PM FINDINGS: Tubes, catheters and devices: NG tube tip obscured. Gastrointestinal tract: Enteric contrast has progressed in the interval, now reaching proximal small bowel loops within the left hemiabdomen. A small amount of contrast remains in the distal esophagus. The contrast opacified small bowel loops appear mildly dilated. Bones/joints: Unremarkable. XR/XR KUB [id number] IMPRESSION: Enteric contrast now within dilated proximal small bowel loops.
--- NOTE | 2024-12-19 18:30 | XRR_ITS ---
PROCEDURE INFORMATION: Exam: XR Abdomen Exam date and time: 12/19/2024 6:44 PM Age: 69 years old Clinical indication: Screening exam; Other: Poss small bowel obstruction; Additional info: Small bowel follow up images, 3 hrs post barium TECHNIQUE: Imaging protocol: Radiologic exam of the abdomen. Views: Frontal supine view of the abdomen. 1 View. COMPARISON: CR XR KUB [id number] 12/19/2024 5:44 PM FINDINGS: Tubes, catheters and devices: NG tube tip near the gastroesophageal junction. Gastrointestinal tract: Persistent moderate to marked gaseous distension of the stomach. Some enteric contrast remains in the stomach. Several proximal small bowel loops are opacified as before. Contrast has not reached the colon. Bones/joints: Unremarkable. XR/XR KUB [id number] IMPRESSION: Little interval change. Contrast has not reached the colon.
--- NOTE | 2024-12-19 19:30 | XRR_ITS ---
PROCEDURE INFORMATION: Exam: XR Abdomen Exam date and time: 12/19/2024 7:34 PM Age: 69 years old Clinical indication: Screening exam; Other: Small bowel follow through; Additional info: Small bowel follow up images, 4 hrs post barium(send to vrad) TECHNIQUE: Imaging protocol: Radiologic exam of the abdomen. Views: Frontal supine view of the abdomen. 1 View. COMPARISON: CR (ABDOMEN, ) 12/19/2024 6:44 PM FINDINGS: Tubes, catheters and devices: Nasogastric tube tip remains near the gastroesophageal junction. Gastrointestinal tract: Persistent moderate to marked gaseous distension of the stomach. A small amount of enteric contrast remains in the stomach. There has been some progression of enteric contrast within more distal small bowel loops. However, the contrast is not appear to have reached the colon. Bones/joints: Unremarkable. XR/XR KUB [id number] IMPRESSION: 1. No definite enteric contrast within the colon. There has been interval progression into more distal small bowel loops. 2. Remainder stable.
[2024-12-20] VITALS (12 sets, daily range): BP systolic 150–182; BP diastolic 61–93; PULSE 49–90; RESP 14–20; TEMP 36.6–37; O2SAT 90–93
[2024-12-20] MEDS: metoprolol tartrate 1 mg/1 mL SDV 5 mL 5 MG IVP ×5 (01:22→21:24)
[2024-12-20] MEDS: sodium chlor 0.9% + KCl 20 mEq 20 MEQ/1,000 ML BAG 75 MEQ IV ×2 (01:22→17:26)
[2024-12-20] MEDS: MEROPENEM 2,000 MG in sodium chloride 0.9% (plus) 50 ML 100 MG IV ×3 (04:34→21:25)
[2024-12-20] MEDS: morphine 4 mg/mL SDV 1 mL 2 MG IVP ×3 (04:41→22:07)
[2024-12-20 05:08] LABS: Hematocrit 39.5 % (37-53); Hemoglobin 11.70 g/dL (11.27-16.99); Mean Corpuscular HGB Conc 29.6 g/dL (30-55); Mean Corpuscular Hemoglobin 26.7 pg (27-33); Mean Corpuscular Volume 90.2 fl (82-101); Nucleated Red Blood Cells % 0 %; Platelet Count 262 10^3/cmm (157-399); Red Blood Count 4.38 10^6/uL (3.85-5.65); White Blood Count 8.18 10^3/uL (3.29-11.43)
[2024-12-20 05:28] LABS: Anion Gap 14.3 (5-19); Blood Urea Nitrogen 29 mg/dL (8-23); Calcium 8.9 mg/dL (8.5-10.5); Carbon Dioxide 31 mmol/L (22-29); Chloride 103 mmol/L (98-107); Creatinine Clr Calc Pharmacy 114.6204; Glucose 234 mg/dL (65-115); Osmolality Calculated 311 mOsm/kg (285-295); Potassium 4.3 mmol/L (3.5-5.1); Sodium 144 mmol/L (136-145)
[2024-12-20] MEDS: linezolid premix 600 MG/300 ML PREMIX 300 MG IV ×2 (06:12→17:19)
[2024-12-20] MEDS: insulin glargine 100 units/1 mL 30 UNIT SUBCUT (08:33)
[2024-12-20] MEDS: pantoprazole 40 mg SDV IVP (08:34)
[2024-12-20] MEDS: fluconazole premix 100 MG in empty flexible container 1 EACH 50 MG IV (10:13)
--- NOTE | 2024-12-20 10:24 | XRR_ITS ---
PROCEDURE INFORMATION: Exam: XR Abdomen Exam date and time: 12/20/2024 1:32 PM Age: 69 years old Clinical indication: Constipation; Additional info: No bm TECHNIQUE: Imaging protocol: Radiologic exam of the abdomen. Views: Frontal supine view of the abdomen. 1 View. COMPARISON: CR (ABDOMEN, ) 12/19/2024 7:34 PM FINDINGS: Gastrointestinal tract: Markedly air distended stomach with a small amount of contrast in the fundus. Remaining gas pattern is unremarkable. Prominently air distended stomach. Impression Bones/joints: Unremarkable. XR/XR KUB portable [id number] IMPRESSION: No acute findings.
--- NOTE | 2024-12-20 10:30 | PC.NURSE ---
Pt NG tube came out during coughing episode. notified and verbal orders given.
[2024-12-20] MEDS: methylPREDNISolone sod succ 40 mg/mL INJ IVP ×2 (11:54→22:08)
--- NOTE | 2024-12-20 15:19 | P.PN_ITS ---
Subjective 2 Subjective: seen today passing gas coughing since last night afebrile, wbc normal Vitals/I&O/Wt Last Vital Signs Temp 97.9 F 12/20/24 11:56 Pulse 49 L 12/20/24 14:00 Resp 16 12/20/24 13:18 BP 182/79 12/20/24 11:56 Pulse Ox 90 12/20/24 13:18 O2 Del Method Nasal Cannula 12/20/24 13:18 O2 Flow Rate 5 12/20/24 13:18 12/20/24 12/20/24 12/20/24 06:59 14:59 22:59 Intake Total 1050 / 2500 1301.25 / 1301.25 Balance 1050 / 2470 1301.25 / 1301.25 Weight last 48 hrs Weight 159.801 kg Weight 158.531 kg Physical Exam 2 Narrative: General well-developed well-nourished male in no acute cardiopulmonary stress he is morbidly obese CV regular rate and rhythm Lungs clear to auscultation bilaterally Abdomen diminished bowel tones distended but improved than yesterday, not tender or with rebound, soft right foot wrapped with bandage Data 12/20/24 04:28 12/20/24 04:28 Micro: Microbiology 12/19/24 11:20 Gram Stain - Final Sputum - Expectorated Sputum A&P Assessment and plan 1. Small bowel obstruction: 2. Type 2 diabetes mellitus with foot ulcer: Patient is admitted to hospital with elevated white count attributable to chronic right foot infection there are not obvious open wounds but this is under a wound care administered adherent dressing. Dr. Crenshaw has seen the patient and plans to debride this at bedside. I have also ordered an MRI to evaluate for possible osteomyelitis. Patient will have C-reactive protein and sed rate done as well. Have counseled patient regarding progression to limb loss with his poor hygiene and continued weight gain. He states he cannot reach his feet. Patient is not on insulin but his blood sugar at time of exam was 399 based on his Dexcom and he states his blood sugars run about 400 high all the time. He states he does not eat a healthy diet but eats what he can afford. Will start Lantus 20 units a.m. first dose now and a sliding scale insulin low scale. 3. Morbid obesity with BMI of 40.0-44.9, adult: Will start 2000-calorie ADA weight loss diet as discussed with the patient. 4. Cellulitis of foot, right: 5. LISA (acute kidney injury): 6. Leukocytosis: 7. Lactic acidosis: Plan: #Nausea?improving #Type 2 diabetes mellitus, insulin-dependent # Right decubitus ulcer, right foot wounds, cellulitis #Lower extremity edema?right #LISA #Small bowel obstruction ? MRI right foot to assess for underlying osteomyelitis. Patient is status post debridement. ? Right foot wounds dressed with Hydrofera Blue. Osbaldo compression dressing applied to right lower extremity. ? Have antibiotics for cellulitis ? Continue aspirin carvedilol, heparin SQ twice daily, glargine 20 units daily ? Continue linezolid, meropenem ? Continue home medications. ? C. difficile diarrhea uncollected. Patient is not having diarrhea at this time. ? Continue spironolactone - Will discuss with podiatry ? Will discuss with ID as well. ? Cultures pending ? Leukocytosis WBC 18,000. ? LISA?creatinine trending down Full code DVT prophylaxis: Heparin SQ twice daily 12/19/2024 SBO: consult general surgery continue NG tube continue IV fluids lantus dosing increased by night hospitalist, continue continue sliding scale q6h as pt NPO status clinically feeling better, not passing gas yet, no BM yet Leukocytosis trending down continue IV Abx cultures pending Dr. Crenshaw consulted 12/20/2024 Patient's NG tube came out as patient was coughing Continue to hold it at this time. Keep n.p.o. status Check CT abdomen with oral contrast Continue blood sugar monitoring I suspect patient may be having a COPD exacerbation. DuoNeb every 6 hours Solu-Medrol 40 IV twice daily. White count has normalized Continue linezolid, meropenem Further management plan after reviewing CT abdomen. Patient is passing gas however KUB from today shows distended stomach. General surgery consulted. Appreciate recommendations Continue Protonix 40 IV daily Ordered Reglan 5 IV every 8 hours. Add MiraLAX twice daily PDMP PDMP Reviewed: Not Reviewed Attestations 2 Medical Necessity Statement*: Possible small bowel obstruction, [employer] exacerbation. Requires continued hospitalization Diagnoses Small bowel obstruction K56.609 Type 2 diabetes mellitus with foot ulcer E11.621; L97.509 Morbid obesity with BMI of 40.0-44.9, adult E66.01; Z68.41 Cellulitis of foot, right L03.115 LISA (acute kidney injury) N17.9 Leukocytosis D72.829 Lactic acidosis E87.20
--- NOTE | 2024-12-20 15:23 | CTR_ITS ---
PROCEDURE INFORMATION: Exam: CT Abdomen And Pelvis With Contrast Exam date and time: 12/20/2024 5:07 PM Age: 69 years old Clinical indication: Abdominal pain; Additional info: Bowel obstruction; Abdomen pain TECHNIQUE: Imaging protocol: Computed tomography of the abdomen and pelvis with contrast. Radiation optimization: All CT scans at this facility use at least one of these dose optimization techniques: automated exposure control; mA and/or kV adjustment per patient size (includes targeted exams where dose is matched to clinical indication); or iterative reconstruction. Contrast material: [id number]; Contrast volume: 100 ml; Contrast route: INTRAVENOUS (IV); Other contrast: Oral, WATER SOLUABLE, 32ML; COMPARISON: CT abdomen wo con [id number] 12/18/2024 6:12 PM RADIATION DOSE METRICS: Total DLP (mGy-cm): 1574.24 FINDINGS: Liver: Normal. No mass. Gallbladder and biliary ducts: Normal. No calcified stones. No ductal dilation. Pancreas: Normal. No ductal dilation. Spleen: Normal. No splenomegaly. Adrenal glands: Normal. No mass. Kidneys and ureters: Multiple small nonobstructing renal calculi noted again. There are multiple simple renal cysts bilaterally of varying size. Stomach and bowel: The stomach still prominently distended though now contains contrast. Poorly administered contrast can be seen as far as the sigmoid colon. Previously noted fluid distended loops of proximal small bowel are decompressed and opacified with contrast. Morphology of these loops is normal. Appendix: No evidence of appendicitis. Intraperitoneal space: Unremarkable. No free air. No significant fluid collection. Vasculature: Unremarkable. No abdominal aortic aneurysm. Lymph nodes: Unremarkable. No enlarged lymph nodes. Urinary bladder: Unremarkable as visualized. Reproductive: Unremarkable as visualized. Bones/joints: Unremarkable. No acute fracture. Soft tissues: Redemonstration of bilateral lower abdominal wall skin thickening, right slightly greater than left, unchanged. CT/CT abdomen pelvis w con* [id number] IMPRESSION: 1. Distended stomach but no evidence of small bowel obstruction at this time. 2. Nonspecific skin thickening in the anterior pelvic abdominal wall. Please correlate clinically. COMMENTS: Consistent with the [employer]'s Incidental Findings Committee white paper (J Am Sunny Radiol 2018): Any incidental renal lesion less than 1 cm or classified as too small to characterize, or any incidental cystic renal lesion characterized as simple-appearing, is likely benign. No follow-up imaging is recommended for these lesions per consensus recommendations based on imaging criteria.
[2024-12-20] MEDS: diphenhydrAMINE 50 mg/mL SDV 1mL 25 MG IVP (15:57)
--- NOTE | 2024-12-20 16:02 | P.PN_ITS ---
Subjective 2 Subjective: Patient seen and examined. NG tube came out overnight with no issues. Small bowel follow-through shows delayed transit into the small bowel with no obvious signs of obstruction. N.p.o. but states he is currently hungry. Afebrile. No other complaints at this time. No acute events overnight. Vitals/I&O/Wt Last Vital Signs Temp 97.8 F 12/20/24 15:23 Pulse 58 L 12/20/24 15:23 Resp 17 12/20/24 15:23 BP 165/83 12/20/24 15:23 Pulse Ox 91 12/20/24 15:23 O2 Del Method Nasal Cannula 12/20/24 15:23 O2 Flow Rate 5 12/20/24 13:18 12/20/24 12/20/24 12/20/24 06:59 14:59 22:59 Intake Total 1050 / 2500 1301.25 / 1301.25 Balance 1050 / 2470 1301.25 / 1301.25 Weight last 48 hrs Weight 352 lb 4.8 oz Weight 349 lb 8 oz Physical Exam 2 Narrative: General well-developed well-nourished male in no acute cardiopulmonary stress he is morbidly obese CV regular rate and rhythm Lungs clear to auscultation bilaterally Abdomen diminished bowel tones distended but improved than yesterday, not tender or with rebound, soft right foot wrapped with bandage Data 12/20/24 04:28 12/20/24 04:28 Micro: Microbiology 12/19/24 11:20 Gram Stain - Final Sputum - Expectorated Sputum A&P Assessment and plan 1. Small bowel obstruction: No obstruction suspected. NG tube out. OK for diet from surgical standpoint. 2. Type 2 diabetes mellitus with foot ulcer: Patient is admitted to hospital with elevated white count attributable to chronic right foot infection there are not obvious open wounds but this is under a wound care administered adherent dressing. Dr. Crenshaw has seen the patient and plans to debride this at bedside. I have also ordered an MRI to evaluate for possible osteomyelitis. Patient will have C-reactive protein and sed rate done as well. Have counseled patient regarding progression to limb loss with his poor hygiene and continued weight gain. He states he cannot reach his feet. Patient is not on insulin but his blood sugar at time of exam was 399 based on his Dexcom and he states his blood sugars run about 400 high all the time. He states he does not eat a healthy diet but eats what he can afford. Will start Lantus 20 units a.m. first dose now and a sliding scale insulin low scale. 3. Morbid obesity with BMI of 40.0-44.9, adult: Will start 2000-calorie ADA weight loss diet as discussed with the patient. 4. Cellulitis of foot, right: 5. LISA (acute kidney injury): 6. Leukocytosis: 7. Lactic acidosis: Plan: #Nausea?improving #Type 2 diabetes mellitus, insulin-dependent # Right decubitus ulcer, right foot wounds, cellulitis #Lower extremity edema?right #LISA #Small bowel obstruction ? MRI right foot to assess for underlying osteomyelitis. Patient is status post debridement. ? Right foot wounds dressed with Hydrofera Blue. Osbaldo compression dressing applied to right lower extremity. ? Have antibiotics for cellulitis ? Continue aspirin carvedilol, heparin SQ twice daily, glargine 20 units daily ? Continue linezolid, meropenem ? Continue home medications. ? C. difficile diarrhea uncollected. Patient is not having diarrhea at this time. ? Continue spironolactone - Will discuss with podiatry ? Will discuss with ID as well. ? Cultures pending ? Leukocytosis WBC 18,000. ? LISA?creatinine trending down Full code DVT prophylaxis: Heparin SQ twice daily 12/19/2024 SBO: consult general surgery continue NG tube continue IV fluids lantus dosing increased by night hospitalist, continue continue sliding scale q6h as pt NPO status clinically feeling better, not passing gas yet, no BM yet Leukocytosis trending down continue IV Abx cultures pending Dr. Crenshaw consulted 12/20/2024 Patient's NG tube came out as patient was coughing Continue to hold it at this time. Keep n.p.o. status Check CT abdomen with oral contrast Continue blood sugar monitoring I suspect patient may be having a COPD exacerbation. DuoNeb every 6 hours Solu-Medrol 40 IV twice daily. White count has normalized Continue linezolid, meropenem Further management plan after reviewing CT abdomen. Patient is passing gas however KUB from today shows distended stomach. General surgery consulted. Appreciate recommendations Continue Protonix 40 IV daily Ordered Reglan 5 IV every 8 hours. Add MiraLAX twice daily PDMP PDMP Reviewed: Not Reviewed Attestations 2 Medical Necessity Statement*: Admission per hospitalist team Coding Level of Care Code Acute Code for Chg Fwd Diagnoses Small bowel obstruction K56.609 Type 2 diabetes mellitus with foot ulcer E11.621; L97.509 Morbid obesity with BMI of 40.0-44.9, adult E66.01; Z68.41 Cellulitis of foot, right L03.115 LISA (acute kidney injury) N17.9 Leukocytosis D72.829 Lactic acidosis E87.20
[2024-12-20] MEDS: polyethylene glycol 3350 Pkt 17 gm PO (17:19)
[2024-12-20] MEDS: iohexol 350 mg/mL 500 mL Btl (per mL) IV (17:24)
[2024-12-20] MEDS: iohexol 350 mg/mL 500 mL Btl (per mL) PO (17:25)
[2024-12-20 19:19] LABS: C.Diff PCR (Lab) NEGATIVE (Negative)
[2024-12-20 20:12] LABS: Coronavirus 229E,HKU1,NL63,OC4 Not Detected (NOT DETECT); Parainfluenza Virus Type 1 Not Detected (NOT DETECT); Parainfluenza Virus Type 2 Not Detected (NOT DETECT); Parainfluenza Virus Type 3 Not Detected (NOT DETECT); Parainfluenza Virus Type 4 Not Detected (NOT DETECT); SARS-COV-2 Not Detected (NOT DETECT)
[2024-12-21] VITALS (15 sets, daily range): BP systolic 146–164; BP diastolic 72–79; PULSE 49–64; RESP 13–19; TEMP 36.4–37.3; O2SAT 90–96
[2024-12-21] MEDS: metoprolol tartrate 1 mg/1 mL SDV 5 mL 5 MG IVP ×2 (01:34→05:22)
[2024-12-21] MEDS: morphine 4 mg/mL SDV 1 mL 2 MG IVP (01:54)
[2024-12-21] MEDS: MEROPENEM 2,000 MG in sodium chloride 0.9% (plus) 50 ML 100 MG IV (05:21)
[2024-12-21] MEDS: linezolid premix 600 MG/300 ML PREMIX 300 MG IV (05:54)
[2024-12-21 06:05] LABS: Hematocrit 39.9 % (37-53); Hemoglobin 12.10 g/dL (11.27-16.99); Mean Corpuscular HGB Conc 30.3 g/dL (30-55); Mean Corpuscular Hemoglobin 27.3 pg (27-33); Mean Corpuscular Volume 90.1 fl (82-101); Nucleated Red Blood Cells % 0 %; Platelet Count 265 10^3/cmm (157-399); Red Blood Count 4.43 10^6/uL (3.85-5.65); White Blood Count 7.58 10^3/uL (3.29-11.43)
[2024-12-21 06:29] LABS: Alanine Aminotransferase 15 U/L (0-41); Albumin Level 3.0 g/dL (3.5-5.2); Alkaline Phosphatase 74 U/L (40-130); Anion Gap 14.2 (5-19); Aspartate Amino Transferase 20 U/L (0-40); Blood Urea Nitrogen 26 mg/dL (8-23); Calcium 8.9 mg/dL (8.5-10.5); Carbon Dioxide 28 mmol/L (22-29); Chloride 103 mmol/L (98-107); Creatinine Clr Calc Pharmacy 144.0690; Globulin 3.4 g/dL (1.3-4.6); Glucose 223 mg/dL (65-115); Magnesium 2.0 mg/dL (1.7-2.3); Osmolality Calculated 304 mOsm/kg (285-295); Potassium 4.2 mmol/L (3.5-5.1); Sodium 141 mmol/L (136-145); Total Protein 6.4 g/dL (6.6-8.7)
[2024-12-21] MEDS: sodium chlor 0.9% + KCl 20 mEq 20 MEQ/1,000 ML BAG 75 MEQ IV (09:10)
[2024-12-21] MEDS: insulin glargine 100 units/1 mL 30 UNIT SUBCUT (09:11)
[2024-12-21] MEDS: pantoprazole 40 mg SDV IVP (09:14)
[2024-12-21] MEDS: polyethylene glycol 3350 Pkt 17 gm PO ×2 (09:15→17:35)
[2024-12-21] MEDS: fluconazole premix 100 MG in empty flexible container 1 EACH 50 MG IV (09:16)
[2024-12-21] MEDS: levofloxacin-dextrose 5 % 750 MG/150 ML PREMIX 100 MG IV (10:53)
[2024-12-21] MEDS: methylPREDNISolone sod succ 40 mg/mL INJ IVP (10:54)
--- NOTE | 2024-12-21 11:35 | P.PN_ITS ---
Subjective 2 Subjective: Seen this morning. No acute events overnight. Patient able to have 3 bowel movements. Subjectively feels better. Vitals/I&O/Wt Last Vital Signs Temp 97.6 F 12/21/24 07:05 Pulse 49 L 12/21/24 07:18 Resp 18 12/21/24 07:18 BP 164/78 12/21/24 07:05 Pulse Ox 92 12/21/24 07:18 O2 Del Method Nasal Cannula 12/21/24 07:18 O2 Flow Rate 5 12/21/24 07:18 12/20/24 12/21/24 12/21/24 22:59 06:59 14:59 Intake Total 352.5 / 1653.75 901.25 / 2555.00 0 / 0 Output Total 600 / 600 Balance -247.5 / 1053.75 901.25 / 1955.00 0 / 0 Weight last 48 hrs Weight 161.388 kg Weight 159.801 kg Physical Exam 2 Narrative: General well-developed well-nourished male in no acute cardiopulmonary stress he is morbidly obese CV regular rate and rhythm Lungs clear to auscultation bilaterally Abdomen normal bowel sounds, abdomen less distended right foot wrapped with bandage Data 12/21/24 05:30 12/21/24 05:30 Micro: Microbiology 12/19/24 11:20 Gram Stain - Final Sputum - Expectorated Sputum Sputum Culture - Preliminary Yeast species A&P Assessment and plan 1. Small bowel obstruction: No obstruction suspected. NG tube out. OK for diet from surgical standpoint. 2. Type 2 diabetes mellitus with foot ulcer: Patient is admitted to hospital with elevated white count attributable to chronic right foot infection there are not obvious open wounds but this is under a wound care administered adherent dressing. Dr. Crenshaw has seen the patient and plans to debride this at bedside. I have also ordered an MRI to evaluate for possible osteomyelitis. Patient will have C-reactive protein and sed rate done as well. Have counseled patient regarding progression to limb loss with his poor hygiene and continued weight gain. He states he cannot reach his feet. Patient is not on insulin but his blood sugar at time of exam was 399 based on his Dexcom and he states his blood sugars run about 400 high all the time. He states he does not eat a healthy diet but eats what he can afford. Will start Lantus 20 units a.m. first dose now and a sliding scale insulin low scale. 3. Morbid obesity with BMI of 40.0-44.9, adult: Will start 2000-calorie ADA weight loss diet as discussed with the patient. 4. Cellulitis of foot, right: 5. LISA (acute kidney injury): 6. Leukocytosis: 7. Lactic acidosis: Plan: #Nausea?improving #Type 2 diabetes mellitus, insulin-dependent # Right decubitus ulcer, right foot wounds, cellulitis #Lower extremity edema?right #LISA #Small bowel obstruction ? MRI right foot to assess for underlying osteomyelitis. Patient is status post debridement. ? Right foot wounds dressed with Hydrofera Blue. Osbaldo compression dressing applied to right lower extremity. ? Have antibiotics for cellulitis ? Continue aspirin carvedilol, heparin SQ twice daily, glargine 20 units daily ? Continue linezolid, meropenem ? Continue home medications. ? C. difficile diarrhea uncollected. Patient is not having diarrhea at this time. ? Continue spironolactone - Will discuss with podiatry ? Will discuss with ID as well. ? Cultures pending ? Leukocytosis WBC 18,000. ? LISA?creatinine trending down Full code DVT prophylaxis: Heparin SQ twice daily 12/19/2024 SBO: consult general surgery continue NG tube continue IV fluids lantus dosing increased by night hospitalist, continue continue sliding scale q6h as pt NPO status clinically feeling better, not passing gas yet, no BM yet Leukocytosis trending down continue IV Abx cultures pending Dr. Crenshaw consulted 12/20/2024 Patient's NG tube came out as patient was coughing Continue to hold it at this time. Keep n.p.o. status Check CT abdomen with oral contrast Continue blood sugar monitoring I suspect patient may be having a COPD exacerbation. DuoNeb every 6 hours Solu-Medrol 40 IV twice daily. White count has normalized Continue linezolid, meropenem Further management plan after reviewing CT abdomen. Patient is passing gas however KUB from today shows distended stomach. General surgery consulted. Appreciate recommendations Continue Protonix 40 IV daily Ordered Reglan 5 IV every 8 hours. Add MiraLAX twice daily 12/21/2024 Continue MiraLAX Continue Solu-Medrol 40 IV daily Monitor anxiety sliding scale insulin Leukocytosis normalized Bowel obstruction/constipation/ileus resolved. Suspect gastroparesis Linezolid stop meropenem. Will switch to IV Levaquin. At discharge switch to oral doxycycline and oral doxycycline Follow-up with podiatry clinic Wound care per podiatry Continue to monitor blood sugars. He will need close follow-up with PCP. Will refer to endocrinology at discharge. PDMP PDMP Reviewed: Not Reviewed Attestations 2 Medical Necessity Statement*: Patient is improving. Plan for discharge in a.m. Diagnoses Small bowel obstruction K56.609 Type 2 diabetes mellitus with foot ulcer E11.621; L97.509 Morbid obesity with BMI of 40.0-44.9, adult E66.01; Z68.41 Cellulitis of foot, right L03.115 LISA (acute kidney injury) N17.9 Leukocytosis D72.829 Lactic acidosis E87.20
--- NOTE | 2024-12-21 12:54 | PC.NURSE ---
Dr. Narvaez notified patients HR 49. Orders to hold Coreg and discontinue Metoprolol 5mg Q4 IVP.
--- NOTE | 2024-12-21 16:26 | PC.NURSE ---
Patient refuses telemetry. States he does not feel he needs it. Does not stay on.
[2024-12-22] VITALS (11 sets, daily range): BP systolic 142–162; BP diastolic 68–82; PULSE 56–68; RESP 16–20; TEMP 36.5–36.9; O2SAT 90–96
[2024-12-22 04:39] LABS: Hematocrit 41.2 % (37-53); Hemoglobin 12.80 g/dL (11.27-16.99); Mean Corpuscular HGB Conc 31.1 g/dL (30-55); Mean Corpuscular Hemoglobin 27.2 pg (27-33); Mean Corpuscular Volume 87.7 fl (82-101); Nucleated Red Blood Cells % 0 %; Platelet Count 301 10^3/cmm (157-399); Red Blood Count 4.70 10^6/uL (3.85-5.65); White Blood Count 11.47 10^3/uL (3.29-11.43)
[2024-12-22 04:51] LABS: Anion Gap 11.4 (5-19); Blood Urea Nitrogen 22 mg/dL (8-23); Calcium 8.9 mg/dL (8.5-10.5); Carbon Dioxide 30 mmol/L (22-29); Chloride 96 mmol/L (98-107); Creatinine Clr Calc Pharmacy 128.0613; Glucose 183 mg/dL (65-115); Magnesium 1.8 mg/dL (1.7-2.3); Osmolality Calculated 286 mOsm/kg (285-295); Potassium 3.4 mmol/L (3.5-5.1); Sodium 134 mmol/L (136-145)
[2024-12-22] MEDS: insulin glargine 100 units/1 mL 30 UNIT SUBCUT (08:40)
[2024-12-22] MEDS: polyethylene glycol 3350 Pkt 17 gm PO ×2 (08:44→17:41)
--- NOTE | 2024-12-22 09:23 | P.PN_ITS ---
Subjective 2 Subjective: Seen this morning. On 4 L of cannula. Has been coughing. Potassium 3.4. States his home insulin U?500 was causing him to have hypoglycemic events. However he stated that he has been taking sometimes 400 units because of the scale that has been given to him. He is open to switching to glargine or any other medication as per our recommendation. Vitals/I&O/Wt Last Vital Signs Temp 98.4 F 12/22/24 07:02 Pulse 61 12/22/24 08:43 Resp 18 12/22/24 08:00 BP 162/81 12/22/24 07:02 Pulse Ox 92 12/22/24 08:00 O2 Del Method Nasal Cannula 12/22/24 08:00 O2 Flow Rate 3 12/22/24 08:00 12/21/24 12/22/24 12/22/24 22:59 06:59 14:59 Intake Total 1575 / 1575 480 / 2055 360 / 360 Output Total 500 / 500 800 / 1300 350 / 350 Balance 1075 / 1075 -320 / 755 10 / 10 Weight last 48 hrs Weight 161.025 kg Weight 161.388 kg Physical Exam 2 Narrative: General well-developed well-nourished male in no acute cardiopulmonary stress he is morbidly obese CV regular rate and rhythm Lungs clear to auscultation bilaterally Abdomen normal bowel sounds, abdomen less distended right foot wrapped with bandage Data 12/22/24 03:37 12/22/24 03:37 Micro: Microbiology 12/17/24 02:53 Blood Culture - Final Blood NO GROWTH AFTER 5 DAYS 12/17/24 02:48 Blood Culture - Final Blood NO GROWTH AFTER 5 DAYS 12/17/24 05:00 Urine Culture - Final Urine,Clean Catch Nakaseomyces glabrata A&P Assessment and plan 1. Small bowel obstruction: No obstruction suspected. NG tube out. OK for diet from surgical standpoint. 2. Type 2 diabetes mellitus with foot ulcer: Patient is admitted to hospital with elevated white count attributable to chronic right foot infection there are not obvious open wounds but this is under a wound care administered adherent dressing. Dr. Crenshaw has seen the patient and plans to debride this at bedside. I have also ordered an MRI to evaluate for possible osteomyelitis. Patient will have C-reactive protein and sed rate done as well. Have counseled patient regarding progression to limb loss with his poor hygiene and continued weight gain. He states he cannot reach his feet. Patient is not on insulin but his blood sugar at time of exam was 399 based on his Dexcom and he states his blood sugars run about 400 high all the time. He states he does not eat a healthy diet but eats what he can afford. Will start Lantus 20 units a.m. first dose now and a sliding scale insulin low scale. 3. Morbid obesity with BMI of 40.0-44.9, adult: Will start 2000-calorie ADA weight loss diet as discussed with the patient. 4. Cellulitis of foot, right: 5. LISA (acute kidney injury): 6. Leukocytosis: 7. Lactic acidosis: Plan: #Nausea?improving #Type 2 diabetes mellitus, insulin-dependent # Right decubitus ulcer, right foot wounds, cellulitis #Lower extremity edema?right #LISA #Small bowel obstruction ? MRI right foot to assess for underlying osteomyelitis. Patient is status post debridement. ? Right foot wounds dressed with Hydrofera Blue. Osbaldo compression dressing applied to right lower extremity. ? Have antibiotics for cellulitis ? Continue aspirin carvedilol, heparin SQ twice daily, glargine 20 units daily ? Continue linezolid, meropenem ? Continue home medications. ? C. difficile diarrhea uncollected. Patient is not having diarrhea at this time. ? Continue spironolactone - Will discuss with podiatry ? Will discuss with ID as well. ? Cultures pending ? Leukocytosis WBC 18,000. ? LISA?creatinine trending down Full code DVT prophylaxis: Heparin SQ twice daily 12/19/2024 SBO: consult general surgery continue NG tube continue IV fluids lantus dosing increased by night hospitalist, continue continue sliding scale q6h as pt NPO status clinically feeling better, not passing gas yet, no BM yet Leukocytosis trending down continue IV Abx cultures pending Dr. Crenshaw consulted 12/20/2024 Patient's NG tube came out as patient was coughing Continue to hold it at this time. Keep n.p.o. status Check CT abdomen with oral contrast Continue blood sugar monitoring I suspect patient may be having a COPD exacerbation. DuoNeb every 6 hours Solu-Medrol 40 IV twice daily. White count has normalized Continue linezolid, meropenem Further management plan after reviewing CT abdomen. Patient is passing gas however KUB from today shows distended stomach. General surgery consulted. Appreciate recommendations Continue Protonix 40 IV daily Ordered Reglan 5 IV every 8 hours. Add MiraLAX twice daily 12/21/2024 Continue MiraLAX Continue Solu-Medrol 40 IV daily Monitor anxiety sliding scale insulin Leukocytosis normalized Bowel obstruction/constipation/ileus resolved. Suspect gastroparesis Linezolid stop meropenem. Will switch to IV Levaquin. At discharge switch to oral doxycycline and oral doxycycline Follow-up with podiatry clinic Wound care per podiatry Continue to monitor blood sugars. He will need close follow-up with PCP. Will refer to endocrinology at discharge. 12/22/2024 Continue MiraLAX, Solu-Medrol 40 IV daily. Plan to complete 5-day course of steroids. Placed on Lasix 40 IV twice daily today. Patient on 40 nasal cannula. Baseline is 3 L. Sounds slightly wet. Is on torsemide 100 daily at home. Respiratory viral panel negative. Continue Levaquin. At time of discharge placed on doxycycline and Levaquin to complete until 12/30. Continue spironolactone Continue on Coreg 12.5 3 times daily. Plan to diurese today. Once more euvolemic in a.m. we will plan to discharge to nursing facility Patient awaiting rehab placement PDMP PDMP Reviewed: Not Reviewed Attestations 2 Medical Necessity Statement*: Diuresis today and plan for rehab in AM. Diagnoses Small bowel obstruction K56.609 Type 2 diabetes mellitus with foot ulcer E11.621; L97.509 Morbid obesity with BMI of 40.0-44.9, adult E66.01; Z68.41 Cellulitis of foot, right L03.115 LISA (acute kidney injury) N17.9 Leukocytosis D72.829 Lactic acidosis E87.20
[2024-12-22] MEDS: FUROsemide 10 mg/mL SDV 4mL 40 MG IVP ×2 (09:38→21:07)
[2024-12-22] MEDS: methylPREDNISolone sod succ 40 mg/mL INJ IVP (13:22)
[2024-12-22 17:53] LABS: Anion Gap 17.9 (5-19); Blood Urea Nitrogen 22 mg/dL (8-23); Calcium 8.8 mg/dL (8.5-10.5); Carbon Dioxide 25 mmol/L (22-29); Chloride 91 mmol/L (98-107); Creatinine Clr Calc Pharmacy 127.9000; Glucose 258 mg/dL (65-115); Osmolality Calculated 282 mOsm/kg (285-295); Potassium 3.9 mmol/L (3.5-5.1); Sodium 130 mmol/L (136-145)
[2024-12-23] VITALS (11 sets, daily range): BP systolic 106–136; BP diastolic 64–79; PULSE 57–67; RESP 16–18; TEMP 36.4–37; O2SAT 90–94
[2024-12-23 05:08] LABS: Hematocrit 43.0 % (37-53); Hemoglobin 13.60 g/dL (11.27-16.99); Mean Corpuscular HGB Conc 31.6 g/dL (30-55); Mean Corpuscular Hemoglobin 27.5 pg (27-33); Mean Corpuscular Volume 87.0 fl (82-101); Nucleated Red Blood Cells % 0 %; Platelet Count 266 10^3/cmm (157-399); Red Blood Count 4.94 10^6/uL (3.85-5.65); White Blood Count 8.79 10^3/uL (3.29-11.43)
[2024-12-23 05:35] LABS: Alanine Aminotransferase 25 U/L (0-41); Albumin Level 3.3 g/dL (3.5-5.2); Alkaline Phosphatase 83 U/L (40-130); Anion Gap 14.4 (5-19); Aspartate Amino Transferase 25 U/L (0-40); Blood Urea Nitrogen 21 mg/dL (8-23); Calcium 9.2 mg/dL (8.5-10.5); Carbon Dioxide 32 mmol/L (22-29); Chloride 93 mmol/L (98-107); Creatinine Clr Calc Pharmacy 115.8360; Globulin 3.2 g/dL (1.3-4.6); Glucose 246 mg/dL (65-115); Magnesium 1.6 mg/dL (1.7-2.3); Osmolality Calculated 293 mOsm/kg (285-295); Potassium 3.4 mmol/L (3.5-5.1); Sodium 136 mmol/L (136-145); Total Protein 6.5 g/dL (6.6-8.7)
[2024-12-23] MEDS: polyethylene glycol 3350 Pkt 17 gm PO ×2 (05:36→17:17)
[2024-12-23] MEDS: insulin glargine 100 units/1 mL 30 UNIT SUBCUT (08:09)
[2024-12-23] MEDS: FUROsemide 10 mg/mL SDV 4mL 40 MG IVP ×2 (08:10→21:23)
--- NOTE | 2024-12-23 18:54 | P.PN_ITS ---
Subjective 2 Subjective: Hospital course, labs appreciated. Patient sitting up in chair working with physical therapy. Denies any nausea, ting, headache. Has remained hemodynamically stable and afebrile. Vitals/I&O/Wt Last Vital Signs Temp 98.6 F 12/23/24 15:26 Pulse 64 12/23/24 15:26 Resp 18 12/23/24 15:26 BP 110/79 12/23/24 15:26 Pulse Ox 90 12/23/24 15:26 O2 Del Method Room Air 12/23/24 15:26 O2 Flow Rate 4 12/23/24 13:46 12/23/24 12/23/24 12/23/24 06:59 14:59 22:59 Intake Total 240 / 1200 1260 / 1260 120 / 1380 Output Total 500 / 3151 Balance -260 / -1951 1260 / 1260 120 / 1380 Weight last 48 hrs Weight 162.84 kg Weight 161.025 kg Physical Exam 2 Narrative: General well-developed well-nourished male in no acute cardiopulmonary stress he is morbidly obese CV regular rate and rhythm Lungs clear to auscultation bilaterally Abdomen normal bowel sounds, abdomen less distended right foot wrapped with bandage Data 12/23/24 04:45 12/23/24 04:45 Micro: Microbiology 12/19/24 11:20 Gram Stain - Final Sputum - Expectorated Sputum Sputum Culture - Final Socorro tropicalis A&P Assessment and plan 1. Small bowel obstruction: No obstruction suspected. NG tube out. OK for diet from surgical standpoint. 2. Type 2 diabetes mellitus with foot ulcer: Patient is admitted to hospital with elevated white count attributable to chronic right foot infection there are not obvious open wounds but this is under a wound care administered adherent dressing. Dr. Crenshaw has seen the patient and plans to debride this at bedside. I have also ordered an MRI to evaluate for possible osteomyelitis. Patient will have C-reactive protein and sed rate done as well. Have counseled patient regarding progression to limb loss with his poor hygiene and continued weight gain. He states he cannot reach his feet. Patient is not on insulin but his blood sugar at time of exam was 399 based on his Dexcom and he states his blood sugars run about 400 high all the time. He states he does not eat a healthy diet but eats what he can afford. Will start Lantus 20 units a.m. first dose now and a sliding scale insulin low scale. 3. Morbid obesity with BMI of 40.0-44.9, adult: Will start 2000-calorie ADA weight loss diet as discussed with the patient. 4. Cellulitis of foot, right: 5. LISA (acute kidney injury): 6. Leukocytosis: 7. Lactic acidosis: Plan: #Nausea?improving #Type 2 diabetes mellitus, insulin-dependent # Right decubitus ulcer, right foot wounds, cellulitis #Lower extremity edema?right #LISA #Small bowel obstruction ? MRI right foot to assess for underlying osteomyelitis. Patient is status post debridement. ? Right foot wounds dressed with Hydrofera Blue. Osbaldo compression dressing applied to right lower extremity. ? Have antibiotics for cellulitis ? Continue aspirin carvedilol, heparin SQ twice daily, glargine 20 units daily ? Continue linezolid, meropenem ? Continue home medications. ? C. difficile diarrhea uncollected. Patient is not having diarrhea at this time. ? Continue spironolactone - Will discuss with podiatry ? Will discuss with ID as well. ? Cultures pending ? Leukocytosis WBC 18,000. ? LISA?creatinine trending down Full code DVT prophylaxis: Heparin SQ twice daily Plan for the day: Continue with current antihypertensive. Goal blood pressure less than 140/90 mmHg. For now continue with IV Lasix 40 mg every 12 hourly. Monitor renal functions. Replace 40 mg of oral potassium. Continues physical therapy. Appreciate blood sugars. For now continue with Lantus 30 units every morning along with sliding scale. Most likely will discharge patient on current dose of sliding scale and Lantus. Discontinue steroids. Safe discharge planning awaited. PDMP PDMP Reviewed: Not Reviewed Attestations 2 Medical Necessity Statement*: Requires further hospitalization for management of nausea and vomiting, improving SBO in a patient with initially admitted for decubitus ulcer/right wound cellulitis while safe discharge planning discharge. Diagnoses Small bowel obstruction K56.609 Type 2 diabetes mellitus with foot ulcer E11.621; L97.509 Morbid obesity with BMI of 40.0-44.9, adult E66.01; Z68.41 Cellulitis of foot, right L03.115 LISA (acute kidney injury) N17.9 Leukocytosis D72.829 Lactic acidosis E87.20
[2024-12-23] MEDS: HYDROcodone-acetaminophen 5-325 mg Tablet 1 TAB PO (20:23)
--- NOTE | 2024-12-23 21:40 | PC.NURSE ---
Patient is ordered to take Coreg for blood pressure and Lasix for diuresis at bedtime. Patient's blood pressure was 106/64 [address] Berg and ordered to hold Coreg but still give Lasix.
[2024-12-24] VITALS (9 sets, daily range): BP systolic 106–128; BP diastolic 60–67; PULSE 66–80; RESP 16–18; TEMP 36.4–37; O2SAT 89–97
[2024-12-24] MEDS: HYDROcodone-acetaminophen 5-325 mg Tablet 1 TAB PO ×2 (03:31→14:10)
[2024-12-24] MEDS: polyethylene glycol 3350 Pkt 17 gm PO (04:46)
[2024-12-24 05:14] LABS: Hematocrit 42.9 % (37-53); Hemoglobin 13.40 g/dL (11.27-16.99); Mean Corpuscular HGB Conc 31.2 g/dL (30-55); Mean Corpuscular Hemoglobin 26.7 pg (27-33); Mean Corpuscular Volume 85.5 fl (82-101); Nucleated Red Blood Cells % 0 %; Platelet Count 291 10^3/cmm (157-399); Red Blood Count 5.02 10^6/uL (3.85-5.65); White Blood Count 8.49 10^3/uL (3.29-11.43)
[2024-12-24 05:34] LABS: Alanine Aminotransferase 22 U/L (0-41); Albumin Level 3.3 g/dL (3.5-5.2); Alkaline Phosphatase 91 U/L (40-130); Anion Gap 14.5 (5-19); Aspartate Amino Transferase 19 U/L (0-40); Blood Urea Nitrogen 25 mg/dL (8-23); Calcium 9.3 mg/dL (8.5-10.5); Carbon Dioxide 32 mmol/L (22-29); Chloride 93 mmol/L (98-107); Creatinine Clr Calc Pharmacy 115.8360; Globulin 3.2 g/dL (1.3-4.6); Glucose 264 mg/dL (65-115); Osmolality Calculated 296 mOsm/kg (285-295); Potassium 3.5 mmol/L (3.5-5.1); Sodium 136 mmol/L (136-145); Total Protein 6.5 g/dL (6.6-8.7)
--- NOTE | 2024-12-24 07:24 | PC.NURSE ---
Wounds to R foot changed per ordered.
[2024-12-24] MEDS: insulin glargine 100 units/1 mL 30 UNIT SUBCUT (07:53)
[2024-12-24] MEDS: oxybutynin chloride XL 5 MG TABLET 30 MG PO (07:54)
[2024-12-24] MEDS: FUROsemide 10 mg/mL SDV 4mL 40 MG IVP (07:54)
--- NOTE | 2024-12-24 12:52 | P.DS_ITS ---
Discharge Providers Date of Admission: 12/17/24 06:29 Date of Discharge: December 24, 2024 Attending Provider at Admission: Nacho Rodriguez MD Attending Provider at Discharge: Jesus Barron MD Consults: Surgery: Dr. Flores Podiatry: Dr. Crenshaw Primary Care Provider: Bren Allen Diagnoses at Discharge Discharge Diagnosis 1. Small bowel obstruction: 2. Type 2 diabetes mellitus with foot ulcer: 3. Morbid obesity with BMI of 40.0-44.9, adult: 4. Cellulitis of foot, right: 5. LISA (acute kidney injury): 6. Leukocytosis: 7. Lactic acidosis: Reason for Visit Reason for Visit: weakness/ fall Brief History: Per HPI Blaze Abdul is a 69 year old male fell at home between the toilet and the trash can. He lives alone and uses call box to contact emergency services. He was brought into the emergency department where x-rays were done showing no injury in the thoracic spine or head. C-spine also negative. Chest x-ray cardiomegaly and poor inspiratory volume with elevated right hemidiaphragm. Foot x-ray no definite osteomyelitis but he does have significant soft tissue edema. Patient sees Dr. Clay in wound care chronically over the course of couple years with with history of left big toe amputation and current ongoing right foot wound care. He has gained 80 pounds in last 1 year and attributes it to overeating. He reports a desire to lose weight but is not counting calories or purchasing healthy foods. The patient was noted to have white count of 24,000 and referred for admission after meropenem and linezolid given the ER Patient admits to loss of feeling below mid [place]. Hospital Course Hospital Course Patient was admitted here for further evaluation and management of type II diabetic foot ulcer along with uncontrolled type 2 diabetes mellitus. On admission podiatry was consulted. He was started on broad-spectrum IV antibiotics. Wound care was done as per podiatry recommendations. MRI was done which ruled out osteomyelitis. His hospitalization was complicated with concerns for nausea and vomiting. Patient was significantly constipated. CT abdomen pelvis was done which ruled out obstruction but was consistent with dis tended stomach. Surgery recommended conservative treatment with NG tube placement. Patient responded well to the treatment and has been at his baseline bowel functions. During hospitalization given his uncontrolled type 2 diabetes mellitus his insulin treatment was adjusted. Safe discharge maldescended with the patient and he requested to be transition to SNF. He has been discharged in hemodynamically stable condition on oral antibiotics, adjusted insulins. Physical Exam Narrative: General well-developed well-nourished male in no acute cardiopulmonary stress he is morbidly obese CV regular rate and rhythm Lungs clear to auscultation bilaterally Abdomen normal bowel sounds, abdomen less distended right foot wrapped with bandage Discharge Data Studies Completed and Pending Completed Studies During Hospitalization Category Date Time Status CT abdomen pelvis w con* [id number] Stat Cat Scan 12/20/24 15:[address] abdomen pelvis wo con [id number] Stat Cat Scan 12/18/24 17:[address] cervical spin wo con* [id number] Stat Cat Scan 12/17/24 02:[address] head wo con* [id number] Stat Cat Scan 12/17/24 02:[address] thoracic spin wo con* [id number] Stat Cat Scan 12/17/24 02:29 Completed CXRP [XR chest 1V portable [id number]] Stat Exams 12/18/24 19:12 Completed XR KUB [id number] Routine Exams 12/19/24 16:30 Completed XR KUB [id number] Routine Exams 12/19/24 17:30 Completed XR KUB [id number] Routine Exams 12/19/24 18:30 Completed XR KUB [id number] Routine Exams 12/19/24 19:30 Completed XR KUB 63686 Stat Exams 12/19/24 14:42 Completed XR KUB 76789 Stat Exams 12/19/24 14:43 Completed XR KUB portable [id number] NOW Exams 12/20/24 10:24 Completed XR chest 1V portable [id number] Stat Exams 12/17/24 02:29 Completed XR foot RT min 3V* [id number] Stat Exams 12/17/24 05:57 Completed MR foot RT wo con* [id number] Routine MRI 12/17/24 07:41 Completed Radiology Impressions Cervical Spine CT 12/17/24 02:29 IMPRESSION: 1. No evidence of acute fracture. 2. Severe spinal canal stenosis at C5-C6. Head CT 12/17/24 02:29 IMPRESSION: Mild small vessel disease. No evidence of acute intracranial process. Thoracic Spine CT 12/17/24 02:29 IMPRESSION: 1. There is no evidence of acute fracture or traumatic misalignment. 2. Moderately extensive coronary arterial calcification is noted. Foot X-Ray 12/17/24 05:57 IMPRESSION: Extensive subcutaneous edema. No evidence of acute bony pathology. Foot MRI 12/17/24 07:41 IMPRESSION: 1. Extensive subcutaneous edema surrounding the midfoot and toes. There is no focal collection or mass identified. 2. No marrow edema identified taking to consideration the limitations of the study. 3. Subcutaneous soft tissue thickening is most significant between the first and second metatarsals. No ulcerations extending to the bone. Chest X-Ray 12/18/24 19:12 IMPRESSION: The NG tube tracks with its tip just within the stomach. The side-hole is in the distal esophagus. This may be advanced 11 cm for more optimal positioning. KUB X-Ray 12/20/24 10:24 IMPRESSION: No acute findings. Abdomen/Pelvis CT 12/20/24 15:23 IMPRESSION: 1. Distended stomach but no evidence of small bowel obstruction at this time. 2. Nonspecific skin thickening in the anterior pelvic abdominal wall. Please correlate clinically. COMMENTS: Consistent with the [employer]'s Incidental Findings Committee white paper (J Am Sunny Radiol 2018): Any incidental renal lesion less than 1 cm or classified as too small to characterize, or any incidental cystic renal lesion characterized as simple-appearing, is likely benign. No follow-up imaging is recommended for these lesions per consensus recommendations based on imaging criteria. Microbiology 12/19/24 11:20 Sputum - Expectorated Sputum Gram Stain - Final 12/19/24 11:20 Sputum - Expectorated Sputum Sputum Culture - Final Socorro tropicalis 12/17/24 02:53 Blood Blood Culture - Final NO GROWTH AFTER 5 DAYS 12/17/24 02:48 Blood Blood Culture - Final NO GROWTH AFTER 5 DAYS 12/17/24 05:00 Urine,Clean Catch Urine Culture - Final Nakaseomyces glabrata Laboratory Results WBC 8.49 10^3/uL (3.29-11.43) 12/24/24 05:06 RBC 5.02 10^6/uL (3.85-5.65) 12/24/24 05:06 Hgb 13.40 g/dL (11.27-16.99) 12/24/24 05:06 Hct 42.9 % (37-53) 12/24/24 05:06 MCV 85.5 fl (82-101) 12/24/24 05:06 MCH 26.7 pg (27-33) L 12/24/24 05:06 MCHC 31.2 g/dL (30-55) 12/24/24 05:06 RDW 15.2 % (12.1-15.1) H 12/24/24 05:06 Plt Count 291 10^3/cmm (157-399) 12/24/24 05:06 MPV 9.3 fL (7.4-10.4) 12/24/24 05:06 Neut % (Auto) 60.4 % 12/24/24 05:06 Lymph % (Auto) 18.7 % 12/24/24 05:06 [place] % (Auto) 10.7 % 12/24/24 05:06 Eos % (Auto) 6.9 % 12/24/24 05:06 Baso % (Auto) 0.2 % 12/24/24 05:06 Neut # (Auto) 5.12 10^3/uL (1.8-7.7) 12/24/24 05:06 Lymph # (Auto) 1.6 10^3/uL (0.8-4.8) 12/24/24 05:06 Hudson # (Auto) 0.9 10^3/uL (0.2-0.9) 12/24/24 05:06 Eos # (Auto) 0.6 10^3/uL (0.0-0.8) 12/24/24 05:06 Baso # (Auto) 0.0 10^3/uL (0.0-0.1) 12/24/24 05:06 Nucleated RBC % (auto) 0 % 12/24/24 05:06 Nucleated RBCs # 0.0 /100WBC 12/24/24 05:06 ESR 66 mm/hr (0-10) H 12/17/24 02:48 Sodium 136 mmol/L (136-145) 12/24/24 05:06 Potassium 3.5 mmol/L (3.5-5.1) 12/24/24 05:06 Chloride 93 mmol/L (98-107) L 12/24/24 05:06 Carbon Dioxide 32 mmol/L (22-29) H 12/24/24 05:06 Anion Gap 14.5 (5-19) 12/24/24 05:06 BUN 25 mg/dL (8-23) H 12/24/24 05:06 Creatinine 1.0 mg/dL (0.7-1.2) 12/24/24 05:06 GFR Calculation 74.3 mL/min (90-130) L 12/24/24 05:06 Glucose 264 mg/dL (65-115) H 12/24/24 05:06 POC Glucose 264 mg/dL (70-110) H 12/23/24 20:41 Estimat Average Glucose 237 12/18/24 04:42 Hemoglobin A1c 9.9 % (4.0-6.0) H 12/18/24 04:42 Calculated Osmolality 296 mOsm/kg (285-295) H 12/24/24 05:06 Lactic Acid 3.3 mmol/L (0.5-2.2) H 12/17/24 02:48 Lactic Acid (Sepsis) 2.7 mmol/L (0.5-2.2) H 12/17/24 05:44 Lactate 1.6 mmol/L (0.5-2.2) 12/18/24 18:06 Calcium 9.3 mg/dL (8.5-10.5) 12/24/24 05:06 Magnesium 1.6 mg/dL (1.7-2.3) L 12/23/24 04:45 Total Bilirubin 0.6 mg/dL (0.15-1.2) 12/24/24 05:06 AST 19 U/L (0-40) 12/24/24 05:06 ALT 22 U/L (0-41) 12/24/24 05:06 Alkaline Phosphatase 91 U/L (40-130) 12/24/24 05:06 C-Reactive Protein 121.3 mg/L (0.0-4.9) H 12/17/24 02:48 Total Protein 6.5 g/dL (6.6-8.7) L 12/24/24 05:06 Albumin 3.3 g/dL (3.5-5.2) L 12/24/24 05:06 Globulin 3.2 g/dL (1.3-4.6) 12/24/24 05:06 Urine Color Yellow (Yellow) 12/17/24 05:00 Urine Appearance Clear (CLEAR) 12/17/24 05:00 Urine pH 5.0 (5-7) 12/17/24 05:00 Ur Specific [place] 1.028 (1.005-1.030) 12/17/24 05:00 Urine Protein Trace (Negative) A 12/17/24 05:00 Urine Glucose (UA) 3+ (Normal) H 12/17/24 05:00 Urine Ketones Negative (Negative) 12/17/24 05:00 Urine Blood 3+ (Negative) A 12/17/24 05:00 Urine Nitrate Negative (Negative) 12/17/24 05:00 Urine Bilirubin Negative (Negative) 12/17/24 05:00 Urine Urobilinogen 0.2 mg/dL (Negative) 12/17/24 05:00 Ur Leukocyte Esterase Negative (Negative) 12/17/24 05:00 Urine RBC 0-2 /hpf (0-2) 12/17/24 05:00 Urine WBC 6-10 /hpf (0-5) 12/17/24 05:00 Ur Squamous Epith Cells 0-5 /hpf (0-5) 12/17/24 05:00 Amorphous Sediment Not Reportable 12/17/24 05:00 Urine Bacteria None seen /hpf (NONE) 12/17/24 05:00 Hyaline Casts 0.81 /lpf 12/17/24 05:00 Urine Yeast 3+ /hpf H 12/17/24 05:00 Serum Ketones Negative (Negative) 12/18/24 08:38 Adenovirus (PCR) Not detected (NOT DETECT) 12/20/24 17:55 C. pneumoniae DNA (PCR) Not detected (NOT DETECT) 12/20/24 17:55 C. difficile (PCR) Negative (Negative) 12/20/24 18:15 Coronavirus 229E (PCR) Not detected (NOT DETECT) 12/20/24 17:55 Human Metapneumovir PCR Not detected (NOT DETECT) 12/20/24 17:55 Influenza A (H1) PCR Not detected (NOT DETECT) 12/20/24 17:55 Influenza A (PCR) Negative (Negative) 12/17/24 03:11 Influ A (H1/09) PCR Not detected (NOT DETECT) 12/20/24 17:55 Influenza A (H3) PCR Not detected (NOT DETECT) 12/20/24 17:55 Influenza Type A (PCR) Not detected (NOT DETECT) 12/20/24 17:55 Influenza Type B (PCR) Not detected (NOT DETECT) 12/20/24 17:55 M. pneumoniae (PCR) Not detected (NOT DETECT) 12/20/24 17:55 Parainfluenza 1 (PCR) Not detected (NOT DETECT) 12/20/24 17:55 Parainfluenza 2 (PCR) Not detected (NOT DETECT) 12/20/24 17:55 Parainfluenza 3 (PCR) Not detected (NOT DETECT) 12/20/24 17:55 Parainfluenza 4 (PCR) Not detected (NOT DETECT) 12/20/24 17:55 RSV (PCR) Negative (Negative) 12/17/24 03:11 RSV Type A (PCR) Not detected (NOT DETECT) 12/20/24 17:55 RSV Type B (PCR) Not detected (NOT DETECT) 12/20/24 17:55 Entero/Rhino (PCR) Not detected (NOT DETECT) 12/20/24 17:55 SARS-CoV-2 (PCR) Not detected (NOT DETECT) 12/20/24 17:55 Vitals Last Vital Signs Temp 97.5 F L 12/24/24 11:28 Pulse 66 12/24/24 11:28 Resp 17 12/24/24 11:28 BP 106/64 12/24/24 11:28 Pulse Ox 95 12/24/24 11:28 O2 Del Method Nasal Cannula 12/24/24 11:28 O2 Flow Rate 2 12/24/24 08:36 Discharge Plan Discharge Patient Disposition: Xfer SNF Condition: Stable Prescriptions: New doxycycline hyclate 100 mg capsule 100 mg PO BID 4 Days Qty: 8 0RF levofloxacin 500 mg tablet 500 mg PO DAILY 4 Days Qty: 4 0RF polyethylene glycol 3350 [Miralax] 17 gram/dose powder 4 g PO DAILY Qty: 119 0RF carvedilol 25 mg Tablet 12.5 mg PO TID 30 Days Qty: 45 0RF oxybutynin chloride 5 mg Tablet Extended Release 24hr 30 mg PO DAILY 30 Days Qty: 180 0RF tamsulosin 0.4 mg Capsule 0.4 mg PO DAILY 30 Days Qty: 30 0RF insulin glargine [Lantus Solostar U-100 Insulin] 100 unit/mL (3 mL) insulin pen 35 unit SUBCUT QPM Qty: 15 0RF insulin lispro [Humalog KwikPen Insulin] 100 unit/mL insulin pen See Protocol SUBCUT QPM Qty: 15 0RF Protocol: Insulin Corrective High-Dose Regimen Condition: Fingerstick Blood Glucose Dose/Route: Insulin Units Condition: 141-180 mg/dl Dose/Route: 2 units/SQ Condition: 181-220 mg/dl Dose/Route: 4 units/SQ Condition: 221-260 mg/dl Dose/Route: 4 units/SQ Condition: 261-300 mg/dl Dose/Route: 8 units/SQ Condition: 301-350 mg/dl Dose/Route: 10 units/SQ Condition: 351-400 mg/dl Dose/Route: 12 units/SQ Condition: greater than 400 mg/dl Dose/Route: 14 units/SQ Continued tramadol 50 mg tablet 100 mg PO Q4H PRN (Reason: Pain) acetaminophen 500 mg capsule 500 mg PO Q4H PRN (Reason: Pain) aspirin 81 mg tablet,delayed release (DR/EC) 81 mg PO DAILY nitroglycerin [Nitrostat] 0.4 mg tablet, sublingual 0.4 mg SUBLINGUAL Q5M PRN (Reason: Chest Pain) cetirizine 10 mg capsule 10 mg PO DAILY gemfibrozil 600 mg tablet 600 mg PO BID atorvastatin 40 mg tablet 40 mg PO QPM spironolactone 25 mg tablet 25 mg PO DAILY potassium chloride 20 mEq tablet extended release 20 meq PO DAILY albuterol sulfate 90 mcg/actuation aerosol powdr breath activated 2 inh INHALATION Q4H MDD . PRN (Reason: COPD) clotrimazole 10 mg deon 10 mg PO .5XDAILY famotidine 40 mg tablet 40 mg PO BID sertraline 100 mg tablet 100 mg PO DAILY nystatin-triamcinolone 100,000-0.1 unit/gram-% ointment 1 applic TOPICAL BID torsemide 100 mg tablet 100 mg PO DAILY hydrocodone-acetaminophen 7.5-325 mg tablet 1 tab PO .Q4-6H PRN (Reason: Severe Pain (Scale Score 7-10)) gabapentin 300 mg capsule 300 mg PO TID aripiprazole 5 mg tablet 5 mg PO DAILY solifenacin 10 mg tablet 10 mg PO DAILY dapagliflozin propanediol [Farxiga] 10 mg tablet 10 mg PO QAM Asmanex HFA 100 mcg/actuation HFA aerosol inhaler 2 puff INHALATION BID Discontinued carvedilol 25 mg tablet 25 mg PO TID (DME) insulin U-500 syringe-needle 1/2 mL 31 gauge x 15/64 Syringe MISCELLANEOUS sildenafil 50 mg tablet 50 mg PO DAILY PRN (Reason: Erectile Dysfunction) lisinopril 10 mg tablet 10 mg PO DAILY Humulin R U-500 (Conc) Kwikpen 500 unit/mL (3 mL) insulin pen See Rx Instructions .ROUTE .COMPLEX Rx Instructions: Inject 170 units subcutaneously with breakfast, 170 units with lunch, 190 units with dinner, and30 units with each snack. Max of 700 units per day. Mounjaro 10 mg/0.5 mL pen injector 10 mg SUBCUT Q7D Rx Instructions: Sunday's Discharge Order = DC NOW: Discharge Order (Routine); Ordered 12/24/24 Ordered By: Jesus Barron Other Ambulatory Orders: Basic Metabolic Panel (Routine) Timeframe: 4 Days Facility: [facility] - Location: Lab - Main Lab Ordered By: Claudette Solange Complete Blood Count w/Auto (Routine) Timeframe: 4 Days Location: Determined by Patient Ordered By: Claudette Narvaez Referrals: Agueda Lowery NP [Nurse Practitioner, Pain Management] - 1-3 days Referral Note: We have notified your physician's clinic of the need for a follow-up appointment to be scheduled. If you have not heard from them within the next 2 business days, please call them directly. Tanner Crenshaw DPM [Physician, Podiatry] - 12/31/24 1:30 pm Simran Conway MD [Physician, Endocrinology] - 1-3 days Referral Note: We have notified your physician's clinic of the need for a follow-up appointment to be scheduled. If you have not heard from them within the next 2 business days, please call them directly. Bren Allen [Primary Care Provider] - 1-3 days Discharge Diet: Cardiac, Diabetic and GI Soft Discharge Activity: Resume usual activity Patient Instructions: Acute Kidney Injury (DC), Cellulitis (ED), Bowel Obstruction (DC) Activity Restrictions/Additional Instructions: * Right foot wounds dressed with Maxorb AG with Hydrofera Blue to posterior heel. 4 x 4 gauze, Osbaldo wrap and Osbaldo compression dressing applied to right lower extremity Discharge Attestations Time Spent in Discharge Care*: greater than 30 min Specific Discharge Activities: educating patient, discussing with pcp/other providers, discussing with case finisher/social workers/dc planners, documenting/other paperwork and evaluating patient/reviewing data Quality Metrics Clinical Quality Measures [ No reported AMI, CVA or VTE this stay] Coding Level of Care Code 58896 Total time (in minutes) for Discharge: 65 Diagnoses Small bowel obstruction K56.609 Type 2 diabetes mellitus with foot ulcer E11.621; L97.509 Morbid obesity with BMI of 40.0-44.9, adult E66.01; Z68.41 Cellulitis of foot, right L03.115 LISA (acute kidney injury) N17.9 Leukocytosis D72.829 Lactic acidosis E87.20
--- NOTE | 2024-12-24 13:51 | PC.NURSE ---
This nurse called report to ALYSON Tolliver at [facility] at 1342. Pt awaiting EMS transport.
--- NOTE | 2024-12-24 14:18 | PC.SOCIAL ---
IMM UPDATED IMM dated and initialed, copy placed in chart and copy given to patient at this time.
== END 2024-12-24 14:21 | disposition skilled nursing facility (03) | DRG 638 ==
LOC: ER 06:09 → MEDSURG 06:30
PROVIDERS: Emergency Medicine; Internal Medicine; Admitting Provider Internal Medicine; Emergency Provider Emergency Medicine; PCP Internal Medicine; Visit Provider Student in an Organized Health Care Education/Training Program
DX: E11.621 Type 2 diabetes mellitus with foot ulcer (principal); E87.20 Acidosis, unspecified; J96.11 Chronic respiratory failure with hypoxia; Z68.41 Body mass index [BMI] 40.0-44.9, adult; L03.115 Cellulitis of right lower limb; K56.609 Unspecified intestinal obstruction, unspecified as to partial versus complete obstruction; E11.65 Type 2 diabetes mellitus with hyperglycemia; E11.628 Type 2 diabetes mellitus with other skin complications; E66.01 Morbid (severe) obesity due to excess calories; I25.10 Atherosclerotic heart disease of native coronary artery without angina pectoris; N17.9 Acute kidney failure, unspecified; E11.42 Type 2 diabetes mellitus with diabetic polyneuropathy; L97.519 Non-pressure chronic ulcer of other part of right foot with unspecified severity; G89.4 Chronic pain syndrome; Z99.81 Dependence on supplemental oxygen; Z79.82 Long term (current) use of aspirin; Z79.899 Other long term (current) drug therapy; Z79.4 Long term (current) use of insulin; Z88.0 Allergy status to penicillin; Z88.2 Allergy status to sulfonamides; Z91.041 Radiographic dye allergy status; Z95.5 Presence of coronary angioplasty implant and graft; Z11.52 Encounter for screening for COVID-19; Z71.3 Dietary counseling and surveillance; Z89.412 Acquired absence of left great toe
CPT/HCPCS: 29581; 36415; 36416; 70450; 71045; 72125; 72128; 73630; 73718; 74018; 74176; 74177; 80048; 80053; 81001; 82009; 82962; 83036; 83605; 83735; 85025; 85651; 86140; 87040; 87070; 87086; 87106; 87205; 87486; 87493; 87581; 87633; 87637; 94640; 94664; 96365; 96372; 96375; 97110; 97161; 97165; 97530; 97535; 99285; A6197; A6252; A6253; J1200; J1450; J1644; J1650; J1815; J1938; J1956; J2020; J2185; J2270; J2405; J2470; J2919; J3480; J3490; J7030; J7613; J7626; J9999

== ENCOUNTER → 2025-01-08 09:05 | Outpatient (BNVA) | payer MEDICARE, MEDICAID, SELFPAY | PROVIDERS: PCP Internal Medicine; Visit Provider Podiatrist Foot & Ankle Surgery | DX: E11.621 Type 2 diabetes mellitus with foot ulcer (principal); L97.512 Non-pressure chronic ulcer of other part of right foot with fat layer exposed; I87.2 Venous insufficiency (chronic) (peripheral); Z79.4 Long term (current) use of insulin | CPT/HCPCS: 99213 ==

== ENCOUNTER 2025-01-22 09:22 | Outpatient (CLI) | payer MEDICARE, MEDICAID, SELFPAY ==
--- NOTE | 2025-01-22 09:30 | USR_ITS ---
PROCEDURE INFORMATION: Exam: US Duplex Lower Extremity Veins, Bilateral Exam date and time: 01/22/2025 10:22 AM Age: 69 years old Clinical indication: Other: Unhealed wounds; Additional info: Unhealed chronic ble wounds TECHNIQUE: Imaging protocol: Real-time duplex ultrasound of the bilateral extremities with 2-D polo scale, color Doppler flow and spectral waveform analysis including responses to compression and other maneuvers (when performed) with image documentation. Complete exam focused on the lower extremity veins. COMPARISON: MR foot RT wo con* [id number] 12/17/2024 10:03 AM FINDINGS: Right deep veins: Unremarkable. The common femoral, femoral, proximal profunda femoral and popliteal veins are patent without thrombus. Normal Doppler waveforms. Normal compressibility and/or augmentation response. Distal right greater saphenous reflux time: 1.02 seconds. No other reflux time abnormality in the right system. Left deep veins: Unremarkable. The common femoral, femoral, proximal profunda femoral and popliteal veins are patent without thrombus. Normal Doppler waveforms. Normal compressibility and/or augmentation response. Left common femoral vein reflux time: 1.28 seconds. No other left system reflux time abnormality. Superficial veins: Greater saphenous veins at the saphenofemoral junctions are patent bilaterally without thrombus. Soft tissues: Unremarkable. US/CV guero dup insuyou [facility] [id number] IMPRESSION: No evidence of deep or superficial vein thrombosis. Mild venous reflux identified in the right greater saphenous vein and left common femoral vein.
== END 2025-01-22 09:23 | disposition home or self-care (01) ==
LOC: RAD 09:23
PROVIDERS: PCP Internal Medicine; Visit Provider Thoracic Surgery (Cardiothoracic Vascular Surgery)
DX: L97.821 Non-pressure chronic ulcer of other part of left lower leg limited to breakdown of skin (principal); L97.811 Non-pressure chronic ulcer of other part of right lower leg limited to breakdown of skin; E11.52 Type 2 diabetes mellitus with diabetic peripheral angiopathy with gangrene; E11.621 Type 2 diabetes mellitus with foot ulcer; L97.511 Non-pressure chronic ulcer of other part of right foot limited to breakdown of skin; E11.622 Type 2 diabetes mellitus with other skin ulcer
CPT/HCPCS: 11042; 11045; 93970; 97597; 97598

== ENCOUNTER 2025-02-02 20:51 | Emergency (ER) | payer MEDICARE, MEDICAID, SELFPAY ==
[2025-02-02 20:52] VITALS: BP 110/56; PULSE 73; RESP 20; TEMP 36.6; O2SAT 91; BMI 43.1
--- NOTE | 2025-02-02 21:02 | XRR_ITS ---
PROCEDURE INFORMATION: Exam: XR Right Foot Exam date and time: 02/02/2025 9:04 PM Age: 69 years old Clinical indication: Condition or disease; Other: Ulcer; Prior surgery; Surgery date: 6+ months; Surgery type: HX of debridement of wound; Additional info: Calcaneal bleeding wound TECHNIQUE: Imaging protocol: Radiologic exam of the right foot. Views: 3 or more views. COMPARISON: MR foot RT wo con* [id number] 12/17/2024 10:03 AM FINDINGS: Bones/joints: Cortical resorption and lucency of the 1st digit distal tuft is new from 12/17/2024. No acute fracture. Joint spaces are maintained. Soft tissues: Extensive soft tissue edema seen throughout the 1st 2nd, and 3rd digits and dorsal foot. Soft tissue gas is seen over the calcaneus, concerning for ulceration. No clear subjacent cortical erosions to suggest osteomyelitis. Vasculature: Vascular atherosclerosis is noted. XR/XR foot RT min 3V* [id number] IMPRESSION: 1. Findings concerning for osteomyelitis of the 1st digit distal tuft. 2. Generalized soft tissue edema of the foot. Correlate for cellulitis. 3. Suggested calcaneal soft tissue ulcer without evidence of subjacent osteomyelitis. 4. Peripheral vascular disease.
--- OUTSIDE RECORDS SUMMARY | 2025-02-02 21:11 | XMS_ITS | Encounter Summary ---
Author Organization [facility] Address [address] [place] [address] Care Team Providers Care Maintenance Machinist Name Role Phone Bren Allen MD Primary Care Provider +1 -[phone] Encounter Details Date Type Department Care Team (Latest Contact Info) Description 12/12/1999 Outpatient Historical [address] [phone] Tanner Francis MD [address] [place] [phone] Unspecified essential hypertension (Primary Dx); Type II or unspecified type diabetes mellitus without mention of complication, not stated as uncontrolled Social History Tobacco Use Types Packs/Day Years Used Date Smoking Tobacco: Never Assessed Sex and Gender Information Value Date Recorded Sex Assigned at Not on file Legal Sex Male 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
--- OUTSIDE RECORDS SUMMARY | 2025-02-02 21:11 | XMS_ITS | Encounter Summary ---
Author Organization [facility] Address [address] [place] [address] Care Team Providers Care Tire Care Manager Name Role Phone Bren Allen MD Primary Care Provider +1 [phone] Encounter Details Date Type Department Care Team (Latest Contact Info) Description 11/11/1999 Outpatient Historical [address] [phone] Tanner Francis MD [address] [place] [address] Type II or unspecified type diabetes mellitus without mention of complication, not stated as uncontrolled (Primary Dx); Cardiomyopathy in other diseases classified elsewhere (CMS/HCC) Social History Tobacco Use Types Packs/Day Years Used Date Smoking Tobacco: Never Assessed Sex and Gender Information Value Date Recorded Sex Assigned at Not on file Legal Sex Male 4:49 AM OSTOMY RN Gender Identity Not on file Sexual Orientation [...] elsewhere documented in this encounter Care Teams Tire Care Manager Relationship Specialty Start Date End Date Bren Allen MD [address] [place] [phone] PCP - General Internal Medicine 10/03/17 documented as of this encounter
--- OUTSIDE RECORDS SUMMARY | 2025-02-02 21:11 | XMS_ITS | Encounter Summary ---
Author Organization [facility] Address [address] [place] [address] Care Team Providers Care Pulpit Operator Name Role Phone Bren Allen MD Primary Care Provider +1 -[phone] Encounter Details Date Type Department Care Team (Latest Contact Info) Description 11/03/1999 Outpatient Historical [address] [phone] Tanner Francis MD [address] [place] [address] Family history of diabetes mellitus (Primary Dx); Other abnormal blood chemistry Social History Tobacco Use Types Packs/Day Years Used Date Smoking Tobacco: Never Assessed Sex and Gender Information Value Date Recorded Sex Assigned at Not on file Legal Sex Male 4: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
--- OUTSIDE RECORDS SUMMARY | 2025-02-02 21:11 | XMS_ITS | Encounter Summary ---
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
--- OUTSIDE RECORDS SUMMARY | 2025-02-02 21:11 | XMS_ITS | Encounter Summary ---
Author Organization [facility] Address [address] 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
--- OUTSIDE RECORDS SUMMARY | 2025-02-02 21:11 | XMS_ITS | Encounter Summary ---
Author Organization [facility] Address [address] [place] [address] Care Team Providers Care Agricultural Commodities Inspector Name Role Phone Bren Allen MD Primary Care Provider +1 -[phone] Encounter Details Date Type Department Care Team (Late st Contact Info) Description 12/28/[address] [facility] Oral and Maxillo Surgery[address] [place] [address] Social History Tobacco Use Types Packs/Day Years Used Date Smoking Tobacco: Never Assessed Sex and Gender Information Value Date Recorded Sex Assigned at Not on file Legal Sex Male 4:[address] Gender Identity Not on file Sexual Orientation Not on file documented as of this encounter Plan of Treatment Not on file documented as of this encounter Visit Diagnoses Not on filedocumented in this encounter Care Teams Agricultural Commodities Inspector Relationship Specialty Start Date End Date Bren Allen MD [address] [place] [address] PCP - General Internal Medicine 10/03/17 documented as of this encounter
--- OUTSIDE RECORDS SUMMARY | 2025-02-02 21:11 | XMS_ITS | Encounter Summary ---
Author Organization [facility] Address [address] [place] [address] Care Team Providers Care Aviation Safety Inspector Name Role Phone Bren Allen MD Primary Care Provider +1 -[phone] Encounter Details Date Type Department Care Team (Latest Contact Info) Description 05/13/2001 Outpatient Historical [address] [phone] Tanner Francis MD [address] [place] [address] DIABETES UNCOMPL ADULT-TYPE II (CMS/HCC) (Primary Dx); HYPERTENSION NOS; CONGESTIVE HEART FAILURE (CMS/[facility]); ALLERGIC RHINITIS NOS Social History Tobacco Use Types Packs/Day Years Used Date Smoking Tobacco: Never Assessed Sex and Gender Information Value Date Recorded Sex Assigned at Not on file Legal Sex Male 4: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 Gender Identity Not on file Sexual Orientation Not on file documented as of this encounter Plan of Treatment Not on file documented as of this encounter Visit Diagnoses Diagnosis Type II or unspecified type diabetes mellitus without mention of complication, not stated as uncontrolled- Primary Unspecified essential hypertension Congestive heart failure, unspecified Allergic rhinitis, cause unspecified documented in this encounter Care Teams Aviation Safety Inspector Relationship Specialty Start Date End Date Bren Allen MD [address] [place] [address] PCP - General Internal Medicine 10/03/17 documented as of this encounter
--- OUTSIDE RECORDS SUMMARY | 2025-02-02 21:11 | XMS_ITS | Encounter Summary ---
Author Organization [facility] Address [address] 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
--- OUTSIDE RECORDS SUMMARY | 2025-02-02 21:11 | XMS_ITS | Encounter Summary ---
Author Organization [facility] Address [address] [place] [address] Care Team Providers Care Classification And Treatment Director Name Role Phone Bren Allen MD Primary Care Provider +1 -[phone] Reason for Referral * MRI (Routine) - Closed Specialty Diagnoses / Procedures Referred By Mirella mcdonough Referred To Contact Radiology Diagnoses Pain in right elbow Procedures MRI ELBOW WO CONTRAST RIGHT MRI ELBOW W WO CONTRAST RIGHT Bren Allen MD [address] [place] [address] Phone: tel: fax: [facility] [address] [facility] [address] [place] [address] Phone: tel: fax: Referral ID Status Reason Start Date Expiration Date V isits Requested Visits Authorized [id number] Closed SGF MC TO SCHEDULE (SGF) 03/21/2019 04/20/2019 1 1 Encounter Details Date Type Department Care Team (Latest Contact Info) Description 03/06/2019 Ancillary Orders [facility] Pre-Registration [place] CALL TO MAKE APPOINTMENT ONLY [address] [place] [address] Bren Allen MD [address] [place] [address] Pain in right elbow Social History Tobacco Use Types Packs/Day Years Used Date Smoking Tobacco: Never Smokeless Tobacco: Never Alcohol Use Standard Drinks/Week Comments Yes 1 (1 standard drink = 0.6 oz pur e alcohol) daily Sex and Gender Information Value Date Recorded Sex Assigned at Not on file Legal Sex Male 4:49 AM VICE PRESIDENT OF MARKETING Gender Identity Not on file Sexual Orientation Not on file Occupation Industry Job Start Date Job End Date Not on file Not on file Not on file Not on file documented as of this encounter Plan of Treatment Not on file documented as of this encounter Results * MRI ELBOW WO CONTRAST RIGHT (03/21/2019 12:30 PM VICE PRESIDENT OF MARKETING) Anatomical Region Laterality Modality Upper Extremity Magnetic Resonan ce 03/21/2019 12:3 0 PM VICE PRESIDENT OF MARKETING Impressions 03/22/2019 4:28 PM VICE PRESIDENT OF MARKETING IMPRESSION: Please see below. Exam: MRI ELBOW [...] tendon insertion on the radial tuberosity intact. [id number] Narrative Procedure Note Jackson Meredith MD - 03/22/2019 IMPRESSION: Please see below. [...] tendon insertion on the radial tuberosity intact. [id number] us Bren Allen MD MR ORDERABLES Final Res ult documented in this encounter Visit Diagnoses Diagnosis Pain in right elbow Pain in joint, upper arm Pain in right elbow Pain in joint, upper arm documented in this encounter Additional Health Concerns Assessment Noted Time PHQ-9 Depression Total Score: 6 10/08/19 19 1:51 PM CDT documented as of this encounter Care Teams Classification And Treatment Director Relationship Specialty Start Date End Date Bren Allen MD [address] [place] [address] PCP - General Internal Medicine 10/03/17 documented as of this encounter
--- OUTSIDE RECORDS SUMMARY | 2025-02-02 21:11 | XMS_ITS | Encounter Summary ---
Author Organization [facility] Address [address] [place] [address] Care Team Providers Care Ux Ui Designer Name Role Phone Bren Allen MD Primary Care Provider +1 -[phone] Encounter Details Date Type Department Care Team (Late st Contact Info) Description 03/06/2019 Ancillary Orders [facility] Pre-Registration [place] CALL TO MAKE APPOINTMENT ONLY [address] [place] [address] Bren Allen MD [address] [place] [address] Social History Tobacco Use Types Packs/Day Years Used Date Smoking Tobacco: Never Smokeless Tobacco: Never Alcohol Use Standard Drinks/Week Comments Yes 1 (1 standard drink = 0.6 oz pur e alcohol) daily Sex and Gender Information Value Date Recorded Sex Assigned at Not on file Legal Sex Male 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
--- OUTSIDE RECORDS SUMMARY | 2025-02-02 21:11 | XMS_ITS | Encounter Summary ---
Author Organization [facility] Address [address] [place] [address] Care Team Providers Care Spiral Runner Name Role Phone Bren Allen MD Primary Care Provider +1 -[phone] Encounter Details Date Type Department Care Team (Latest Contact Info) Description 08/14/2001 Outpatient Historical [address] [phone] Tanner Francis MD [address] [place] [address] UNSPEC DENTAL CARIES (Primary Dx); CHRONIC AIRWAY OBSTRUCTION NEC (CMS/HCC); HYPOGLYCEMIA NOS; HYPERTENSION NOS Social History Tobacco Use Types Packs/Day Years Used Date Smoking Tobacco: Never Assessed Sex and Gender Information Value Date Recorded Sex Assigned at Not on file Legal 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 Gender Identity Not on file Sexual Orientation Not on file documented as of this encounter Plan of Treatment Not on file documented as of this encounter Visit Diagnoses Diagnosis Unspecified dental caries- Primary Chronic airway obstruction, not elsewhere classified (CMS/HCC) Chronic airway obstruction, not elsewhere classified Hypoglycemia, unspecified Unspecified essential hypertension documented in this encounter Care Teams Spiral Runner Relationship Specialty Start Date End Date Bren Allen MD [address] [place] [address] PCP - General Internal Medicine 10/03/17 documented as of this encounter
--- OUTSIDE RECORDS SUMMARY | 2025-02-02 21:11 | XMS_ITS | Encounter Summary ---
Author Organization [facility] Address [address] [place] [address] Care Team Providers Care Vp Marketing Name Role Phone Bren Allen MD Primary Care Provider +1 -[phone] Encounter Details Date Type Department Care Team (Latest Contact Info) Description 10/05/1999 Outpatient Historical [address] [phone] Tanner Francis MD [address] [place] [address] Cellulitis and abscess of toe, unspecified (Primary Dx); Unspecified essential hypertension; Congestive heart failure, unspecified; Allergy, unspecified not elsewhere classified Social History Tobacco Use Types Packs/Day Years Used Date Smoking Tobacco: Never Assessed Sex and Gender Information Value Date Recorded Sex Assigned at Not on file Legal Sex Male 4:49 AM DROSS SKIMMER Gender Identity Not on file Sexual Orientation Not on file documented as of this encounter Plan of Treatment Not on file documented as of this encounter Visit Diagnoses Diagnosis Cellulitis and abscess of toe, unspecified- Primary Unspecified essential hypertension Congestive heart failure, unspecified Allergy, unspecified not elsewhere classified documented in this encounter Care Teams Vp Marketing Relationship Specialty Start Date End Date Bren Allen MD [address] [place] [address] PCP - General Internal Medicine 10/03/17 documented as of this encounter
--- OUTSIDE RECORDS SUMMARY | 2025-02-02 21:11 | XMS_ITS | Encounter Summary ---
Author Organization [facility] Address [address] [place] [address] Care Team Providers Care Envelope Addresser Name Role Phone Bren Allen MD Primary Care Provider +1 -[phone] Reason for Referral * Outpatient Services (Routine) - Closed Specialty Diagnoses / Procedures Referred By Contac t Referred To Contact Radiology Diagnoses Dilated cardiomyopathy (CMS/HCC) Essential hypertension Procedures ECHOCARDIOGRAM W/ CONTRAST AGENT ECHO COMPLETE Ronnie Triplett DO Phone: tel: fax: [facility] Echo [place] [address] [address] [address] [place] [address] Phone: tel: fax: Referral ID Status Reason Start Date Expiration Date Visits Requested Visits Authorized [id number] Closed Interventional Scheduling (SGF) 05/29/2018 06/29/2019 1 1 ITE SANDBLASTER APPRENTICE Encounter Details Date Type Department Care Team (Latest Contact Info) Description 06/03/2018 Ancillary Orders [facility] Cardiology- [place] [address] [place] [address] Ronnie Triplett DO [address] [facility] [address] [place] [phone] Dilated cardiomyopathy (CMS/HCC); Essential hypertension Social History Tobacco Use Types Packs/Day Years Used Date Smoking Tobacco: Never Smokeless Tobacco: Never Alcohol Use Standard Drinks/Week Comments Yes 3 (1 standard drink = 0.6 oz pur e alcohol) Sex and Gender Information Value Date Recorded Sex Assigned at Not on file Legal Sex Male 4:49 AM GRANITE SANDBLASTER APPRENTICE Gender Identity Not on file Sexual Orientation Not on file Occupation Industry Job Start Date Job End Date Not on file Not on file Not on file Not on file documented as of this encounter Plan of Treatment Not on file documented as of this encounter Results * ECHOCARDIOGRAM W/ CONTRAST AGENT (06/03/2018 1:41 PM GRANITE SANDBLASTER APPRENTICE) EJECTION FRACTION 52 INTERFACE SYSTEM 06/03/2018 12:4 2 PM GRANITE SANDBLASTER APPRENTICE Narrative INTERFACE SYSTEM - 06/07/2018 3:52 PM [facility] Echocardiography-[address] [address] Transthoracic Echocardiography Patient: Blaze Abdul Study ECHO COMPLETE J ID: Gender: Oly : 1955 Age: 62 Room: Study 06/03/2018 Pt Outpatient Date: Status: Study 12:42:01 PM CSN #: [id number] Time: Ordering:Ronnie Triplett Interpreting:Lashanda Gruber International Organizer: Estefania Quiroz [facility] Indications and History: Pre Cancer Treatment. [...] PLAX 4.1 cm RVID ED 4.1 cm [facility] are accredited with the [facility] Accreditation Commission - Echocardiography. Prepared and Electronically Authenticated Lashanda Gruber Confirmed 06/07/2018 15:52 Procedure Note Lashanda Gruber MD - 06/07/2018 [facility] Echocardiography-[address] [place] [address] Transthoracic Echocardiography Patient: Blaze Abdul Study ECHO COMPLETE J ID: Gender: Oly : 1955 Age: 62 Room: Study 06/03/2018 Pt Outpatient Date: Status: Study 12:42:01 PM CSN #: [id number] Time: Ordering:Ronnie Triplett Interpreting:Lashanda Gruber International Organizer: Estefania Quiroz [facility] Indications and History: Pre Cancer Treatment. [...] PLAX 4.1 cm RVID ED 4.1 cm [facility] are accredited with [...] Total Score: 5 04/19/20 18 3:18 PM GRANITE SANDBLASTER APPRENTICE documented as of this encounter Care Teams Envelope Addresser Relationship Specialty Start Date End Date Bren Allen MD [address] [place] [address] PCP - General Internal Medicine 10/03/17 documented as of this encounter
--- OUTSIDE RECORDS SUMMARY | 2025-02-02 21:11 | XMS_ITS | Encounter Summary ---
Author Organization [facility] Address [address] [place] [address] Care Team Providers Care Accountant Tax Name Role Phone Bren Allen MD Primary Care Provider +1 -[phone] Encounter Details Date Type Department Care Team (Latest Contact Info) Description 09/20/2001 Outpatient Historical [address] [phone] Sumi Vieyra MD [address] [place] [address] CHEST PAIN NOS (Primary Dx); CONGESTIVE HEART FAILURE (CMS/HCC); DIABETES UNCOMPL ADULT-TYPE II (CMS/HCC); RESPIRATORY ABNORM NEC Social History Tobacco Use Types Packs/Day Years Used Date Smoking Tobacco: Never Assessed Sex and Gender Information Value Date Recorded Sex Assigned at Not on file Legal Sex Male 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 Gender Identity Not on file Sexual Orientation Not on file documented as of this encounter Plan of Treatment Not on file documented as of this encounter Visit Diagnoses Diagnosis Chest pain, unspecified- Primary Congestive heart failure, unspecified Type II or unspecified type diabetes mellitus without mention of complication, not stated as uncontrolled Other dyspnea and respiratory abnormality documented in this encounter Care Teams Accountant Tax Relationship Specialty Start Date End Date Bren Allen MD [address] [place] [phone] PCP - General Internal Medicine 10/03/17 documented as of this encounter
--- OUTSIDE RECORDS SUMMARY | 2025-02-02 21:11 | XMS_ITS | Encounter Summary ---
Author Organization [facility] Address [address] Whitt: Epic Prelude ADT [place] [address] Care Team Providers Care Machinist Mechanic Name Role Phone Bren Allen MD Primary Care Provider +1 [phone] Encounter Details Date Type Department Care Team (Late st Contact Info) Description 08/21/2001 Outpatient Historical aRfael Sanders, DDS NO ADDRESS ON FILE Social History Tobacco Use Types Packs/Day Years Used Date Smoking Tobacco: Never Assessed Sex and Gender Information Value Date Recorded Sex Assigned at Not on file Legal Sex Male 4:49 AM HOST HOSTESS Gender Identity Not on file Sexual Orientation Not on file documented as of this encounter Plan of Treatment Not on file documented as of this encounter Visit Diagnoses Not on filedocumented in this encounter Care Teams Machinist Mechanic Relationship Specialty Start Date End Date Bren Allen MD [address] [place] [phone] PCP - General Internal Medicine 10/03/17 documented as of this encounter
--- OUTSIDE RECORDS SUMMARY | 2025-02-02 21:11 | XMS_ITS | Encounter Summary ---
Author Organization [facility] Address [address] [place] [address] Care Team Providers Care Ramp And Cargo Supervisor Name Role Phone Bren Allen MD Primary Care Provider +1 [phone] Encounter Details Date Type Department Care Team (Latest Contact Info) Description 08/21/2001 Outpatient [facility] [place] [address] Rafael Sanders, DDS NO ADDRESS ON FILE UNSPEC DENTAL CARIES (Primary Dx) Social History Tobacco Use Types Packs/Day Years Used Date Smoking Tobacco: Never Assessed Sex and Gender Information Value Date Recorded Sex Assigned at Not on file Legal Sex Male 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
--- OUTSIDE RECORDS SUMMARY | 2025-02-02 21:11 | XMS_ITS | Encounter Summary ---
Author Organization [facility] Address [address] 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
--- OUTSIDE RECORDS SUMMARY | 2025-02-02 21:11 | XMS_ITS | Encounter Summary ---
Author Organization [facility] Address [address] Whitt: Epic Prelude ADT [place] [address] Care Team Providers Care Cut Out And Marking Machine Operator Name Role Phone Bren Allen MD Primary Care Provider +1 [phone] Encounter Details Date Type Department Care Team (Latest Contact Info) Description 04/09/2001 Emergency Kevin Fortune MD NO ADDRESS ON FILE Social History Tobacco Use Types Packs/Day Years Used Date Smoking Tobacco: Never Assessed Sex and Gender Information Value Date Recorded Sex Assigned at Not on file Legal Sex Male 4:49 AM PRODUCT DEVELOPMENT Gender Identity Not on file Sexual Orientation Not on file documented as of this encounter Plan of Treatment Not on file documented as of this encounter Visit Diagnoses Not on filedocumented in this encounter Care Teams Cut Out And Marking Machine Operator Relationship Specialty Start Date End Date Bren Allen MD [address] [place] [phone] PCP - General Internal Medicine 10/03/17 documented as of this encounter
--- OUTSIDE RECORDS SUMMARY | 2025-02-02 21:11 | XMS_ITS | Encounter Summary ---
Author Organization [facility] Address [address] [place] [address] Care Team Providers Care Drop Hammer Set Up Operator Name Role Phone Bren Allen MD Primary Care Provider +1 [phone] Encounter Details Date Type Department Care Team (Latest Contact Info) Description 06/03/2001 Outpatient Historical [address] [phone] Tanner Francis MD [address] [place] [phone] STERILIZATION (Primary Dx) Social History Tobacco Use Types Packs/Day Years Used Date Smoking Tobacco: Never Assessed Sex and Gender Information Value Date Recorded Sex Assigned at Not on file Legal Sex Male 4:49 AM COOK TACO Gender Identity Not on file Sexual Orientation Not on file documented as of this encounter Plan of Treatment Not on file documented as of this encounter Visit Diagnoses Diagnosis Sterilization- Primary documented in this encounter Care Teams Drop Hammer Set Up Operator Relationship Specialty Start Date End Date Bren Allen MD [address] [place] [phone] PCP - General Internal Medicine 10/03/17 documented as of this encounter
--- OUTSIDE RECORDS SUMMARY | 2025-02-02 21:11 | XMS_ITS | Encounter Summary ---
Author Organization [facility] Address [address] [place] [address] Care Team Providers Care Computer Science Professor Name Role Phone Bren Allen MD Primary Care Provider +1 [phone] Encounter Details Date Type Department Care Team (Latest Contact Info) Description 10/10/1999 Outpatient Historical [facility] Willy Warren, OD [address] [place] [address] Keratoconus, unspecified (Primary Dx) Social History Tobacco Use Types Packs/Day Years Used Date Smoking Tobacco: Never Assessed Sex and Gender Information Value Date Recorded Sex Assigned at Not on file Legal Sex Male 4:49 AM BULLET MAKER Gender Identity Not on file Sexual Orientation Not on file documented as of this encounter Plan of Treatment Not on file documented as of this encounter Visit Diagnoses Diagnosis Keratoconus, unspecified- Primary documented in this encounter Care Teams Computer Science Professor Relationship Specialty Start Date End Date Bren Allen MD [address] [place] [address] PCP - General Internal Medicine 10/03/17 documented as of this encounter
--- OUTSIDE RECORDS SUMMARY | 2025-02-02 21:11 | XMS_ITS | Encounter Summary ---
Author Organization [facility] Address [address] [place] [address] Care Team Providers Care Roading Engineer Name Role Phone Bren Allen MD Primary Care Provider [phone] [phone] Encounter Details Date Type Department Care Team (Late st Contact Info) Description 11/27/2017 Ancillary Orders [facility] Orthopedics - Orthopedic [facility] [address] [place] [address] [facility], External Provider [address] [place], [place] [address] Pain Social History Tobacco Use Types Packs/Day Years Used Date Smoking Tobacco: Never Smokeless Tobacco: Never Alcohol Use Standard Drinks/Week Comments No 0 (1 standard drink = 0.6 oz pur e alcohol) Sex and Gender Information Value Date Recorded Sex Assigned at Not on file Legal Sex Male 4:49 AM CORPORATE STRATEGIST Gender Identity Not on file Sexual Orientation [...] to be scanned to PACS. External Provider Alvin MR ORDERABLES Final Resu lt documented in this encounter Visit Diagnoses Diagnosis Pain Generalized pain Pain Generalized pain documented in this encounter Care Teams Roading Engineer Relationship Specialty Start Date End Date Bren Allen MD [address] [place] [phone] PCP - General Internal Medicine 10/03/17 documented as of this encounter
--- OUTSIDE RECORDS SUMMARY | 2025-02-02 21:11 | XMS_ITS | Encounter Summary ---
Author Organization [facility] Address [address] [place] [address] Care Team Providers Care Hops Farmworker Name Role Phone Bren Allen MD Primary Care Provider [phone] [phone] Encounter Details Date Type Department Care Team (Latest Contact Info) Description 09/27/1999 Outpatient Historical [address] [phone] Tanner Francis MD [address] [place] [address] Congestive heart failure, unspecified (Primary Dx); Unspecified essential hypertension Social History Tobacco Use Types Packs/Day Years Used Date Smoking Tobacco: Never Assessed Sex and Gender Information Value Date Recorded Sex Assigned at Not on file Legal Sex Male 4:49 AM POWERSAW SUPERVISOR Gender Identity Not on file Sexual Orientation Not on file documented as of this encounter Plan of Treatment Not on file documented as of this encounter Visit Diagnoses Diagnosis Congestive heart failure, unspecified- Primary Unspecified essential hypertension documented in this encounter Care Teams Hops Farmworker Relationship Specialty Start Date End Date Bren Allen MD [address] [place] [address] PCP - General Internal Medicine 10/03/17 documented as of this encounter
--- OUTSIDE RECORDS SUMMARY | 2025-02-02 21:11 | XMS_ITS | Encounter Summary ---
Author Organization [facility] Address [address] Whitt: Epic Prelude ADT [place] [address] Care Team Providers Care Disability Coordinator Name Role Phone Bren Allen MD Primary Care Provider +1 [phone] Encounter Details Date Type Department Care Team (Late st Contact Info) Description 08/14/2001 Outpatient Historical Tanner Francis MD [address] [place] [place] [id number] Social History Tobacco Use Types Packs/Day Years Used Date Smoking Tobacco: Never Assessed Sex and Gender Information Value Date Recorded Sex Assigned at Not on file Legal Sex Male 4:49 AM BRICK SETTER OPERATOR Gender Identity Not on file Sexual Orientation Not on file documented as of this encounter Plan of Treatment Not on file documented as of this encounter Visit Diagnoses Not on filedocumented in this encounter Care Teams Disability Coordinator Relationship Specialty Start Date End Date Bren Allen MD [address] [place] [phone] PCP - General Internal Medicine 10/03/17 documented as of this encounter
--- OUTSIDE RECORDS SUMMARY | 2025-02-02 21:11 | XMS_ITS | Encounter Summary ---
Author Organization [facility] Address [address] [place] [address] Care Team Providers Care Ged Preparation Teacher Name Role Phone Bren Allen MD Primary Care Provider +1 [phone] Encounter Details Date Type Department Care Team (Latest Contact Info) Description 10/31/2001 Outpatient Historical [facility] [address] [place] [address] Pili Ayala, PROJECT PRODUCT MANAGER [address] [place] [address] HYPERSOMNI W SLEEP APNEA (Primary Dx) Social History Tobacco Use Types Packs/Day Years Used Date Smoking Tobacco: Never Assessed Sex and Gender Information Value Date Recorded Sex Assigned at Not on file Legal Sex Male 4:49 AM OFFSET LITHOGRAPHIC PRESS SETTER Gender Identity Not on file Sexual Orientation Not on file documented as of this encounter Plan of Treatment Not on file documented as of this encounter Visit Diagnoses Diagnosis Hypersomnia with sleep apnea, unspecified- Primary documented in this encounter Care Teams Ged Preparation Teacher Relationship Specialty Start Date End Date Bren Allen MD [address] [place] [address] PCP - General Internal Medicine 10/03/17 documented as of this encounter
--- OUTSIDE RECORDS SUMMARY | 2025-02-02 21:11 | XMS_ITS | Encounter Summary ---
Author Organization [facility] Address [address] [place] [address] Care Team Providers Care Crematory Operator Name Role Phone Bren Allen MD Primary Care Provider +1 [phone] Encounter Details Date Type Department Care Team (Late st Contact Info) Description 03/03/2019 Ancillary Orders [facility] Pre-Registration [place] CALL TO MAKE APPOINTMENT ONLY [address] [place] [address] Bren Allen MD [address] [place] [address] Social History Tobacco Use Types Packs/Day Years Used Date Smoking Tobacco: Never Smokeless Tobacco: Never Alcohol Use Standard Drinks/Week Comments Yes 1 (1 standard drink = 0.6 oz pur e alcohol) daily Sex and Gender Information Value Date Recorded Sex Assigned at Not on file Legal Sex Male 4:49 AM STRIKE PLANNING APPLICATIONS Gender Identity Not on file Sexual Orientation [...] documented as of this encounter Care Teams Crematory Operator Relationship Specialty Start Date End Date Bren Allen MD [address] [place] [address] PCP - General Internal Medicine 10/03/17 documented as of this encounter
--- OUTSIDE RECORDS SUMMARY | 2025-02-02 21:11 | XMS_ITS | Encounter Summary ---
Author Organization [facility] Address [address] Whitt: Epic Prelude ADT [place] [address] Care Team Providers Care Sales Development Specialist Name Role Phone Bren Allen MD Primary Care Provider [phone] [phone] Encounter Details Date Type Department Care Team (Late st Contact Info) Description 08/19/2001 Outpatient Historical Tanner Francis MD [address] [place] [facility] [place] [phone] Social History Tobacco Use Types Packs/Day Years Used Date Smoking Tobacco: Never Assessed Sex and Gender Information Value Date Recorded Sex Assigned at Not on file Legal Sex Male 4:49 AM ASSISTANT BOILER OPERATOR Gender Identity Not on file Sexual Orientation Not on file documented as of this encounter Plan of Treatment Not on file documented as of this encounter Visit Diagnoses Not on filedocumented in this encounter Care Teams Sales Development Specialist Relationship Specialty Start Date End Date Bren Allen MD [address] [place] [phone] PCP - General Internal Medicine 10/03/17 documented as of this encounter
--- OUTSIDE RECORDS SUMMARY | 2025-02-02 21:12 | XMS_ITS | Encounter Summary ---
Author Organization [facility] Address [address] Whitt: Epic Prelude [place]T [place] [address] Care Team Providers Care Binding Machine Operator Name Role Phone Bren Allen MD Primary Care Provider [phone] [phone] Encounter Details Date Type Department Care Team (Late st Contact Info) Description 06/06/1999 Inpatient Historical Oc Pool MD [address] [place] [address] Social History Tobacco Use Types Packs/Day Years Used Date Smoking Tobacco: Never Assessed Sex and Gender Information Value Date Recorded Sex Assigned at Not on file Legal Sex Male 4:49 AM DIE ASSEMBLER Gender Identity Not on file Sexual Orientation Not on file documented as of this encounter Plan of Treatment Not on file documented as of this encounter Visit Diagnoses Not on filedocumented in this encounter Care Teams Binding Machine Operator Relationship Specialty Start Date End Date Bren Allen MD [address] [place] [phone] PCP - General Internal Medicine 10/03/17 documented as of this encounter
--- OUTSIDE RECORDS SUMMARY | 2025-02-02 21:12 | XMS_ITS | Encounter Summary ---
Author Organization [facility] Address [address] Whitt: Epic Prelude ADT [place] [address] Care Team Providers Care Manager Of Training Name Role Phone Bren Allen MD Primary Care Provider +1 [phone] Encounter Details Date Type Department Care Team (Late st Contact Info) Description 02/24/2002 Outpatient Historical Tanner Francis MD [address] [facility] [phone] Social History Tobacco Use Types Packs/Day Years Used Date Smoking Tobacco: Never Assessed Sex and Gender Information Value Date Recorded Sex Assigned at Not on file Legal Sex Male 4:49 AM REGULATORY PRODUCT MANAGER Gender Identity Not on file Sexual Orientation Not on file documented as of this encounter Plan of Treatment Not on file documented as of this encounter Visit Diagnoses Not on filedocumented in this encounter Care Teams Manager Of Training Relationship Specialty Start Date End Date Bren Allen MD [address] [place] [phone] PCP - General Internal Medicine 10/03/17 documented as of this encounter
--- OUTSIDE RECORDS SUMMARY | 2025-02-02 21:12 | XMS_ITS | Encounter Summary ---
Author Organization [facility] Address [address] [place] [address] Care Team Providers Care Naval Aircrewman Mechanical Name Role Phone Bren Allen MD Primary Care Provider [phone] [phone] Encounter Details Date Type Department Care Team (Latest Contact Info) Description 11/23/2004 Outpatient Historical [facility] Orthopedics- [address] [place] [address] Jewel Norton MD NO ADDRESS ON FILE SHOULDER REGION DIS NEC (Primary Dx); JOINT PAIN-L/LEG; JOINT PAIN-SHLDER Social History Tobacco Use Types Packs/Day Years Used Date Smoking Tobacco: Never Assessed Sex and Gender Information Value Date Recorded Sex Assigned at Not on file Legal Sex Male 4:49 AM CIRCULAR SAW EDGE FUSER Gender Identity Not on file Sexual Orientation Not on file documented as of this encounter Plan of Treatment Not on file documented as of this encounter Visit Diagnoses Diagnosis Other affections of shoulder region, not elsewhere classified- Primary Pain in joint, lower leg Pain in joint, shoulder region documented in this encounter Care Teams Naval Aircrewman Mechanical Relationship Specialty Start Date End Date Bren Allen MD [address] [place] [address] PCP - General Internal Medicine 10/03/17 documented as of this encounter
--- OUTSIDE RECORDS SUMMARY | 2025-02-02 21:12 | XMS_ITS | Encounter Summary ---
Author Organization [facility] Address [address] [place] [address] Care Team Providers Care Meters Superintendent Name Role Phone Bren Allen MD Primary Care Provider +1 [phone] Reason for Referral * CT Scan (Routine) - Closed Specialty Diagnoses / Procedures Referred By Mirella t Referred To Contact Radiology Diagnoses Chronic sinusitis Procedures CT SINUSES LIMITED Monserrat Ervin FNP Phone: tel: fax: [facility] [address] [place] [address] Phone: tel: fax: Referral ID Status Reason Start Date Expiration Date V isits Requested Visits Authorized [id number] Closed [facility] TO SCHEDULE (S[facility]) 06/03/2019 08/01/2019 1 1 R AND REGULATOR SHOP SUPERVISOR Encounter Details Date Type Department Care Team (Late st Contact Info) Description 06/04/2019 Ancillary Orders [facility] Pre-Registration [place] CALL TO MAKE APPOINTMENT ONLY [address] [place] [address] Monserrat Ervin FNP [address] [place] [address] Chronic sinusitis Social History Tobacco [...] on file Legal Sex Male 4:49 AM METER AND REGULATOR SHOP SUPERVISOR Gender Identity Not on file Sexual Orientation Not on file Occupation Industry Job Start Date Job End Date Not on file Not on file Not on file Not on file documented as of this encounter Plan of Treatment Not on file documented as of this encounter Results * CT SINUSES LIMITED (06/19/2019 10:25 AM METER AND REGULATOR SHOP SUPERVISOR) Anatomical Region Laterality Modality Head Computed Tomogra phy 06/19/2019 10:2 5 AM METER AND REGULATOR SHOP SUPERVISOR Impressions 06/19/2019 4:01 PM METER AND REGULATOR SHOP SUPERVISOR IMPRESSION: Please see below. Exam: CT SINUSES [...] cysts. 2. Septal deviation to the left. [id number] Narrative Procedure Note Lacho Richey MD - [...] cysts. 2. Septal deviation to the left. [id number] C[address] CT ORDERABLES Final Result documented in this encounter Visit Diagnoses Diagnosis Chronic sinusitis Unspecified sinusitis (chronic) Chronic sinusitis Unspecified sinusitis (chronic) documented in this encounter Additional Health Concerns Assessment Noted Time PHQ-9 Depression Total Score: 6 10/08/19 19 1:51 PM CDT documented as of this encounter Care Teams Meters Superintendent Relationship Specialty Start Date End Date Bren Allen MD [address] [place] [phone] PCP - General Internal Medicine 10/03/17 documented as of this encounter
--- OUTSIDE RECORDS SUMMARY | 2025-02-02 21:12 | XMS_ITS | Encounter Summary ---
Author Organization [facility] Address [address] [place] [address] Care Team Providers Care Project Executive Name Role Phone Bren Allen MD Primary Care Provider +1 [phone] Reason for Referral * MRI (Routine) - Closed Specialty Diagnoses / Procedures Referred By Contac t Referred To Contact Radiology Diagnoses Spinal stenosis of lumbar region with radiculopathy Procedures MRI LUMBAR WO CONTRAST Liza Caal FNP [address] [place] [address] Phone: tel: fax: [facility] MRI [address] [address] Phone: tel: fax: Referral ID Status Reason Start Date Expiration Date V isits Requested Visits Authorized [id number] Closed [facility] TO SCHEDULE (SGF) 05/01/2019 05/31/2019 1 1 TIFICATION CLERK * MRI (Routine) - Closed Specialty Diagnoses / Procedures Referred By Contac t Referred To Contact Radiology Diagnoses Spinal stenosis of lumbar region with radiculopathy Procedures MRI THORACIC WO CONTRAST Liza Caal FNP [address] [place] [address] Phone: tel: fax: [facility] [employer] [facility] [address] [address] Phone: tel: fax: Referral ID Status Reason Start Date Expiration Date V isits Requested Visits Authorized [id number] Closed [facility] TO SCHEDULE ([facility]) 05/01/2019 05/31/2019 1 1 TIFICATION CLERK Encounter Details Date Type Department Care Team (Late st Contact Info) Description 04/21/2019 Ancillary Orders [facility] Pre-Registration [place] CALL TO MAKE APPOINTMENT ONLY [address] [place] [address] Liza Caal FNP [address] [place], [place] [phone] Spinal stenosis of lumbar region with radiculopathy Social History Tobacco Use Types Packs/Day Years Used Date Smoking Tobacco: Never Smokeless Tobacco: Never Alcohol Use Standard Drinks/Week Comments Yes 1 (1 standard drink = 0.6 oz pur e alcohol) daily Sex and Gender Information Value Date Recorded Sex Assigned at Not on file Legal Sex Male 4:49 AM IDENTIFICATION CLERK Gender Identity Not on file Sexual Orientation Not on file Occupation Industry Job Start Date Job End Date Not on file Not on file Not on file Not on file documented as of this encounter Plan of Treatment Not on file documented as of this encounter Results * MRI LUMBAR WO CONTRAST (05/01/2019 2:22 PM IDENTIFICATION CLERK) Anatomical Region Laterality Modality Spine Magnetic Resonan ce 05/01/2019 2:22 PM IDENTIFICATION CLERK Impressions 05/01/2019 3:07 PM IDENTIFICATION CLERK IMPRESSION: Multilevel degenerative change of the lumbar spine with moderate narrowing the spinal canal at L4-5. Severe right and moderate left neural foraminal stenosis at L4-5. Moderate left L2-3 and L3-4 neural foraminal stenosis. Additional degenerative findings detailed above. Narrative 05/01/2019 3:07 PM IDENTIFICATION CLERK Exam: MRI LUMBAR WO CONTRAST Date/Time of [...] degenerative findings detailed above. Liza Kaia Caal [facility] MR ORDERABLES Final Result * MRI THORACIC WO CONTRAST (05/01/2019 2:22 PM IDENTIFICATION CLERK) Anatomical Region Laterality Modality Spine Magnetic Resonan ce 05/01/2019 2:22 PM IDENTIFICATION CLERK Impressions 05/01/2019 3:04 PM IDENTIFICATION CLERK IMPRESSION: Please see below. Exam: MRI THORACIC [...] spine MRI for further evaluation. Liza Caal [facility] MR ORDERABLES Final Result documented in [...] documented as of this encounter Care Teams Project Executive Relationship Specialty Start Date End Date Bren Allen MD [address] [place] [address] PCP - General Internal Medicine 10/03/17 documented as of this encounter
--- OUTSIDE RECORDS SUMMARY | 2025-02-02 21:12 | XMS_ITS | Encounter Summary ---
Author Organization [facility] Address [address] [place]: Epic Prelude ADT BOYD [place] [address] Care Team Providers Care Pipe Assembly Worker Name Role Phone Bren Allen MD Primary Care Provider +1 [phone] Encounter Details Date Type Department Care Team (Late st Contact Info) Description 12/26/2001 Outpatient Historical Tanner Francis MD [address] [place] [facility] [place] [phone] Social History Tobacco Use Types Packs/Day Years Used Date Smoking Tobacco: Never Assessed Sex and Gender Information Value Date Recorded Sex Assigned at Not on file Legal Sex Male 4:49 AM MID LEVEL PROJECT MANAGER Gender Identity Not on file Sexual Orientation Not on file documented as of this encounter Plan of Treatment Not on file documented as of this encounter Visit Diagnoses Not on filedocumented in this encounter Care Teams Pipe Assembly Worker Relationship Specialty Start Date End Date Bren Allen MD [address] [place] [phone] PCP - General Internal Medicine 10/03/17 documented as of this encounter
--- OUTSIDE RECORDS SUMMARY | 2025-02-02 21:12 | XMS_ITS | Encounter Summary ---
Author Organization [facility] Address [address] [place] [address] Care Team Providers Care Seo Strategist Name Role Phone Bren Allen MD Primary Care Provider +1 [phone] Encounter Details Date Type Department Care Team (Latest Contact Info) Description 09/11/2003 Outpatient Historical [facility] [address] [place] [address] AMBULANCE, [facility] CHEST PAIN NEC (Primary Dx) Social History Tobacco Use Types Packs/Day Years Used Date Smoking Tobacco: Never Assessed Sex and Gender Information Value Date Recorded Sex Assigned at Not on file Legal Sex Male 4:49 AM TAX AGENT Gender Identity Not on file Sexual Orientation Not on file documented as of this encounter Plan of Treatment Not on file documented as of this encounter Visit Diagnoses Diagnosis Other chest pain- Primary documented in this encounter Care Teams Seo Strategist Relationship Specialty Start Date End Date Bren Allen MD [address] [place] [address] PCP - General Internal Medicine 10/03/17 documented as of this encounter
--- OUTSIDE RECORDS SUMMARY | 2025-02-02 21:12 | XMS_ITS | Encounter Summary ---
Author Organization [facility] Address [address] [place] [address] Care Team Providers Care Cook Manager Name Role Phone Bren Allen MD Primary Care Provider +1 [phone] Encounter Details Date Type Department Care Team (Latest Contact Info) Description 11/25/2001 Outpatient Historical [facility] [address] [phone] Manuel Henley MD [address] [place] [phone] ACUTE BRONCHITIS (Primary Dx); ACUTE PHARYNGITIS; OTITIS MEDIA NOS Social History Tobacco Use Types Packs/Day Years Used Date Smoking Tobacco: Never Assessed Sex and Gender Information Value Date Recorded Sex Assigned at Not on file Legal Sex Male 4:49 AM FOLDER MACHINE Gender Identity Not on file Sexual Orientation Not on file documented as of this encounter Plan of Treatment Not on file documented as of this encounter Visit Diagnoses Diagnosis Acute bronchitis- Primary Acute pharyngitis Unspecified otitis media documented in this encounter Care Teams Cook Manager Relationship Specialty Start Date End Date Bren Allen MD [address] [place] [address] PCP - General Internal Medicine 10/03/17 documented as of this encounter
--- OUTSIDE RECORDS SUMMARY | 2025-02-02 21:12 | XMS_ITS | Encounter Summary ---
Author Organization [facility] Address [address] [place] [address] Care Team Providers Care Carbonating Stone Cleaner Name Role Phone Bren Allen MD Primary Care Provider +1 [phone] Encounter Details Date Type Department Care Team (Late st Contact Info) Description 11/21/2001 Outpatient Historical [facility] [address] [place] [address] Social History Tobacco Use Types Packs/Day Years Used Date Smoking Tobacco: Never Assessed Sex and Gender Information Value Date Recorded Sex Assigned at Not on file Legal Sex Male 4:49 AM REFINERY PIPELINE OPERATOR Gender Identity Not on file Sexual Orientation Not on file documented as of this encounter Plan of Treatment Not on file documented as of this encounter Visit Diagnoses Not on filedocumented in this encounter Care Teams Carbonating Stone Cleaner Relationship Specialty Start Date End Date Bren Allen MD [address] [place] [address] PCP - General Internal Medicine 10/03/17 documented as of this encounter
--- OUTSIDE RECORDS SUMMARY | 2025-02-02 21:12 | XMS_ITS | Clinical Summary ---
Author Organization [facility] Address [address] [place] [address] Care Team Providers Care Transit Operator Name Role Phone Bren Allen MD Primary Care Provider +1 [phone] Allergies Active Allergy Reactions Criticality Noted Date Comments Aluminum Sulfate Hives High 02/09/2021 Cantaloupe Diarrhea Low 01/09/2019 Gadolinium-Containin g Contrast Media Hives,Itching High 05/01/2019 Iodinated Contrast Media Itching Medium 06/19/2019 Other reaction(s): UNKNOWN, Unknown, Unknown; Itching Other [place]-3s Diarrhea Low 06/28/2018 cantelope Chronic pain syndrome Chronic pain syndrome [id number] Active 2020-07-16 00:00:00 Overview: Added automatically from request for surgery [id number] Penicillin G Anaphylaxis,Swellin g High 04/16/2009 Medications [...] elemental) Tablet, Chewable Take by mouth. 02/14/20 18 Active Blood-Glucose Meter,Continuous (Dexcom G6 Grave Digger) Use to check BG. 1 Each 0 11/03/19 21 Active Blood-Glucose Sensor (Dexcom G6 Sensor) Device Replace every 10 days. 9 Each 3 11/03/19 21 Active cetirizine (ZyrTEC) 10 mg tablet Take 10 mg by mouth. 07/17/19 21 Active fluticasone propionate (Flovent HFA) 110 mcg/actuation HFA Aerosol Inhaler Take 2 Puffs by inhalation every 12 hours. 11/23/19 21 Active nystatin (NYSTOP) 100,000 unit/gram powder Apply to affected area. Groin area 09/28/19 21 Active sodium chloride (OCEAN) 0.65 % Aerosol, Margaret Administer in each nostril 2 times daily as needed. 08/17/19 21 Active oxygen home delivery Home Oxygen Concentrator yes at 2 L/M Rest, 2 L/M Activity, 2 L/M Sleep, Delivery Device: Nasal Cannula Portability: yes, 2 L/M Rest, 2 L/M Activity, May provide device best for patient needs(E system,home fill, conserving device) Length of Need: 99 months 1 Each 05/01/20 21 Active atorvastatin (LIPITOR) 40 mg tablet Take 1 Tablet by mouth daily. 05/02/20 21 Active diphenhydrAMINE (BENADRYL) 25 mg capsule Active albuterol (PROVENTIL,VENTOLI N) 2.5 mg /3 mL (0.083 %) Solution for Nebulization Take 3 mL (2.5 mg) by inhalation every 6 hours as needed for Shortness of Breath. 360 mL 01/01/20 22 Active Blood-Glucose Meter,Continuous (Dexcom G6 Grave Digger) Use to monitor blood glucose continuously throughout the day. 1 Each 05/29/19 23 Active Blood-Glucose Transmitter (Dexcom G6 Transmitter) Device Fasten on top of the sensor to wirelessly send data to the warehouse receiver. Must be changed every 3 months. 1 [...] 01/26/20 23 Active naloxone (NARCAN) 4 mg/spray Margaret, Non-Aerosol EMERGENCY USE ONLY: Administer 1 spray [...] (CMS/HCC),Chronic combined systolic and diastolic heart failure Take 1 Tablet (20 mEq) by mouth daily. 90 Tablet 3 07/17/19 25 Active HumuLIN-R U-500, Conc, Kwikpen 500 unit/mL (3 mL) penIndications:Typ e 2 diabetes mellitus with diabetic polyneuropathy, with long-term current use of insulin inject 170 units EVERY DAY with breakfast, [...] Encounters Date Type Department Care Team Description 01/09/2025 Telephone [facility] Urology [address] [place] [address] Tanner Leon NP No Show 12/30/2024 External Device Data STL ABSTRACTION Provider, Abstract 11/19/2024 External Device Data STL ABSTRACTION Provider, Abstract 11/18/2024 External Device Data STL ABSTRACTION Provider, Abstract from Last 3 Months Immunizations Immunization Administration Dates Next Due (ADACEL/BOOSTRIX)(10 YR UP) TDAP VACCINE, 0.5ML, IM 11/30/2021 (PNEUMOVAX 23)(50 YRS UP) PN EUMOCOCCAL POLYSACCHARIDE (PPV23) 0.5 ML, IM 02/16/2013 Influenza Seasonal Unspecifi ed Formulation IM 06/18/2018,02/26/2014,12/27/2012,04/10,03/06/2002 Influenza Vaccine Split 3+ Yrs PF IM 02/13/2012, 05/06/2010 Family History Medical History Relation Name Comments Arthritis-osteo Brother One brother Oliver Linder. David wu Rheumatoid arthritis due to exposure to agent [place] Heart Disease Brother One brother Oliver Linder. Young Cause of ruptured aortic artery Hypertension Brother One brother Oliver Linder. Young Other Brother One brother Oliver Linder. Young Sleep Apnea Brother One brother Oliver Linder. Young Thyroid Disease Brother One brother Oliver Linder. David wu Asthma Daughter Laquita Abdul e ldest daughter Placed on theadur sprinkles at 13 months Arthritis-rheumatoid Father Able Young Bleeding Problem Father Able Young That was ju st seconds short of being hemophiliac Cancer Father Able Young Lungs ,spleen, spine, liver.WWII [employer] [place] Hemophilia Father Able Young Was never class ified as a bleeder but was very very slow to clot Liver Disease Father Able Young Lung Cancer Father Able Young Cause of . Mesofeloma Anemia Mother Erika Abdul Asthma Mother Erika Abdul Cancer Mother Erika Abdul Emphysema Diabetes Mother Erika Abdul Heart Disease Mother Erika Abdul Treated [place] [facility] Hypertension Mother Quincyvernon Chadwick Albert bAdul Respiratory Disease Mother Quincyvernon Netta Abdul EM PHYSEMA Asthma Sister 1 Marian Dumont Hypertension Sister 1 Marian Nicholson Franko Tim Thyroid Disease Sister 1 Marian Dumont Cancer Sister 2 Mahogany Brewsterell Heartz Ovarian and cervical cancer Hypertension Sister 2 Mahogany Brewsterell Heartz Asthma Sister 3 Michelle Irby Breast Cancer Sister 3 Michelle Annelise Irby Cancer Sister 3 Michelle Annelise Irby Br east cancer Hypertension Sister 3 Michelle Annelise Abdul Irby Respiratory Disease Sister 3 Michelle Ericksonnadine Abdul M oore COPD ... Emphysema Colon Cancer Neg Hx Relation Name Status Comments Brother One brother Oliver Linder. Young Daughter Laquita Abdul eldest daughter Alive Father Able Young Mother Quincyvernon Netta Abdul Sister 1 Marian Dumont Sister 2 Mahogany Hartonnell [facility] Sister 3 Michelle Castelan Franko Irby Social History Tobacco Use Types Packs/Day Years Used Date Smoking Tobacco: Never Passive Smoke Exposure: Never Smokeless Tobacco: Never Tobacco Cessation:Counseling Given: No Alcohol Use Standard Drinks/Week Comments Not Currently 0 (1 standard drink = 0.6 oz pur e alcohol) Feeling Safe Answer Date Recorded Are you in a relationship wi th someone who hurts you emotionally and/or physically? No 05/22/2024 Food Insecurity Answer Date Recorded Social/Environmental Concerns No concerns Transportation Needs Answer Date Record ed Social/Environmental Concerns No concerns Housing Stability Answer Date Recorded Social/Environmental Concerns No concerns Utility Needs Answer Date Recorded Social/Environmental Concerns No concerns Sex and Gender Information Value Date Recorded Sex Assigned at Not on file Legal Sex Male 5:19 PM CREDIT RISK MODELER Gender Identity Not on file Sexual Orientation Not on file Last Filed Vital Signs Vital Sign Reading Time Taken Comments Blood Pressure 120/76 06/05/2024 9:11 AM CREDIT RISK MODELER Pulse 72 06/05/2024 9:11 AM CREDIT RISK MODELER Temperature 36.6 C (97.8 F) 05/21/2024 9:38 PM CREDIT RISK MODELER Respiratory Rate 18 05/22/2024 2:45 AM CREDIT RISK MODELER Oxygen Saturation 96% 05/22/2024 2:45 AM CREDIT RISK MODELER Inhaled Oxygen Concentration - - Weight 162.4 kg (358 lb) 06/05/2024 9:11 AM CREDIT RISK MODELER Height 190.5 cm (6' 3 ) 06/05/2024 9:11 AM CREDIT RISK MODELER Body Mass Index 44.75 06/05/2024 9:11 AM CREDIT RISK MODELER Plan of Treatment Upcoming Encounters Date Type Department Care Team (Late st Contact Info) Description 02/11/2025 3:00 PM CDT Office Visit [facility] [place] [address] [facility] [address] [place] [address] Tanner Leon NP [address] [place] [phone] 06/18/2025 9:15 AM CREDIT RISK MODELER Office Visit [facility] Cardiology [facility] [address] [place] [address] Tanner Hodge MD [address] [place] [address] 08/11/2025 10:30 AM CDT Office Visit [facility] Op[facility] [place] [address] [place] [address] Caleb Lowry MD [address] [place] [address] Health Maintenance Due Date Last Done Comments FIT-DNA Q 3 years 2001 FIT/FOBT Q 1 year 2001 Flex Sig/CT Colonography Q 5 years 2001 ZOSTER VACCINE (1 of 2) 2006 PNEUMOCOCCAL VACCINE 50+ YEA RS (2 of 2 - PCV) 02/16/2014 02/16/2013 RSV VACCINE (60+ or ) (1 - Risk 60-74 years 1-dose series) 2016 LDL CHOLESTEROL ANNUAL 01/13/2021 0, 12/16/2018, 10/30/2016 DIABETES ANNUAL FOOT EXAM 08/13/2022 08/13/2021 DIABETES HBA1C Q 6 MONTHS 02/08/20242023, 08/09/2023, 09/06/2022, Additional history exists INFLUENZA VACCINE (#1) 2024 2, 06/18/2018, 02/26/2014, Additional history exists DIABETES MICROALBUMIN ANNUAL SCREEN 12/19/2024 12/20/2023, 09/07/2022 DIABETES ANNUAL RETINAL EXAM 09/18/2025, 09/18/2024, 09/18/2024, Additional history exists COLORECTAL SCREENING 02/16/2028 02/15/2023, 02/15/2023, 02/15/2023, Additional history exists Colorectal Cancer Screening 02/16/2028 DTAP/TDAP/TD VACCINES (2 - T d or Tdap) 12/01/2031 11/30/2021 Medical Devices Implanted Type Area Cork Wirer Device Identifier Shelf Expiration Date Model / Serial / Lot Dev Closure Angioseal 6fr Vip [id number] - [id number] Implanted:Qty: 1 on 12/27/2021 by Abdoul Lorenz MD at [facility] Closure Device Right: Grojazmin [facility] [employer] 08/04/2022 [id number] / / [id number] Lens Io [id number] - [id number] Implanted:Qty: 1 on 04/20/2014 by Alyson Barrios MD Eye Left: Eye [employer] 12/19/2018 [id number] / [id number] / Lens Io Tecnis 1pc 16.5 [id number] - [id number] Implanted:Qty: 1 on 07/24/2018 by Alyson Barrios MD Eye Right: Eye [employer] 08/29/2021 [id number] / [id number] / Allograft Cornea [facility] Cornea-Precut - [id number] Implanted:Qty: 1 on 02/03/2019 by Alyson Barrios MD Eye Right: Eye [facility] 02/11/2019 [place]NE[place] ECUT / [id number] / [id number] Graft [place] Cornea - [id number] Implanted:Qty: 1 on 08/14/2012 Graft Left: Eye [facility] 08/21/2012 CORNEA / [id number] / NA Lens Iol Sensar 18.5 Optiedge [id number] - [id number] Implanted:Qty: 1 on 05/15/2024 by Caleb Lowry MD at [facility] Right: Eye [employer] 10/22/2027 [id number] / [id number] / Procedures Procedure Name Priority Date/Time Associated Diagnosis Comments MICROALBUMIN/CREATIN INE RATIO, RANDOM UR Routine 12/20/2023 9:34 AM CDT Type 2 diabetes mellitus with diabetic polyneuropathy, with long-term current use of insulin ([facility]) HEMOGLOBIN A1C Stat 08/09/2023 3:32 AM CDT COLONOSCOPY REPORT 02/15/2023 11 :09 AM CDT LIPID PANEL Routine 01/14/2020 OPHTHALMIC DIAGNOSTIC IMAGE RETINA MERCEDES Routine 06/11/2013 1:29 PM CREDIT RISK MODELER from Last 3 Months or Most Recently Relevant to Health Maintenance Results * MICROALBUMIN/CREATININE RATIO, RANDOM UR (12/20/2023 9:34 AM CDT) Creatinine, Urine 44 20 - 320 mg/dL [place] [facility] MICROALBUMIN, URINE <0.2 See Note: mg/dL [...] within a diagnostic category. Test Performed at: [facility] [id number] [place] [address] Janett Moser MD Urine URINE SPECIMEN OBTAINED BY CLEAN CATCH PROCEDURE / Unknown 12/20/2023 9:34 AM CDT 12/20/2023 9:35 AM CDT us Peggy Nobles HEDDLER TIER URINE ORDERABLES Final Resu lt [facility] [phone] [place] [facility] [place] [address] [place] [address] * (ABNORMAL) HEMOGLOBIN A1C (08/09/2023 3:32 AM CDT) HEMOGLOBIN A1C 8.2(H) <=5.6 % 08/10/2023 11:47 AM CDT [facility] EST. AVG GLUCOSE, A1C 189 mg/dL 08/10/2023 11:47 AM CDT [facility] Blood Venipuncture / Unknown 08/09/2023 3:32 AM CDT 08/09/2023 3:45 AM CDT Narrative [facility] - 08/10/2023 11:47 AM CDT HGB A1C INTERPRETATION NORMAL: <5.7% PRE-DIABETES: 5.7 - 6.4% DIABETES: 6.5% OR GREATER us Williams Medina DO CHEMISTRY ORDERABLES Final R esult [facility] CLIA # [id number] [address] [place] [address] * COLONOSCOPY REPORT (02/15/2023 11:09 AM CDT) Narrative Procedure Note Chad Leyva MD - 02/15/2023 11:09 AM CDT [facility] GI Patient Name: Sydnie Abdul Procedure Date: 02/15/2023 Date of : 1955 Admit Type: Outpatient Age: 67 Attending MD: Chad Leyva MD, Procedure: Colonoscopy Indications: Surveillance: Personal [...] 10:51:34 AM Scope Out: 11:03:17 AM [address] [place], [place] Chad Leyva MD GI PROCEDURE ORDERABLES F inal Result * LIPID PANEL (01/14/2020) ABSTRACTED CHOLESTEROL [facility] ABSTRACTED TRIGLYCERIDE [facility] HDL [facility] ABSTRA[facility] LDL CALCULATED 103 [facility] [...] DIAGNOSTIC IMAGE RETINA MERCEDES (06/11/2013 1:29 PM CREDIT RISK MODELER) 06/11/2013 1:29 PM CREDIT RISK MODELER Narrative [facility] - 06/11/2013 1:29 PM Makayla Plasencia, CARROL 06/11/2013 1:29 PM NO CHARGE, NORMAL. us Makayla Antoinette Norman OD OPHTH OTHER Final Result [facility] from Last 3 Months or Most Recently Relevant to Health Maintenance Insurance [place] Member Subscriber Plan / Payer (Ef fective 2020-Present) Name:Sydnie Abdul Relation to Subscriber:Self Name:Sydnie Abdul Payer ID:Not on file Group ID:Not on file Type:Medicaid Address: [address] DUAL ADVANTAGE O [facility] MEDICARE PART A AND B MEDICARE PREFERRED O [facility] MEDICAID [place] * Guarantor: SYDNIE ABDUL Account Type Relation to Patient Date of Phone Billing Address Personal/Family [address] [place] [address] RX [facility] Medicare Part D * Guarantor: [facility] (C) Account Type Relation to Patient Date of Phone Billing Address Corporate [place] [address] GENERIC PAYOR Member Subscriber Plan / Payer (Ef fective 2023-Present) Name:Sydnie Abdul Relation to Subscriber:Self Name:Sydnie Abdul Payer ID:Not on file Group ID:Not on file Type:Hospice Address: [address] [id number] MEDICARE PART A AND B Advance Directives For more information, please contact: [phone] Documents on File Type Date Recorded Patient Technician [employer] Expl anation Advance Directive POA 08/14/2023 4:41 [...] 2:27 PM 05/02/2021 2:49 AM Care Teams Transit Operator Relationship Specialty Start Date End Date Bren Allen MD [address] [place] [address] PCP - General Internal Medicine 10/03/17
--- OUTSIDE RECORDS SUMMARY | 2025-02-02 21:12 | XMS_ITS | Encounter Summary ---
Author Organization [facility] Address [address] 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
--- OUTSIDE RECORDS SUMMARY | 2025-02-02 21:12 | XMS_ITS | Encounter Summary ---
Author Organization [facility] Address [address] [place] [address] Care Team Providers Care Open Tenter Operator Name Role Phone Bren Allen MD Primary Care Provider [phone] [phone] Reason for Referral * MRI (Routine) - Closed Specialty Diagnoses / Procedures Referred By Mirella t Referred To Contact Radiology Diagnoses Cervical disc disorder with myelopathy Procedures MRI CERVICAL WO CONTRAST Liza Caal FNP [address] [place] [address] Phone: tel: fax: [facility] [address] [address] Phone: tel: fax: Referral ID Status Reason Start Date Expiration Date V isits Requested Visits Authorized [id number] Closed F [facility] TO SCHEDULE (SGF) 05/19/2019 07/17/2019 1 1 CHECKER Encounter Details Date Type Department Care Team (Late st Contact Info) Description 06/10/2019 Ancillary Orders [facility] Pre-Registration [place] CALL TO MAKE APPOINTMENT ONLY [address] [place] [address] Liza Caal FNP [address] [place] [address] Cervical disc disorder with myelopathy [...] on file Legal Sex Male 4:49 AM MOLD CHECKER Gender Identity Not on file Sexual Orientation Not on file Occupation Industry Job Start Date Job End Date Not on file Not on file Not on file Not on file documented as of this encounter Plan of Treatment Not on file documented as of this encounter Results * MRI CERVICAL WO CONTRAST (06/19/2019 10:09 AM MOLD CHECKER) Anatomical Region Laterality Modality Spine Magnetic Resonan ce 06/19/2019 10:0 9 AM MOLD CHECKER Impressions 06/19/2019 3:59 PM MOLD CHECKER IMPRESSION: Please see below. Exam: MRI CERVICAL [...] chronic myelomalacia. Acute edema cannot be excluded. [id number] Narrative Procedure Note Lacho Richey MD - [...] chronic myelomalacia. Acute edema cannot be excluded. [id number] Liza Caal [facility] MR ORDERABLES Final Result documented in [...] documented as of this encounter Care Teams Open Tenter Operator Relationship Specialty Start Date End Date Bren Allen MD [address] [place] [address] PCP - General Internal Medicine 10/03/17 documented as of this encounter
--- OUTSIDE RECORDS SUMMARY | 2025-02-02 21:12 | XMS_ITS | Encounter Summary ---
Author Organization [facility] Address [address] [place] [address] Care Team Providers Care Sales And Support Center Agent Name Role Phone Bren Allen MD Primary Care Provider [phone] [phone] Encounter Details Date Type Department Care Team (Latest Contact Info) Description 03/06/2002 Outpatient Historical [address] [phone] Tanner Francis MD [address] [place] [address] HYPERTENSION NOS (Primary Dx); CHRONIC AIRWAY OBSTRUCTION NEC (CMS/HCC); ASCVD; VACCINE FOR INFLUENZA Social History Tobacco Use Types Packs/Day Years Used Date Smoking Tobacco: Never Assessed Sex and Gender Information Value Date Recorded Sex Assigned at Not on file Legal Sex Male 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
--- OUTSIDE RECORDS SUMMARY | 2025-02-02 21:12 | XMS_ITS ---
Author Organization [facility] Address [address] [place] [address] Care Team Providers Care Ditcher Operator Name Role Phone Bren [place] MD Primary Care Provider +1 -[phone] Active Problems Problem Noted Date Diagnosed Date [...]
--- OUTSIDE RECORDS SUMMARY | 2025-02-02 21:12 | XMS_ITS | Encounter Summary ---
Author Organization [facility] Address [address] [place] [address] Care Team Providers Care Sexer Name Role Phone Bren Allen MD Primary Care Provider +1 -[phone] Reason for Referral * CT Scan (Routine) - Closed Specialty Diagnoses / Procedures Referred By Contac t Referred To Contact Diagnoses Malignant neoplasm of prostate (CMS/HCC) Procedures CT GUIDED RAD THERAPY FIELD Ivan Sofai MD [address] [place] [address] Phone: tel: fax: Referral ID Status Reason Start Date Expiration Date Visits Re quested Visits Authorized [id number] Closed 07/22/2018 08/22/2019 1 1 Encounter Details Date Type Department Care Team (Late st Contact Info) Description 07/22/2018 Ancillary Orders [facility] [address] [facility] [address] [place] [address] Ivan Sofia MD [address] [place] [address] Malignant neoplasm of prostate (CMS/HCC) Social History Tobacco Use Types Packs/Day Years Used Date Smoking Tobacco: Never Smokeless Tobacco: Never Alcohol Use Standard Drinks/Week Comments Yes 1 (1 standard drink = 0.6 oz pur e alcohol) daily Sex and Gender Information Value Date Recorded Sex Assigned at Not on file Legal Sex Male 4:49 AM VEGETABLE BUNCHER Gender Identity Not on file Sexual Orientation [...] Order information only. Exam was auto-finalized. Ivan Sofia MD CT ORDERABLES Final Result documented in this encounter Visit Diagnoses Diagnosis Malignant neoplasm of prostate (CMS/HCC) Malignant neoplasm of prostate Malignant neoplasm of prostate (CMS/HCC) Malignant neoplasm of prostate documented in this encounter Additional Health Concerns Assessment Noted Time PHQ-9 Depression Total Score: 5 04/19/20 18 3:18 PM VEGETABLE BUNCHER documented as of this encounter Care Teams Sexer Relationship Specialty Start Date End Date Bren Allen MD [address] [place] [phone] PCP - General Internal Medicine 10/03/17 documented as of this encounter
--- OUTSIDE RECORDS SUMMARY | 2025-02-02 21:12 | XMS_ITS | Encounter Summary ---
Author Organization [facility] Address [address] [place] [address] Care Team Providers Care Natural Resources Instructor Name Role Phone Bren Allen MD Primary Care Provider +1 -[phone] Encounter Details Date Type Department Care Team (Late st Contact Info) Description 11/09/2004 Emergency [facility] Emergency Department [address] [place] [address] Evette Leon FNP NO ADDRESS ON FILE SPRAIN ROTATOR CUFF (Primary Dx) Social History Tobacco Use Types Packs/Day Years Used Date Smoking Tobacco: Never Assessed Sex and Gender Information Value Date Recorded Sex Assigned at Not on file Legal Sex Male 4: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
--- OUTSIDE RECORDS SUMMARY | 2025-02-02 21:12 | XMS_ITS | Encounter Summary ---
Author Organization [facility] Address [address] [place] [address] Care Team Providers Care Stereotype Caster Name Role Phone Bren Allen MD Primary Care Provider +1 -[phone] Encounter Details Date Type Department Care Team (Latest Contact Info) Description 06/22/1999 Outpatient Historical [address] [phone] Tanner Francis MD [address] [place] [address] Congestive heart failure, unspecified (Primary Dx) Social History Tobacco Use Types Packs/Day Years Used Date Smoking Tobacco: Never Assessed Sex and Gender Information Value Date Recorded Sex Assigned at Not on file Legal Sex Male 4:49 AM STEEL PICKLER Gender Identity Not on file Sexual Orientation Not on file documented as of this encounter Plan of Treatment Not on file documented as of this encounter Visit Diagnoses Diagnosis Congestive heart failure, unspecified- Primary documented in this encounter Care Teams Stereotype Caster Relationship Specialty Start Date End Date Bren Allen MD [address] [place] [address] PCP - General Internal Medicine 10/03/17 documented as of this encounter
--- OUTSIDE RECORDS SUMMARY | 2025-02-02 21:12 | XMS_ITS | Encounter Summary ---
Author Organization [facility] Address [address] [place] [address] Care Team Providers Care Microbiology Lab Assistant Name Role Phone Bren Allen MD Primary Care Provider +1 -[phone] Encounter Details Date Type Department Care Team (Latest Contact Info) Description 09/01/1999 Outpatient Historical [facility] Cardiology- [place] [address] [place] [address] Oc Pool MD [address] [place] [address] [address] [place] [address] Congestive heart failure, unspecified (Primary Dx); Other primary cardiomyopathies (CMS/HCC); Urticaria, unspecified Social History Tobacco Use Types Packs/Day Years Used Date Smoking Tobacco: Never Assessed Sex and Gender Information Value Date Recorded Sex Assigned at Not on file Legal Sex Male 4:49 AM REFINERY 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
--- OUTSIDE RECORDS SUMMARY | 2025-02-02 21:12 | XMS_ITS | Encounter Summary ---
Author Organization [facility] Address [address] [place] [address] Care Team Providers Care Website Optimization Strategist Name Role Phone Bren Allen MD Primary Care Provider +1 -[phone] Encounter Details Date Type Department Care Team (Latest Contact Info) Description 10/07/2004 Outpatient Historical [facility] [place] [address] 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
--- OUTSIDE RECORDS SUMMARY | 2025-02-02 21:12 | XMS_ITS | Encounter Summary ---
Author Organization [facility] Address [address] [place] [address] Care Team Providers Care Audio Visual Facilities Engineer Name Role Phone Bren Allen MD Primary Care Provider +1 -[phone] Encounter Details Date Type Department Care Team (Latest Contact Info) Description 06/28/1999 Outpatient Historical [facility] Cardiology- [place] [address] [place] [address] Oc Pool MD [address] [place] [address] [address] [place] [address] Congestive heart failure, unspecified (Primary Dx); Other primary cardiomyopathies (CMS/HCC) Social History Tobacco Use Types Packs/Day Years Used Date Smoking Tobacco: Never Assessed Sex and Gender Information Value Date Recorded Sex Assigned at Not on file Legal Sex Male 4:49 AM IMPORT COORDINATOR Gender Identity Not on file Sexual Orientation Not on file documented as of this encounter Plan of Treatment Not on file documented as of this encounter Visit Diagnoses Diagnosis Congestive heart failure, unspecified- Primary Other primary cardiomyopathies (CMS/HCC) Other primary cardiomyopathies documented in this encounter Care Teams Audio Visual Facilities Engineer Relationship Specialty Start Date End Date Bren Allen MD [address] [place] [address] PCP - General Internal Medicine 10/03/17 documented as of this encounter
--- OUTSIDE RECORDS SUMMARY | 2025-02-02 21:12 | XMS_ITS | Encounter Summary ---
Author Organization [facility] Address [address] [place] [address] Care Team Providers Care Ap Processor Name Role Phone Bren Allen MD Primary Care Provider +1 -[phone] Encounter Details Date Type Department Care Team (Latest Contact Info) Description 04/13/2003 Outpatient Historical [facility] [place] [address] [place] [address] Chad Ceron, DO [address] [place] [address] FX PHALANX, HAND NOS-CLOSE (Primary Dx); CELLULITIS, FINGER NOS Social History Tobacco Use Types Packs/Day Years Used Date Smoking Tobacco: Never Assessed Sex and Gender Information Value Date Recorded Sex Assigned at Not on file Legal 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
--- OUTSIDE RECORDS SUMMARY | 2025-02-02 21:12 | XMS_ITS | Encounter Summary ---
Author Organization [facility] Address [address] [place] [address] Care Team Providers Care Emergency Management Coordinator Name Role Phone Bren Allen MD Primary Care Provider +1 -[phone] Encounter Details Date Type Department Care Team (Latest Contact Info) Description 08/24/2003 Outpatient Historical [address] [phone] Qiana Pope MD [address] [place] [address], [id number] GASTRITIS/DUODEN NOS W/O HEMORRH (Primary Dx); HYPOVOLEMIA Social History Tobacco Use Types Packs/Day Years Used Date Smoking Tobacco: Never Assessed Sex and Gender Information Value Date Recorded Sex Assigned at Not on file Legal Sex Male 4:49 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
--- OUTSIDE RECORDS SUMMARY | 2025-02-02 21:12 | XMS_ITS | Encounter Summary ---
Author Organization [facility] Address [address] 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
--- OUTSIDE RECORDS SUMMARY | 2025-02-02 21:12 | XMS_ITS | Encounter Summary ---
Author Organization [facility] Address [address] [place] [address] Care Team Providers Care Boiler Control Technician Name Role Phone Bren Allen MD Primary Care Provider +1 -[phone] Encounter Details Date Type Department Care Team (Latest Contact Info) Description 06/18/2002 Outpatient Historical [facility] Medicine [address] [phone] Sumi Vieyra MD [address] [place] [address] ACUTE BRONCHITIS (Primary Dx); PNEUMONIA, ORGANISM NOS Social History Tobacco Use Types Packs/Day Years Used Date Smoking Tobacco: Never Assessed Sex and Gender Information Value Date Recorded Sex Assigned at Not on file Legal Sex Male 4:49 AM PRESSER HAND Gender Identity Not on file Sexual Orientation Not on file documented as of this encounter Plan of Treatment Not on file documented as of this encounter Visit Diagnoses Diagnosis Acute bronchitis- Primary Pneumonia, organism unspecified(486) Pneumonia, organism unspecified documented in this encounter Care Teams Boiler Control Technician Relationship Specialty Start Date End Date Bren Allen MD [address] [place] [phone] PCP - General Internal Medicine 10/03/17 documented as of this encounter
--- OUTSIDE RECORDS SUMMARY | 2025-02-02 21:12 | XMS_ITS | Encounter Summary ---
Author Organization [facility] Address [address] [place] [address] Care Team Providers Care Historiographer Name Role Phone Bren Allen MD Primary Care Provider +1 -[phone] Encounter Details Date Type Department Care Team (Latest Contact Info) Description 12/30/2002 Outpatient Historical [address] [address] Tanner Francis MD [address] [place] [address] HYPERLIPIDEMIA NEC/NOS (Primary Dx) Social History Tobacco Use Types Packs/Day Years Used Date Smoking Tobacco: Never Assessed Sex and Gender Information Value Date Recorded Sex Assigned at Not on file Legal Sex Male 4:49 AM SHUTTLER CAR Gender Identity Not on file Sexual Orientation Not on file documented as of this encounter Plan of Treatment Not on file documented as of this encounter Visit Diagnoses Diagnosis Other and unspecified hyperlipidemia- Primary documented in this encounter Care Teams Historiographer Relationship Specialty Start Date End Date Bren Allen MD [address] [place] [address] PCP - General Internal Medicine 10/03/17 documented as of this encounter
--- OUTSIDE RECORDS SUMMARY | 2025-02-02 21:12 | XMS_ITS | Encounter Summary ---
Author Organization [facility] Address [address] [place] [address] Care Team Providers Care Clinical Scientist Name Role Phone Bren Allen MD Primary Care Provider +1 -[phone] Encounter Details Date Type Department Care Team (Latest Contact Info) Description 08/13/2002 Outpatient Historical [facility] [address] [place] [address] Pili Ayala, SAP [employer] [address] [place] [address] HYPERSOMNI W SLEEP APNEA (Primary Dx) Social History Tobacco Use Types Packs/Day Years Used Date Smoking Tobacco: Never Assessed Sex and Gender Information Value Date Recorded Sex Assigned at Not on file Legal 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
--- OUTSIDE RECORDS SUMMARY | 2025-02-02 21:12 | XMS_ITS | Encounter Summary ---
Author Organization [facility] Address [address] [place] [address] Care Team Providers Care Carpet Installation Specialist Name Role Phone Bren Allen MD Primary Care Provider +1 -[phone] Encounter Details Date Type Department Care Team (Latest Contact Info) Description 08/25/2003 Outpatient Historical [address] [phone] Mark Hernandez, RIBBING MACHINE OPERATOR [address] [place] [address] DIARRHEA NOS (Primary Dx) Social History Tobacco Use Types Packs/Day Years Used Date Smoking Tobacco: Never Assessed Sex and Gender Information Value Date Recorded Sex Assigned at Not on file Legal Sex Male 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
--- OUTSIDE RECORDS SUMMARY | 2025-02-02 21:12 | XMS_ITS | Encounter Summary ---
Author Organization [facility] Address [address] [place] [address] Care Team Providers Care Science Technician Name Role Phone Bren Allen MD Primary Care Provider +1 -[phone] Encounter Details Date Type Department Care Team (Latest Contact Info) Description 11/04/2001 Outpatient Historical [address] [phone] Tanner Francis MD [address] [place] [address] OTHER UNSPEC SLEEP APNEA (Primary Dx); ESOPHAGEAL REFLUX; HYPERLIPIDEMIA NEC/NOS; DIABETES UNCOMPL ADULT-TYPE II ([facility]/HCC) Social History Tobacco Use Types Packs/Day Years Used Date Smoking Tobacco: Never Assessed Sex and Gender Information Value Date Recorded Sex Assigned at Not on file Legal 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 Male 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
--- OUTSIDE RECORDS SUMMARY | 2025-02-02 21:12 | XMS_ITS | Encounter Summary ---
Author Organization [facility] Address [address] [place] [address] Care Team Providers Care Histology Aide Name Role Phone Bren Allen MD Primary Care Provider +1 -[phone] Encounter Details Date Type Department Care Team (Latest Contact Info) Description 02/20/2002 Outpatient Historical [facility] [address] [place] [address] Pili Ayala, BULK SEALER [address] [place] [address] HYPERSOMNI W SLEEP APNEA (Primary Dx) Social History Tobacco Use Types Packs/Day Years Used Date Smoking Tobacco: Never Assessed Sex and Gender Information Value Date Recorded Sex Assigned at Not on file Legal Sex Male 4:49 AM OPENER TENDER Gender Identity Not on file Sexual Orientation Not on file documented as of this encounter Plan of Treatment Not on file documented as of this encounter Visit Diagnoses Diagnosis Hypersomnia with sleep apnea, unspecified- Primary documented in this encounter Care Teams Histology Aide Relationship Specialty Start Date End Date Bren Allen MD [address] [place] [address] PCP - General Internal Medicine 10/03/17 documented as of this encounter
--- OUTSIDE RECORDS SUMMARY | 2025-02-02 21:12 | XMS_ITS | Encounter Summary ---
Author Organization [facility] Address [address] [place] [address] Care Team Providers Care Evp Head Of [employer] Experience Strategy Name Role Phone Bren Allen MD Primary Care Provider +1 -[phone] Encounter Details Date Type Department Care Team (Latest Contact Info) Description 12/30/2002 Outpatient Historical [address] [phone] Tanner Francis MD [address] [place] [address] HYPERLIPIDEMIA NEC/NOS (Primary Dx); DIABETES UNCOMPL ADULT-TYPE II (CMS/HCC); HYPERTENSION NOS Social History Tobacco Use Types Packs/Day Years Used Date Smoking Tobacco: Never Assessed Sex and Gender Information Value Date Recorded Sex Assigned at Not on file Legal Sex Male 4:49 AM HOTEL ASSOCIATE Gender Identity Not on file Sexual Orientation Not on file documented as of this encounter Plan of Treatment Not on file documented as of this encounter Visit Diagnoses Diagnosis Other and unspecified hyperlipidemia- Primary Type II or unspecified type diabetes mellitus without mention of complication, not stated as uncontrolled Unspecified essential hypertension documented in this encounter Care Teams Evp Head Of [employer] Experience Strategy Relationship Specialty Start Date End Date Bren Allen MD [address] [place] [phone] PCP - General Internal Medicine 10/03/17 documented as of this encounter
--- OUTSIDE RECORDS SUMMARY | 2025-02-02 21:12 | XMS_ITS | Encounter Summary ---
Author Organization [facility] Address [address] [place] [address] Care Team Providers Care Tmd Teacher Name Role Phone Bren Allen MD Primary Care Provider +1 -[phone] Encounter Details Date Type Department Care Team (Latest Contact Info) Description 02/24/2002 Outpatient Historical [address] [phone] Tanner Francis MD [address] [place] [address] HYPERTENSION NOS (Primary Dx) Social History Tobacco Use Types Packs/Day Years Used Date Smoking Tobacco: Never Assessed Sex and Gender Information Value Date Recorded Sex Assigned at Not on file Legal Sex Male 4:49 AM SPA ASSOCIATE Gender Identity Not on file Sexual Orientation Not on file documented as of this encounter Plan of Treatment Not on file documented as of this encounter Visit Diagnoses Diagnosis Unspecified essential hypertension- Primary documented in this encounter Care Teams Tmd Teacher Relationship Specialty Start Date End Date Bren Allen MD [address] [place] [address] PCP - General Internal Medicine 10/03/17 documented as of this encounter
--- OUTSIDE RECORDS SUMMARY | 2025-02-02 21:12 | XMS_ITS | Encounter Summary ---
Author Organization [facility] Address [address] [place]: Epic Prelude ADT [place] [address] Care Team Providers Care Acid Purification Equipment Operator Name Role Phone Bren Allen MD Primary Care Provider +1 -[phone] Encounter Details Date Type Department Care Team (Late st Contact Info) Description 11/21/2001 Outpatient Historical Tanner Francis MD [address] [place] [facility] [place] [phone] Social History Tobacco Use Types Packs/Day Years Used Date Smoking Tobacco: Never Assessed Sex and Gender Information Value Date Recorded Sex Assigned at Not on file Legal Sex Male 4:49 AM STEAMBLASTER Gender Identity Not on file Sexual Orientation Not on file documented as of this encounter Plan of Treatment Not on file documented as of this encounter Visit Diagnoses Not on filedocumented in this encounter Care Teams Acid Purification Equipment Operator Relationship Specialty Start Date End Date Bren Allen MD [address] [place] [phone] PCP - General Internal Medicine 10/03/17 documented as of this encounter
--- OUTSIDE RECORDS SUMMARY | 2025-02-02 21:12 | XMS_ITS | Encounter Summary ---
Author Organization [facility] Address [address] 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
--- OUTSIDE RECORDS SUMMARY | 2025-02-02 21:12 | XMS_ITS | Encounter Summary ---
Author Organization [facility] Address [address] [place] [address] Care Team Providers Care Block Hand Name Role Phone Bren Allen MD Primary Care Provider +1 -[phone] Encounter Details Date Type Department Care Team (Latest Contact Info) Description 09/20/2003 Outpatient Historical [facility] Imaging Services [address] [place] [address] Tanner Francis MD [address] [place] [address] SCREENING FOR OTHER SPEC CONDN (Primary Dx) Social History Tobacco Use Types Packs/Day Years Used Date Smoking Tobacco: Never Assessed Sex and Gender Information Value Date Recorded Sex Assigned at Not on file Legal Sex Male 4:49 AM COMMISSION BROKER Gender Identity Not on file Sexual Orientation Not on file documented as of this encounter Plan of Treatment Not on file documented as of this encounter Visit Diagnoses Diagnosis Special screening for other specified conditions(V82.89)- Primary Special screening for other specified conditions documented in this encounter Care Teams Block Hand Relationship Specialty Start Date End Date Bren Allen MD [address] [place] [address] PCP - General Internal Medicine 10/03/17 documented as of this encounter
--- OUTSIDE RECORDS SUMMARY | 2025-02-02 21:12 | XMS_ITS | Encounter Summary ---
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
--- OUTSIDE RECORDS SUMMARY | 2025-02-02 21:12 | XMS_ITS | Encounter Summary ---
Author Organization [facility] Address [address] [place] [address] Care Team Providers Care Quality Rep Name Role Phone Bren Allen MD Primary Care Provider +1 -[phone] Encounter Details Date Type Department Care Team (Latest Contact Info) Description 09/26/2004 Outpatient Historical [address] [phone] Tanner Francis MD [address] [place] [address] LUMBAGO (Primary Dx); DIABETES MELLITUS TYPE II-UNCOMPL (CMS/HCC); MIXED HYPERLIPIDEMIA; HYPERTENSION NOS Social History Tobacco Use Types Packs/Day Years Used Date Smoking Tobacco: Never Assessed Sex and Gender Information Value Date Recorded Sex Assigned at Not on file Legal Sex Male 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
--- OUTSIDE RECORDS SUMMARY | 2025-02-02 21:12 | XMS_ITS | Encounter Summary ---
Author Organization [facility] Address [address] [place] [address] Care Team Providers Care Radio Operator Name Role Phone Bren Allen MD Primary Care Provider +1 [phone] Encounter Details Date Type Department Care Team (Late st Contact Info) Description 09/21/2003 Outpatient Historical [facility] Imaging Services [place] [address] [place] [address] Tanner Francis MD [address] [place] [facility] [place] [address] Social History Tobacco Use Types Packs/Day Years Used Date Smoking Tobacco: Never Assessed Sex and Gender Information Value Date Recorded Sex Assigned at Not on file Legal Sex Male 4:49 AM CAMP TENDER Gender Identity Not on file Sexual Orientation Not on file documented as of this encounter Plan of Treatment Not on file documented as of this encounter Visit Diagnoses Not on filedocumented in this encounter Care Teams Radio Operator Relationship Specialty Start Date End Date Bren Allen MD [address] [place] [phone] PCP - General Internal Medicine 10/03/17 documented as of this encounter
--- OUTSIDE RECORDS SUMMARY | 2025-02-02 21:12 | XMS_ITS | Encounter Summary ---
Author Organization [facility] Address [address] [place] [address] Care Team Providers Care Cook Relief Name Role Phone Bren Allen MD Primary Care Provider +1 [phone] Encounter Details Date Type Department Care Team (Latest Contact Info) Description 01/01/2004 Outpatient Historical [address] [address] Tanner Francis MD [address] [place] [address] IRON DEFIC ANEMIA NOS (Primary Dx); STOMACH FUNCTION DIS NEC; DIABETES MELLITUS TYPE II-UNCOMPL (CMS/HCC); MIXED HYPERLIPIDEMIA Social History Tobacco Use Types Packs/Day Years Used Date Smoking Tobacco: Never Assessed Sex and Gender Information Value Date Recorded Sex Assigned at Not on file Legal Sex Male 4:49 AM CUFF FOLDER Gender Identity Not on file Sexual Orientation [...] hyperlipidemia documented in this encounter Care Teams Cook Relief Relationship Specialty Start Date End Date Bren Allen MD [address] [place] [address] PCP - General Internal Medicine 10/03/17 documented as of this encounter
--- OUTSIDE RECORDS SUMMARY | 2025-02-02 21:12 | XMS_ITS | Encounter Summary ---
Author Organization [facility] Address [address] [place] [address] Care Team Providers Care Plastic Surgeon Name Role Phone Bren Allen MD Primary Care Provider +1 [phone] Encounter Details Date Type Department Care Team (Latest Contact Info) Description 09/06/1999 Outpatient Historical [address] [phone] Tanner Francis MD [address] [place] [address] Cardiomyopathy in other diseases classified elsewhere (CMS/HCC) (Primary Dx); Congestive heart failure, unspecified; Allergy, unspecified not elsewhere classified; Unspecified essential hypertension Social History Tobacco Use Types Packs/Day Years Used Date Smoking Tobacco: Never Assessed Sex and Gender Information Value Date Recorded Sex Assigned at Not on file Legal Sex 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 Gender Identity Not on file Sexual Orientation Not on file documented as of this encounter Plan of Treatment Not on file documented as of this encounter Visit Diagnoses Diagnosis Cardiomyopathy in other diseases classified elsewhere (CMS/HCC)- Primary Cardiomyopathy in other diseases classified elsewhere Congestive heart failure, unspecified Allergy, unspecified not elsewhere classified Unspecified essential hypertension documented in this encounter Care Teams Plastic Surgeon Relationship Specialty Start Date End Date Bren Allen MD [address] [place] [phone] PCP - General Internal Medicine 10/03/17 documented as of this encounter
--- OUTSIDE RECORDS SUMMARY | 2025-02-02 21:12 | XMS_ITS | Encounter Summary ---
Author Organization [facility] Address [address] [place] [address] Care Team Providers Care Professional Services Specialist Name Role Phone Bren Allen MD Primary Care Provider +1 [phone] Encounter Details Date Type Department Care Team (Latest Contact Info) Description 04/13/2003 Outpatient Historical [facility] Negar [address] [place] [address] Chad Ceron, DO [address] [place] [address] FX MID/PRX PHAL, HAND-CLOSE (Primary Dx); HAND INJURY NOS Social History Tobacco Use Types Packs/Day Years Used Date Smoking Tobacco: Never Assessed Sex and Gender Information Value Date Recorded Sex Assigned at Not on file Legal Sex Male 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
--- OUTSIDE RECORDS SUMMARY | 2025-02-02 21:12 | XMS_ITS | Encounter Summary ---
Author Organization [facility] Address [address] [place] [address] Care Team Providers Care Supervisor Plastics Name Role Phone Bren Allen MD Primary Care Provider +1 [phone] Encounter Details Date Type Department Care Team (Late st Contact Info) Description 10/07/2004 Outpatient Historical [facility] [place] [address] [place] 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
--- OUTSIDE RECORDS SUMMARY | 2025-02-02 21:12 | XMS_ITS | Encounter Summary ---
Author Organization [facility] Address [address] [place] [address] Care Team Providers Care Senior Process Control Tech Name Role Phone Bren Allen MD Primary Care Provider +1 [phone] Encounter Details Date Type Department Care Team (Latest Contact Info) Description 12/26/2001 Outpatient Historical [address] [phone] Tanner Francis MD [address] [place] [address] HYPERLIPIDEMIA NEC/NOS (Primary Dx); DIABETES UNCOMPL ADULT-TYPE II (CMS/HCC); ESOPHAGEAL REFLUX; OTHER UNSPEC SLEEP APNEA Social History Tobacco Use Types Packs/Day Years Used Date Smoking Tobacco: Never Assessed Sex and Gender Information Value Date Recorded Sex Assigned at Not on file Legal Sex Male 4:49 AM LIDAR ANALYST Gender Identity Not on file Sexual Orientation Not on file documented as of this encounter Plan of Treatment Not on file documented as of this encounter Visit Diagnoses Diagnosis Other and unspecified hyperlipidemia- Primary Type II or unspecified type diabetes mellitus without mention of complication, not stated as uncontrolled Esophageal reflux Unspecified sleep apnea documented in this encounter Care Teams Senior Process Control Tech Relationship Specialty Start Date End Date Bren Allen MD [address] [place] [address] PCP - General Internal Medicine 10/03/17 documented as of this encounter
--- OUTSIDE RECORDS SUMMARY | 2025-02-02 21:12 | XMS_ITS | Encounter Summary ---
Author Organization [facility] Address [address] [place] [address] Care Team Providers Care Cutting And Creasing Press Operator Name Role Phone Bren Allen MD Primary Care Provider +1 -[phone] Encounter Details Date Type Department Care Team (Latest Contact Info) Description 09/12/2003 Inpatient Historical [facility] Emergency Department [address] 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
--- OUTSIDE RECORDS SUMMARY | 2025-02-02 21:13 | XMS_ITS | Encounter Summary ---
Author Organization [facility] Address [address] [place] [address] Care Team Providers Care School Physical Therapist Name Role Phone Bren Allen MD Primary Care Provider +1 -[phone] Encounter Details Date Type Department Care Team (Latest Contact Info) Description 12/01/2004 Outpatient Historical [address] [phone] Tanner Francis MD [address] [place] [address] DIABETES MELLITUS TYPE II UNCONTR UNCOMPL (Primary Dx); HYPERLIPIDEMIA NEC/NOS; ANEMIA NOS; RENAL & URETERAL DIS NOS Social History Tobacco Use Types Packs/Day Years Used Date Smoking Tobacco: Never Assessed Sex and Gender Information Value Date Recorded Sex Assigned at Not on file Legal Sex Male 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 Gender Identity Not on file Sexual Orientation Not on file documented as of this encounter Plan of Treatment Not on file documented as of this encounter Visit Diagnoses Diagnosis Type II or unspecified type diabetes mellitus without mention of complication, uncontrolled- Primary Other and unspecified hyperlipidemia Anemia, unspecified Unspecified disorder of kidney and ureter documented in this encounter Care Teams School Physical Therapist Relationship Specialty Start Date End Date Bren Allen MD [address] [place] [address] PCP - General Internal Medicine 10/03/17 documented as of this encounter
--- OUTSIDE RECORDS SUMMARY | 2025-02-02 21:13 | XMS_ITS | Encounter Summary ---
Author Organization [facility] Address [address] [place] [address] Care Team Providers Care Textile Designs Sales Representative Name Role Phone Bren Allen MD Primary Care Provider +1 -[phone] Encounter Details Date Type Department Care Team (Latest Contact Info) Description 04/13/2006 Outpatient Historical [address] [phone] Tanner Francis MD [address] [place] [address] Unspecified Anemia (Primary Dx) Social History Tobacco Use Types Packs/Day Years Used Date Smoking Tobacco: Never Assessed Sex and Gender Information Value Date Recorded Sex Assigned at Not on file Legal 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
--- OUTSIDE RECORDS SUMMARY | 2025-02-02 21:13 | XMS_ITS | Encounter Summary ---
Author Organization [facility] Address [address] [place] [address] Care Team Providers Care Ship Scraper Name Role Phone Bren Allen MD Primary Care Provider +1 -[phone] Encounter Details Date Type Department Care Team (Latest Contact Info) Description 01/24/2006 Outpatient Historical [address] [phone] Tanner Francis MD [address] [place] [address] DM w/o Complication Type II (CMS/HCC) (Primary Dx); Mixed Hyperlipidemia; Unspecified Essential Hypertension Social History Tobacco Use Types Packs/Day Years Used Date Smoking Tobacco: Never Assessed Sex and Gender Information Value Date Recorded Sex Assigned at Not on file Legal Sex Male 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
--- OUTSIDE RECORDS SUMMARY | 2025-02-02 21:13 | XMS_ITS | Encounter Summary ---
Author Organization [facility] Address [address] [place] [address] Care Team Providers Care Technology Officer Name Role Phone Bren Allen MD Primary Care Provider +1 -[phone] Encounter Details Date Type Department Care Team (Latest Contact Info) Description 11/01/2005 Outpatient Historical [address] [phone] Tanner Francis MD [address] [place] [address] Unspecified Essential Hypertension (Primary Dx); Mixed Hyperlipidemia Social History Tobacco Use Types Packs/Day Years Used Date Smoking Tobacco: Never Assessed Sex and Gender Information Value Date Recorded Sex Assigned at Not on file Legal Sex Male 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
--- OUTSIDE RECORDS SUMMARY | 2025-02-02 21:13 | XMS_ITS | Clinical Summary ---
Author Organization [facility] [place] Address [address] [place] [address] Care Team Providers Care Planning Division Superintendent Name Role Phone Bren Allen MD Primary Care Provider +1 [phone] Allergies Active Allergy Reactions Criticality Noted Date Comments Cantaloupe Diarrhea Low 01/09/2019 Gadolinium-Containing Contrast Media Hives,Itching High 05/01/2019 Iodinated Contrast Media Itching Medium 06/19/2019 Other reaction(s): UNKNOWN, Unknown, Unknown; Itching Iodine Itching Low 02/06/2019 Other Blum-3s Diarrhea Low 06/28/2018 Penicillin G Anaphylaxis,Swelling High 04/16/2009 Unclassified Drug Itching Low 04/15/2018 Medications fluticasone (FLOVENT HFA) 110 mcg/Actuation Inhalation Aero Take 2 Puffs by inhalation 2 times daily. 12 Gram 5 04/06/20 11 Active Blood-Glucose Meter Misc KitIndications:Non -insulin dependent type 2 diabetes mellitus 1 Kit 0 03/27/20 12 Active Lancing Device (BD LANCET DEVICE) Misc MiscIndications:No n-insulin dependent type 2 diabetes mellitus 1 Device by Misc.(Non-Drug; Combo Route) route daily. 1 Device 0 03/27/20 12 Active blood sugar diagnostic Misc StrpIndications:No n-insulin dependent type 2 diabetes mellitus 1 Strip by See Admin Instructions route [...] for Spasm. Active naloxone (NARCAN) 4 mg/spray Griffith, Non-Aerosol EMERGENCY USE ONLY: Administer 1 spray (4 mg) in one nostril one time. May repeat in alternating nostrils every 2-3 min until responsive or EMS arrives. 2 Each 3 1 2:52 PM CDT 09/12/19 Active flash glucose scanning reader (FreeStyle Taisha 14 Day [place]) [facility] USE as directed TO test blood sugar EVERY DAY 1 Each 3 09/24/19 Active Blood-Glucose Meter,Continuous (Dexcom G6 Paint Prep Technician) Use to check BG. 1 Each 11/03/19 Active Blood-Glucose Sensor (Dexcom G6 Sensor) Device Replace every 10 days. 9 Each 11/03/19 Active Blood-Glucose Transmitter (Dexcom G6 Transmitter) Device Replace every 90 days. 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 Hemophilia Father Able Young Was never class ified as a bleeder but was very very slow to clot Cancer Mother Erika Abdul Emphysema Diabetes Mother Erika Abdul Heart Disease Mother Erkia Abdul Treated in [facility] Hypertension Mother Erika Abdul Respiratory Disease Mother Erika Abdul EM PHYSEMA Cancer Sister 1 Michelle Irby Br east cancer Hypertension Sister 1 Michelle Irby Cancer Sister 2 Mahogany Hernandez jazmin Allen Heartsarah Ovarian and cervical cancer Hypertension Sister 2 Mahogany Hartonnell Heartz Hypertension Sister 3 Marian Dumont Colon [...] on file Legal Sex Male 4:49 AM LABOR RELATIONS OR PERSONNEL 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 Eye Right: Eye [employer] 08/29/2021 [id number] / [id number] / Allograft Cornea [facility] Cornea-Precut - [id number] Implanted:Qty: 1 on 02/03/2019 by Alyson Barrios MD at 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 [place] Senile nuclear sclerosis MICROALBUMIN/CREATIN INE RATIO, RANDOM UR Routine 03/14/2012 12:31 PM LABOR RELATIONS OR PERSONNEL NEGOTIATOR Non-insulin dependent type 2 diabetes mellitus (CMS/HCC) [...] Andrade MD - 02/19/2018 10:01 AM CDT [facility] GI Patient Name: Sydnie Abdul Procedure Date: 02/19/2018 Date of : 1955 Admit Type: Outpatient Age: 62 Attending MD: Isra Andrade , Procedure: Colonoscopy Indications: Screening for colorectal malignant neoplasm (last colonoscopy was more than 10 years ago) Providers: Isra Andrade Referring MD: Bren Allen Medicines: Monitored Anesthesia Care Complications: No immediate complications. Procedure: Pre-Anesthesia Assessment: - [place] Protocol: - Pre-procedure Verification: Prior to the [...] 9:40:46 AM Scope Out: 9:59:49 AM [address] [place], [place] Isra Andrade MD GI PROCEDURE ORDERABLES Final Re sult * HEMOGLOBIN A1C (07/11/2017) ABSTRACTED HGB A1C 11.9 EXTERNAL LAB HEMOGLOBIN A1C 4.7 - 6.4 % EXTERNAL LAB HEMOGLOBIN A1C EXTERNAL LAB GLUCOSE, MEAN BLOOD EXTERNAL LAB Blood Abstract Spg Provider CHEMISTRY ORDERABLES Edite d Result - Final EXTERNAL LAB * OK CPTRIZED OPH DX IMG PST SEGMENT UNI/BI RETINA (06/11/2013 1:29 PM LABOR RELATIONS OR PERSONNEL NEGOTIATOR) Narrative [facility] - 06/11/2013 1:29 PM LABOR RELATIONS OR PERSONNEL NEGOTIATOR Makayla Castillo, OD 06/11/2013 1:29 PM NO CHARGE, NORMAL. Procedure Note Makayla Castillo, OD - 06/11/2013 1:28 PM CST NO CHARGE, NORMAL. Result [facility] Makayla Norman OD OPHTH OTHER Final Result [facility] * MICROALBUMIN/CREATININE RATIO, RANDOM UR (03/14/2012 12:31 PM LABOR RELATIONS OR PERSONNEL NEGOTIATOR) MICROALBUMIN URINE 1.9 MG/DL [facility] - [facility]LEJ[facility]DRA AVILA Creatinine, Urine 116 MG/DL [facility] - [facility]LEJ[facility]DRA AV[place]A MICROALBUMIN/CREA T RATIO, UR 16.4 MCG/MG CREAT. [facility] Comment: NORMAL: <30 MCG/MG CREAT MICROALBUMINURIA: 30-300 MCG/MG CREAT CLINICAL ALBUMINURIA: >300 MCG/MG CREAT Urine specimen (specimen) 03/14/2012 12:31 PM LABOR RELATIONS OR PERSONNEL NEGOTIATOR 03/14/2012 12:36 PM LABOR RELATIONS OR PERSONNEL NEGOTIATOR Tanner Francis MD URINE ORDERABLES Final Result [facility] [place] [place] [facility] - ALEJANDRA INFANTE# [id number] [address] [place] [address] from Last 3 Months or Most Recently Relevant to Health Maintenance Insurance MEDICAID [place] Member Subscriber Plan / Payer (Ef fective 2013-Present) Name:Sydnie Abdul Relation to Subscriber:Self Name:Sydnie Abdul Payer ID:[id number] Group ID:Not on file Type:Medicaid Address: [address] [id number] [place] MEDICAID DENTAL RX [facility] Medicare Part D Advance Directives For more information, please contact: [phone] Documents on File Type Date Recorded Patient Electric Organ Inspector And Repairer Expl anation Advance Directive POA 01/08/2018 10:57 [...] 8:00 AM 02/19/2018 12:32 PM Care Teams Planning Division Superintendent Relationship Specialty Start Date End Date Bren Allen MD [address] [place] [address] PCP - General Internal Medicine 10/03/17
--- OUTSIDE RECORDS SUMMARY | 2025-02-02 21:13 | XMS_ITS | Encounter Summary ---
Author Organization [facility] Address [address] [place] [address] Care Team Providers Care 3Rd Grade Reading Teacher Name Role Phone Bren Allen MD Primary Care Provider +1 [phone] Encounter Details Date Type Department Care Team (Latest Contact Info) Description 07/25/2005 Outpatient Historical [address] [phone] Tanner Francis MD [address] [place] [address] DM w/o Complication Type II (CMS/HCC) (Primary Dx); Mixed Hyperlipidemia; Unspecified Essential Hypertension; Unspecified Iron Deficiency Anemia Social History Tobacco Use Types Packs/Day Years Used Date Smoking Tobacco: Never Assessed Sex and Gender Information Value Date Recorded Sex Assigned at Not on file Legal Sex Male 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 Gender Identity Not on file Sexual Orientation Not on file documented as of this encounter Plan of Treatment Not on file documented as of this encounter Visit Diagnoses Diagnosis Type II or unspecified type diabetes mellitus without mention of complication, not stated as uncontrolled- Primary Mixed hyperlipidemia Unspecified essential hypertension Iron deficiency anemia, unspecified documented in this encounter Care Teams 3Rd Grade Reading Teacher Relationship Specialty Start Date End Date Bren lAlen MD [address] [place] [phone] PCP - General Internal Medicine 10/03/17 documented as of this encounter
--- OUTSIDE RECORDS SUMMARY | 2025-02-02 21:13 | XMS_ITS | Encounter Summary ---
Author Organization [facility] Address [address] [place] [address] Care Team Providers Care Associate Agent Insurance Sales Name Role Phone Bren Allen MD Primary Care Provider +1 -[phone] Encounter Details Date Type Department Care Team (Latest Contact Info) Description 12/05/2005 Outpatient Historical [address] [phone] Tanner Francis MD [address] [place] [phone] Acute Frontal Sinusitis (Primary Dx); DM w/o Complication Type II (CMS/HCC); Mixed Hyperlipidemia; Headache Social History Tobacco Use Types Packs/Day Years Used Date Smoking Tobacco: Never Assessed Sex and Gender Information Value Date Recorded Sex Assigned at Not on file Legal Sex Male 4:49 AM DIETARY COOK Gender Identity Not on file Sexual Orientation Not on file documented as of this encounter Plan of Treatment Not on file documented as of this encounter Visit Diagnoses Diagnosis Acute frontal sinusitis- Primary Type II or unspecified type diabetes mellitus without mention of complication, not stated as uncontrolled Mixed hyperlipidemia Headache(784.0) Headache documented in this encounter Care Teams Associate Agent Insurance Sales Relationship Specialty Start Date End Date Bren Allen MD [address] [place] [phone] PCP - General Internal Medicine 10/03/17 documented as of this encounter
--- OUTSIDE RECORDS SUMMARY | 2025-02-02 21:13 | XMS_ITS | Encounter Summary ---
Author Organization [facility] Address [address] [place] [address] Care Team Providers Care Cathead Operator Name Role Phone Bren Allen MD Primary Care Provider +1 [phone] Encounter Details Date Type Department Care Team (Late st Contact Info) Description 05/08/[address] 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
--- OUTSIDE RECORDS SUMMARY | 2025-02-02 21:13 | XMS_ITS | Encounter Summary ---
Author Organization [facility] Address [address] [place] [address] Care Team Providers Care Latent Fingerprint Examiner Name Role Phone Bren Allen MD Primary Care Provider +1 [phone] Encounter Details Date Type Department Care Team (Late st Contact Info) Description 03/27/2007 Emergency [facility] Emergency Department [address] 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
--- OUTSIDE RECORDS SUMMARY | 2025-02-02 21:13 | XMS_ITS | Encounter Summary ---
Author Organization [facility] Address [address] [place] [address] Care Team Providers Care Cuff Setter Name Role Phone Bren Allen MD Primary Care Provider +1 -[phone] Encounter Details Date Type Department Care Team (Late st Contact Info) Description 03/20/2007 Emergency [facility] Emergency Department [address] [place] [address] Evette Leon FNP NO ADDRESS ON FILE Open Wound of Finger(s) , without Mention of Complication (Primary Dx) Social History Tobacco Use Types Packs/Day Years Used Date Smoking Tobacco: Never Assessed Sex and Gender Information Value Date Recorded Sex Assigned at Not on file 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
--- OUTSIDE RECORDS SUMMARY | 2025-02-02 21:13 | XMS_ITS | Encounter Summary ---
Author Organization [facility] Address [address] [place] [address] Care Team Providers Care Private Banker Name Role Phone Bren Allen MD Primary Care Provider +1 -[phone] Encounter Details Date Type Department Care Team (Latest Contact Info) Description 05/19/2005 Outpatient Historical [address] [phone] Tanner Francis MD [address] [place] [address] HYPERTENSION NOS (Primary Dx); DIABETES MELLITUS TYPE II-UNCOMPL (CMS/HCC); MIXED HYPERLIPIDEMIA; ANEMIA NOS Social History Tobacco Use Types Packs/Day Years Used Date Smoking Tobacco: Never Assessed Sex and Gender Information Value Date Recorded Sex Assigned at Not on file 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
--- OUTSIDE RECORDS SUMMARY | 2025-02-02 21:13 | XMS_ITS | Encounter Summary ---
Author Organization [facility] Address [address] [place] [address] Care Team Providers Care Svp Of Digital Name Role Phone Bren Allen MD Primary Care Provider +1 [phone] Encounter Details Date Type Department Care Team (Late st Contact Info) Description 04/08/2018 Ancillary Orders [facility] Pre-Registration [place] CALL TO MAKE APPOINTMENT ONLY [address] [place] [address] Monserrat Ervin, ELECTROPLATER APPRENTICE [address] [place] [address] Social History Tobacco Use Types Packs/Day Years Used Date Smoking Tobacco: Never Smokeless Tobacco: Never Alcohol Use Standard Drinks/Week Comments Yes 3 (1 standard drink = 0.6 oz pur e alcohol) Sex and Gender Information Value Date Recorded Sex Assigned at Not on file 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
--- OUTSIDE RECORDS SUMMARY | 2025-02-02 21:13 | XMS_ITS | Encounter Summary ---
Author Organization [facility] Address [address] [place] [address] Care Team Providers Care Manager Science Name Role Phone Bren Allen MD Primary Care Provider [phone] [phone] Reason for Referral * MRI (Routine) - Closed Specialty Diagnoses / Procedures Referred By Contac t Referred To Contact Diagnoses Hyperprolactinemia Decreased libido BPH with obstruction/lower urinary tract symptoms Sleep apnea Procedures MRI PITUITARY WITH BRAIN MR W WO CONTRAST Bren Allen MD [address] [place] [address] Phone: tel: fax: [facility] Pre-Registration [place] CALL TO MAKE APPOINTMENT ONLY [address] [place] [facility] [place] [address] Phone: tel: fax: Referral ID Status Reason Start Date Expiration Date V isits Requested Visits Authorized [id number] Closed F [facility] TO SCHEDULE (SGF) 03/08/2018 04/08/2019 1 1 Encounter Details Date Type Department Care Team (Latest Contact Info) Description 03/08/2018 Ancillary Orders [facility] Pre-Registration [place] CALL TO MAKE APPOINTMENT ONLY [address] [place] [facility] [place] [address] Bren Allen MD [address] [place] [address] Hyperprolactinemia; Decreased libido; BPH with obstruction/lower urinary tract symptoms; Sleep apnea Social History Tobacco Use Types Packs/Day Years Used Date Smoking Tobacco: Never Smokeless Tobacco: Never Alcohol Use Standard Drinks/Week Comments Yes 3 (1 standard drink = 0.6 oz pur e alcohol) Sex and Gender Information Value Date Recorded Sex Assigned at Not on file Legal Sex Male 4:49 AM CONSULTING ANALYST Gender Identity Not on file Sexual Orientation Not on file Occupation Industry Job Start Date Job End Date Not on file Not on file Not on file Not on file documented as of this encounter Plan of Treatment Not on file documented as of this encounter Results * MRI PITUITARY WITH BRAIN MR W WO CONTRAST (03/26/2018 3:34 PM CONSULTING ANALYST) Anatomical Region Laterality Modality Magnetic Resonan ce 03/26/2018 3:34 PM CONSULTING ANALYST Impressions 03/27/2018 10:51 AM CONSULTING ANALYST IMPRESSION: Please see below. Exam: MRI PITUITARY [...] apnea documented in this encounter Care Teams Manager Science Relationship Specialty Start Date End Date Bren Allen MD [address] [place] [address] PCP - General Internal Medicine 10/03/17 documented as of this encounter
--- OUTSIDE RECORDS SUMMARY | 2025-02-02 21:13 | XMS_ITS | Encounter Summary ---
Author Organization [facility] Address [address] [place] [address] Care Team Providers Care Compilation Clerk Name Role Phone Bren Allen MD Primary Care Provider +1 [phone] Encounter Details Date Type Department Care Team (Latest Contact Info) Description 04/06/2005 Outpatient Historical [address] [phone] Tanner Francis MD [address] [place] [address] HYPERTENSION NOS (Primary Dx); DIABETES MELLITUS TYPE II UNCONTR UNCOMPL; HYPERLIPIDEMIA NEC/NOS Social History Tobacco Use Types Packs/Day Years Used Date Smoking Tobacco: Never Assessed Sex and Gender Information Value Date Recorded Sex Assigned at Not on file Legal Sex Male 4:49 AM DOVETAILER Gender Identity Not on file Sexual Orientation Not on file documented as of this encounter Plan of Treatment Not on file documented as of this encounter Visit Diagnoses Diagnosis Unspecified essential hypertension- Primary Type II or unspecified type diabetes mellitus without mention of complication, uncontrolled Other and unspecified hyperlipidemia documented in this encounter Care Teams Compilation Clerk Relationship Specialty Start Date End Date Bren Allen MD [address] [place] [address] PCP - General Internal Medicine 10/03/17 documented as of this encounter
--- OUTSIDE RECORDS SUMMARY | 2025-02-02 21:13 | XMS_ITS | Encounter Summary ---
Author Organization [facility] Address [address] [place] [address] Care Team Providers Care Faucets Assembler Name Role Phone Bren Allen MD Primary Care Provider +1 -[phone] Encounter Details Date Type Department Care Team (Latest Contact Info) Description 11/28/2004 Outpatient Historical [address] [phone] Tanner Francis MD [address] [place] [address] [facility] HOME USE MEDICATN (Primary Dx) Social History Tobacco Use Types Packs/Day Years Used Date Smoking Tobacco: Never Assessed Sex and Gender Information Value Date Recorded Sex Assigned at Not on file 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
--- OUTSIDE RECORDS SUMMARY | 2025-02-02 21:13 | XMS_ITS | Encounter Summary ---
Author Organization [facility] Address [address] [facility] [place] [address] Care Team Providers Care Wood Last Maker Name Role Phone Bren Allen MD Primary Care Provider [phone] [phone] Reason for Referral * CT Scan (Routine) - Closed Specialty Diagnoses / Procedures Referred By Contac t Referred To Contact Radiology Diagnoses Localized swelling, mass and lump, upper limb, left Unspecified skin changes Procedures CT FOREARM WO CONTRAST LEFT Monserrat Ervin FNP Phone: tel: fax: [facility] [address] [facility] [address] [place] [address] Phone: tel: fax: Referral ID Status Reason Start Date Expiration Date V isits Requested Visits Authorized [id number] Closed [place]EDU[place] 04/15/2018 05/15/2018 1 1 AMBASSADOR Encounter Details Date Type Department Care Team (Latest Contact Info) Description 04/09/2018 Ancillary Orders [facility] Pre-Registration [place] CALL TO MAKE APPOINTMENT ONLY [address] [place] [address] Monserrat Ervin FNP [address] [place] [address] Localized swelling, mass and lump, upper limb, left; Unspecified skin changes Social History Tobacco Use Types Packs/Day Years Used Date Smoking Tobacco: Never Smokeless Tobacco: Never Alcohol Use Standard Drinks/Week Comments Yes 3 (1 standard drink = 0.6 oz pur e alcohol) Sex and Gender Information Value Date Recorded Sex Assigned at Not on file Legal Sex Male 4:49 AM SLOT AMBASSADOR Gender Identity Not on file Sexual Orientation Not on file Occupation Industry Job Start Date Job End Date Not on file Not on file Not on file Not on file documented as of this encounter Plan of Treatment Not on file documented as of this encounter Results * CT FOREARM WO CONTRAST LEFT (04/15/2018 2:16 PM SLOT AMBASSADOR) Anatomical Region Laterality Modality Upper Extremity Computed Tomogra phy 04/15/2018 2:16 PM SLOT AMBASSADOR Impressions 04/15/2018 3:44 PM SLOT AMBASSADOR IMPRESSION: Please see below. Exam: CT FOREARM [...] No discrete mass. IMPRESSION: 1. Unremarkable exam. [id number] Narrative Procedure Note Ada Salazar MD - [...] No discrete mass. IMPRESSION: 1. Unremarkable exam. [id number] Monserrat Ervin FIELD AUTO APPRAISER CT ORDERABLES Final Result documented in this encounter Visit Diagnoses Diagnosis Localized swelling, mass and lump, upper limb, left Unspecified skin changes Localized swelling, mass and lump, upper limb, left Unspecified skin changes documented in this encounter Care Teams Wood Last Maker Relationship Specialty Start Date End Date Bren Allen MD [address] [place] [phone] PCP - General Internal Medicine 10/03/17 documented as of this encounter
--- OUTSIDE RECORDS SUMMARY | 2025-02-02 21:13 | XMS_ITS | Encounter Summary ---
Author Organization [facility] Address [address] [place] [address] Care Team Providers Care Hospice Team Lead Name Role Phone Bren Allen MD Primary Care Provider [phone] [phone] Encounter Details Date Type Department Care Team (Latest Contact Info) Description 04/10/2005 Outpatient Historical [address] [phone] Tanner Francis MD [address] [place] [address] DIABETES MELLITUS TYPE II UNCONTR UNCOMPL (Primary Dx); HYPERTENSION NOS; GENERAL OSTEOARTHROSIS; ALLERGIC RHINITIS NOS; Vaccine for influenza Social History Tobacco Use Types Packs/Day Years Used Date Smoking Tobacco: Never Assessed Sex and Gender Information Value Date Recorded Sex Assigned at Not on file Legal Sex Male 4:49 AM VP [employer] Gender Identity Not on file Sexual Orientation [...] influenza documented in this encounter Care Teams Hospice Team Lead Relationship Specialty Start Date End Date Bren Allen MD [address] [place] [phone] PCP - General Internal Medicine 10/03/17 documented as of this encounter
--- OUTSIDE RECORDS SUMMARY | 2025-02-02 21:13 | XMS_ITS ---
Author Organization [facility] Address [address] 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 Prostate Cancer Survivorship Care Plan Provided by [facility] on 01/20/19 General Information Patient Name: Blaze Abdul Patient : 1955 Care Team Urologist: Aleksander Marie MD, [facility] Urology [address] [place] [phone], ; Sofía Matute NP [facility] Urology, [address] [place] [phone]. ; Radiation Oncologist: Ivan Sofia MD Gibb, Andria, [place] Radiation Oncology [address] [place] [address] Primary Care Physician: Bren Allen MD [phone] Nurse Navigator: Lola Garcia, ALYSON [facility] GI and Nurse Navigator [address] [address] Other Care Team Providers: Ginna Adan, HIEN, LD-Medical Nutrition Therapist, [facility], [facility], [address] [place] [address], Cancer Staging Prostate cancer Staging form: Prostate, AJCC 8th Edition - Clinical stage from 06/28/2018: Stage IIB (cT2a, cN0, cM0, PSA: 10.8, Grade Group: 2) - Signed by Ivan Sofia MD on 06/28/2018 Treatment Summary Biopsy FINAL DIAGNOSIS A. Prostate, right, core biopsy Histologic Type: Adenocarcinoma (acinar, not otherwise specified) Histologic Grade (Huron Pattern) Primary (Predominant) Pattern: Grade 3 Secondary (Worst Remaining) Pattern: Grade 4 Total Huron Score: 7 Grade Group: 2 Tumor Quantitation: Percentage of Pattern 4 in Lo Score 3+4=7 Cancer: 15% Number of positive [...] late effects of treatment(s): Possible late and longshore equipment operator effects that someone with this type of [...] resources is provided below to assist you. [employer] Cancer Resource Program [address] [place] [address] www.Brightcove K.K..NotaryAct Manjit Fletcher [employer] [facility] [address] [place], [place] [id number] Lebanese Cancer Society [address] [place] [address] [address] [place] [address] CancerCare website: www.cancercare.org National Cancer [place] Breast Cancer Foundation [address] [address] www.bcfo.org FARMER CASH GRAIN Cancer [place] (GYNCA) [address] [place] [address] www.gynca.org National Resources-Cancer Cancer Education Academy of Oncology Nurse & Patient Navigators: www.aonnonline.org Anias Abdirizak Stand Foundation for Childhood Cancer: www.[facility] midtownade.org Lebanese Cancer Society: www.cancer.org Lebanese Society of Clinical Oncology: www.cancer.net Lebanese Urological Association (AUA): www.auanet.org Association of Community Cancer Centers: www.[facility]-cancer.org HAHJQX997: www..org CancerCare: www.cancercare.org CancerGuide: www.cancerguide.org CancerQuest: www.cancerquest.org Centers for Disease Control and Prevention (CDC): www.cdc.gov The [place]: www.touchedbycancer.org Get Palliative Care: www.getpalliativecare.org Global Resource for Advancing Cancer Education (KALLIE): www.cancergrace.org The Hope Light Foundation: www.Samatoa.PNMsoft LIVESTRONG Foundation: www.livestrong.org National Cancer [place]: www.cancer.gov National Comprehensive Cancer Network (NCCN): www.nccn.org National LGBT Cancer Network: http://cancer-network.org OncoLink: www.oncolink.org Oncology Nursing Society: www.ons.org Patient Power: www.patientpower.info PearlPoint Cancer Support: www.pearlpoint.org [place] Foundation: www.augusta healthoundation.org FloKailashMike Formerly [facility] Cancer Foundation: www.blocancer.org Radiation Therapy: www.rtanswers.org [facility]: www.[facility].org Triage Cancer: www.triagecancer.org U.S. National Library of Medicine: www.nlm.nih.gov Financial Assistance Lebanese Cancer Society: www.cancer.org Lebanese Kidney Fund: www.kidneyfund.org BenefitsCheckUp: www.benefitscheckup.org Bringing Hope [place]: www.[facility].org CancerCare: www.cancercare.org/financial Cancer Financial Assistance Coalition: www.cancerc.org NTRglobal: www.One Hour Translation.[employer] Foundation: www.[place].comation.org Hope [place]: www.cancer.org/treatment/supportprogramsservices/hopelodge LIVESTRONG Foundation: www.livestrong.org Medicare.gov: www.medicare.gov NeedyMeds: www.needymeds.PNMsoft Partnership for Prescription Assistance: www.pparx.org Patient Access Network Foundation: www.panfoundation.org Patient Advocate Foundation: www.patientadvocate.org Patient Services, Inc.: www.patientservicesinc.org The Pins for Aneta Foundation: www.pinsforpauly.org RxAssist: www.rxassist.org RxHope: www.rxhope.com Social Security Administration: www.ssa.gov Social Security Disability Resource Center: www.MediaQ,Incrc.PNMsoft State Health Insurance Assistance Programs: www.shiptacenter.org Stupid [...] 0 mo Comments / Evidence of Recurrence: Lebanese Cancer Society Guidelines on Nutrition and Physical [...] hot dogs), desserts, high-fat dairy products and Chinese fries. Most of the studies about cancer [...] dieting. Dieting almost never works over the longshore equipment operator. Ask your doctor about other health professionals who can help you reach a healthy weight. A dietitian can help you make healthy changes in your diet. An security compliance specialist or personal protection specialist can help you develop a safe and effective exercise program. A counselor or psychiatrist can help you cope with issues such as depression, anxiety, or family problems that can make it hard to focus on reaching a healthy weight. Keeping a food diary is a good way to keep track of how much you are eating. A good resource if www.Mapiliary.PNMsoft which is free. Many commercial programs also include this technique. If you choose to enroll, look for a program that teaches lifetime healthy eating habits. Get support from your family, your doctor, your friends, a support group--and support yourself. Where can you learn more? Go to Eviti, choose I Want To... and then choose Search Medical Information. Enter L869 in the search box to learn more about When You Are Overweight: After Your Visit. Current as of: July 16, 2013 Content Version: 10. ?? 0152-8165 Prescreen. Care instructions adapted under license by LiquidPlanner. Liquid[employer]anner disclaims any warranty or liability for your use of this information. This information is not intended to represent the ethical and episcopalian beliefs of [facility]. This care instruction is for use with your licensed healthcare professional. If you have questions about a medical condition or this instruction, always ask your healthcare professional. Prescreen disclaims any warranty or liability for your [...] of exerciseis right for you. [facility] offers exercise programs; nutritional counseling and support groups that can help manage and alleviate cancer-related fatigue. For more information call [phone]. Energy Conservation and Stress Management Set priorities for what you must do each day. Plan activities during times of peak energy. Take short naps as needed, but do not sleep so much during the day that it interferes with sleepingat night. Go to bed and get up at a consistent time each day. [facility] can assist with support groups and financial counselors. For more information call [phone]. Find Internet blogs for cancer patients offered by the Lebanese Cancer Society, and other agencies. EJACULATION AND [...] future use. See Fertility and cancer treatment. http://www.cancer.org/ssLINK/frftbjgay-ruo-fzw-rlqe-dlixxj-ipachpfio-and- treatment Some men also feel their orgasm is weaker than before. A mild decrease in the intensity of the orgasm is normal with aging, but it can be more severe in men whose cancer treatments interfere with ejaculation of semen. See Is there a way to make orgasms as intense as they used to be? in Dealing with sexual problems. http://www.cancer.org/ssLINK/bgnezktra-zlz-vlf-dcnx-beiqrp-ted-problems Surgery and Ejaculation Surgery can affect ejaculation [...] at the link below for more information). http://www.cancer.org/ssLINK/qlmwjovfyu-djbmlr-jkjzbhun-guide-mark Some medicines can also restore ejaculation of [...] the nerve that control emission. Reference: 2011 Lebanese Cancer Society and www.journeyforward.org Second Cancers Caused [...] second cancer. Some studies looking at the longshore equipment operator effects of prostate cancer treatment have found [...] bleeding toyour doctor right away. Reference: 2011 Lebanese Cancer Society and www.journeyforward.org What Happens After [...] gives more detailed information on this. http://www.cancer.org/ssL INK/iwxamv-mioz-flngkxnaxab-mark Follow up-Care When treatment ends, your doctors [...] more information, see How is prostate cancertreated? http://www.cancer.org/ssLINK/pezwminr-ioixxi-gztcvkhy-general-info Should your cancer come back, the document When Your Cancer Comes Back: Cancer Recurrence can give you information on how to manage and cope with this phase of your treatment. http://www.cancer.org/ssLINK/dbpp-ywnk-uqwwbr-qkrwc-zqnr-rgf Reference: 2011 Lebanese Cancer Society and www.journeyforward.org MALE PELVIC FLOOR [...] a permanent part of your daily routine. https://www.[facility].org/healthy-lifestyle/mens-health/in-depth/kegel-exercise s-for-men/art-80285823 Important caution: this is a summary document [...]
--- OUTSIDE RECORDS SUMMARY | 2025-02-02 21:13 | XMS_ITS | Encounter Summary ---
Author Organization [facility] Address [address] [place] [address] Care Team Providers Care Collection Development Librarian Name Role Phone Bren Allen MD Primary Care Provider [phone] [phone] Reason for Referral * Outpatient Services (Routine) - Closed Specialty Diagnoses / Procedures Referred By Contac t Referred To Contact Diagnoses Pain Procedures XR FLUORO LESS THAN 1 HOUR Aleksander Marie MD Phone: tel: fax: Referral ID Status Reason Start Date Expiration Date Visits Requested Visits Authorized [id number] Closed Ordering Department To Schedule 11/02/2014 12/03/2015 1 1 Encounter Details Date Type Department Care Team (Late st Contact Info) Description 11/02/2014 Ancillary Orders [facility] [place] [address] [place] [phone] Aleksander Marie MD [address] [address] Pain (Primary Dx) Social History Tobacco Use Types Packs/Day Years Used Date Smoking Tobacco: Never Smokeless Tobacco: Never Alcohol Use Standard Drinks/Week Comments No 0 (1 standard drink = 0.6 oz pur e alcohol) Sex and Gender Information Value Date Recorded Sex Assigned at Not on file 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
--- OUTSIDE RECORDS SUMMARY | 2025-02-02 21:13 | XMS_ITS | Encounter Summary ---
Author Organization [facility] Address [address] [place] [address] Care Team Providers Care School Age Lead Teacher Name Role Phone Bren Allen MD Primary Care Provider [phone] [phone] Encounter Details Date Type Department Care Team (Latest Contact Info) Description 07/19/2005 Outpatient Historical [address] [phone] Tanner Francis MD [address] [place] [address] Unspecified Essential Hypertension (Primary Dx); Mixed Hyperlipidemia; Unspecified Anemia; DM w/o Complication Type II (CMS/HCC) Social History Tobacco Use Types Packs/Day Years Used Date Smoking Tobacco: Never Assessed Sex and Gender Information Value Date Recorded Sex Assigned at Not on file 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 Gender Identity Not on file Sexual Orientation Not on file documented as of this encounter Plan of Treatment Not on file documented as of this encounter Visit Diagnoses Diagnosis Unspecified essential hypertension- Primary Mixed hyperlipidemia Anemia, unspecified Type II or unspecified type diabetes mellitus without mention of complication, not stated as uncontrolled documented in this encounter Care Teams School Age Lead Teacher Relationship Specialty Start Date End Date Bren Allen MD [address] [place] [phone] PCP - General Internal Medicine 10/03/17 documented as of this encounter
[2025-02-02] MEDS: HYDROcodone-acetaminophen 7.5-325 mg Tablet 1 TAB PO (21:29)
--- NOTE | 2025-02-02 21:30 | W.ED.WOUNDLC ---
HPI - Wound/Laceration General: Chief Complaint: Wound/Laceration Stated Complaint: right foot injury/wound Time Seen by Provider: 02/02/25 20:56 Source: patient Mode of arrival: ambulatory Limitations: no limitations History of Present Illness: Patient is a 69-year-old male who presents the emergency department by ambulance due to bleeding right calcaneal wound. This is a chronic wound of the patient, he is a type II diabetic and also sees Dr. Clay for wound care. He is also seeing Dr. Crenshaw for podiatry but from here was referred to wound care due to ongoing management. He has issues with it bleeding in the past but states that normally it is able to ameliorate with direct pressure and tonight with dressing change the bleeding was uncontrolled. He arrives with Curlex in place, appears to be mild oozing through the bandage. Patient otherwise has no symptoms to report, no pain, fever, chills, nausea or vomiting. Vitals are stable at this time. He is recently hospitalized for acute kidney injury as well as cellulitis to the right foot, these notes are being reviewed at this time. Extremity Location: Right: foot Associated symptoms: Denies chills, fever(s), nausea or vomiting Related Data Home Medications ?Medication ?Instructions ?Recorded ?Confirmed acetaminophen 500 mg capsule 500 mg PO Q4H PRN Pain 07/29/19 01/08/25 albuterol sulfate 90 mcg/actuation 2 inh inhalation Q4H PRN COPD 07/29/19 01/08/25 breath activated powder inhaler aspirin 81 mg tablet,delayed 81 mg PO DAILY 07/29/19 01/08/25 release atorvastatin 40 mg tablet 40 mg PO QPM 07/29/19 01/08/25 cetirizine 10 mg capsule 10 mg PO DAILY 07/29/19 01/08/25 gemfibrozil 600 mg tablet 600 mg PO BID 07/29/19 01/08/25 nitroglycerin 0.4 mg sublingual 0.4 mg sublingual Q5M PRN Chest 07/29/19 01/08/25 tablet (Nitrostat) Pain potassium chloride 20 mEq 20 meq PO DAILY 07/29/19 01/08/25 tablet,extended release spironolactone 25 mg tablet 25 mg PO DAILY 07/29/19 01/08/25 tramadol 50 mg tablet 100 mg PO Q4H PRN Pain 07/29/19 01/08/25 aripiprazole 5 mg tablet 5 mg PO DAILY 12/17/24 01/08/25 clotrimazole 10 mg deon 10 mg PO .5XDAILY 12/17/24 01/08/25 dapagliflozin propanediol 10 mg 10 mg PO QAM 12/17/24 01/08/25 tablet (Farxiga) famotidine 40 mg tablet 40 mg PO BID 12/17/24 01/08/25 gabapentin 300 mg capsule 300 mg PO TID 12/17/24 01/08/25 hydrocodone 7.5 mg-acetaminophen 1 tab PO .Q4-6H PRN Severe Pain 12/17/24 01/08/25 325 mg tablet (Scale Score 7-10) mometasone 100 mcg/actuation HFA 2 puff inhalation BID 12/17/24 01/08/25 aerosol inhaler (Asmanex HFA) nystatin-triamcinolone 100,000 1 applic topical BID 12/17/24 01/08/25 unit/gram-0.1 % topical ointment sertraline 100 mg tablet 100 mg PO DAILY 12/17/24 01/08/25 solifenacin 10 mg tablet 10 mg PO DAILY 12/17/24 01/08/25 torsemide 100 mg tablet 100 mg PO DAILY 12/17/24 01/08/25 Previous Rx's ?Medication ?Instructions ?Recorded polyethylene glycol 3350 17 4 g PO DAILY #119 grams 12/21/24 gram/dose oral powder (Miralax) insulin glargine 100 unit/mL (3 35 unit (0.35 mL) SUBCUT QPM #15 mL 12/24/24 mL) subcutaneous pen (Lantus Solostar U-100 Insulin) insulin lispro 100 unit/mL See Protocol SUBCUT QPM #15 mL 12/24/24 subcutaneous pen (Humalog KwikPen (U-100) Insulin) Allergies Allergy/AdvReac Type Severity Reaction Status Date / Time penicillin G Allergy Severe anaphylactic Verified 01/08/25 09:11 shock iodine Allergy Mild itching Verified 01/08/25 09:11 Sulfa (Sulfonamide Allergy ALGY-Rash Verified 01/08/25 09:11 Antibiotics) Review of Systems General: Reports: 10 or more systems reviewed and unremarkable except in HPI and below Const: Denies: fever(s) or chills Card: Denies: chest pain Resp: Denies: dyspnea or productive cough GI: Denies: abdominal pain, nausea, vomiting or diarrhea : Denies: flank pain Musc: Denies: neck pain, back pain, extremity pain, extremity swelling, joint pain, joint swelling, joint redness, joint warmth, limited range of motion or muscle weakness Skin/Breast: Reports: lesions (Bleeding calcaneal ulcer right foot); Denies: rash Neuro: Denies: headache(s), numbness in extremities or weakness in extremities PFSH ED PFSH: Medical History Type 2 diabetes mellitus with foot ulcer Type 2 diabetes mellitus with other skin ulcer Post-operative state Cervical disc disorder with myelopathy of mid-cervical region Morbid obesity with BMI of 40.0-44.9, adult Polyneuropathy, peripheral sensorimotor axonal Spondylolisthesis, lumbar region Spinal stenosis of lumbar region with radiculopathy Surgical History History of cervical spinal surgery 09/08/2019 Dr. Billie Jensen C5-C6 ACDFF History of tonsillectomy and adenoidectomy History of vasectomy History of cornea transplant History of coronary artery stent placement History of amputation of toe Family History Father Cancer Mother Heart disease Social History Smoking and tobacco/nicotine status: never used tobacco/nicotine Alcohol intake: current Substance/Drug Use: never Additional social history: Patient wants full CODE STATUS if there is a chance of survival but not CPR if it is futile as discussed on 12/17/2024 with Nacho Rodriguez MD. 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 He states he is twice and both ex-wives are . He is estranged from his sons but his next of kin is one of his daughters Daiana Abdul in [place] Household members: none Marital status: Single Current occupational status: disabled Physical Exam Const: COMMON NORMALS: no acute distress, patient oriented x3 and alert ORIENTATION/CONSCIOUSNESS: Yes awake OTHER: Chronically ill-appearing, morbidly obese BMI 43. No apparent distress at this time HENMT: COMMON NORMALS: normocephalic and atraumatic HEAD & SCALP: normocephalic and atraumatic Neck/C-Spine: COMMON NORMALS: full ROM, supple and no meningeal signs Resp: COMMON NORMALS: normal respiratory effort, No use of accessory muscles and clear to auscultation bilaterally AUSCULTATION: clear to auscultation bilaterally Cardio: COMMON NORMALS: regular rate and regular rhythm RATE: regular rate RHYTHM: regular rhythm GI: OTHER: Large abdomen Extremity: NARRATIVE EXTREMITY EXAM: Bilateral venous stasis changes to lower extremities with 3+ edema. Erythema with no significant warmth to bilateral lower extremities. The right foot is dressed in Kerlix with pressure dressing at time of initial examination, appears to be mild oozing through the bandage. Removal of the Kerlix bandage and pressure dressing shows no active bleeding, large ulcerated lesion to the calcaneal region. To the distal digits of the right foot there are also chronic appearing wounds with no active bleeding, oozing, or drainage. Neuro: COMMON NORMALS: patient oriented x3, moves all extremities, no focal motor deficits and no sensory deficits noted SENSORIUM/ORIENTATION: Yes alert MENINGEAL SIGNS: Yes no meningeal signs Skin: NARRATIVE SKIN EXAM: See the extremity exam Course Vital Signs: Vital signs: Vital Signs Temperature 97.9 F 02/02/25 20:52 Pulse Rate 78 02/02/25 23:52 Respiratory Rate 18 02/02/25 23:52 Blood Pressure 122/65 02/02/25 23:52 Pulse Oximetry 96 02/02/25 23:52 Oxygen Delivery Me thod Room Air 02/02/25 22:30 MDM - Wound/Laceration Medical Decision Making This patient present by ambulance for bleeding calcaneal ulcer, he sees wound care regularly for this states that tonight it was bleeding and uncontrollable. On arrival was noted to be oozing through Kerlix, however over the course of the stay in the ED the bleeding had stopped spontaneously. Blood cultures had been obtained preemptively, CBC does not reveal any leukocytosis and overall his lab work was reassuring for any systemic infection rule out. I personally reviewed the x-ray of the foot, there is no significant change from prior on 12/17 and he does have chronic wounds to the distal digits as well. He had no fevers or chills reported at home, was actually asymptomatic completely other than the bleeding which has stopped here in the ED. I consulted with on-call grade setter, Dr. La, who agrees that with the bleeding stopped that this can follow-up with wound care regularly. There was no concerns for spreading infection as well with no red streaking noted or significant unilateral warmth, and being afebrile here in the emergency department. With him having prompt follow-up with wound care available, and bleeding stopped here in the emergency department, he has Surgicel dressing placed and allowed discharge home with strict return precautions. If he starts developing fevers or chills, he is informed to come back, if bleeding continues or if he has any pain or signs of infection he is encouraged to return immediately to the emergency department. Lab Data 02/02/25 21:17 02/02/25 21:17 Radiology Impressions Foot X-Ray 02/02/25 21:02 IMPRESSION: 1. Findings concerning for osteomyelitis of the 1st digit distal tuft. 2. Generalized soft tissue edema of the foot. Correlate for cellulitis. 3. Suggested calcaneal soft tissue ulcer without evidence of subjacent osteomyelitis. 4. Peripheral vascular disease. Laboratory Results WBC 11.43 10^3/uL (3.29-11.43) 02/02/25 21:17 RBC 4.01 10^6/uL (3.85-5.65) 02/02/25 21:17 Hgb 11.20 g/dL (11.27-16.99) L 02/02/25 21:17 Hct 36.0 % (37-53) L 02/02/25 21:17 MCV 89.8 fl (82-101) 02/02/25 21:17 MCH 27.9 pg (27-33) 02/02/25 21:17 MCHC 31.1 g/dL (30-55) 02/02/25 21:17 RDW 16.9 % (12.1-15.1) H 02/02/25 21:17 Plt Count 349 10^3/cmm (157-399) 02/02/25 21:17 MPV 9.6 fL (7.4-10.4) 02/02/25 21:17 Neut % (Auto) 70.1 % 02/02/25 21:17 Lymph % (Auto) 12.9 % 02/02/25 21:17 [place] % (Auto) 9.7 % 02/02/25 21:17 Eos % (Auto) 5.0 % 02/02/25 21:17 Baso % (Auto) 0.6 % 02/02/25 21:17 Neut # (Auto) 8.02 10^3/uL (1.8-7.7) H 02/02/25 21:17 Lymph # (Auto) 1.5 10^3/uL (0.8-4.8) 02/02/25 21:17 [place] # (Auto) 1.1 10^3/uL (0.2-0.9) H 02/02/25 21:17 Eos # (Auto) 0.6 10^3/uL (0.0-0.8) 02/02/25 21:17 Baso # (Auto) 0.1 10^3/uL (0.0-0.1) 02/02/25 21:17 Nucleated RBC % (auto) 0 % 02/02/25 21:17 Nucleated RBCs # 0.0 /100WBC 02/02/25 21:17 PT 13.00 SECONDS (12.1-14.9) 02/02/25 21:17 INR 0.92 (0.8-1.2) 02/02/25 21:17 APTT 28.3 SECONDS (23.9-36.7) 02/02/25 21:17 Sodium 136 mmol/L (136-145) 02/02/25 21:17 Potassium 3.7 mmol/L (3.5-5.1) 02/02/25 21:17 Chloride 92 mmol/L (98-107) L 02/02/25 21:17 Carbon Dioxide 30 mmol/L (22-29) H 02/02/25 21:17 Anion Gap 17.7 (5-19) 02/02/25 21:17 BUN 23 mg/dL (8-23) 02/02/25 21:17 Creatinine 1.3 mg/dL (0.7-1.2) H 02/02/25 21:17 GFR Calculation 54.9 mL/min (90-130) L 02/02/25 21:17 Glucose 442 mg/dL (65-115) H 02/02/25 21:17 Calculated Osmolality 305 mOsm/kg (285-295) H 02/02/25 21:17 Calcium 9.2 mg/dL (8.5-10.5) 02/02/25 21:17 Total Bilirubin 0.2 mg/dL (0.15-1.2) 02/02/25 21:17 AST 10 U/L (0-40) 02/02/25 21:17 ALT 9 U/L (0-41) 02/02/25 21:17 Alkaline Phosphatase 124 U/L (40-130) 02/02/25 21:17 Total Protein 7.3 g/dL (6.6-8.7) 02/02/25 21:17 Albumin 3.5 g/dL (3.5-5.2) 02/02/25 21:17 Globulin 3.8 g/dL (1.3-4.6) 02/02/25 21:17 XR interpretation done by ED provider, pending radiology final review ED provider radiology interpretation(s): Reviewed with prior foot x-ray on 12/17. There is no significant change, no obvious fracture. Discharge Plan Discharge Patient Disposition: Home Clinical Impression: Ulcer of right foot with fat layer exposed Condition: Stable Prescriptions: No Action tramadol 50 mg tablet 100 mg PO Q4H PRN (Reason: Pain) acetaminophen 500 mg capsule 500 mg PO Q4H PRN (Reason: Pain) aspirin 81 mg tablet,delayed release (DR/EC) 81 mg PO DAILY nitroglycerin [Nitrostat] 0.4 mg tablet, sublingual 0.4 mg SUBLINGUAL Q5M PRN (Reason: Chest Pain) cetirizine 10 mg capsule 10 mg PO DAILY gemfibrozil 600 mg tablet 600 mg PO BID atorvastatin 40 mg tablet 40 mg PO QPM spironolactone 25 mg tablet 25 mg PO DAILY potassium chloride 20 mEq tablet extended release 20 meq PO DAILY albuterol sulfate 90 mcg/actuation aerosol powdr breath activated 2 inh INHALATION Q4H MDD . PRN (Reason: COPD) clotrimazole 10 mg deon 10 mg PO .5XDAILY famotidine 40 mg tablet 40 mg PO BID sertraline 100 mg tablet 100 mg PO DAILY nystatin-triamcinolone 100,000-0.1 unit/gram-% ointment 1 applic TOPICAL BID torsemide 100 mg tablet 100 mg PO DAILY hydrocodone-acetaminophen 7.5-325 mg tablet 1 tab PO .Q4-6H PRN (Reason: Severe Pain (Scale Score 7-10)) gabapentin 300 mg capsule 300 mg PO TID aripiprazole 5 mg tablet 5 mg PO DAILY solifenacin 10 mg tablet 10 mg PO DAILY dapagliflozin propanediol [Farxiga] 10 mg tablet 10 mg PO QAM Asmanex HFA 100 mcg/actuation HFA aerosol inhaler 2 puff INHALATION BID polyethylene glycol 3350 [Miralax] 17 gram/dose powder 4 g PO DAILY Qty: 119 0RF insulin glargine [Lantus Solostar U-100 Insulin] 100 unit/mL (3 mL) insulin pen 35 unit SUBCUT QPM Qty: 15 0RF insulin lispro [Humalog KwikPen Insulin] 100 unit/mL insulin pen See Protocol SUBCUT QPM Qty: 15 0RF Protocol: Insulin Corrective High-Dose Regimen Condition: Fingerstick Blood Glucose Dose/Route: Insulin Units Condition: 141-180 mg/dl Dose/Route: 2 units/SQ Condition: 181-220 mg/dl Dose/Route: 4 units/SQ Condition: 221-260 mg/dl Dose/Route: 4 units/SQ Condition: 261-300 mg/dl Dose/Route: 8 units/SQ Condition: 301-350 mg/dl Dose/Route: 10 units/SQ Condition: 351-400 mg/dl Dose/Route: 12 units/SQ Condition: greater than 400 mg/dl Dose/Route: 14 units/SQ Discharge Orders: Discharge ED (Routine); Ordered 02/02/25 Ordered By: Tanner Sosa Referrals: Bren Allen [Primary Care Provider] Patient Instructions: Patient Portal & Jean Carlos Instructions Activity Restrictions/Additional Instructions: Follow up with wound care tomorrow. Continue regular dressing changes. Return with any fevers, worsening pain, nausea/vomiting, or any other concerns. Print Language: Maltese Coding Level of Care Code ED Slabber Light for Sonny Treviño
[2025-02-02 21:38] LABS: Hematocrit 36.0 % (37-53); Hemoglobin 11.20 g/dL (11.27-16.99); Mean Corpuscular HGB Conc 31.1 g/dL (30-55); Mean Corpuscular Hemoglobin 27.9 pg (27-33); Mean Corpuscular Volume 89.8 fl (82-101); Nucleated Red Blood Cells % 0 %; Platelet Count 349 10^3/cmm (157-399); Red Blood Count 4.01 10^6/uL (3.85-5.65); White Blood Count 11.43 10^3/uL (3.29-11.43)
[2025-02-02 21:40] VITALS: BP 117/62; PULSE 70; RESP 16; O2SAT 92
[2025-02-02 21:42] LABS: INR 0.92 (0.8-1.2); Prothrombin Time 13.00 SECONDS (12.1-14.9)
[2025-02-02 21:43] LABS: Partial Thromboplastin Time 28.3 SECONDS (23.9-36.7)
[2025-02-02 21:51] LABS: Alanine Aminotransferase 9 U/L (0-41); Albumin Level 3.5 g/dL (3.5-5.2); Alkaline Phosphatase 124 U/L (40-130); Anion Gap 17.7 (5-19); Aspartate Amino Transferase 10 U/L (0-40); Blood Urea Nitrogen 23 mg/dL (8-23); Calcium 9.2 mg/dL (8.5-10.5); Carbon Dioxide 30 mmol/L (22-29); Chloride 92 mmol/L (98-107); Creatinine Clr Calc Pharmacy 87.1505; Globulin 3.8 g/dL (1.3-4.6); Glucose 442 mg/dL (65-115); Osmolality Calculated 305 mOsm/kg (285-295); Potassium 3.7 mmol/L (3.5-5.1); Sodium 136 mmol/L (136-145); Total Protein 7.3 g/dL (6.6-8.7)
[2025-02-02 22:00] VITALS: BP 149/85; PULSE 72; RESP 16; O2SAT 92
[2025-02-02 22:30] VITALS: BP 108/58; PULSE 76; RESP 16; O2SAT 94
[2025-02-02 23:52] VITALS: BP 122/65; PULSE 78; RESP 18; O2SAT 96
== END 2025-02-02 23:58 | disposition home or self-care (01) ==
PROVIDERS: Emergency Provider Physician Assistant; PCP Internal Medicine
DX: E11.621 Type 2 diabetes mellitus with foot ulcer (principal); L97.412 Non-pressure chronic ulcer of right heel and midfoot with fat layer exposed; Z79.82 Long term (current) use of aspirin; Z79.4 Long term (current) use of insulin
CPT/HCPCS: 36415; 73630; 80053; 85025; 85610; 85730; 87040; 99284; J9999

== ENCOUNTER → 2025-03-03 10:02 | Outpatient (BNVA) | payer MEDICARE, MEDICAID, SELFPAY | PROVIDERS: Visit Provider Thoracic Surgery (Cardiothoracic Vascular Surgery) | DX: I96 Gangrene, not elsewhere classified (principal); L89.323 Pressure ulcer of left buttock, stage 3 | CPT/HCPCS: 11042 ==

== ENCOUNTER → 2025-03-18 10:22 | Outpatient (BNVA) | payer MEDICARE, MEDICAID, SELFPAY | PROVIDERS: Visit Provider Thoracic Surgery (Cardiothoracic Vascular Surgery) | DX: I96 Gangrene, not elsewhere classified (principal); L98.411 Non-pressure chronic ulcer of buttock limited to breakdown of skin | CPT/HCPCS: 97597; A6212 ==

== ENCOUNTER → 2025-04-06 09:03 | Outpatient (BNVA) | payer MEDICARE, MEDICAID, SELFPAY | PROVIDERS: Visit Provider Thoracic Surgery (Cardiothoracic Vascular Surgery) | DX: I96 Gangrene, not elsewhere classified (principal); L98.412 Non-pressure chronic ulcer of buttock with fat layer exposed | CPT/HCPCS: 11042; A6212 ==

== ENCOUNTER → 2025-04-13 10:32 | Outpatient (BNVA) | payer MEDICARE, MEDICAID, SELFPAY | PROVIDERS: Visit Provider Thoracic Surgery (Cardiothoracic Vascular Surgery) | DX: I96 Gangrene, not elsewhere classified (principal); L98.412 Non-pressure chronic ulcer of buttock with fat layer exposed | CPT/HCPCS: 97597 ==